=== PATIENT | female | born 1950 | race Caucasian/White ===

== ENCOUNTER 2023-12-13 16:40 | Emergency (ER) | payer MEDICARE, SELFPAY ==
[2023-12-13 16:54] VITALS: BP 120/52; BP 126/42; PULSE 71; PULSE 88; RESP 20; TEMP 36.7; O2SAT 95; O2SAT 98; BMI 35.0
[2023-12-13 16:59] VITALS: BP 126/42; PULSE 71; RESP 21; TEMP 36; O2SAT 95
[2023-12-13 16:59] LABS: Glucose, Whole Blood 103 mg/dL (60-115)
--- OUTSIDE RECORDS SUMMARY | 2023-12-13 17:39 | XMS_ITS | Continuity of Care Document ---
Author Organization [facility] Address [address] [place] [address]- Care Team Providers Care Shipping Lead Person Name Role Phone Moinque Jason Primary Care Physician Encounter [facility] [place] Date(s): 02/20/23 - 02/24/[address] [address]- Discharge Disposition: A-D/C Home Attending Physician: Manisha PINEDA, Jason Riddle Admitting Physician: Jennifer PINEDA, Prakash Olivia Referring Physician: Not on Staff, Referring MD Allergies, Adverse Reactions, Alerts Substance Reaction Severity Status hydrochlorothiazide-triamterene Active penicillins Active Byetta Prefilled Pen Active Immunizations Given and Recorded Vaccine Date Status Refusal Reason [id number] 12y+ bivalent booster vax 05/28/22 Recorded influenza virus vaccine, inactivated 03/08/22 Lew rded SARS-CoV-2 (COVID-19) mRNA-1273 vaccine 11/22/21 R ecorded SARS-CoV-2 (COVID-19) mRNA-1273 vaccine 04/28/21 R ecorded SARS-CoV-2 (COVID-19) mRNA-1273 vaccine 10/18/20 R ecorded SARS-CoV-2 (COVID-19) mRNA-1273 vaccine 09/20/20 R ecorded Medications amLODIPine 10 mg oral tablet 10 mg, Tablet, By Mouth, 02/24/23 9:00:00 EDT Start Date: 02/24/23 Stop Date: 02/24/23 Status: Completed amLODIPine 5 mg oral tablet 10 mg, 2, tablet, By Mouth, Daily, # 30 tablet, Refills 0, Maintenance, 09/21/18 2:37:57 EDT Start Date: 09/21/18 Status: Ordered aspirin 81 mg oral tablet 1 tablet = 81 mg, By Mouth, Daily, # 90 tablet, 0 Refills, Maintenance, 12/10/18 10:23:27 EDT, Tablet Start Date: 12/10/18 Status: Ordered Atenolol = 25 mg, By Mouth, Daily, 0 Refills, Maintenance, 09/21/18 2:38:29 EDT Start Date: 09/21/18 Status: Ordered atenolol 50 mg oral tablet 50 mg, Tablet, By Mouth, 02/24/23 9:00:00 EDT Start Date: 02/24/23 Stop Date: 02/24/23 Status: Completed atenolol 50 mg oral tablet 50 mg, Tablet, By Mouth, 02/22/23 9:00:00 EDT Start Date: 02/22/23 Stop Date: 02/22/23 Status: Completed atenolol 50 mg oral tablet 50 mg, Tablet, By Mouth, 02/23/23 9:00:00 EDT Start Date: 02/23/23 Stop Date: 02/23/23 Status: Completed atorvastatin 80 mg oral tablet 1 tablet = 80 mg, By Mouth, Daily, # 30 tablet, 0 Refills, Maintenance, Tablet Start Date: 09/23/18 Status: Ordered Augmentin 875 mg-125 mg oral tablet 1 tablet, By Mouth, 2 times a day, for 5 days, # 10 tablet, 0 Refills, Acute 03/01/23 14:38:00 EDT,02/24/23 14:38:00 EDT, [id number], Partial fill upon patient request if the prescription is for a schedule II opioid drug., 173, cm, 02/23/23 16:3... Start Date: 02/24/23 Stop Date: 03/01/23 Status: Ordered Basaglar KwikPen 100 units/mL subcutaneous solution = 50 units, Subcutaneous Injection, 2 times a day, 0 Refills, Maintenance, 02/21/23 8:36:00 EDT, Partial fill upon patient request if the prescription is for a schedule II opioid drug. Start Date: 02/21/23 Status: Ordered buPROPion 150 mg/12 hours (SR) oral tablet, extended release 1 tablet = 150 mg, By Mouth, 2 times a day, # 180 tablet, 0 Refills, Maintenance, 09/23/18 13:49:10EDT, ER Tablet Start Date: 09/23/18 Status: Ordered Lasix 20 mg oral tablet 40 mg, 2, tablet, By Mouth, Daily, # 60 tablet, Refills 0, Tot. Refills 0, Maintenance, 09/08/19 9:58:00 EDT, Route to Pharmacy Electronically, [facility] - [address], 173, cm, 09/08/19 7:57:00 EDT, Height, 112.8, kg, 09/07/19 4:51:00 EDT, Dry Weight Start Date: 09/08/19 Stop Date: 10/08/19 Status: Ordered levothyroxine 125 mcg (0.125 mg) oral tablet 1 tablet = 125 mcg, By Mouth, Daily, # 30 tablet, 0 Refills, Maintenance, 09/21/18 2:37:17 EDT, Tablet Start Date: 09/21/18 Status: Ordered Losartan = 100 mg, By Mouth, Daily, 0 Refills, Maintenance, 12/10/18 10:26:36 EDT Start Date: 12/10/18 Status: Ordered losartan 50 mg oral tablet 100 mg, Tablet, By Mouth, 02/24/23 9:00:00 EDT Start Date: 02/24/23 Stop Date: 02/24/23 Status: Completed NovoLOG 100 units/mL subcutaneous solution 20-40units, Subcutaneous Injection, 3 times a day before meals, # 10 mL, 0 Refills, Maintenance, 11/25/22 23:06:00 EDT, Solution, Partial fill upon patient request if the prescription is for a schedule II opioid drug. Start Date: 11/25/22 Status: Ordered Protonix 40 mg oral delayed release tablet 1 tablet = 40 mg, By Mouth, Daily, # 30 tablet, 3 Refills, Maintenance, 06/28/19 8:36:00 EST, EC Tablet, 172.72, cm, 04/19/19 10:29:00 EDT, Height, 108.6, kg, 06/18/19 11:35:00 EST, Dry Weight Start Date: 06/28/19 Status: Ordered Tylenol Extra Strength 500 mg oral tablet 1 tablet = 500 mg, By Mouth, 3 times a day, Med list states 2-3x/day, 0 Refills, Maintenance, 02/20/23 11:32:00 EDT, Partial fill upon patient request if the prescription is for a schedule II opioid drug. Start Date: 02/20/23 Status: Ordered Problem List Condition Confirmation Course Effective Dates Status H ealth Status Informant Acute calculous cholecystitis Confirmed 03/04/13 Active Acute Cholecystitis Confirmed 03/22/13 Active Severe obesity Confirmed Active Results Orders for Microbiology Reports Name Date Sputum Culture w/ Gram Smear 02/21/23 Blood Culture 02/19/23 Blood Culture #2 02/19/23 Urine Culture (URINE CULTURE) 02/19/23 Microbiology Reports TEST:Sputum Culture STATUS:Auth (Verified) BODY SITE: SOURCE:EXPECT COLLECTED DATE/TIME:02/21/23 2:54 PM Sputum Culture SPECIMEN DESCRIPTION : EXPECTORATED SPUTUM SPECIAL REQUESTS : NONE GRAM STAIN : 2+ POLYMORPHONUCLEAR LEUKOCYTES 1+ TISSUE CELLS NO ORGANISMS SEEN CULTURE : 1+ NORMAL KATHY REPORT STATUS : FINAL 02/24/2023 TEST:Blood Culture, Second Order STATUS:Unauthenticated BODY SITE: SOURCE:Blood COLLECTED DATE/TIME:02/19/23 8:17 PM Blood Culture, Second Order SPECIMEN DESCRIPTION : BLOOD RAC SPECIAL REQUESTS : NONE CULTURE : NO GROWTH 4 DAYS REPORT STATUS : PRELIMINARY REPORT TEST:Blood Culture STATUS:Unauthenticated BODY SITE: SOURCE:Blood COLLECTED DATE/TIME:02/19/23 8:15 PM Blood Culture SPECIMEN DESCRIPTION : BLOOD LAC SPECIAL REQUESTS : NONE CULTURE : NO GROWTH 4 DAYS REPORT STATUS : PRELIMINARY REPORT TEST:Urine Culture STATUS:Auth (Verified) BODY SITE: SOURCE:URINE COLLECTED DATE/TIME:02/19/23 7:41 PM Urine Culture SPECIMEN DESCRIPTION : URINE BD TRANSPORT TUBE SPECIAL REQUESTS : NONE CULTURE : >100,000 COL/ML KLEBSIELLA OXYTOCA This isolate was identified using Maldi-TOF system These AST results were performed on the [employer] ID and AST system REPORT STATUS : FINAL 02/22/2023 ORGANISM >100,000 COL/ML KLEBSIELLA OXYTOCA This isolate was identified using Maldi-TOF system These AST results were performed on the [employer] ID and AST system METHOD MIN. INHIB. CONC. (MCG/ML) AMOXICILLIN/CLAVULAN SUSCEPTIBLE AMPICILLIN RESISTANT AMPICILLIN/SULBACTAM SUSCEPTIBLE CEFAZOLIN RESISTANT CEFEPIME SUSCEPTIBLE CEFTRIAXONE SUSCEPTIBLE CIPROFLOXACIN SUSCEPTIBLE ERTAPENEM SUSCEPTIBLE GENTAMICIN SUSCEPTIBLE LEVOFLOXACIN SUSCEPTIBLE MEROPENEM SUSCEPTIBLE NITROFURANTOIN SUSCEPTIBLE PIPERACILLIN/TAZOBAC SUSCEPTIBLE TETRACYCLINE SUSCEPTIBLE TRIMETH/SULFAMETHOX SUSCEPTIBLE Radiology Reports * Exam Date Time Procedure Performing Provider Status 02/24/23 1:43 PM NM Lung Perfusion Newton Payne; Auth (Verified) Notes: (NM Lung Perfusion) Reason For Exam: Other: RESULT: NM Lung Perfusion Pulmonary perfusion scintigraphy dated February 24, 2023. [facility] H[facility]ORY: Shortness of breath. FINDINGS: Today's study was performed with the intravenous infusion of 4.1 mCi of technetium 99m labeled MAA. Perfusion is fairly homogeneous. No segmental or subsegmental perfusion defect is appreciated. IMPRESSION: These findings would not support the diagnosis of pulmonary embolism. Thank you for allowing me to participate in the care of this patient. WSN: [id number] Ordering Physician: Jason Dyer Dictated By: Hugo Ramirez MD Dictated Date/Time: 02/24/23 2:05 pm Reviewed By: Hugo Ramirez MD Signed By: Hugo Ramirez MD Signed Date/Time: 02/24/23 2:05 pm Transcribed By: ABDI Transcribed Date/Time: 02/24/23 2:02 pm * Exam Date Time Procedure Performing Provider Status 02/21/23 1:02 PM Chest Portable Ayesha Jones; Auth (Verified) Notes: (Chest Portable) Reason For Exam: f/u pneumonia ?;Other: RESULT: Chest Portable Chest Portable Reason: Other:; f u pneumonia ?; Clinical Question(s): Other: COMPARISON: 02/19/2023 chest radiograph. FINDINGS: LINES AND TUBES: None. LUNGS AND PLEURA: Clear lungs. Normal pulmonary vascularity. No pleural effusion. No pneumothorax. HEART, MEDIASTINUM AND KARIN: Heart is normal in size. Normal mediastinal and hilar contour. BONES AND SOFT TISSUES: No acute abnormality. IMPRESSION: No acute abnormality. WSN: [id number] Ordering Physician: Jason Dyer Dictated By: Steven Ortiz MD Dictated Date/Time: 02/21/23 1:37 pm Reviewed By: Steven Ortiz MD Signed By: Steven Ortiz MD Signed Date/Time: 02/21/23 1:37 pm Transcribed By: ABDI Transcribed Date/Time: 02/21/23 1:34 pm * Exam Date Time Procedure Performing Provider Status 02/20/23 3:[address] Chest W/O Contrast Marek Felix er; Modified Notes: (CT Chest W/O Contrast) Reason For Exam: Worsening of respiratory status. Better visualization of lung parenchyma.;Other: RESULT: CT Chest W/O Contrast CT Chest W/O Contrast INDICATION: Refer to EMR; Reason: Other:; Worsening of respiratory status. Better visualization of lung parenchyma.; TECHNIQUE: Helical CT scan of the chest without IV contrast, formatted in 3 planes. Weight-based protocol was performed using automatic exposure control. CTDIvol Body: 9.50 mGy, DLP Body: 356 mGy*cm. COMPARISON: CT chest without contrast 08/21/2022. FINDINGS: Bus Attendant view findings, lines and tubes: None. Trachea and airways: Patent without evidence of tracheal or endobronchial lesion. Lungs and pleura: Trace bilateral pleural effusions with adjacent dependent atelectasis of both lower lobes. There is mild smooth intralobular septal thickening predominantly involving both lower lobes, though also evident at the lung apices suggesting mild interstitial edema. Dependent atelectasisinvolving both upper lobes. Mild background paraseptal emphysema. 7 mm groundglass nodular density in the lateral right upper lobe (47/201) may be infectious or inflammatory in etiology. Mediastinum and karin: No mass or hematoma. Similar appearance of numerous prominent mediastinal lymph nodes which include a 1.3 cm short axis precarinal lymph node, previously 1.4 cm and a 1.6 cm subcarinal lymph node, previously 1.7 cm. Small volume of fluid in the esophagus. Partially imaged thyroid is unremarkable. Heart: Heart is normal in size. No pericardial effusion. Severe coronary artery calcification. Moderate calcification of the aortic valve and mitral valve annulus. Aorta: Mild vascular calcification but no aneurysm. Pulmonary arteries: Normal caliber. Chest wall soft tissues: No acute abnormality. Diaphragm: Intact. Upper abdomen: No significant abnormality. Bones: No acute abnormality. Old healed posterior right ninth rib fracture. IMPRESSION: 1. Trace bilateral pleural effusions with adjacent bibasilar passive and dependent atelectasis. 2. Mild interstitial edema. 3. 7 mm groundglass nodular density in the lateral right upper lobe may be infectious or inflammatory etiology. WSN: [id number] Ordering Physician: Jason Dyer Dictated By: Salvador Solis MD Dictated Date/Time: 02/20/23 3:32 pm Reviewed By: Salvador Solis MD Signed By: Salvador Solis MD Signed Date/Time: 02/20/23 3:32 pm Transcribed By: ABDI Transcribed Date/Time: 02/20/23 3:19 pm * Exam Date Time Procedure Performing Provider Status 02/19/23 8:01 PM Chest 2 Views Frontal and Lat Benjamin Silva; Auth (Verified) Notes: (Chest 2 Views Frontal and Lat) Reason For Exam: Shortness of Breath, Fever;Other: RESULT: Chest 2 Views Frontal and Lat Chest 2 Views Frontal and Lat Hx of Present Illness: pt c o left and left upper thigh pain. No known trauma; Reason: Other:; Shortness of Breath, Fever; Clinical Question(s): Pneumonia COMPARISON: 01/09/2023 FINDINGS: LINES AND TUBES: None. LUNGS AND PLEURA: Clear lungs. Normal pulmonary vascularity. No pleural effusion. No pneumothorax. HEART, MEDIASTINUM AND KARIN: Unchanged. BONES AND SOFT TISSUES: No acute abnormality. IMPRESSION: No acute abnormality. WSN: [id number] Ordering Physician: Seth Ya Dictated By: Bret Pedro MD Dictated Date/Time: 02/19/23 8:19 pm Reviewed By: Bret Pedro MD Signed By: Bret Pedro MD Signed Date/Time: 02/19/23 8:19 pm Transcribed By: ABDI Transcribed Date/Time: 02/19/23 8:19 pm Vital Signs Most recent to oldest [Reference Range]: 1 2 3 4 5 Height 173 cm (02/23/23 4:38 PM) 173 cm (02/23/23 9:09 AM) 173 cm (02/21/23 2:11 PM) Weight 104.8 kg (02/23/23 9:39 AM) 106 kg (02/22/23 9:04 AM) 103.8 kg (02/20/23 3:31 PM) Oxygen Saturation [94-100 %] 95 % (02/24/23 3:00 PM) 95 % (02/24/23 12:00 PM) 94 % (8/28/23 8:00 AM) Pulse Rate [55-90 bpm] 63 bpm (02/24/23 8:21 AM) 67 bpm (02/23/23 3:19 PM) 67 bpm (02/22/23 3:07 PM) Body Mass Index [18.5-24.99 kg/m2] 34.68 kg/m2 *>HHI* (02/20/23 3:31 PM) 33.71 kg/m2 *>HHI* (02/19/23 7:27 PM) Blood Pressure [90-138/55-84 mm Hg] 139/46mm Hg *H* (02/24/23 3:00 PM) 131/44mm Hg (02/24/23 12:00 PM) 144/56mm Hg *H* (02/24/23 8:21 AM) 144/56mm Hg *H* (02/24/23 8:21 AM) 144/56mm Hg *H* (02/24/23 8:21 AM) Respiratory Rate [16-30 br/min] 16 br/min (02/24/23 12:00 PM) 16 br/min (02/24/23 10:29 AM) 19 br/min (02/24/23 8:00 AM) Temperature [96.8-100.4 DegF] 97.8 DegF (02/24/23 3:00 PM) 97.7 DegF (02/24/23 12:00 PM) 98.2 DegF (02/24/23 8:00 AM) Liters per Minute 2 L/min (02/24/23 3:00 PM) 2 L/min (02/24/23 12:00 PM) 2 L/min (02/24/23 8:00 AM) Mode of Delivery (Oxygen) Nasal cannula (02/24/23 3:00 PM) Nasal cannula (02/24/23 12:00 PM) Nasal cannula (02/24/23 8:00 AM) Blood pressure sites Arm, left (02/24/23 3:00 PM) Arm, left (02/24/23 12:00 PM) Arm, right (02/24/23 8:00 AM) Temperature Route Oral (02/24/23 3:00 PM) Oral (02/24/23 12:00 PM) Oral (02/24/23 8:00 AM) Dry Weight 103.8 kg (02/20/23 3:31 PM) 100.9 kg (02/19/23 7:28 PM) Weight Obtained Via Bed scale (02/23/23 9:39 AM) Bed scale (02/22/23 9:04 AM) Bed scale (02/20/23 3:31 PM) Dry Weight Obtained Via Bed scale (02/20/23 3:31 PM) Social History Social History Type Response Smoking Status Former smoker, quit more than 30 days ago entered on: 11/25/22 Sex History and physical note * Jennifer PINEDA, Prakash P: PERFORM Event Display: [facility] Physical [facility] Authored Date: [id number] Patient: ??MONY FERRELL ? Age:??72 Years?Sex:??Female?:??1950?? Chief Complaint/Reason for Consultation Left knee and upper thigh pain Difficulty ambulating x 2 days History of Present Illness Date: 02/19/2023 Source: Patient ?? Patient is a??72-year-old obese (BMI 33.71) white female with underlying history of hypertension,??HFpEF,??chronic exertional dyspnea??and hypoxemia??(on home oxygen as needed), chronic kidney disease, and??hypothyroidism??who presents to the emergency room reporting??feeling generally unwell??with flulike symptoms including generalized weakness, mild headache, shortness of breath,??1 episode of non-projectile emesis??and a low-grade fever 99.9 ??F while??at home.?? She has had these her symptoms over the last??2 days.?? Today, she was so weak she could hardly get out of her bed.?? She therefore presented to the emergency room where initial work-up was significant for??finding of a low-grade fever 100.3 ??F and elevated??blood pressure at 185/59 mmHg.?? Blood work revealed a leukocytosis of 14.4 k/cmm and??worsening renal dysfunction with her serum creatinine up to 2.3 from a baseline of around 2.0.?? Urinalysis??done was concerning for UTI with cloudy urine and >182??WBC, and 3+ leukocyte esterase.?? An assessment of??urinary tract infection was made and she was started on int ravenous Ceftriaxone??and admission requested.?? She otherwise has no additional complaints at thistime. Review of Systems 12 system review was completed and is as noted above in the HPI. ??Otherwise the rest of the systemreview was negative. Objective Vital Signs:?? Temp 100.3 F;?? NV 82 bpm;?? RR - 22 br/min;?? BP - 185/59 mmHg;?? SaO2 98% on RA; BMI 33.71? Physical Exam General:??Alert, in no acute cardiopulmonary distress. Mental Status:??Oriented to person, place and time. Normal affect. Head:??Normocephalic. Eyes:??Pupils are equal, round and reactive to light. Extraocular muscles intact. Ear, Nose and Throat:??Oropharynx clear, mucous membranes moist.??Trachea midline. Neck:??Supple, Full range of motion. Respiratory:??Clear to auscultation bilaterally. No wheezing, rales or rhonchi. Cardiovascular:??Heart sounds normal.??Regular rate and rhythm, no murmurs, rubs or gallops. Gastrointestinal:??Abdomen is obese ++, flabby, ??soft, non-tender, non- distended. Normal bowel sounds.?? No hepatosplenomegaly. Genitourinary:??No costovertebral angle tenderness. Neurologic:??AAOx4.?Normal speech & cognition.??Cranial nerves II-XII grossly intact. No focal neurological deficits.??Moves all extremities spontaneously. Sensation intact bilaterally. Skin:??No rashes or lesions. No petechiae or purpura. No edema. Musculoskeletal:??No cyanosis or clubbing. No gross deformities. Normal range of motion. Lymphatics:??Palpation of neck and groin??with no swollen or tender lymph nodes.?? Assessment/Plan 72-year-old obese (BMI 33.71)??female with??history of hypertension, HFpEF, chronic exertional dyspnea and hypoxemia (on home oxygen as needed), chronic kidney disease, and hypothyroidism here with ?? Urinary tract infection (N39.0):? - Urinalysis with findings concerning for a UTI - this is likely the cause of her symptoms - will admit and continue with IV ceftriaxone - follow up on urine cultures and adjust antibiotics appropriately ?? Uncontrolled hypertension (I10):? - BP high at 185/59 - resume??aspirin,??atenolol, and losartan. ?? Unsteady gait (R26.81):? -She states that she has not been able to work for the last 2 days because of pain in the left??upper thigh area -Consulted physical therapy for evaluation -G64??pain in the left upper thigh ?? (HFpEF) heart failure with preserved ejection fraction (I50.30):? -Asymptomatic -Continue with the Lasix ?? CKD (chronic kidney disease), stage IV (N18.4):? -Given the mild worsening of her??renal function -Closely monitor ?? Hyperlipidemia (E78.5):? -Resume atorvastatin ?? Hypothyroidism (E03.9):? -Resume levothyroxine ?? Diabetes mellitus type 2 in obese (E11.69):? -Blood sugar well controlled -Resume insulin??Lantus 50 units twice a day -Add sliding scale??insulin with appropriate coverage. ?? Discharge Planning:? Histories Allergies Hydrochlorothiazide-triamterene? Byetta Prefilled Pen? penicillins? Past Medical History/Problem List Acute calculous cholecystitis CKD (chronic kidney disease), stage 4 Hypertension Hyperlipidemia Hypothyroid Obese class I ? Past Surgical History Cholecystectomy Bilateral total knee replacement Repair of her replaced knee on the left twice Tonsillectomy ? Social History Alcohol Details:??Use: Never. Employment/School Details:??Status: Retired. Exercise Details:??Self assessment: Fair condition. ??Other: Self ambulatory with cane or walker. Home/Environment Details:??Living situation: Home/Independent. ??Lives with: Significant other. ??Oxygen Home equipment:. Nutrition/Health Details:??Diet: Diabetic, Low sodium, Lactose free. Substance Abuse Details:??Use: Never. Tobacco Details:??Use: Former smoker, quit more than 30 days ago. ??Total pack years: 35. ??Stopped at age:56 Years. Electronic Cigarette/Vaping Details:??Electronic Cigarette Use: Never. ? Family History Father: Diabetes mellitus; Heart attack ?? Medications Home Medications Amlodipine??10?Milligram?By Mouth?Daily Aspirin?81?Milligram?By Mouth?Daily Atenolol?50?Milligram?By Mouth?Daily Atorvastatin 80?Milligram?By Mouth?Daily Bupropion??150 mg/12 hours (SR)??-??150?Milligram?By Mouth?2 times a day Furosemide?40?Milligram??By Mouth?Daily?? Insulin Aspart?30-36 Units?Subcutaneous Injection?3 times a day before meals Insulin Glargine (Basaglar KwikPen)?50 Units?Subcutaneous Injection?2 times a day?before a meal Levothyroxine?125?Microgram?By Mouth?Daily Losartan?100?Milligram?By Mouth?Daily Pantoprazole?40?Milligram?By Mouth?Daily ? EKG study * Event Display: ECG 12-Lead Authored Date: Please click on pdf link to open report * Event Display: ECG 12-Lead Authored Date: Ventricular Rate: 58 BPM Atrial Rate: 58 BPM P-R Interval: 240 ms QRS Duration: 94 ms Q-T Interval: 420 ms QTC Calculation(Bazett): 412 ms P Mcfall: -26 degrees R Mcfall: -38 degrees T Mcfall: 98 degrees Sinus bradycardia with sinus arrhythmia with 1st degree A-V block Left axis deviation Abnormal QRS-T angle, consider primary T wave abnormality Abnormal ECG When compared with ECG of 22-FEB-2023 09:49, No significant change was found Confirmed by LAWANDA TORRES ([id number]) on 02/24/2023 8:22:03 AM Maxie: LAWANDA TORRES * Event Display: ECG 12-Lead Authored Date: [id number] Please click on pdf link to open report * Event Display: ECG 12-Lead Authored Date: [id number] Ventricular Rate: 62 BPM Atrial Rate: 62 BPM P-R Interval: 248 ms QRS Duration: 90 ms Q-T Interval: 412 ms QTC Calculation(Bazett): 418 ms R Mcfall: -40 degrees T Mcfall: 96 degrees Sinus rhythm with 1st degree A-V block Left axis deviation Nonspecific ST and T wave abnormality Abnormal ECG When compared with ECG of 21-FEB-2023 05:52, No significant change was found Confirmed by LAWANDA TORRES ([id number]) on 02/24/2023 8:21:35 AM Maxie: LAWANDA TORRES * Event Display: ECG 12-Lead Authored Date: [id number] Please click on pdf link to open report * Event Display: ECG 12-Lead Authored Date: [id number] Ventricular Rate: 65 BPM Atrial Rate: 65 BPM P-R Interval: 240 ms QRS Duration: 90 ms Q-T Interval: 432 ms QTC Calculation(Bazett): 449 ms R Mcfall: -41 degrees T Mcfall: 114 degrees Sinus rhythm with 1st degree A-V block Left axis deviation Nonspecific ST and T wave abnormality Abnormal ECG When compared with ECG of 25-NOV-2022 20:08, Minimal criteria for Septal infarct are no longer Present T wave inversion less evident in Lateral leads Confirmed by SHANNAN FLORES ([id number]) on 02/21/2023 7:45:22 AM Maxie: SHANNAN FLORES [facility] Progress note * Ashley RODRIGUEZ, Junie: MODIFY, SIGN, VERIFY, MODIFY, PERFORM Event Display: [facility] Authored Date: [id number] Patient: MONY FERRELL Age: 72 years Sex: Female : 1950 Associated Diagnoses: None Author: Ashley RODRIGUEZ, Junie Findings Problem Related to Alteration in Respiratory Function (new) : Alteration in Respiratory Function/new 02/24/2023 10:00 EDT Alteration in Resp Status Related to Pneumonia, Other: ?pulmonary edema Goals & Outcomes, Respiratory Pt will maintain/resume baseline physical assessment, Pt will maintain adequate nutritional intake, Pt will maintain/resume normal fluid/electrolyte balance, Pt willnot develop complications r/t immobility Interventions, Respiratory Assess/monitor tolerance to IV infusions; verify rate/dose, Assess for and report S&S of respiratory distress, Position for comfort & optimal oxygenation, Monitor sputum color & consistency. Report changes to MD, Teach/encourage use of incentive spirometer, Teach the proper use of inhalers BH Goals/Interventions, Respiratory Yes Respiratory, Problem Start 02/21/2023 15:50 Reviewed Plan with, Respiratory Patient Patient Progression, Respiratory Patient progressing according to plan . Nursing Data Cardiac Data. : Cardiac Data. 02/24/2023 8:00 EDT Cardiovascular Symptoms Edema present Nail Bed Color, Fingers [place] Nail Bed Color, Toes [place] Clubbing Present No Skin Temperature Upper Extremities Warm Skin Temperature Lower Extremities Warm Jugular Venous Distention Absent at 45 degrees Heart Sounds S1, S2 Heart Rhythm Regular Pacemaker No Monitoring Lead II, V1/MCL1 Atrial Rate 60 bpm Atrial Rhythm Regular Ventricular Rate 60 bpm Ventricular Rhythm Regularly irregular NV Interval 0.25 seconds NV Consistency Consistent P to QRS Ratio 1:1 QRS Duration 0.10 QRS Consistency Consistent QT Interval 0.44 ST Segment Isoelectric T Wave Rounded U Wave Absent Cardiac Rhythm First degree heart block, Sinus arrhythmia (Modified) Capillary Refill < 3 seconds Radial Pulse, Left Normal Radial Pulse, Right Normal Dorsalis Pedis Pulse, Left Normal Dorsalis Pedis Pulse, Right Normal Edema Dependent Edema, Bilateral Ankle Trace, Non-pitting Edema, Bilateral Pedal Trace, Non-pitting Cardiovascular WNL except . Gastrointestinal Data. : Gastrointestinal Data. 02/24/2023 8:00 EDT Gastrointestinal Symptoms None Abdomen Soft, Non-tender, Round Bowel Sounds All Quadrants Present Last Bowel Movement 02/24/2023 GI WNL . Genitourinary Data. : Genitourinary Data. 02/24/2023 8:00 EDT Urinary catheter type Female External Urine Collection Device Urinary catheter intervention Patent, no intervention Urine Color Yellow Urine Description Clear Urine Odor Odorless WNL . Integumentary Data. : Integumentary Data. 02/24/2023 8:00 EDT Skin Color Normal for ethnicity Skin Description Dry Skin Temperature Warm Skin Integrity Intact Skin Turgor Elastic Mucous Membrane Color [place] Mucous Membrane Description Moist Activity Walks frequently Mobility No limitations . Musculoskeletal Data. : Musculoskeletal Data. 02/24/2023 8:00 EDT Musculoskeletal Symptoms None Musculoskeletal Abnormality None Joint Assessment No abnormalities Range of Motion Description Full motion Musculoskeletal WNL . Neurological Data. : Neurological Data. 02/24/2023 8:00 EDT Tongue Disposition Midline Neurological Symptoms None Level of Consciousness Full Consciousness Orientated to person, place, time Person, Place, Time, Event Hallucinations None Facial Symmetry Symmetric Characteristics of Speech Clear and normal Swallowing Difficulty None Gag Reflex Assessment Gag reflex present PERRLA Yes Pupil description, left Regular, Round Pupil description, right Regular, Round Pupil reaction, left Brisk Pupil reaction, right Brisk Pupil Size, Left 3 mm Pupil Size, Right 3 mm Strength All Four Extremities Equally Strong Tone All Four Extremities Normal Sensation all four extremities Intact Movement To All Four Extremities Equal Spontaneous Gait No disturbance Tremors None Seizures No seizure activity noted Response Eye Opening Spontaneously Motor Response-Adult Obeys commands Verbal Response-Adult Oriented and converses Alisa Coma Score 15 Pain ICU Nonverbal Communicates pain/Unable to communicate level Neuro WNL Corneal/Blink Reflex Intact right, Intact left Eyes and Movements Conjugate gaze: Move in same direction at same speed Memory Intact Swallow - Neuro Normal . Respiratory/Pulmonary Data. 02/24/2023 8:00 EDT Mode of Delivery (Oxygen) Nasal cannula Respiratory Symptoms Dyspnea with exertion Respiratory effort Unlabored Chest expansion Symmetrical Tracheal Position Midline Accessory Muscles use No Crepitus present No Upper Airway Clear Cough No cough Respiratory pattern Regular Retraction Location None Left Upper Lobe Breath Sounds Clear Right Upper Lobe Breath Sounds Clear Right Middle Lobe Breath Sounds Clear Left Lower Lobe Breath Sounds Diminished Right Lower Lobe Breath Sounds Diminished Respiratory distress None Respiratory Treatment(s) Cough and deep breathe Tracheostomy/tracheal device present No Respiratory WNL except . Vital Signs : VITAL SIGNS SECTION 02/24/2023 8:21 EDT Pulse Rate 63 bpm Systolic Blood Pressure 144 mm Hg H Systolic Blood Pressure 144 mm Hg H Systolic Blood Pressure 144 mm Hg H Diastolic Blood Pressure 56 mm Hg Diastolic Blood Pressure 56 mm Hg Diastolic Blood Pressure 56 mm Hg 02/24/2023 8:00 EDT Temperature 98.2 DegF Temperature Route Oral Heart Rate Monitored 60 bpm Respiratory Rate 19 br/min Blood pressure sites Arm, right Oxygen Saturation 94 % Liters per Minute 2 L/min Mode of Delivery (Oxygen) Nasal cannula . Narrative/Incidental Assumed pt care at beginning of shift from JENNIFER Cameron. Safe starts checked, bedside report given. Pt assessment and vitals as noted above. VSS at this time, pt NSR/Sinus arrythmia with 1st degree AVB on the monitor. Pt sating 94-96% on 2lpm via NC. Pt awake, alert, sitting up in bed on exam. Pt A&Ox4, answers all questions appropriately, following commands, pt is great historian. ACEVEDO appropriately, neuros intact, pupils PERRLA. Pt ambulatesusing assistance with a walker at baseline d/t chronic pain from knee injury and slightly reduced ROM. Resp. even, unlabored, pt endorses SOB with exertion, similar to baseline, lung sounds clear, diminished to bases on auscultation. Trace amount of pedal/pretibial edema bilat., regular heart sounds noted, CMS+. Abd. soft, nontender, BS present at this time. External urine collection device applied, patent, draining adequate amounts of clear, yellow urine. AM meds given as scheduled. Pt to be at nuclear medicine for 1pm for V/Q scan, plan to discharge after scan per MD Dyer. Plan to continue to monitor resp. status for further changes. V/Q scan completed, discharge order in per MD Dyer, pt to go home with VNA services home, and O2 requirements which are unchanged. Pt escorted off unit via wheelchair with healthcare staff and partner at approx. 1533 hours via wheelchair.. * Sepideh Macdonald RN: MODIFY, SIGN, VERIFY, PERFORM, MODIFY, MODIFY, MODIFY Event Display: Progress Note Hospital Authored Date: Patient: MONY FERRELL Age: 72 years Sex: Female : 1950 Associated Diagnoses: None Author: Sepideh Macdonald RN Findings Problem Related to Alteration in Cardiac Function (new) : Alteration in Cardiac Function/new 02/23/2023 20:00 EDT Alteration in Cardiac Status Related to Heart failure Goals & Outcomes, Cardiac Status Pt will resume/maintain adequate cardiac output, Pt will resume/maintain adequate hemodynamic status, Pt will resume/maintain adequate respiratory function, Pt will resume/maintain intact neuro function, Pt will maintain adequate GI/ function appropriate for pt, Pt/caregiver will state understanding of diagnosis Cardiac Interventions Implemented Assess/monitor cardiac status, Assess/monitor neuro status, Assess/monitor respiratory status, Call/Report variances in ECG to provider, Document & Monitor O2 Sats; Administer O2 as ordered, Monitor ECG w/administration of antiarrhythmics (CO 13.420), Obtain 12Lead ECG and CXR as ordered, Prep pt for treatments & procedures, Teach/encourage deep breath & cough exercises, Teach/encourage use of incentive spirometer, Turn & reposition Q2 hours per activity restrictions Goals/Interventions, Cardiac Yes Cardiac, Problem Start 02/21/2023 15:49 Reviewed Plan with, Cardiac Status Patient Patient Progression, Cardiac Status Patient progressing according to plan . Alteration in Genitourinary : Alteration in Genitourinary Function/new 02/23/2023 20:00 EDT Alteration in Status Related to UTI Goals & Outcomes, Genitourinary Pt will achieve normal/improved fluid balance, Pt will maintainadequate GI function appropriate for pt, Pt will maintain adequate function appropriate for pt, Pt will maintain normal fluid balance, Pt will resume normal pattern of elimination Interventions, Assess/monitor/maintain Genitourinary status, Assist & encourage pt with meticulous cain care, Encourage PO fluid intake as allowed by diet, Assess/monitor effects of antibiotics, Assess/monitor s/s of urinary tract infection Goals/Interventions, Genitourinary Yes Genitourinary, Problem Start 02/21/2023 15:51 Reviewed Plan with, Genitourinary Patient Patient Progression, Genitourinary Patient progressing according to plan Genitourinary, Problem Ongoing Yes . Alteration in Respiratory Function (new) : Alteration in Respiratory Function/new 02/23/2023 20:00 EDT Alteration in Resp Status Related to Pneumonia, Other: ? Goals & Outcomes, Respiratory Pt will maintain/resume baseline physical assessment, Pt will maintain adequate nutritional intake, Pt will maintain/resume normal fluid/electrolyte balance, Pt willnot develop complications r/t immobility Interventions, Respiratory Assess for and report S&S of respiratory distress, Position for comfort & optimal oxygenation, Monitor sputum color & consistency. Report changes to MD, Teach/encourage use of incentive spirometer, Teach purse lip breathing as needed for breathing retraining, Teach tripod positioning to promote air exchange BH Goals/Interventions, Respiratory Yes Respiratory, Problem Start 02/21/2023 15:50 Reviewed Plan with, Respiratory Patient Patient Progression, Respiratory Patient progressing according to plan . Narrative/Incidental Report received from Gabrielle RODRIGUEZ Patient alert and oriented x4. Calm and cooperative with care. Moves all extremities, generalized weakness. Left leg weaker than right due to previous surgeries- baseline for patient. Patient reportschronic left leg pain in thigh and ankle 09/06, denies need for pain medication throughout night. NSR sinus iliana with 1st degree AV block on monitor with HR 50's-60's, occasional PACs. Intermittent sinus arrhythmia noted. B/Ps WNL with map >65. Trace edema present to bilateral hands and legs,non-pitting. Patient denies chest pain/pressure or palpitations. Afebrile. Lung sounds with fine crackles in bilateral bases and right middle lobe. Patient remains on 2L nasal cannula with o2 sats 93-97%. Patient denies SOB at rest. Dyspnea noted with minimal exertion. Patient able to recover quickly following activity, sats down to 84-85% with activity. Occasional nonproductive cough. Patient continues to be cooperative with I/S. Abdomen soft, nontender, positive bowel sounds in all 4 quadrants. Patient with primafit in place and working well, patient voiding clear yellow urine, changed at 1999. Patient also oob x1 with standby assist and walker to commode to have BM, soft blobs- brown. POC blood sugar at bedtime- 196- Patient medicated with Lantus 30 units. Skin intact and patient repositioned q2h/prn for comfort. Barrier cream to buttocks for protection.Call adhikari within reach and bed alarm on for safety. See IVIEW/CIS for further information. Patient down-graded to med surg status, awaiting bed placement.. * Gabrielle Kiran RN: SIGN, PERFORM, SIGN, VERIFY, MODIFY Event Display: Progress Note Hospital Authored Date: [id number] Patient: MONY FERRELL Age: 72 years Sex: Female : 1950 Associated Diagnoses: None Author: Pless RN, Gabrielle Findings Problem Related to Alteration in Cardiac Function (new) : Alteration in Cardiac Function/new 02/23/2023 13:00 EDT Alteration in Cardiac Status Related to Heart failure Goals & Outcomes, Cardiac Status Pt will resume/maintain adequate cardiac output, Pt will resume/maintain adequate hemodynamic status, Pt will resume/maintain adequate respiratory function, Pt will resume/maintain intact neuro function, Pt will maintain adequate GI/ function appropriate for pt, Pt/caregiver will state understanding of diagnosis Cardiac Interventions Implemented Assess/monitor cardiac status, Assess/monitor neuro status, Assess/monitor respiratory status Goals/Interventions, Cardiac Yes Cardiac, Problem Start 02/21/2023 15:49 Reviewed Plan with, Cardiac Status Patient Patient Progression, Cardiac Status Patient progressing according to plan . Alteration in Genitourinary : Alteration in Genitourinary Function/new 02/23/2023 13:00 EDT Alteration in Status Related to UTI Goals & Outcomes, Genitourinary Pt will achieve normal/improved fluid balance, Pt will maintainadequate GI function appropriate for pt, Pt will maintain adequate function appropriate for pt, Pt will maintain normal fluid balance, Pt will resume normal pattern of elimination Interventions, Assess/monitor effects of antibiotics, Assess/monitor s/s of urinary tract infection Goals/Interventions, Genitourinary Yes Genitourinary, Problem Start 02/21/2023 15:51 Reviewed Plan with, Genitourinary Patient Patient Progression, Genitourinary Patient progressing according to plan Genitourinary, Problem Ongoing Yes . Alteration in Respiratory Function (new) : Alteration in Respiratory Function/new 02/23/2023 13:00 EDT Alteration in Resp Status Related to Pneumonia, Other: ? Goals & Outcomes, Respiratory Pt will maintain/resume baseline physical assessment, Pt will maintain adequate nutritional intake, Pt will maintain/resume normal fluid/electrolyte balance, Pt willnot develop complications r/t immobility Interventions, Respiratory Assess for and report S&S of respiratory distress Goals/Interventions, Respiratory Yes Respiratory, Problem Start 02/21/2023 15:50 Reviewed Plan with, Respiratory Patient Patient Progression, Respiratory Patient progressing according to plan . Evaluation See interactive flowsheet for all values and assessments: Neuro: A&Ox4, pupils 3mm PERRLA, brisk. BUE 5/5 strength, BLE 4/5 strength equal movement. Cardiac: On tele SB/NSR/sinus aarythmia with 1st degree HB 50-70s, occ PAC and PVCs. trace edema BLE, palpable pulses and +CMS all extremities. Resp: LS fine crackles and diminished lower bases, WOLF noted when ambulating and rolling in bed, weaned supplemental o2 from 4LNC at 0700 to 2LNC by 1500 with sats maintaining >92%, educated on and encouraged IS. While ambulating o2 sats 84-89% on 4LNC, requiring 6LNC during ambulation, recovered well once at rest on 2LNC. GI: Abdomen soft non-tender, BSx4, denies nausea. c/o heartburn after dinner - DISEASE EDUCATION SPECIALIST Maria A notified, tums given per orders. : incont of clear yellow urine Integ: Skin intact - L heel with blanchable erythema. VSS. VQ scan ordered, unable to do in house until friday - MD Dyer aware. ceftriaxone started per orders. Creat 2.4, MD Dyer aware. c/o pain in L ankle - managed with tylenol and oxy. Callbell in reach, safety measures in place, plan to continue to transfer to acute care.. Discharge Information Rehabilitation Discharge : Rehab Discharge Index 02/21/2023 16:28 EDT Walker: distance 20-50 Full chart review completed Yes Hospital course Adm to [facility] with dx of UTI, uncontrolled htn, unsteady gait, acute hypoxic resp failrue with ?PNA. Other findings Can initiate ADLs with assist to complete secondary to weakness and impaired safety with transfers and balance. At rest on 2L, O2 sat was 96%, HR 59; After ambulation, O2 sat was 88% with c/o minimal SOB. At baseline, pt uses home O2 prn. (Modified) Plan of care PT Gait training, Transfer training, Therapeutic exercise, Functional Activities, Balance training Note * Event Display: Provider Clarification Note Please click on pdf link to open report * Junie Ramirez RN: PERFORM Event Display: Discharge/Transfer Note Hospital Authored Date: [id number] Nursing Discharge Note Entered On: 02/24/2023 15:34 EDT Performed On: 02/24/2023 15:33 EDT by Junie Ramirez RN Nursing Discharge Note 2 Discharge Time : 02/24/2023 15:34 EDT Discharge Level of Care at Discharge : Homehealth/VNA Discharge VNA/Hospice/Home Care(v001) : [facility] Patient Left Unit Via : Wheelchair Patient Accompanied Off Unit with : Significant other DC Instructions Provided & Signed by Pt : Yes Patient Understands D/C Instructions : Yes Patient Instructions Discharge Signed : Yes Did Pt have Specialty Bed or Wound Vac : Junie Ryan RN - 02/24/2023 15:33 EDT * Manisha PINEDA, Jason Riddle: PERFORM Event Display: Discharge/Transfer Note Hospital Authored Date: [id number] Patient: ??MONY FERRELL ? Age:??72 Years?Sex:??Female?:??1950?? Patient Information Discharge Location: [facility] Primary Care Physician: Monique Jason Admit Date/Time: 02/20/23 11:07 Discharge Disposition Discharge Disposition: Home with Home Health Discharge Diagnosis (HFpEF) heart failure with preserved ejection fraction (I50.30) CKD (chronic kidney disease), stage IV (N18.4) Diabetes mellitus type 2 in obese (E11.69) Hyperlipidemia (E78.5) Hypothyroidism (E03.9) Uncontrolled hypertension (I10) Unsteady gait (R26.81) Urinary tract infection (N39.0) ?? _ Discharge Medications Acetaminophen (Tylenol Extra Strength 500 mg oral tablet)?1?tab(s)?500?Milligram?By Mouth?3 times a day?Med list states 2-3x/day Amlodipine (amLODIPine 5 mg oral tablet)?10?Milligram?2?tablet?By Mouth?Daily Amoxicillin-Clavulanate (Augmentin 875 mg-125 mg oral tablet)?1?tab(s)?By Mouth?2 timesa day?for 5?Days Aspirin (aspirin 81 mg oral tablet)?1?tab(s)?81?Milligram?By Mouth?Daily Atenolol?25?Milligram?By Mouth?Daily Atorvastatin (atorvastatin 80 mg oral tablet)?1?tab(s)?80?Milligram?By Mouth?Daily BuPROpion (buPROPion 150 mg/12 hours (SR) oral tablet, extended release)?1?tab(s)?150?Milligram?By Mouth?2 times a day Furosemide (Lasix 20 mg oral tablet)?40?Milligram?2?tablet?By Mouth?Daily?for 30?Days Insulin Aspart (NovoLOG 100 units/mL subcutaneous solution)?20- 40units?Subcutaneous Injection?3 times a day before meals Insulin Glargine (Basaglar KwikPen 100 units/mL subcutaneous solution)?50?unit(s)?Subcutaneous Injection?2 times a day Levothyroxine (levothyroxine 125 mcg (0.125 mg) oral tablet)?1?tab(s)?125?Microgram?By Mouth?Daily Losartan?100?Milligram?By Mouth?Daily Pantoprazole (Protonix 40 mg oral delayed release tablet)?1?tab(s)?40?Milligram?By Mouth?Daily ? Allergies Allergies ?(Active and Proposed Allergies Only) hydrochlorothiazide-triamterene? (Severity: Unknown severity, Onset: Unknown) Byetta Prefilled Pen? (Severity: Unknown severity, Onset: Unknown) penicillins? (Severity: Unknown severity, Onset: Unknown) ? Hospital Course as per H&P. ??72-year-old obese (BMI 33.71) white female with underlying history of hypertension,??HFpEF,??chronic exertional dyspnea??and hypoxemia??(on home oxygen as needed), chronic kidney disease, and??hypothyroidism??who presents to the emergency room on 02/19/2023 reporting??feeling generally unwell??with flulike symptoms including generalized weakness, mild headache, shortness of breath,??1 episode of non-projectile emesis??and a low-grade fever 99.9 ??F while??at home. initial work-up was significant for??finding of a low-grade fever 100.3 ??F and elevated??blood pressure at 185/59 mmHg.?? Blood work revealed a leukocytosis of 14.4 k/cmm and??worsening renal dysfunction with her serum creatinine up to 2.3 from a baseline of around 2.0.?? Urinalysis??done was concerning for UTI with cloudy urine and >182??WBC, and 3+ leukocyte esterase.?? She was then admitted medical floor for further management, started on IV ceftriaxone.?? However her respiratory status worsened??andshe required??high flow nasal cannula and required admission to the ICU.?? Antibiotics were broadened??to vancomycin and Zosyn. ??CT scan??without contrast was obtained??without evidence of significant anemia.?? Over the course of few days in the ICU, her symptoms??significantly improved??with IV??antibiotics.?? Urine grew Pansensitive KLEBSIELLA OXYTOCA.?? Due to concern of??hypoxia on ambulation ,??VQ scan was obtained in the setting of advanced CKD??(CT PE could not be obtained).?? VQ scan came Perfusion is fairly homogeneous with??no segmental or subsegmental perfusion defect is appreciated.?? Which make pulmonary embolism is unlikely.?? She remained??stable in the ICU. ??Therefore, the patient be discharged in stable condition??with few more days of antibiotics. ??She needs to follow-up with??primary care physician in the next 1 to 2 weeks. Objective Assessment and Plan ? Measurements?? Height: 173 cm (02/23/23) Weight: 104.8 kg (02/23/23) Dry Weight: 103.8 kg (02/20/23) Body Mass Index:??34.68 kg/m2??Critical (02/20/23) ? Vital Signs?? Temperature: 97.7 DegF (02/24/23 12:00:00) Temperature Route: Oral (02/24/23 12:00:00) Pulse Rate: 63 bpm (02/24/23 08:21:00) Heart Rate Monitored: 56 bpm (02/24/23 12:00:00) Respiratory Rate: 16 br/min (02/24/23 12:00:00) Systolic Blood Pressure: 131 mm Hg (02/24/23 12:00:00) Diastolic Blood Pressure:??44 mm Hg??Low (02/24/23 12:00:00) Blood pressure sites: Arm, left (02/24/23 12:00:00) Pulse Pressure: 87 mm Hg (02/24/23 12:00:00) Oxygen Saturation: 95 % (02/24/23 12:00:00) Liters per Minute: 2 L/min (02/24/23 12:00:00) Mode of Delivery (Oxygen): Nasal cannula (02/24/23 12:00:00) Early Warning Score: 4 (02/24/23 12:41:05) ? . Physical Exam ?General:??Alert, in no acute cardiopulmonary distress. ?Mental Status:??Oriented to person, place and time. Normal affect. ?Head:??Normocephalic. ?Eyes:??Pupils are equal, round and reactive to light. Extraocular muscles intact. ?Ear, Nose and Throat:??Oropharynx clear, mucous membranes moist.??Trachea midline. ?Neck:??Supple, Full range of motion. ?Respiratory:??Clear to auscultation bilaterally. No wheezing, rales or rhonchi. ?Cardiovascular:??Heart sounds normal.??Regular rate and rhythm, no murmurs, rubs or gallops. ?Gastrointestinal:??Abdomen is obese ++, flabby, ??soft, non-tender, non- distended. Normal bowel sounds.?? No hepatosplenomegaly. ?Genitourinary:??No costovertebral angle tenderness. ?Neurologic:??AAOx4.?Normal speech & cognition.??Cranial nerves II-XII grossly intact. No focal neurological deficits.??Moves all extremities spontaneously. Sensation intact bilaterally. ?Skin:??No rashes or lesions. No petechiae or purpura. No edema. ?Musculoskeletal:??No cyanosis or clubbing. No gross deformities. Normal range of motion. ?Lymphatics:??Palpation of neck and groin??with no swollen or tender lymph nodes.?? _ Pending Results Add On Lab Order ordered on 02/19/2023 Add On Lab Order ordered on 02/20/2023 Blood Culture ordered on 02/19/2023 Blood Culture #2 ordered on 02/19/2023 NM Lung Perf, Particulate and Aerosol ordered on 02/24/2023 Follow-Up Appointments Added Follow Up ?Time Frame ?Comments Monique Jason Post Discharge Care Discharge ?02/24/23 14:36:00 EDT Home Health Face to Face *Denotes mandatory alonso ?? *I certify that this patient is under my care and that I or an allowed non- physician working with me had a face to face encounter with the patient on this date:??02/24/2023 14:42 ?? *The encounter with the patient was in whole, or in part, for the following medical condition, which is the primary diagnosis(es) for home health care:??(HFpEF) heart failure with preserved ejection fraction (I50.30) CKD (chronic kidney disease), stage IV (N18.4) Diabetes mellitus type 2 in obese (E11.69) Hyperlipidemia (E78.5) Hypothyroidism (E03.9) Uncontrolled hypertension (I10) Unsteady gait (R26.81) Urinary tract infection (N39.0) ? *Select the indications for the discipline/s that are being arranged for this patient. Nursing (select all that apply): [_] None [X] Medication management (reconciliation, teaching)?? [X] Chronic disease management?? [_] Wound care and treatment?? [_] Home safety evaluation [_] Administer SQ/IM/IV medications?? [_] Cath care?? [_] Drain care?? [_] Trach or GT care?? Other _ Occupation Therapy (select all that apply): [_] None [_] ADL Management [_] Fall prevention training [_] Energy conservation [_] Cognitive training Other _ Physical Therapy (select all that apply): [_] None [X] Functional mobility training [X] Home exercise program to strengthen [X] Increase ROM?? [_] Falls prevention training [_] Home maintenance program for chronic disease Other _ Speech Therapy (select all that apply): [_] None [_] Swallow evaluation and training [_] Speech and language training [_] Cognitive training to process, organize, and/or recall information Other _ ? *Homebound due to (select all that apply): [X] Inability to leave home without assistance/supervision [_] Inability to ambulate without assistance [_] Pain [_] Decreased strength and endurance [_] Unsteady gait [_] Severe SOB and fatigue [_] Impaired transfers [_] Inability to negotiate stairs [_] Limited weight bearing [_] Mental status change? *Physician Signature:??Jason Dyer MD ?? *By signing this, I certify that I have personally evaluated the patient and agree with the findings and recommendations as documented above. ? F Results Discharge Labs BACTERIOLOGY MRSA PCR Result Negative, MRSA target DNA not detected. ()?? 02/20/2023 18:54 S Aureus ??PCR Result Negative, SA target DNA not detected. ()?? 02/20/2023 18:54 ?? BLOOD COUNT & DIFF WBC 10.9 k/mm3 ()?? 02/24/2023 04:39 RBC 3.33 m/mm3 (Low)?? 02/24/2023 04:39 Hgb 9.0 Gm/dL (Low)?? 02/24/2023 04:39 Hct 27.6 % (Low)?? 02/24/2023 04:39 MCV 82.9 femtoliters ()?? 02/24/2023 04:39 MCH 27.0 pg ()?? 02/24/2023 04:39 MCHC 32.6 g/dL (Low)?? 02/24/2023 04:39 Platelet Count 211 k/mm3 ()?? 02/24/2023 04:39 RDW-SD 47.1 femtoliters (High)?? 02/24/2023 04:39 MPV 9.2 femtoliters (Low)?? 02/24/2023 04:39 Nucleated RBC (Automated) 0.0 #/100 WBC'S ()?? 02/24/2023 04:39 Abs. NRBC 0.0 k/mm3 ()?? 02/24/2023 04:39 Abs. Neut 12.1 k/mm3 (High)?? 02/19/2023 20:15 Abs. Lymph 1.0 k/mm3 ()?? 02/19/2023 20:15 Abs. [place] 1.0 k/mm3 (High)?? 02/19/2023 20:15 Abs. Eo 0.1 k/mm3 ()?? 02/19/2023 20:15 Abs. Baso 0.0 k/mm3 ()?? 02/19/2023 20:15 Neut % 84.1 % (High)?? 02/19/2023 20:15 Lymph % 7.2 % (Low)?? 02/19/2023 20:15 [place] % 7.0 % ()?? 02/19/2023 20:15 Eos % 0.8 % ()?? 02/19/2023 20:15 Baso % 0.3 % ()?? 02/19/2023 20:15 Imm Gran 0.6 % ()?? 02/19/2023 20:15 Abs. Imm Gran 0.1 k/mm3 ()?? 02/19/2023 20:15 ?? CARDIAC Nt-Probnp 2721 pg/mL (High)?? 02/21/2023 12:43 High Sensitivity Troponin (HSTnT) 117 ng/L (Critical)?? 02/21/2023 12:43 ?? CHEM GENERAL Sodium 138 mmol/L ()?? 02/24/2023 04:39 Potassium 4.1 mmol/L ()?? 02/24/2023 04:39 Chloride 106 mmol/L ()?? 02/24/2023 04:39 Bicarbonate Level 22 mmol/L ()?? 02/24/2023 04:39 Anion Gap 10 ()?? 02/24/2023 04:39 Glucose Level 97 mg/dL ()?? 02/24/2023 04:39 Glucose, POC 203 mg/dL (High)?? 02/24/2023 11:30 BUN 39 mg/dL (High)?? 02/24/2023 04:39 Creatinine-Blood 2.0 mg/dL (High)?? 02/24/2023 04:39 Estimated GFR Creatinine 24 ML/MIN/1.73 M2 ()?? 02/24/2023 04:39 Calcium 8.9 mg/dL ()?? 02/24/2023 04:39 Magnesium 2.4 mg/dL (High)?? 02/24/2023 04:39 Protein, Total 6.4 Gm/dL ()?? 02/23/2023 04:44 Albumin 3.1 Gm/dL (Low)?? 02/23/2023 04:44 AG Ratio 0.9 ()?? 02/23/2023 04:44 Alkaline Phosphatase 91 units/L ()?? 02/23/2023 04:44 AST (SGOT) 21 units/L ()?? 02/23/2023 04:44 ALT (SGPT) 24 units/L ()?? 02/23/2023 04:44 Bilirubin, Total 0.5 mg/dL ()?? 02/23/2023 04:44 Lactate 0.7 mmol/L ()?? 02/21/2023 12:43 ?? COAG D-Dimer 0.86 mg/L FEU ()?? 02/19/2023 20:15 ? MISC. CHEMISTRY Procalcitonin 0.26 ng/mL ()?? 02/19/2023 20:15 Hold Gel Top SPECIMEN DISCARDED AFTER 1 WEEK ()?? 02/21/2023 12:43 ?? UA/URINALYSIS Appear/Color, Urine LIGHT YELLOW ()?? 02/19/2023 19:41 Clarity CLOUDY (Abnormal)?? 02/19/2023 19:41 Specific [place], Urine 1.015 ()?? 02/19/2023 19:41 pH, Urine 5.5 ()?? 02/19/2023 19:41 Albumin, Urine 2+ (Abnormal)?? 02/19/2023 19:41 Glucose, Urine NEGATIVE (N)?? 02/19/2023 19:41 Ketones, Urine NEGATIVE (N)?? 02/19/2023 19:41 Bilirubin, Urine NEGATIVE (N)?? 02/19/2023 19:41 Hemoglobin, Urine 1+ (Abnormal)?? 02/19/2023 19:41 Nitrite, Urine NEGATIVE (N)?? 02/19/2023 19:41 Leukocyte, Urine 3+ (Abnormal)?? 02/19/2023 19:41 Urobilinogen NORMAL mg/dL (N)?? 02/19/2023 19:41 WBC's, Urine >182 /HPF (High)?? 02/19/2023 19:41 RBC's, Urine 5 /HPF (High)?? 02/19/2023 19:41 Bacteria SLIGHT HPF (Abnormal)?? 02/19/2023 19:41 WBC Clumps HEAVY /HPF ()?? 02/19/2023 19:41 Hold Urine Culture Testing available 48 hours from time of collection. ()?? 02/19/2023 19:41 ? URINE OTHER Est Creatinine Clearance 26.13 mL/min ()?? 02/24/2023 06:38 ? VIROLOGY COVID-19 by RT-PCR NEGATIVE ()?? 02/19/2023 19:58 ? 50 minutes spent on discharge * Stew RODRIGUEZ, Citlaly: PERFORM, SIGN, VERIFY Event Display: Case Management Discharge Plan Authored Date: Patient: MONY FERRELL Age: 72 years Sex: Female : 1950 Associated Diagnoses: None Author: Citlaly Mathias RN Discharge Plan Case Management Discharge Plan : Case Management Discharge Plan Data 02/24/2023 10:56 EDT Discharge Level of Care at Discharge Homehealth/VNA Discharge [facility]Hospice/Home Care [facility] Discharge Transportation Arranged private car Discharge Arranged Transport Date/Time 02/24/2023 13:00 Mode of Transportation Arranged Other Name of Agency #1 [facility] Service Categories #1 Physical Therapy, Half-Way Service Comments #1 [facility] will call you 1-2 days after discharge to set up follow up appointments Name of Person Notified of Transfer patient Name of Receiving Clinician/Provider allscrisoco * Antonio RODRIGUEZ, Noris: PERFORM, MODIFY Event Display: Patient Education/Instruction Authored Date: [id number] Inpatient Adult Discharge Instructions [place] [id number] Name: MONY FERRELL : 1950 Visit: 02/20/2023 11:07:00 Current Date: 02/24/2023 14:54 Account: [id number] Inpatient Adult Discharge Instructions We would like to thank you for allowing us to assist you with your healthcare needs. The following includes patient education materials and information regarding your injury/illness. Our entire staffstrives to provide an excellent experience for our patients and their families. PLEASE ENSURE YOU FOLLOW-UP PER THE INSTRUCTIONS BELOW! ?? YOUR OPINION IS IMPORTANT TO US! Please complete the survey you may receive by mail or email. Your feedback will be used to make improvements to the healthcare experiences of our patients and their families. Surveys are administered by [employer] ?? If further treatment with your primary care physician or another doctor is recommended, it is important for you to keep the appointment. Call your primary care physician or return to the Emergency Department immediately if your condition worsens, fails to improve, or new symptoms develop. If you need to find a doctor, you can call [facility] [employer] for a referral at [phone] or toll free at [phone] ON [email or web address] ([phone]) or log in to [email or web address].. ?? [facility], in keeping with [facility] guidance, no longer requires face masks for staff, patientsor visitors in most situations. Similiar to time spent indoors at other locations, there is the chance that you were exposed to repiratory viruses during your time with us (such as flu or COVID-19). If you develop symptoms concerning for a viral respiratory infection, please seek testing (and treatment if indicated) from your medical provider or home test kit. ?? You can view and manage your care through the patient portal or by using a health care jose of your choosing. [employer] is a website that allows you to securely view your medical information including your hospital discharge summary, office visit summaries, medications and follow-up visits. You can also request appointments, renew medications, and request access to your medical information using a health care jose of your choosing, or just ask a question. You can enroll at [email or web address] or register during your next office visit. You have been discharged from [facility], Patient Care Unit: [facility]. If you have any questions regarding these instructions after you leave, please call us and we will be happy to assist you. [facility] Your Care Team Attending Physician Jason Dyer MD Discharging Providers Jason Dyer MD Reason for Admission Left knee and upper thigh pain Difficulty ambulating x 2 days Your Diagnosis Urinary tract infection Uncontrolled hypertension Hyperlipidemia (HFpEF) heart failure with preserved ejection fraction Hypothyroidism CKD (chronic kidney disease), stage IV Unsteady gait Diabetes mellitus type 2 in obese Tests Performed Below is a partial list of the tests performed during your hospitalization. You may have had other tests and procedures not included in this list. Please discuss all test results with your provider. Basic Metabolic Panel BNP CBC CBC w/ Differential Comprehensive Metabolic Panel COVID-19 (Novel Coronavirus), Rapid PCR D Dimer GLUCOSE POC High??Sensitivity??Troponin T HOLD GEL TUBE Lactate Level Magnesium Level MRSA PCR Nasal Swab PROCALCITONIN, SERUM Troponin T, High Sensitivity Urinalysis w/hold for Urine Culture URINE MICROSCOPIC Chest CT W/O Contrast CXR Portable NM Lung Perf, Particulate and Aerosol?-- Results Pending -- NM Lung Perfusion XR Chest 2 Views Frontal and Lat You will be contacted within 72 hours with your results. Primary Care Provider Monique Jason Advance Directive Health Care Proxy on File Yes - Health Care Proxy Discharge Vitals Temperature: 97.7 DegF Height: 173 cm Pulse Rate: 63 bpm Weight: 104.8 kg Respiratory Rate: 16 br/min Body Mass Index:??34.68 kg/m2??Critical Systolic Blood Pressure: 131 mm Hg Body surface area: 2.23 Diastolic Blood Pressure:??44 mm Hg??Low ?? Oxygen Saturation: 95 % ?? Studies Pending All tests and labs ordered during this hospital stay have been completed unless listed below. Please discuss all pending results with your provider listed above in these instructions. ?? Add On Lab Order Blood Culture Blood Culture #2 NM Lung Perf, Particulate and Aerosol What to do next Instructions from your Care Team It was a pleasure caring for you during your hospitalization at [facility]. Please take your antibiotics as prescribed and follow- up with your Primary Care??Provider as indicated. If you have any concerns regarding your health please contact your PCP or return to the Emergency Department if necessary. Scheduled Follow-Up Appointments Follow-up with Dr. Jason February 27 at 8:15 A.M. Discharge Medications MONY EFRRELL :1950 Visit Date:02/20/2023 Medications: Please continue your medications until treatment is completed or stopped by your provider. Medications not listed below should be discontinued. Discuss any questions related to medications with your provider. What How Much When Instructions Next Dose New Amoxicillin-Clavulanate (Augmentin 875 mg-125 mg oraltablet) 1 tab(s) Oral Twice a day Duration: 5 Days Pickup at [facility] #[id number] Tonight at bedtime (example: 9am and 9pm schedule). Unchanged Atenolol 25 Milligram Oral Daily Tomorrow morning Unchanged Insulin Aspart (NovoLOG 100 units/ mL subcutaneous solution) 20-40units Subcutaneous Injection 3 times a day before meals Continue taking as you were at home Unchanged Insulin Glargine (Basaglar KwikPen 100 units/ mL subcutaneous solution) 50 unit(s) Subcutaneous Injection Twice a day Continue taking??as you were at home Unchanged Acetaminophen (Tylenol Extra Strength 500 mg oral tablet) 1 tab(s) Oral 3 times a day Med list states 2-3x/ day ?? Continue taking as needed Unchanged Amlodipine (amLODIPine 5 mg oral tablet) 2 tab(s) Oral Daily Tomorrow morning Unchanged Aspirin (aspirin 81 mg oral tablet) 1 tab(s) Oral Daily Tomorrow morning Unchanged Atorvastatin (atorvastatin 80 mg oral tablet) 1 tab(s) Oral Daily Tomorrow morning Unchanged BuPROpion (buPROPion 150 mg/ 12 hours (SR) oral tablet, extended release) 1 tab(s) Oral Twice a day Tonight before bed Unchanged Furosemide (Lasix 20 mg oral tablet) 2 tab(s) Oral Daily Duration: 30 Days Tomorrow morning Unchanged Levothyroxine (levothyroxine 125 mcg (0.125 mg) oral tablet) 1 tab(s) Oral Daily Tomorrow morning before breakfast Unchanged Losartan 100 Milligram Oral Daily Tomorrow morning Unchanged Pantoprazole (Protonix 40 mg oral delayed release tablet) 1 tab(s) Oral Daily Tomorrow morning Pharmacy Information [facility] #[id number]: [address], [place] [id number] [phone] Test Results Below is a partial list of the most recent Laboratory test results done prior to this discharge. You may have had other tests and procedures not included in this list. Please discuss all test resultswith your provider. Est Creatinine Clearance - 26.13 mL/min (02/24/2023) Basic Metabolic Panel (02/24/2023) ???Sodium - 138 mmol/L???Potassium - 4.1 mmol/L???Chloride - 106 mmol/L???Bicarbonate Level - 22 mmol/L???Anion Gap - 10???Glucose Level - 97 mg/dL???BUN - 39 mg/dL???Creatinine-Blood - 2.0 mg/dL???Estimated GFR Creatinine - 24 ML/MIN/1.73 M2???Calcium - 8.9 mg/dL BNP (02/21/2023) ???Nt-Probnp - 2721 pg/mL CBC (02/24/2023) ???WBC - 10.9 k/mm3???RBC - 3.33 m/mm3???Hgb - 9.0 Gm/dL???Hct - 27.6 %???MCV - 82.9 femtoliters???MCH - 27.0 pg???MCHC - 32.6 g/dL???Platelet Count - 211 k/mm3???RDW-SD - 47.1 femtoliters???MPV - 9.2 femtoliters???Nucleated RBC (Automated) - 0.0 #/100 WBC'S???Abs. NRBC - 0.0 k/mm3 CBC w/ Differential (02/19/2023) ???WBC - 14.4 k/mm3???RBC - 4.55 m/mm3???Hgb - 12.2 Gm/dL???Hct - 38.0 %???MCV - 83.5 femtoliters???MCH - 26.8 pg???MCHC - 32.1 g/dL???Platelet Count - 229 k/mm3???RDW-SD - 49.6 femtoliters???MPV - 9.0 femtoliters???Nucleated RBC (Automated) - 0.0 #/100 WBC'S???Abs. NRBC - 0.0 k/mm3???Abs. Neut - 12.1 k/mm3???Abs. Lymph - 1.0 k/mm3???Abs. [place] - 1.0 k/mm3???Abs. Eo - 0.1 k/mm3???Abs. Baso - 0.0 k/mm3???Neut % - 84.1 %???Lymph % - 7.2 %???[place] % - 7.0 %???Eos % - 0.8 %???Baso % - 0.3 %???Imm Gran - 0.6 %???Abs. Imm Gran - 0.1 k/mm3 Comprehensive Metabolic Panel (02/23/2023) ???Sodium - 136 mmol/L???Potassium - 4.1 mmol/L???Chloride - 103 mmol/L???Bicarbonate Level - 23 mmol/L???Anion Gap - 10???Glucose Level - 107 mg/dL???BUN - 43 mg/dL???Creatinine-Blood - 2.4 mg/dL???Estimated GFR Creatinine - 20 ML/MIN/1.73 M2???Calcium - 8.8 mg/dL???Protein, Total - 6.4 Gm/dL???Alb umin - 3.1 Gm/dL???AG Ratio - 0.9???Alkaline Phosphatase - 91 units/L???AST (SGOT) - 21 units/L???ALT (SGPT) - 24 units/L???Bilirubin, Total - 0.5 mg/dL COVID-19 (Novel Coronavirus), Rapid PCR (02/19/2023) ???COVID-19 by RT-PCR - NEGATIVE D Dimer (02/19/2023) ???D-Dimer - 0.86 mg/L FEU GLUCOSE POC (02/24/2023) ???Glucose, POC - 203 mg/dL High??Sensitivity??Troponin T (02/20/2023) ???High Sensitivity Troponin (HSTnT) - 105 ng/L HOLD GEL TUBE (02/21/2023) ???Hold Gel Top - SPECIMEN DISCARDED AFTER 1 WEEK Lactate Level (02/21/2023) ???Lactate - 0.7 mmol/L Magnesium Level (02/24/2023) ???Magnesium - 2.4 mg/dL MRSA PCR Nasal Swab (02/20/2023) ???MRSA PCR Result - Negative, MRSA target DNA not detected.???S Aureus PCR Result - Negative, SA target DNA not detected. PROCALCITONIN, SERUM (02/19/2023) ???Procalcitonin - 0.26 ng/mL Troponin T, High Sensitivity (02/21/2023) ???High Sensitivity Troponin (HSTnT) - 117 ng/L Urinalysis w/hold for Urine Culture (02/19/2023) ???Appear/Color, Urine - LIGHT YELLOW???Clarity - CLOUDY???Specific [place], Urine - 1.015???pH, Urine - 5.5???Albumin, Urine - 2+???Glucose, Urine - NEGATIVE???Ketones, Urine - NEGATIVE???Bilirubin,Urine - NEGATIVE???Hemoglobin, Urine - 1+???Nitrite, Urine - NEGATIVE???Leukocyte, Urine - 3+???Urobilinogen - NORMAL???Hold Urine Culture - Testing available 48 hours from time of collection. URINE MICROSCOPIC (02/19/2023) ? ?WBC's, Urine - >182 /HPF? ?RBC's, Urine - 5 /HPF? ?Bacteria - SLIGHT? ?WBC Clumps - HEAVY Education Materials Below is the list of Educational Leaflet Providered with your Discharge Instructions. Valuables and Belongings I fully understand and agree that [facility] accepts no responsibility for all my personal property including clothing, toilet articles, radios, jewelry, dentures, hearing aids, rings, money, or any other property that is in my possession or is brought to me after admission. I understand certain valuables may be placed in a hospital safe for a short period of time. I understand that the hospital is not liable for loss or damage due to accident, fire, or other natural occurrence while said property is in the safe. I accept full responsibility for any personal property that I keep with me, and will not hold the hospital responsible in case of loss or disappearance. I acknowledge that i have been encouraged to send valuables and belongings home. ?? Date for Pt to Sign Valuables/Belongings: 02/20/23 16:28:00 ?? Other Discharge Information ? Case Management Discharge Plan?? Discharge Plan?? Discharge Agency Information?? Discharge Level of Care at Discharge: Homehealth/[facility]: private car Service Categories #1: Physical Therapy, Half-Way Mode of Transportation Arranged: Other Service [facility]2 [facility] discharge to set up follow up appointments Discharge Arranged Transport Date/Time: 02/24/23 13:00:00 Name of Person Notified of Transfer: patient Discharge VNA/Hospice/Home Care: [facility] Name of Receiving Clinician/Provider: allscripts ? Common Emergency Awareness Tips IS IT A STROKE? Act FAST and Check for these signs: FACE Does the face look uneven? ARM Does one arm drift down? SPEECH Does their speech sound strange? TIME Call at any sign of stroke ?? Heart Attack Signs Chest discomfort: Most heart attacks involve discomfort in the center of the chest and lasts more than a few minutes, or goes away and comes back. It can feel like uncomfortable pressure, squeezing, fullness or pain. Discomfort in upper body: Symptoms can include pain or discomfort in one or both arms, back, neck, jaw or stomach. Shortness of breath: With or without discomfort. Other signs: Breaking out in a cold sweat, nausea, or lightheaded. Remember, MINUTES DO MATTER. If you experience any of these heart attack warning signs, call to get immediate medical attention! ?? Smoking can increase your chances of developing chronic health problems and can cause harmful effects to other family members in your house. If you smoke, you are strongly encouraged to quit. Please call [facility] [employer] at [phone] or [phone] ([phone]) or log in to [email or web address] for referrals to smoking cessation programs. ?? 354 Suicide & Crisis Lifeline is available 20/01 if you or someone you know needs to find a reason to keep living. By calling 650 you'll be connected to a skilled, trained counselor at a crisis center in your area. INPATIENT DISCHARGE INSTRUCTIONS SIGNATURE MONY SANTANA Location:[facility] Registration Date and Time:02/20/2023 11:07 EDT Primary Care Physician: Monique Jason, Attending Physician: Jason Dyer MD, I MONY FERRELL, have received the above patient education materials/instructions and have verbalized understanding. If ambulance or transport services are being used I further acknowledge being givena choice of service. ?? If you need to contact me, please call me at this number: . Patient/Air Director Name: Patient/Air Director Signature: Relationship to Patient: Witness Name/Signature: Date: Patient Care team information Care Team Personnel Name: Delicia Castrejon RN Position: [facility] OB RN Member Role: Primary Care Nurse Name: Monse Dubois RN Position: [facility] RN Member Role: Primary Care Nurse Name: Ava Mishra RN Position: [facility] ED RN W/OE and Tasks Member Role: Primary Care Nurse Name: Monique Jason Position: [facility] Outreach Member Role: PCP Address: Address: [address] [place] [address] Name: Yair Mota Position: [facility] RN Supv Member Role: Primary Care Nurse Name: Wendy Shay RN Position: [facility] RN Member Role: Primary Care Nurse Name: Gabrielle Kiran RN Position: [facility] RN Member Role: Primary Care Nurse Name: Irene Alcantar RN Position: [facility] RN Member Role: Primary Care Nurse Name: Kwasi SALGADO Attending Position: [facility] ED Medicine Name: Angela Bermudez Position: [facility] ED OA Charge Member Role: ED Associate Name: Shayy Gonzalez RN Position: [facility] ED RN W/OE and Tasks Member Role: Patient Care Provider Care Team Related Persons Name: ZARA HOUSTON Address: home [address] [place] [id number]
--- OUTSIDE RECORDS SUMMARY | 2023-12-13 17:39 | XMS_ITS | Continuity of Care Document ---
Author Organization [facility] Address [address] [place] [address]- Care Team Providers Care Regulatory Submissions Associate Name Role Phone Adi SHEEP BONER, Shiraz Primary Care Physician Encounter [facility] Date(s): 11/20/23 - 11/26/[address] [address]- Discharge Disposition: A-Transfer VNA/Home Health Attending Physician: Mary Grace Galloway MD Admitting Physician: Milena Nesbitt NP Referring Physician: Milena Nesbitt NP Allergies, Adverse Reactions, Alerts Substance Reaction Severity Status hydrochlorothiazide-triamterene Active penicillins Active Byetta Prefilled Pen Active Immunizations Given and Recorded Vaccine Date Status Refusal Reason [id number] 12y+ bivalent booster vax 05/28/22 Recorded influenza virus vaccine, inactivated 03/08/22 Lew rded SARS-CoV-2 (COVID-19) mRNA-1273 vaccine 11/22/21 R ecorded SARS-CoV-2 (COVID-19) mRNA-1273 vaccine 04/28/21 R ecorded SARS-CoV-2 (COVID-19) mRNA-1273 vaccine 10/18/20 R ecorded SARS-CoV-2 (COVID-19) mRNA-1273 vaccine 09/20/20 R ecorded Medications amLODIPine 10 mg oral tablet 10 mg, Tablet, By Mouth, 11/26/23 9:00:00 EDT Start Date: 11/26/23 Stop Date: 11/26/23 Status: Completed amLODIPine 5 mg oral tablet 10 mg, 2, tablet, By Mouth, Daily, # 30 tablet, Refills 0, Maintenance, 09/21/18 2:37:57 EDT Start Date: 09/21/18 Status: Ordered aspirin 81 mg oral tablet 1 tablet = 81 mg, By Mouth, Daily, # 90 tablet, 0 Refills, Maintenance, 12/10/18 10:23:27 EDT, Tablet Start Date: 12/10/18 Status: Ordered atenolol 50 mg oral tablet 50 mg, 1, tablet, By Mouth, Daily, # 30 tablet, Refills 0, Maintenance, 11/11/23 22:13:00 EDT, Partial fill upon patient request if the prescription is for a schedule II opioid drug. Start Date: 11/11/23 Status: Ordered atenolol 50 mg oral tablet 50 mg, Tablet, By Mouth, 11/26/23 9:00:00 EDT Start Date: 11/26/23 Stop Date: 11/26/23 Status: Completed atorvastatin 80 mg oral tablet 1 tablet = 80 mg, By Mouth, Daily, # 30 tablet, 0 Refills, Maintenance, Tablet Start Date: 09/23/18 Status: Ordered Basaglar KwikPen 100 units/mL subcutaneous solution = 36 units, Subcutaneous Injection, Daily at bedtime, 0 Refills, Maintenance, 11/11/23 22:16:00 EDT, Partial fill upon patient request if the prescription is for a schedule II opioid drug. Start Date: 11/11/23 Status: Ordered Basaglar KwikPen 100 units/mL subcutaneous solution = 50 units, Subcutaneous Injection, Daily in AM, 0 Refills, Maintenance, 02/21/23 8:36:00 EDT, Partial fill upon patient request if the prescription is for a schedule II opioid drug. Start Date: 02/21/23 Status: Ordered buPROPion 150 mg/12 hours (SR) oral tablet, extended release 1 tablet = 150 mg, By Mouth, 2 times a day, # 180 tablet, 0 Refills, Maintenance, 09/23/18 13:49:10EDT, ER Tablet Start Date: 09/23/18 Status: Ordered ergocalciferol 19338 iu oral capsule 50,000 International_Units, 1, capsule, By Mouth, twice per week Start Date: 11/11/23 Status: Ordered Humalog 100 u/ml subcutaneous injection = 33 units, Subcutaneous Injection, Daily before dinner, 0 Refills, Maintenance, 11/11/23 22:24:00 EDT, Partial fill upon patient request if the prescription is for a schedule II opioid drug. Start Date: 11/11/23 Status: Ordered Humalog 100 u/ml subcutaneous injection = 30 units, Subcutaneous Injection, Daily before lunch, 0 Refills, Maintenance, 11/11/23 22:25:00 EDT, Partial fill upon patient request if the prescription is for a schedule II opioid drug. Start Date: 11/11/23 Status: Ordered Humalog 100 u/ml subcutaneous injection = 36 units, Subcutaneous Injection, Daily before breakfast, 0 Refills, Maintenance, 11/11/23 22:25:00 EDT, Partial fill upon patient request if the prescription is for a schedule II opioid drug. Start Date: 11/11/23 Status: Ordered Icaps AREDS 1 tablet, By Mouth, 2 times a day, 0 Refills, Maintenance, 11/11/23 22:17:00 EDT, Partial fill uponpatient request if the prescription is for a schedule II opioid drug. Start Date: 11/11/23 Status: Ordered Jardiance 10 mg oral tablet 1 tablet = 10 mg, By Mouth, Daily in AM, # 30 tablet, 0 Refills, Maintenance, 11/11/23 22:24:00 EDT, Tablet, Partial fill upon patient request if the prescription is for a schedule II opioid drug. Start Date: 11/11/23 Status: Ordered Lasix 40 mg oral tablet 40 mg, By Mouth, 2 times a day, Refills 0, Maintenance, 11/16/23 15:08:00 EDT, Partial fill upon patient request if the prescription is for a schedule II opioid drug. Start Date: 11/16/23 Status: Ordered levothyroxine 125 mcg (0.125 mg) oral tablet 1 tablet = 125 mcg, By Mouth, Daily, # 30 tablet, 0 Refills, Maintenance, 09/21/18 2:37:17 EDT, Tablet Start Date: 09/21/18 Status: Ordered Losartan = 100 mg, By Mouth, Daily, 0 Refills, Maintenance, 12/10/18 10:26:36 EDT Start Date: 12/10/18 Status: Ordered Protonix 40 mg oral delayed release tablet 1 tablet = 40 mg, By Mouth, Daily, # 30 tablet, 3 Refills, Maintenance, 06/28/19 8:36:00 EST, EC Tablet, 172.72, cm, 04/19/19 10:29:00 EDT, Height, 108.6, kg, 06/18/19 11:35:00 EST, Dry Weight Start Date: 06/28/19 Status: Ordered Tylenol Extra Strength 500 mg oral tablet 2 tablet = 1,000 mg, By Mouth, 3 times a day, 0 Refills, Maintenance, 02/20/23 11:32:00 EDT, Partial fill upon patient request if the prescription is for a schedule II opioid drug. Start Date: 02/20/23 Status: Ordered Problem List Condition Confirmation Course Effective Dates Status H ealth Status Informant Acute calculous cholecystitis Confirmed 03/04/13 Active Acute Cholecystitis Confirmed 03/22/13 Active Obese class I Confirmed Active Results Radiology Reports * Exam Date Time Procedure Performing Provider Status 11/25/23 11:42 AM Chest Portable Ingrid Miles; Auth (Ve rified) Notes: (Chest Portable) Reason For Exam: CHF RESULT: Chest Portable Chest Portable Reason: CHF; Clinical Question(s): CHF COMPARISON: 11/21/2023 and multiple priors. FINDINGS: LINES AND TUBES: None. LUNGS AND PLEURA: Clear lungs. Normal pulmonary vascularity. No pleural effusion. No pneumothorax. HEART, MEDIASTINUM AND ANTHONY: Heart is normal in size. Normal mediastinal and hilar contour. BONES AND SOFT TISSUES: No acute abnormality. IMPRESSION: No acute cardiopulmonary process. No change. I have personally reviewed the images and I agree with this report. WSN: [id number] Ordering Physician: Johan Covarrubias Dictated By: Rey Alexandre MD Dictated Date/Time: 11/25/23 1:56 pm Reviewed By: Michel Lee MD, V Signed By: Michel Lee MD, V Signed Date/Time: 11/25/23 2:01 pm Transcribed By: ABDI Transcribed Date/Time: 11/25/23 1:53 pm * Exam Date Time Procedure Performing Provider Status 11/22/23 6:[address] Abdomen and Pelvi s W/O Contrast Saadia Alcala; Kimberly (Verified) Notes: (CT Abdomen and Pelvis W/O Contrast) Reason For Exam: Pain RESULT: CT Abdomen and Pelvis W/O Contrast CT Abdomen and Pelvis W/O Contrast Reason: Pain; Clinical Question(s): Diverticulitis; For worsening diverticulitis or abscess formation TECHNIQUE: Spiral CT through the abdomen and pelvis without IV contrast formatted in 3 planes. Thisstudy was performed without oral contrast. Weight- based protocol using automatic tube modulation was used to optimize exposure parameters. CTDIvol Body: 23.84 mGy, DLP Body: 1196 mGy*cm. COMPARISON: CT abdomen pelvis 11/20/2023 FINDINGS: Experimental Electronics Developer View Findings, Lines and Tubes: None. Visualized Chest: Dependent bibasilar atelectasis. Mild emphysematous changes. No pleural effusion.The heart is normal in size. Moderate coronary calcifications. No pericardial effusion. Diaphragm: Normal. Liver: Normal. Gallbladder: Absent consistent with prior cholecystectomy. Bile ducts: No biliary ductal dilation. Spleen: Normal. Accessory splenic tissue is incidentally noted. Pancreas: Normal. Adrenal glands: Normal. Kidneys and ureters: Mild bilateral perinephric stranding, unchanged. No hydronephrosis, stones, ornoncontrast evidence of suspicious masses. Bladder: Normal. Reproductive organs: Unremarkable. Stomach, small bowel, and large bowel: No specific findings of diverticulitis. There is a scattereddiverticula in the sigmoid colon. There may be some wall thickening in the sigmoid colon as well aspossibly within the left colon and splenic flexure. Possible findings of colitis. Appendix: No evidence of appendicitis. Peritoneum and retroperitoneum: No ascites or pneumoperitoneum. No omental or mesenteric lesions. Lymph nodes: No enlarged lymph nodes. Blood vessels: Severe atherosclerotic vascular calcification but no aneurysm. Abdominal and pelvic wall: Diffuse subcutaneous fat stranding with areas of punctate calcificationsalong the central abdominal and lower abdominal wall, likely related to prior injections. Bones: No acute abnormality. Degenerative changes of the visualized spine. IMPRESSION: No findings to indicate diverticulitis or abscess. Wall thickening noted in the sigmoid colon and left colon. Possible mild diffuse colitis. I have personally reviewed the images and I agree with this report. WSN: [id number] Ordering Physician: Mary Grace Galloway Dictated By: Ana Felder DO Dictated Date/Time: 11/22/23 7:09 pm Reviewed By: Danish Fraser MD Signed By: Danish Fraser MD Signed Date/Time: 11/22/23 7:14 pm Transcribed By: ABDI Transcribed Date/Time: 11/22/23 6:43 pm * Exam Date Time Procedure Performing Provider Status 11/21/23 11:15 AM Chest 2 Views Frontal and Lat Chel Calixto; Auth (Verified) Notes: (Chest 2 Views Frontal and Lat) Reason For Exam: CHF RESULT: Chest 2 Views Frontal and Lat Examination: Chest performed on 11/21/2023. History: CHF. Findings: Frontal and lateral views of the chest are compared to a prior study dated 11/20/2023. The cardiac and mediastinal silhouettes are within normal limits. The lungs are clear. The osseous and soft tissue structures are unremarkable. Impression: There is no acute cardiopulmonary disease. WSN: [id number] Ordering Physician: Ava Benavides Dictated By: Sarah Jimenez MD Dictated Date/Time: 11/21/23 11:21 a Reviewed By: Sarah Jimenez MD Signed By: Sarah Jimenez MD Signed Date/Time: 11/21/23 11:21 am Transcribed By: CSB Transcribed Date/Time: 11/21/23 11:20 am * Exam Date Time Procedure Performing Provider Status 11/20/23 2:04 PM Chest Portable Saadia Alcala; Auth ( Verified) Notes: (Chest Portable) Reason For Exam: Shortness of Breath RESULT: Chest Portable Examination: Portable chest performed on 11/20/2023. History: CHF exacerbation. Shortness of breath. Findings: A frontal view of the chest is compared to a prior study dated 11/16/2023. The cardiac and mediastinal silhouettes are within normal limits. The lungs are clear. Osteophyte formation within the thoracic spine is demonstrated. Impression: There is no acute cardiopulmonary disease. WSN: [id number] Ordering Physician: You Nolen Dictated By: Sarah Jimenez MD Dictated Date/Time: 11/20/23 2:50 pm Reviewed By: Sarah Jimenez MD Signed By: Sarah Jimenez MD Signed Date/Time: 11/20/23 2:50 pm Transcribed By: CSB Transcribed Date/Time: 11/20/23 2:49 pm * Exam Date Time Procedure Performing Provider Status 11/20/23 1:[address] Abdomen and Pelvi s W/O Contrast Ava Matson; Auth (Verified) Notes: (CT Abdomen and Pelvis W/O Contrast) Reason For Exam: Flank pain, kidney stone suspected;Other: RESULT: CT Abdomen and Pelvis W/O Contrast CT Abdomen and Pelvis W/O Contrast Reason: Left Flank pain. Clinical Question(s): Calculus TECHNIQUE: Spiral CT through the abdomen and pelvis without IV contrast formatted in 3 planes. Thisstudy was performed without oral contrast. Weight- based protocol using automatic tube modulation was used to optimize exposure parameters. CTDIvol Body: 37.59 mGy, DLP Body: 1895 mGy*cm. COMPARISON: 01/31/2019. FINDINGS: Visualized Chest: Mild basilar atelectasis. Status post mitral valve placement. No pleural effusion. The heart is normal in size. No pericardial effusion. Liver: Normal. Gallbladder: Status post cholecystectomy. Bile ducts: No biliary ductal dilation. Spleen: Normal. Accessory splenic tissue is incidentally noted. Pancreas: Diffuse parenchymal atrophy. Adrenal glands: Normal. Kidneys and ureters: No evidence of urolithiasis or hydroureteronephrosis. Mild nonspecific perinephric fat stranding bilaterally. Bladder: Normal. Reproductive organs: Unremarkable. Stomach, small bowel, and large bowel: Sigmoid colon diverticulosis with very subtle eccentric thickening and surrounding soft tissue stranding in the mid sigmoid colon (image 127 series 2). No pericolonic fluid collections or masses. Appendix: Normal. Peritoneum and retroperitoneum: No ascites or pneumoperitoneum. No omental or mesenteric lesions. Lymph nodes: No enlarged lymph nodes. Blood vessels: Severe atherosclerotic vascular calcification but no aneurysm. Abdominal and pelvic wall: Diffuse subcutaneous fat thickening with areas of punctate calcifications of the central abdomen and lower abdominal wall, likely related to prior injection sites. Tiny fat-containing umbilical hernia. Bones: No acute abnormality. IMPRESSION: Gastrointestinal findings concerning for possible early uncomplicated sigmoid diverticulitis. No urinary tract calculi. The impression above was relayed to You Nolen MD by Dr. Dena Augustin via i-nexus awaiting response on 11/20/2023 at 2:29 PM. I have personally reviewed the images and I agree with this report. WSN: [id number] Ordering Physician: You Nolen Dictated By: Dena Augustin MD Dictated Date/Time: 11/20/23 2:38 pm Reviewed By: Luis E Roach MD Signed By: Luis E Roach MD Signed Date/Time: 11/20/23 2:43 pm Transcribed By: ABDI Transcribed Date/Time: 11/20/23 2:29 pm Vital Signs Most recent to oldest [Reference Range]: 1 2 3 Height 174 cm (11/26/23 11:23 AM) 174 cm (11/26/23 7:19 AM) 174 cm (11/26/23 4:09 AM) Weight 104.2 kg (11/21/23 1:38 AM) 104 kg (11/20/23 9:27 PM) 103.6 kg (11/20/23 8:10 PM) Oxygen Saturation [94-100 %] 96 % (11/26/23 11:23 AM) 96 % (11/26/23 7:19 AM) 97 % (11/26/23 4:09 AM) Pulse Rate [55-90 bpm] 61 bpm (11/26/23 11:23 AM) 74 bpm (11/26/23 8:22 AM) 74 bpm (11/26/23 7:19 AM) Body Mass Index [18.5-24.99 kg/m2] 34.42 kg/m2 *>HHI* (11/21/23 1:38 AM) 34.35 kg/m2 *>HHI* (11/20/23 9:27 PM) 34.22 kg/m2 *>HHI* (11/20/23 8:10 PM) Blood Pressure [90-138/55-84 mm Hg] 147/50mm Hg *H* (11/26/23 11:23 AM) 153/40mm Hg *H* (11/26/23 8:22 AM) 157/40mm Hg *H* (11/26/23 8:22 AM) Respiratory Rate [16-30 br/min] 18 br/min (11/26/23 11:23 AM) 16 br/min (11/26/23 7:19 AM) 16 br/min (11/26/23 4:09 AM) Temperature [96.8-100.4 DegF] 97.9 DegF (11/26/23 11:23 AM) 98.1 DegF (11/26/23 7:19 AM) 98.2 DegF (11/26/23 4:09 AM) Liters per Minute 2 L/min (11/26/23 11:23 AM) 2 L/min (11/26/23 7:19 AM) 2 L/min (11/26/23 4:09 AM) Mode of Delivery (Oxygen) Nasal cannula (11/26/23 11:23 AM) Nasal cannula (11/26/23 7:19 AM) Nasal cannula (11/26/23 4:09 AM) Blood pressure sites Arm, left (11/26/23 11:23 AM) Arm, right (11/26/23 7:19 AM) Arm, right (11/26/23 4:09 AM) Temperature Route Oral (11/26/23 11:23 AM) Oral (11/26/23 7:19 AM) Oral (11/26/23 4:09 AM) Dry Weight 104 kg (11/20/23 9:27 PM) 103 kg (11/20/23 6:12 PM) 103 kg (11/20/23 11:51 AM) Weight Obtained Via Bed scale (11/20/23 9:27 PM) Bed scale (11/20/23 8:10 PM) Social History Social History Type Response Smoking Status Former smoker, quit more than 30 days ago; Other: .; Total pack years: 35; Stopped at age: 56; entered on: 11/11/23 Sex Consult note * Noris PINEDA, Chuy E: PERFORM, MODIFY Event Display: Consult Authored Date: [id number] Patient: ??MONY FERRELL ? Age:??72 Years?Sex:??Female?:??1950?? Chief Complaint/Reason for Consult Diverticulitis History of Present Illness 72-year-old??female with history of CHF, demand ischemia/NSTEMI, CKD stage III, hypertension, hypothyroidism who was recently hospitalized and discharged on 11/15.?? She represented to the emergency department with lower abdominal pain since a day or 2 after going home.?? He states that she has beenconstipated and only has had small pellet-like bowel movements with an episode of emesis.?? She hasremained nauseated and has avoided food for that reason.?? In the ED, she was afebrile and hemodynamically stable, slightly hypertensive.?? Labs revealed a leukocytosis of 23, LENORA with creatinine of 2.7 and.?? UA was negative for nitrite and leukocyte esterases.?? For concern of abdominal pain a CTabdomen pelvis was obtained which demonstrated sigmoid diverticulosis with thickening and surrounding soft tissue stranding around the mid sigmoid concerning for early uncomplicated sigmoid diverticulitis.? On my assessment, she was resting comfortably in bed currently by her partner in the room.?? Shewas on nasal cannula which is her baseline at home.?? She was drinking water without nausea or vomiting although she says she had just gotten Zofran.?? She states that her last colonoscopy was a few years ago, on review of the chart it was in 2019 that showed diffuse diverticulosis.?? Her pain was r elieved with pain medications which was understandably frustrated about being back in the hospital. Review of Systems A 12-system review of systems is negative unless as noted on the HPI/Subjective above Physical Exam Vitals & Measurements T:??97.9?F?? HR:??57??(Peripheral)?? RR:??16?? BP:??131/40?? SpO2:??96%?? HT:??174??cm?? WT:??104.2??kg?? BMI:??34.42?? General: no acute distress, non toxic, resting comfortably HEENT: PERRLA, MMM Neck: midline trachea, no deformities Lungs: nonlabored breathing. Not on supplemental O2 Heart: RRR Abdomen: Soft, appropriately tender, not distended. Incisions are dry, clean, and intact. Extremities: no deformities, no edema, palpable pulses Assessment/Plan ??72-year-old female with a medical comorbidities presenting with??first episode of acute uncomplicated diverticulitis.?? She is on a clear liquid diet??and tolerating it without much nausea or vomiting reportedly.?? She is on antibiotics. ??There is no??imaging concerns for abscess??or perforationand her exam is??benign except for the suprapubic tenderness as expected. ??She denies any history of??fecaluria or pneumaturia??and there is no indication on imaging??that there??is a??fistula??forming.?? As such she can proceed with??medical management??for diverticulitis. ? Recommendations No acute surgical intervention indicated CLD-->advance as tolerated Abx per primary team Recommend outpatient colonoscopy 6 weeks after this episode of diverticulitis Surgery will sign off ?? Discussed with Dr. Vega Problem List/Past Medical History Ongoing Acute calculous cholecystitis Acute Cholecystitis CKD (chronic kidney disease), stage III HTN (hypertension) Hypothyroid Obese class I Procedure/Surgical History No qualifying data available. Home Medications Acetaminophen: 1,000 mg = 2 tablet, By Mouth, 3 times a day Amlodipine: 10 mg = 2 tablet, By Mouth, Daily Aspirin: 81 mg = 1 tablet, By Mouth, Daily Atenolol: 50 mg = 1 tablet, By Mouth, Daily Atorvastatin: 80 mg = 1 tablet, By Mouth, Daily BuPROpion: 150 mg = 1 tablet, By Mouth, 2 times a day empagliflozin: 10 mg = 1 tablet, By Mouth, Daily in AM Ergocalciferol: 50,000 International_Units = 1 capsule, By Mouth, twice per week Furosemide: 40 mg, By Mouth, 2 times a day Insulin Glargine: 50 units, Subcutaneous Injection, Daily in AM Insulin Glargine: 36 units, Subcutaneous Injection, Daily at bedtime Insulin Lispro: 33 units, Subcutaneous Injection, Daily before dinner Insulin Lispro: 30 units, Subcutaneous Injection, Daily before lunch Insulin Lispro: 36 units, Subcutaneous Injection, Daily before breakfast Levothyroxine: 125 mcg = 1 tablet, By Mouth, Daily Losartan: 100 mg, By Mouth, Daily Multivitamin With Minerals: 1 tablet, By Mouth, 2 times a day Pantoprazole: 40 mg = 1 tablet, By Mouth, Daily Allergies Byetta Prefilled Pen hydrochlorothiazide-triamterene penicillins Social History Alcohol Use: Never. Other: .. Electronic Cigarette/Vaping Electronic Cigarette Use: Never. Employment/School Status: Retired. Exercise Self assessment: Fair condition. Other: Self ambulatory with cane or walker. Home/Environment Living situation: Home/Independent. Lives with: Spouse. Nutrition/Health Diet: Diabetic, Low sodium, Lactose free. Substance Abuse Use: Never. Other: .. Tobacco Use: Former smoker, quit more than 30 days ago. Other: .. Total pack years: 35. Stopped at age: 56 Years. Family History Father: Diabetes mellitus; Heart attack Radiology * Final Report * ?? Reason For Exam Flank pain, kidney stone suspected;Other: ?? RESULT: CT Abdomen and Pelvis W/O Contrast CT Abdomen and Pelvis W/O Contrast? Reason: Left Flank pain. Clinical Question(s): Calculus ?? TECHNIQUE: Spiral CT through the abdomen and pelvis without IV contrast formatted in 3 planes. Thisstudy was performed without oral contrast. Weight- based protocol using automatic tube modulation was used to optimize exposure parameters. CTDIvol Body: 37.59 mGy, ??DLP Body: 1895 mGy*cm. ? COMPARISON: 01/31/2019. ?? FINDINGS:?? Visualized Chest: Mild basilar atelectasis. Status post mitral valve placement.?? No pleural effusion. The heart is normal in size. No pericardial effusion. ?? Liver: Normal. ?? Gallbladder: Status post cholecystectomy. ?? Bile ducts: No biliary ductal dilation. ?? Spleen: Normal. Accessory splenic tissue is incidentally noted. ?? Pancreas: Diffuse parenchymal atrophy. ?? Adrenal glands: Normal. ?? Kidneys and ureters: No evidence of urolithiasis or hydroureteronephrosis. ?? Mild nonspecific perinephric fat stranding bilaterally. ?? Bladder: Normal. ?? Reproductive organs: Unremarkable. ?? Stomach, small bowel, and large bowel: Sigmoid colon diverticulosis with very subtle eccentric thickening and surrounding soft tissue stranding in the mid sigmoid colon (image 127 series 2). No pericolonic fluid collections or masses. ? Appendix: Normal. ?? Peritoneum and retroperitoneum: No ascites or pneumoperitoneum. No omental or mesenteric lesions. ?? Lymph nodes: No enlarged lymph nodes. ?? Blood vessels: Severe atherosclerotic vascular calcification but no aneurysm. ?? Abdominal and pelvic wall: Diffuse subcutaneous fat thickening with areas of punctate calcifications of the central abdomen and lower abdominal wall, likely related to prior injection sites. Tiny fat-containing umbilical hernia. ?? Bones: No acute abnormality. ?? IMPRESSION:? Gastrointestinal findings concerning for possible early uncomplicated sigmoid diverticulitis. No urinary tract calculi. ?? The impression above was relayed to You Nolen MD by Dr. Dena Augustin via [employer] awaiting response on 11/20/2023 at 2:29 PM. ? I have personally reviewed the images and I agree with this report. WSN: [id number] Lab Results Labs Last 24 Hours BLOOD COUNT & DIFF ? Event Name?? Event Result?? Date/Time?? WBC 23.6 k/mm3??High 11/21/23 06:34:00 RBC 2.92 m/mm3??Low 11/21/23 06:34:00 Hgb 8.1 Gm/dL??Low 11/21/23 06:34:00 Hct 26.6 %??Low 11/21/23 06:34:00 MCV 91.1 femtoliters 11/21/23 06:34:00 MCH 27.7 pg 11/21/23 06:34:00 MCHC 30.5 g/dL??Low 11/21/23 06:34:00 Platelet Count 277 k/mm3 11/21/23 06:34:00 MPV 8.7 femtoliters??Low 11/21/23 06:34:00 Nucleated RBC (Automated) 0 #/100 WBC'S 11/21/23 06:34:00 ? CHEM GENERAL ? Event Name?? Event Result?? Date/Time?? Sodium 135 mmol/L 11/21/23 06:34:00 Chloride 100 mmol/L 11/21/23 06:34:00 Bicarbonate Level 17 mmol/L??Low 11/21/23 06:34:00 Anion Gap 18??High 11/21/23 06:34:00 Glucose Level 114 mg/dL??High 11/21/23 06:34:00 BUN 83 mg/dL??High 11/21/23 06:34:00 Creatinine-Blood 2.82 mg/dL??High 11/21/23 06:34:00 Phosphorus 4.7 mg/dL??High 11/21/23 06:34:00 Magnesium 2.6 mg/dL??High 11/21/23 06:34:00 Alkaline Phosphatase 92 units/L 11/20/23 11:58:00 Lipase 19 units/L 11/20/23 11:58:00 AST (SGOT) 18 units/L 11/20/23 11:58:00 ALT (SGPT) 24 units/L 11/20/23 11:58:00 Bilirubin, Total 0.2 mg/dL 11/20/23 11:58:00 ? Admission evaluation note * Vikas Odom: PERFORM Event Display: Admission Note Authored Date: [id number] Patient: ??MONY FERRELL ? Age:??72 Years?Sex:??Female?:??1950?? Chief Complaint/Reason for Consultation Abd Pain History of Present Illness DOS: 11/20/2023 ?? 72-year-old female with a significant past medical history of CHF exacerbation, demand ischemia/NSTEMI, CKD stage III, hypertension, hypothyroidism, severe obesity, and a recent hospitalization discharge on 11/16/2023. She presented with lower abdominal pain for the past 3 to 4 days. She also reported constipation and had not had a bowel movement for the same duration, accompanied by one episode of nonbloody emesis earlier today. She denies chest pain, fever, cough, or abnormal urinary symptoms. Dyspnea has been stable since her discharge. She uses 1L home O2 and has chronic intermittent rig ht leg swelling, which remains within her baseline. Physical examination in the ED revealed an alert and yai-dxrhy-czhjemauy patient, breathing comfortably without accessory muscle use. Her abdominal exam showed mild tenderness throughout the lower abdomen without rebound or guarding. Lab results were notable for leukocytosis with WBC at 23.7, anemia with Hgb at 9.4, elevated creatinine at 2.78 (recently increased), and hypoglycemia with glucose at 60. Imaging included a chest X-ray showing no acute disease and a CT abdomen/pelvis indicating findings consistent with possible early uncomplicated sigmoid diverticulitis, without evidence of urinary tract calculi. The patient was given Zofran and morphine for symptom control. Due to her elevated white count and increasing creatinine, the CT was conducted without contrast. She was also started on D5 normal saline at 75 cc/hr for hypoglycemia. After re-evaluation, her pain had improved but persisted. The decision was made to start Levaquin and Flagyl for suspected diverticulitis and admit her for further management. The patient???s vital signs remained stable throughout the evaluation, and full 30 cc/kg IVfluids were held to avoid risk of CHF exacerbation. Review of Systems All other systems were reviewed and are negative. Objective Measurements?? Height: 174 cm (11/21/23) Weight: 104.2 kg (11/21/23) Dry Weight: 104 kg (11/20/23) Body Mass Index:??34.42 kg/m2??Critical (11/21/23) ? Vital Signs?? Temperature: 98.4 DegF (11/21/23 03:50:00) Temperature Route: Oral (11/21/23 03:50:00) Pulse Rate: 61 bpm (11/21/23 03:50:00) Respiratory Rate: 18 br/min (11/21/23 03:50:00) Systolic Blood Pressure: 131 mm Hg (11/21/23 03:50:00) Diastolic Blood Pressure:??49 mm Hg??Low (11/21/23 03:50:00) Blood pressure sites: Arm, right (11/21/23 03:50:00) Mean Arterial Pressure: 76 mm Hg (11/21/23 03:50:00) Pulse Pressure: 82 mm Hg (11/21/23 03:50:00) Oxygen Saturation:??1 %??Low (11/21/23 03:50:00) Liters per Minute: 1 L/min (11/21/23 01:38:00) Mode of Delivery (Oxygen): Nasal cannula (11/21/23 03:50:00) Early Warning Score: 7 (11/21/23 05:37:46) ? Perfusion Assessment Capillary Refill: < 3 seconds (11/21/23 02:48:00) Cardiac Rhythm: Normal sinus rhythm (11/21/23 02:48:00) Cardiovascular: WNL except (11/21/23 02:48:00) Cardiovascular Symptoms: None (11/20/23 21:00:00) Clubbing Present: No (11/20/23 21:00:00) Nail Bed Color, Fingers: [place] (11/21/23 02:48:00) Nail Bed Color, Toes: [place] (11/21/23 02:48:00) Skin Temperature Lower Extremities: Warm, Dry (11/21/23 02:48:00) Skin Temperature Upper Extremities: Warm, Dry (11/21/23 02:48:00) ? Pain Scores 1 - 10 Pain Scale Score: 8 (11:51) Pain relief acceptable: Yes (19:50) Pain relief acceptable: Yes (19:50) ? Ventilator Settings?? No qualifying data available. ?? Intake/Output? 11/19 16:04 11/20 07:00 11/19 07:00 11/18 07:00 11/17 07:00 ?? 11/20 05:53 11/20 05:53 11/20 06:59 11/19 06:59 11/18 06:59 Intake ?590 ?0 ?590 ?0 ?0 Output ?0 ?0 ?0 ?0 ?0 Net Total ?590 ?0 ?590 ?0 ?0 ? Urine Count ?1 ?0 ?1 ?0 ?0 ? Precautions No Precautions documented.? [place] Coma Scale [place] Coma Score: 15 (11/20/23 21:00:00) Motor Response-Adult: Obeys commands (11/20/23 21:00:00) Response Eye Opening: Spontaneously (11/20/23 21:00:00) Verbal Response-Adult: Oriented and converses (11/20/23 21:00:00) ? Basic ADLs Activity Assistance: Standby assist (11/20/23) Ambulatory devices needed: None (11/20/23) ? Mobility & Ambulation Level Mobility & Ambulation Level Activity Assistance: Standby assist (11/20/23) Activity Status ADL: Ambulating in room, Back to bed, Bathroom privileges (11/20/23) Ambulation Patient Response: Tolerated well (11/20/23) Ambulatory devices needed: None (11/20/23) ?? Therapeutic Activity Therapeutic Activities/Mobility/Balance?? No qualifying data available. ? Physical Exam Assessment/Plan Diagnoses CKD (chronic kidney disease) ??(N18.9) Chronic hypoxic respiratory failure, on home oxygen therapy ??(J96.11) Constipation ??(K59.00) Diverticulitis ??(K57.92) Heart failure with preserved ejection fraction ??(I50.30) Hypertension ??(I10) Hypothyroidism ??(E03.9) Morbid obesity ??(E66.01) UTI (urinary tract infection) ??(N39.0) ?? ?UTI (urinary tract infection) (N39.0):??. Diverticulitis ??(K57.92)?? Constipation (K59.00):?? She was admitted to telemetry as inpatient. Continue with??Levaquin and Flagyl. Morphine as needed. Stool softeners. Oral hydration. Diet as tolerated. UA had bacteria slightly, patient asymptomatic. Follow-up with urine culture. Follow-up with blood cultures. Consider surgical consult. ?? Chronic hypoxic respiratory failure, on home oxygen therapy (J96.11):?? Hypertension (I10):?? Morbid obesity (E66.01):??. Heart failure with preserved ejection fraction ??(I50.30) Continue with atenolol, aspirin, amlodipine, losartan, atorvastatin. After initial IV fluids??patient??possibly with a bit??volume overload, crackles??bilaterally??frombases.?? She continues to be on oxygen??with baseline saturation, not in respiratory distress.. I will??not restart Lasix for now??but I will discontinue??IV fluids.?? Reevaluate and restart??Lasix??if pertinent. ?? CKD (chronic kidney disease) (N18.9):?? Creatinine??slightly elevated but close to baseline.??She received IV fluids in the ED. Monitor renal function with morning labs. Avoid nephrotoxins. Renal dose meds. ?? VTE Prophylaxis:??Lovenox. ?VTE Prophylaxis Assessment:??VTE Prophylaxis Ordered ?? Code Status:??Full code ?Order Code Status:??Code Status Ordered ?I spent a total of 75 minutes today reviewing the chart/medical records, speaking with the patient, formulating and discussing the treatment plan, and documenting the findings and encounter. Histories Allergies Allergies ?(Active and Proposed Allergies Only) hydrochlorothiazide-triamterene? (Severity: Unknown severity, Onset: Unknown) [place] Prefilled Pen? (Severity: Unknown severity, Onset: Unknown) penicillins? (Severity: Unknown severity, Onset: Unknown) ? Past Medical History/Problem List Active Problems(6) Acute calculous cholecystitis Acute Cholecystitis CKD (chronic kidney disease), stage III HTN (hypertension) Hypothyroid Obese class I ? Past Surgical History No surgery history documented. ? Social History Alcohol Details:??Use: Never. ??Other: .. Employment/School Details:??Status: Retired. Exercise Details:??Self assessment: Fair condition. ??Other: Self ambulatory with cane or walker. Home/Environment Details:??Living situation: Home/Independent. ??Lives with: Spouse. Details:??Living situation: Home/Independent. ??Lives with: Significant other. ??Oxygen Home equipment:. Nutrition/Health Details:??Diet: Diabetic, Low sodium, Lactose free. Substance Abuse Details:??Use: Never. ??Other: .. Tobacco Details:??Use: Former smoker, quit more than 30 days ago. ??Other: .. ??Total pack years: 35. ??Stopped at age: 56 Years. Electronic Cigarette/Vaping Details:??Electronic Cigarette Use: Never. ? Psychosocial History ? Family History Father: Diabetes mellitus; Heart attack ? Travel History Travel Outside [facility]: No ? Medications Home Medications Acetaminophen (Tylenol Extra Strength 500 mg oral tablet)?2?tab(s)?1,000?Milligram?By Mouth?3 times a day Amlodipine (amLODIPine 5 mg oral tablet)?10?Milligram?2?tablet?By Mouth?Daily Aspirin (aspirin 81 mg oral tablet)?1?tab(s)?81?Milligram?By Mouth?Daily Atenolol (atenolol 50 mg oral tablet)?50?Milligram?1?tablet?By Mouth?Daily Atorvastatin (atorvastatin 80 mg oral tablet)?1?tab(s)?80?Milligram?By Mouth?Daily BuPROpion (buPROPion 150 mg/12 hours (SR) oral tablet, extended release)?1?tab(s)?150?Milligram?By Mouth?2 times a day empagliflozin (Jardiance 10 mg oral tablet)?1?tab(s)?10?Milligram?By Mouth?Daily in AM Ergocalciferol (ergocalciferol 27647 iu oral capsule)?50,000?International Unit?1?capsule?By Mouth?twice per week Furosemide (Lasix 40 mg oral tablet)?40?Milligram?By Mouth?2 times a day Insulin Glargine (Basaglar KwikPen 100 units/mL subcutaneous solution)?50?unit(s)?Subcutaneous Injection?Daily in AM Insulin Glargine (Basaglar KwikPen 100 units/mL subcutaneous solution)?36?unit(s)?Subcutaneous Injection?Daily at bedtime Insulin Lispro (Humalog 100 u/ml subcutaneous injection)?33?unit(s)?Subcutaneous Injection?Daily before dinner Insulin Lispro (Humalog 100 u/ml subcutaneous injection)?30?unit(s)?Subcutaneous Injection?Daily before lunch Insulin Lispro (Humalog 100 u/ml subcutaneous injection)?36?unit(s)?Subcutaneous Injection?Daily before breakfast Levothyroxine (levothyroxine 125 mcg (0.125 mg) oral tablet)?1?tab(s)?125?Microgram?By Mouth?Daily Losartan?100?Milligram?By Mouth?Daily Multivitamin With Minerals (Icaps AREDS)?1?tab(s)?By Mouth?2 times a day Pantoprazole (Protonix 40 mg oral delayed release tablet)?1?tab(s)?40?Milligram?By Mouth?Daily ? Inpatient Medications Medications (31) Active SCHEDULED: (16) Amlodipine 10 mg Tablet (amLODIPine 10 mg oral tablet) ??10 mg, By Mouth, Daily Aspirin 81 mg Chew Tablet (aspirin 81 mg oral tablet, chewable) ??81 mg, By Mouth, Daily Atenolol 50 mg Tablet (atenolol 50 mg oral tablet) ??50 mg, By Mouth, Daily Atorvastatin 80 mg Tablet (atorvastatin 80 mg oral tablet) ??80 mg, By Mouth, Daily BuPROPion 150 mg SR Tablet (BuPROpion SR Tablet) ??150 mg, By Mouth, 2 times a day Enoxaparin 30 mg Inj (Enoxaparin Inj) ??30 mg 0.3 mL, Subcutaneous Injection, Daily Furosemide 40 mg Tablet (Lasix 40 mg oral tablet) ??40 mg, By Mouth, 2 times a day Insulin Glargine 100 units/mL Inj (Insulin Glargine Inj) ??36 units 0.36 mL, Subcutaneous Injection, Daily at bedtime Insulin Glargine 100 units/mL Inj (Insulin Glargine Inj) ??50 units 0.5 mL, Subcutaneous Injection,Daily in AM Insulin Lispro 100 units/mL Inj (Insulin LISPRO Sliding Scale) ??2-10 units, Subcutaneous Injection, Every 6 hours Levofloxacin ??500 mg / D5%W 100mL (premix) (Levofloxacin IVPB) ??500 mg 100 mL, IVPB, Every 48 hours Levothyroxine 125 mcg Tablet (levothyroxine 125 mcg (0.125 mg) oral tablet) ??125 mcg, By Mouth, Daily Losartan 50 mg Tablet (losartan 50 mg oral tablet) ??100 mg, By Mouth, Daily Metronidazole 500 mg / NaCL 0.9% 100 mL (Flagyl IVPB) ??500 mg 100 mL, IVPB, Every 8 hours NaCl 0.9% Flush 3ml (NaCL 0.9% Flush) ??3 mL, IV Push, Every 8 hours Pantoprazole 40 mg EC Tablet (Protonix 40 mg oral delayed release tablet) ??40 mg, By Mouth, Daily CONTINUOUS: (1) Lactated Ringers (1000 mL) Cont IV 1,000 mL (Lactated Ringers 1,000 mL) ??1,000 mL, IV Infusion, 100 mL/hr PRN: (14) Acetaminophen 325 mg Tablet (Acetaminophen Tablet) ??650 mg, By Mouth, Every 4 hours Dextromethorphan-Guaifenesin 20 mg-200 mg/10 mL Liqu UD (Robitussin DM Liquid) ??10 mL, By Mouth, Every 4 hours Dextrose Inj Syringe (Dextrose 50% Inj Syringe (25Gm)) ??12.5 Gm, IV Push Slowly, Every 20 minutes Dextrose Inj Syringe (Dextrose 50% Inj Syringe (25Gm)) ??25 Gm, IV Push Slowly, Every 15 minutes Docusate Sodium 100 mg Capsule (Docusate Sodium Capsule) ??100 mg 1 capsule, By Mouth, 2 times a day Glucagon 1 mg Inj (Glucagon Inj) ??1 mg, Intramuscular, Once Glucose 40% Gel (15 Gm) (Glucose Gel) ??15 Gm, By Mouth, Every 20 minutes Glucose 40% Gel (15 Gm) (Glucose Gel) ??30 Gm, By Mouth, Every 20 minutes Melatonin 3 mg Tablet (Melatonin Tablet) ??3 mg, By Mouth, Daily at bedtime NaCl 0.9% Flush 3ml (NaCL 0.9% Flush) ??3 mL, IV Push, Every 8 hours Ondansetron 2mg/mL Inj (2mL Vial) (Ondansetron Inj) ??4 mg, IV Push, Every 4 hours Polyethylene Glycol 17 Gm Powder (MiraLax Powder) ??17 Gm 1 pack/packet, By Mouth, Daily Senna Tablet ??8.6 mg 1 tablet, By Mouth, 2 times a day Simethicone 80 mg Chewable Tablet (Simethicone Tablet) ??80 mg, Chew, 3 times a day ? 72 Hour Antibiotic History Active Antibiotics Calendar Day Last Administered First Administered Metronidazole??500 mg, 100 mL, 100 mL/hr, IVPB, Every 8 hours ?1 11/21/2023 02:08 11/21/2023 02:08 ? Stopped Antibiotics Stop Date/Time Last Administered First Administered Metronidazole??500 mg, 100 mL, 100 mL/hr, IVPB, Once 11/20/2023 17:59 11/20/2023 17:58 11/20/2023 17:58 Levofloxacin??750 mg, 150 mL, 100 mL/hr, IVPB, Once 11/20/2023 16:17 11/20/2023 16:17 11/20/2023 16:17 ? Vaccinations and Immunoprophylaxis influenza virus vaccine, inactivated: 0.5 Unknown (03/08/22 08:00:00) SARS-CoV-2 (COVID-19) mRNA-1273 vaccine: 0.25 Unknown (11/22/21 08:00:00) SARS-CoV-2 (COVID-19) mRNA-1273 vaccine: 0.25 Unknown (04/28/21 08:00:00) SARS-CoV-2 (COVID-19) mRNA-1273 vaccine: 0.5 Unknown (10/18/20 08:00:00) SARS-CoV-2 (COVID-19) mRNA-1273 vaccine: 0.5 Unknown (09/20/20 08:00:00) [id number] 12y+ bivalent booster vax: 0.3 Unknown (05/28/22 07:00:00) ? Results Recent Labs BLOOD COUNT & DIFF WBC 23.7 k/mm3 (High)?? 11/20/2023 11:58 RBC 3.38 m/mm3 (Low)?? 11/20/2023 11:58 Hgb 9.4 Gm/dL (Low)?? 11/20/2023 11:58 Hct 31.0 % (Low)?? 11/20/2023 11:58 MCV 91.7 femtoliters ()?? 11/20/2023 11:58 MCH 27.8 pg ()?? 11/20/2023 11:58 MCHC 30.3 g/dL (Low)?? 11/20/2023 11:58 Platelet Count 345 k/mm3 ()?? 11/20/2023 11:58 RDW-SD 51.2 femtoliters (High)?? 11/20/2023 11:58 MPV 8.6 femtoliters (Low)?? 11/20/2023 11:58 Nucleated RBC (Automated) 0.0 #/100 WBC'S ()?? 11/20/2023 11:58 Abs. NRBC 0.0 k/mm3 ()?? 11/20/2023 11:58 Abs. Neut 19.3 k/mm3 (High)?? 11/20/2023 11:58 Abs. Lymph 1.2 k/mm3 ()?? 11/20/2023 11:58 Abs. [place] 2.1 k/mm3 (High)?? 11/20/2023 11:58 Abs. Eo 0.9 k/mm3 (High)?? 11/20/2023 11:58 Abs. Baso 0.1 k/mm3 ()?? 11/20/2023 11:58 Neut % 81.5 % (High)?? 11/20/2023 11:58 Lymph % 4.9 % (Low)?? 11/20/2023 11:58 [place] % 8.8 % ()?? 11/20/2023 11:58 Eos % 3.9 % ()?? 11/20/2023 11:58 Baso % 0.3 % ()?? 11/20/2023 11:58 Imm Gran 0.6 % ()?? 11/20/2023 11:58 Abs. Imm Gran 0.2 k/mm3 ()?? 11/20/2023 11:58 ?? CARDIAC Nt-Probnp 458 pg/mL (High)?? 11/20/2023 11:58 ?? CHEM GENERAL Sodium 135 mmol/L ()?? 11/20/2023 11:58 Potassium 4.4 mmol/L ()?? 11/20/2023 11:58 Chloride 102 mmol/L ()?? 11/20/2023 11:58 Bicarbonate Level 19 mmol/L (Low)?? 11/20/2023 11:58 Anion Gap 14 ()?? 11/20/2023 11:58 Glucose Level 60 mg/dL (Low)?? 11/20/2023 11:58 Glucose, POC 124 mg/dL (High)?? 11/21/2023 05:34 BUN 85 mg/dL (High)?? 11/20/2023 11:58 Creatinine-Blood 2.78 mg/dL (High)?? 11/20/2023 11:58 Estimated GFR Creatinine 16 ML/MIN/1.73 M2 ()?? 11/20/2023 11:58 Calcium 9.0 mg/dL ()?? 11/20/2023 11:58 Protein, Total 7.0 Gm/dL ()?? 11/20/2023 11:58 Albumin 3.2 Gm/dL (Low)?? 11/20/2023 11:58 AG Ratio 0.8 ()?? 11/20/2023 11:58 Alkaline Phosphatase 92 units/L ()?? 11/20/2023 11:58 Lipase 19 units/L ()?? 11/20/2023 11:58 AST (SGOT) 18 units/L ()?? 11/20/2023 11:58 ALT (SGPT) 24 units/L ()?? 11/20/2023 11:58 Bilirubin, Total 0.2 mg/dL ()?? 11/20/2023 11:58 Lactate 1.2 mmol/L ()?? 11/20/2023 11:58 ?? HEME OTHER Hold Blue Top SPECIMEN DISCARDED AFTER 4 HOURS. ()?? 11/20/2023 11:58 ?? MISC. CHEMISTRY Hold Gel Top SPECIMEN DISCARDED AFTER 1 WEEK ()?? 11/20/2023 11:58 ?? UA/URINALYSIS Appear/Color, Urine COLORLESS ()?? 11/20/2023 11:58 Clarity CLEAR ()?? 11/20/2023 11:58 Specific [place], Urine 1.015 ()?? 11/20/2023 11:58 pH, Urine 5.5 ()?? 11/20/2023 11:58 Albumin, Urine 1+ (Abnormal)?? 11/20/2023 11:58 Glucose, Urine NEGATIVE ()?? 11/20/2023 11:58 Ketones, Urine NEGATIVE ()?? 11/20/2023 11:58 Bilirubin, Urine NEGATIVE ()?? 11/20/2023 11:58 Hemoglobin, Urine NEGATIVE ()?? 11/20/2023 11:58 Nitrite, Urine NEGATIVE ()?? 11/20/2023 11:58 Leukocyte, Urine NEGATIVE ()?? 11/20/2023 11:58 Urobilinogen NORMAL mg/dL ()?? 11/20/2023 11:58 WBC's, Urine <1 /HPF ()?? 11/20/2023 11:58 RBC's, Urine 1 /HPF ()?? 11/20/2023 11:58 Bacteria SLIGHT HPF (Abnormal)?? 11/20/2023 11:58 Squamous Epith 9 /HPF (High)?? 11/20/2023 11:58 Mucus SLIGHT /LPF ()?? 11/20/2023 11:58 Hold Urine Culture Testing available 48 hours from time of collection. ()?? 11/20/2023 11:58 ?? URINE OTHER Est Creatinine Clearance 19.06 mL/min ()?? 11/20/2023 13:05 ?? VIROLOGY COVID-19 PCR Specimen Source NASAL ()?? 11/20/2023 11:56 COVID-19 PCR Result NEGATIVE ()?? 11/20/2023 11:56 ? Abnormal Labs ?? BLOOD COUNT & DIFF Abs. Eo?0.9 k/mm3 (High)?11/20/2023 11:58 Abs. Imm Gran?0.2 k/mm3 ()?11/20/2023 11:58 Abs. [place]?2.1 k/mm3 (High)?11/20/2023 11:58 Abs. NRBC?0.0 k/mm3 ()?11/20/2023 11:58 Abs. Neut?19.3 k/mm3 (High)?11/20/2023 11:58 Hct?31.0 % (Low)?11/20/2023 11:58 Hgb?9.4 Gm/dL (Low)?11/20/2023 11:58 Imm Gran?0.6 % ()?11/20/2023 11:58 Lymph %?4.9 % (Low)?11/20/2023 11:58 MCHC?30.3 g/dL (Low)?11/20/2023 11:58 MPV?8.6 femtoliters (Low)?11/20/2023 11:58 Neut %?81.5 % (High)?11/20/2023 11:58 Nucleated RBC (Automated)?0.0 #/100 WBC'S ()?11/20/2023 11:58 RBC?3.38 m/mm3 (Low)?11/20/2023 11:58 RDW-SD?51.2 femtoliters (High)?11/20/2023 11:58 WBC?23.7 k/mm3 (High)?11/20/2023 11:58 ?? CARDIAC Nt-Probnp?458 pg/mL (High)?11/20/2023 11:58 ?? CHEM GENERAL AG Ratio?0.8 ()?11/20/2023 11:58 Albumin?3.2 Gm/dL (Low)?11/20/2023 11:58 BUN?85 mg/dL (High)?11/20/2023 11:58 Bicarbonate Level?19 mmol/L (Low)?11/20/2023 11:58 Creatinine-Blood?2.78 mg/dL (High)?11/20/2023 11:58 Estimated GFR Creatinine?16 ML/MIN/1.73 M2 ()?11/20/2023 11:58 Glucose Level?60 mg/dL (Low)?11/20/2023 11:58 Glucose, POC?124 mg/dL (High)?11/21/2023 05:34 ?? HEME OTHER Hold Blue Top?SPECIMEN DISCARDED AFTER 4 HOURS. ()?11/20/2023 11:58 ?? MISC. CHEMISTRY Hold Gel Top?SPECIMEN DISCARDED AFTER 1 WEEK ()?11/20/2023 11:58 ?? UA/URINALYSIS Albumin, Urine?1+ (Abnormal)?11/20/2023 11:58 Appear/Color, Urine?COLORLESS ()?11/20/2023 11:58 Bacteria?SLIGHT HPF (Abnormal)?11/20/2023 11:58 Bilirubin, Urine?NEGATIVE ()?11/20/2023 11:58 Clarity?CLEAR ()?11/20/2023 11:58 Glucose, Urine?NEGATIVE ()?11/20/2023 11:58 Hemoglobin, Urine?NEGATIVE ()?11/20/2023 11:58 Hold Urine Culture?Testing available 48 hours from time of collection. () ?11/20/2023 11:58 Ketones, Urine?NEGATIVE ()?11/20/2023 11:58 Leukocyte, Urine?NEGATIVE ()?11/20/2023 11:58 Mucus?SLIGHT /LPF ()?11/20/2023 11:58 Nitrite, Urine?NEGATIVE ()?11/20/2023 11:58 Squamous Epith?9 /HPF (High)?11/20/2023 11:58 Urobilinogen?NORMAL mg/dL ()?11/20/2023 11:58 ?? VIROLOGY COVID-19 PCR Specimen Source?NASAL () ?11/20/2023 11:56 COVID-19 PCR Result?NEGATIVE ()?11/20/2023 11:56 ?? Note: Critical results are displayed in red. ? Blood Glucose Trend Glucose Level:??60 mg/dL??Low (11/20/23 11:58:00) Glucose, POC:??124 mg/dL??High (11/21/23 05:34:00) Glucose, POC:??100 mg/dL??High (11/21/23 01:13:00) Glucose, POC: 79 mg/dL (11/20/23 22:05:00) Glucose, POC: 97 mg/dL (11/20/23 17:56:00) Glucose, POC: 78 mg/dL (11/20/23 15:40:00) ? Coagulation Profile?? No qualifying data available. ?? LFT Albumin:??3.2 Gm/dL??Low (11:58) Alkaline Phosphatase: 92 units/L (11:58) ALT (SGPT): 24 units/L (11:58) AST (SGOT): 18 units/L (11:58) Bilirubin, Total: 0.2 mg/dL (11:58) ?? Urinalysis Albumin, Urine: 1+ Abnormal (11:58) Appear/Color, Urine: COLORLESS (11:58) Bacteria: SLIGHT Abnormal (11:58) Bilirubin, Urine: NEGATIVE (11:58) Clarity: CLEAR (11:58) Est Creatinine Clearance: 19.06 mL/min (13:05) Glucose, Urine: NEGATIVE (11:58) Hemoglobin, Urine: NEGATIVE (11:58) Hold Urine Culture: Testing available 48 hours from time of collection. (11:58) Ketones, Urine: NEGATIVE (11:58) Leukocyte, Urine: NEGATIVE (11:58) Mucus: SLIGHT (11:58) Nitrite, Urine: NEGATIVE (11:58) pH, Urine: 5.5 (11:58) RBC's, Urine: 1 /HPF (11:58) Specific [place], Urine: 1.015 (11:58) Squamous Epith:??9 /HPF??High (11:58) Urobilinogen: NORMAL (11:58) WBC's, Urine: <1 (11:58) ?? Microbiology ?? COVID-19 (2019 Novel Coronavirus) PCR?? Completed?? Source: Nasal Body Site: Nose Collected Dt/Tm: 11/20/2023 11:56 Last Updated Dt/Tm: 11/20/2023 12:57 ? Cardiology Labs Nt-Probnp:??458 pg/mL??High (11/20/23 11:58:00) ?? Blood Gases?? No qualifying data available. ? EKG study * Event Display: ECG 12-Lead Authored Date: Please click on pdf link to open report * Event Display: ECG 12-Lead Authored Date: Ventricular Rate: 65 BPM Atrial Rate: 65 BPM P-R Interval: 272 ms QRS Duration: 104 ms Q-T Interval: 420 ms QTC Calculation(Bazett): 436 ms R [place]: -41 degrees T [place]: 125 degrees Sinus rhythm with 1st degree A-V block Left axis deviation ST and T wave abnormality, consider lateral ischemia Abnormal ECG When compared with ECG of 12-NOV-2023 09:18, No significant change Confirmed by SHANNAN FLORES ([id number]) on 11/21/2023 7:55:01 AM [place] * Eddie Partida RN: PERFORM, MODIFY, VERIFY, MODIFY, SIGN Event Display: Progress Note [facility] Authored Date: Patient: MONY FERRELL Age: 72 years Sex: Female : 1950 Associated Diagnoses: None Author: Eddie Partida RN Findings Problem Related to Alteration in Fluid Electrolyte : Alteration in Fluid Electrolyte Fun/new 11/26/2023 10:00 EDT Alteration Fluid Electrolytes Related to Fluid Volume Excess Goals & Outcomes, Fluid/Electrolyte Vital signs, electrolytes & glucose levels will stabilize, Pt will resume/maintain adequate cardiac output Interventions, Fluid Electrolyte Monitor effects of diuretics, Encourage oral intake/fluids as ordered, Maintain strict intake & output BH Goals/Interventions,Fluid Electrolyte Yes Fluid Electrolyte, Problem Start 11/24/2023 23:53 Reviewed plan with, Fluid Electrolyte Patient Patient Progression, Fluid Electrolyte Pt progressing according to plan . Alteration in Gastrointestinal : Alteration in Gastrointestinal Func/new 11/26/2023 10:00 EDT Alteration in GI status Related to Other: diverticulitis Goals & Outcomes, Gastrointestinal Establish a regular pattern of elimination for pt, Nutritional intake is adequate for metabolic needs, Pt will achieve normal/improved fluid balance, Pt will have a bowel movement prior to discharge, Pt will maintain adequate GI function appropriate for pt, Ptwill maintain normal elimination patterns, Pt will resume/maintain adequate hemodynamic status, Pt w ill tolerate age appropriate diet prior to discharge Interventions, Gastrointestinal Assess/monitor bowel pattern, bowel sounds, flatus, Assess/monitor number of bowel movements, Assess/monitor effects of re- hydration, Assess/monitor intake & output, Assess if pt tolerating diet BH Goals/Interventions, Gastrointestinal Yes Gastrointestinal, Problem Start 11/20/2023 23:11 Reviewed plan with, Gastrointestinal Patient Patient Progression, Gastrointestinal Pt progressing according to plan . Nursing Data Cardiac Data. : Cardiac Data. 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 Gastrointestinal Data. : Gastrointestinal Data. 11/26/2023 8:15 EDT Abdomen Soft, Non-tender Bowel Sounds LUQ Present Bowel Sounds RUQ Present Bowel Sounds LLQ Present Bowel Sounds RLQ Present GI WNL except Normal Bowel Pattern Every other day . Vital Signs : VITAL SIGNS SECTION 11/26/2023 7:19 EDT Temperature 98.1 DegF Temperature Route Oral Pulse Rate 74 bpm Respiratory Rate 16 br/min Systolic Blood Pressure 153 mm Hg H Diastolic Blood Pressure 40 mm Hg L Blood pressure sites Arm, right Mean Arterial Pressure 78 mm Hg Pulse Pressure 113 mm Hg Oxygen Saturation 96 % Liters per Minute 2 L/min Mode of Delivery (Oxygen) Nasal cannula . Evaluation Handover report received from previous RN Li. care assumed at 0700. pt A&O x 4, tearful at times throughout the morning. sinus rhythm on telemetry with HR steady in 60s. trace edema to bilateral feet/ankles. very faint crackles in R lower lobe, clear otherwise. baseline dyspnea with exertion which pt reports is about the same . stable on 2L via nasal cannula. abdomen soft and non tender, + bowel sounds. denies nasuea or abdominal pain. reported having frequent stools, ? if loose or not. CDiff testing ordered by , no BM since order received. moved to room 1406 for contact precautions pending CDiff testing/result. remains without urge for bowel movement. MD updated. primafit in placewith concentrated yellow urine out. attempted to remove primafit for increased mobility however pt refused stating that she just can't . transferring to/from bedside commode with walker and assist of 1. pt refused short acting insulin and only accepting of 30 of the 50 units of lantus ordered. Dr Galloway at bedside this shift with new orders for discharge. reviewed discharge paperwork with patient including need for follow up appointment with PCP. surveillance monitor and IV discontinued without complication. pt discharged from unit home.. Discharge Information Date of Discharge 11/26/2023. Functional Assessment Personal hygiene: self. Feeding ability: self. Standing ability: with assist. Mobility assistance: ambulate, assist of 1. Elimination: last bowel movement 11/26/2023 09:00:00, incontinent bladder. Nutritional Assessment Appetite: fair. Date and time of last meal 11/26/2023 12:00:00. Smoking Cessation Patient has not smoked in last 12 months. Psycho-Social Assessment Affect/behavior: cooperative. Mental status: alert. Orientation: person, place, time. * Jana RODRIGUEZ, Li: PERFORM, SIGN, VERIFY Event Display: Progress Note Hospital Authored Date: Patient: MONY FERRELL Age: 72 years Sex: Female : 1950 Associated Diagnoses: None Author: Jana RODRIGUEZ, Li Findings Narrative/Incidental Patient is A+Ox4, Denies pain,VSS, LS clear to diminished no crackles noted. Baseline O2 2L n/c with some mild self endorsed sob on excertion. Pt reports I am doing good tonight, I should get some rest . Trace bilat edems to BLE, L heel propped on pillow for blanchable redness. x1 oob to commode loose stool at 00:00, new purewick in in place with great out put, for overnight, It's too stressful for me to get oob all night .She has commode at bedside and encouraged to use. Pt refused heparin overnight 4am dose. IV patent sluggish but flushing #22. Plan is d/c home w/ services Friday per MDand CM note. . * Violeta Dey RN: PERFORM, SIGN, VERIFY Event Display: Progress Note Hospital Authored Date: [id number] Patient: MONY FERRELL Age: 72 years Sex: Female : 1950 Associated Diagnoses: None Author: Violeta Dey RN Findings Problem Related to Alteration in Gastrointestinal : Alteration in Gastrointestinal Func/new 11/25/2023 21:00 EDT Alteration in GI status Related to Other: diverticulitis Goals & Outcomes, Gastrointestinal Establish a regular pattern of elimination for pt, Nutritional intake is adequate for metabolic needs, Pt will achieve normal/improved fluid balance, Pt will have a bowel movement prior to discharge, Pt will maintain adequate GI function appropriate for pt, Ptwill maintain normal elimination patterns, Pt will resume/maintain adequate hemodynamic status, Pt w ill tolerate age appropriate diet prior to discharge Interventions, Gastrointestinal Assess/monitor abdomen for distention, tenderness, Assess/monitor abdominal girth & bowel function, Assess/monitor bowel pattern, bowel sounds, flatus, Assess/monitor number of bowel movements, Assess/monitor color, quantity, quality, consistency of stoo, Assess/monitor pt for nausea, vomiting, Assess/monitor effects of re-hydration, Assess/monitor intake &output, Assess if pt tolerating diet BH Goals/Interventions, Gastrointestinal Yes Gastrointestinal, Problem Start 11/20/2023 23:11 Reviewed plan with, Gastrointestinal Patient Patient Progression, Gastrointestinal Pt progressing according to plan . Nursing Data Vital Signs : VITAL SIGNS SECTION 11/25/2023 22:51 EDT Early Warning Score 5.00 11/25/2023 22:51 EDT Temperature 98.3 DegF Temperature Route Oral Pulse Rate 71 bpm Respiratory Rate 16 br/min Systolic Blood Pressure 151 mm Hg H Diastolic Blood Pressure 48 mm Hg L Blood pressure sites Arm, right Mean Arterial Pressure 82 mm Hg Pulse Pressure 103 mm Hg Oxygen Saturation 95 % Liters per Minute 2 L/min Mode of Delivery (Oxygen) Nasal cannula 11/25/2023 19:11 EDT Early Warning Score 5.00 11/25/2023 19:11 EDT Temperature 97.9 DegF Temperature Route Oral Pulse Rate 67 bpm Respiratory Rate 16 br/min Systolic Blood Pressure 168 mm Hg H Diastolic Blood Pressure 48 mm Hg L Blood pressure sites Arm, right Mean Arterial Pressure 88 mm Hg Pulse Pressure 120 mm Hg Oxygen Saturation 97 % Liters per Minute 3 L/min Mode of Delivery (Oxygen) Nasal cannula . Narrative/Incidental Report taken at 1900 and given to oncoming RN at 2300. Pt A and O x4, cooperative with care. VSS as above with continued HTN, afebrile. Pt denies dizziness or lightheadedness. Pt denies CP or palpitations. SP on tele. Lungs clear/dim, no SOB, no cough.. sat.ing well baseline 2 L via nasal canula. Abd soft round non tender, +BS. incont of bladder and bowel, briefed and prima fit in place, pt kept clean and dry. PRN pain meds given with good effect, ptresting comfortably, falls risk protocols in place. . Note * Eddie Partida RN: PERFORM Event Display: Discharge/Transfer Note Hospital Authored Date: Nursing Discharge Note Entered On: 11/26/2023 14:12 EDT Performed On: 11/26/2023 14:12 EDT by Eddie Partida RN Nursing Discharge Note 2 Discharge Time : 11/26/2023 14:12 EDT Discharge Level of Care at Discharge : Homehealth/VNA Discharge VNA/Hospice/Home Care(v001) : [facility] Patient Left Unit Via : Wheelchair Patient Accompanied Off Unit with : Significant other DC Instructions Provided & Signed by Pt : Yes Patient Understands D/C Instructions : Yes Patient Instructions Discharge Signed : Yes Did Pt have Specialty Bed or Wound Vac : No Eddie Partida RN - 11/26/2023 14:12 EDT * Laverne PINEDA, Tea: PERFORM, MODIFY, MODIFY, MODIFY, MODIFY, MODIFY Event Display: Discharge/Transfer Note Hospital Authored Date: Patient: ??MONY FERRELL ? Age:??72 Years?Sex:??Female?:??1950?? Patient Information Discharge Location: [facility] [place] Primary Care Physician: Shiraz Joshi NP Admit Date/Time: 11/20/23 16:04 Discharge Disposition Discharge Disposition: ?? Discharge Diagnosis Acute on chronic diastolic (congestive) heart failure (I50.33) Chronic diastolic heart failure (I50.32) Heart failure with preserved ejection fraction (I50.30) Chronic hypoxic respiratory failure, on home oxygen therapy (J96.11) Hypothyroidism (E03.9) Hypertension (I10) Morbid obesity (E66.01) Constipation (K59.00) Diverticulitis (K57.92) UTI (urinary tract infection) (N39.0) CKD (chronic kidney disease), stage III (N18.30) CKD (chronic kidney disease) stage 4, GFR 15-29 ml/min (N18.4) Metabolic acidosis (E87.20) Acute colitis (K52.9) Type 2 diabetes mellitus (E11.9) Leucocytosis (D72.829) _ Discharge Medications Acetaminophen (Tylenol Extra Strength 500 mg oral tablet)?2?tab(s)?1,000?Milligram?By Mouth?3 times a day Amlodipine (amLODIPine 5 mg oral tablet)?10?Milligram?2?tablet?By Mouth?Daily Aspirin (aspirin 81 mg oral tablet)?1?tab(s)?81?Milligram?By Mouth?Daily Atenolol (atenolol 50 mg oral tablet)?50?Milligram?1?tablet?By Mouth?Daily Atorvastatin (atorvastatin 80 mg oral tablet)?1?tab(s)?80?Milligram?By Mouth?Daily BuPROpion (buPROPion 150 mg/12 hours (SR) oral tablet, extended release)?1?tab(s)?150?Milligram?By Mouth?2 times a day empagliflozin (Jardiance 10 mg oral tablet)?1?tab(s)?10?Milligram?By Mouth?Daily in AM Ergocalciferol (ergocalciferol 03345 iu oral capsule)?50,000?International Unit?1?capsule?By Mouth?twice per week Furosemide (Lasix 40 mg oral tablet)?40?Milligram?By Mouth?2 times a day Insulin Glargine (Basaglar KwikPen 100 units/mL subcutaneous solution)?50?unit(s)?Subcutaneous Injection?Daily in AM Insulin Glargine (Basaglar KwikPen 100 units/mL subcutaneous solution)?36?unit(s)?Subcutaneous Injection?Daily at bedtime Insulin Lispro (Humalog 100 u/ml subcutaneous injection)?33?unit(s)?Subcutaneous Injection?Daily before dinner Insulin Lispro (Humalog 100 u/ml subcutaneous injection)?30?unit(s)?Subcutaneous Injection?Daily before lunch Insulin Lispro (Humalog 100 u/ml subcutaneous injection)?36?unit(s)?Subcutaneous Injection?Daily before breakfast Levothyroxine (levothyroxine 125 mcg (0.125 mg) oral tablet)?1?tab(s)?125?Microgram?By Mouth?Daily Losartan?100?Milligram?By Mouth?Daily Multivitamin With Minerals (Icaps AREDS)?1?tab(s)?By Mouth?2 times a day Pantoprazole (Protonix 40 mg oral delayed release tablet)?1?tab(s)?40?Milligram?By Mouth?Daily ? Allergies Allergies ?(Active and Proposed Allergies Only) hydrochlorothiazide-triamterene? (Severity: Unknown severity, Onset: Unknown) Byetta Prefilled Pen? (Severity: Unknown severity, Onset: Unknown) penicillins? (Severity: Unknown severity, Onset: Unknown) ? Objective Assessment and Plan Assessment:?72-year-old female with a significant past medical history of??diastolic heart failure,??demand ischemia/NSTEMI, CKD stage III, hypertension, hypothyroidism, severe obesity, and a recent hospitalization discharge on 11/16/2023??who has not had a bowel movement since time of admission??presents with acute abdominal pain found to have diverticulitis??of the sigmoid colon. ? Acute on chronic diastolic (congestive) heart failure (I50.33):??She was treated with 1 dose of 40mg IV Lasix??followed 2 dose of oral lasix 40mg . She had 6 loose stools yesterday and lungs CTA b/l today. She will resume home regimen of 40mg bid of lasix??on discharge.? Chronic hypoxic respiratory failure, on home oxygen therapy (J96.11):??Noted, 2 L oxygen at baseline. ?? Hypothyroidism (E03.9):??Levothyroxine ?? Hypertension (I10):??Resume atenolol,??amlodipine and valsartan.?? PCP to consider switching atenolol to??other beta-blockers as atenolol is renally cleared.?? She has??advanced kidney disease. ?? Morbid obesity (E66.01):??Noted, outpatient f/u.? Constipation (K59.00):??s/p tap water enema??11/21 with??good result. She was on laxatives and had 6loose stools as per her yesterday. Has h/o cdiff??by PCR??01/2019. She has no diarrhea, nausea or abdominal pain today. Spoke with Dr. Vargas??and agrees no need to test for CDIFF unless worsening diarrhea.? CKD (chronic kidney disease) stage 4, GFR 15-29 ml/min (N18.4):??Avoid nephrotoxic meds.?Close outpatient follow-up recommended ?? Metabolic acidosis (E87.20):??This??is??felt to be related??mixed normal AG acidosis and elevated AG acidosis.? Acute colitis (K52.9):??Acute diverticulitis ruled out. She was constipated and ? Stercoral colitis. Has received levaquin??and flagyl inhospital.??No more abx needed. No diarrhea today and cdiff colitis unlikely.? Type 2 diabetes mellitus (E11.9):??Resume home regimen.? Leucocytosis (D72.829):??Improving , she seems to have chronic leukocytosis in??the range of 14,000. PCP to refer to heme-oncology outpatient.? Vital Signs?? Temperature: 97.9 DegF (11/26/23 11:23:00) Temperature Route: Oral (11/26/23 11:23:00) Pulse Rate: 61 bpm (11/26/23 11:23:00) Respiratory Rate: 18 br/min (11/26/23 11:23:00) Systolic Blood Pressure:??147 mm Hg??High (11/26/23 11:23:00) Diastolic Blood Pressure:??50 mm Hg??Low (11/26/23 11:23:00) Blood pressure sites: Arm, left (11/26/23 11:23:00) Mean Arterial Pressure: 82 mm Hg (11/26/23 11:23:00) Pulse Pressure: 97 mm Hg (11/26/23 11:23:00) Oxygen Saturation: 96 % (11/26/23 11:23:00) Liters per Minute: 2 L/min (11/26/23 11:23:00) Mode of Delivery (Oxygen): Nasal cannula (11/26/23 11:23:00) Early Warning Score: 5 (11/26/23 11:48:00) ? Mobility & Ambulation Level Mobility & Ambulation Level Activity Assistance: One person assistance (11/23/23) Activity Status ADL: Bedside commode, Up with assistance (11/23/23) Ambulation Patient Response: Tolerated well (11/20/23) Ambulatory devices needed: None (11/23/23) Repositioning: Self (11/24/23) ?? . Physical Exam ? Constitutional: Alert, in no acute distress. Mental Status: Oriented to person, place and time. Head: Normocephalic. Eyes: Extraocular muscles intact. Ear, Nose and Throat: Oropharynx clear, mucous membranes moist.?? Respiratory: Clear to auscultation, No wheezing, rales or rhonchi. Gastrointestinal: Abdomen soft, non-tender, non-distended Neurologic: Cranial nerves II-XII grossly intact. No focal neurological deficits. Moves all extremities spontaneously.?? Pending Results Add On Lab Order ordered on 11/20/2023 Follow-Up Appointments Added Follow Up ?Time Frame ?Comments Lev SHEEP BONER, Shiraz?11/27/2023 16:00 Patient Instructions You were hospitalized for??constipation,??mild diffuse colitis,??suspected??stercoral??colitis .?While in hospital developed fluid overload. All??resolved now, please resume home meds and??f/u with your PCP. Take Lasix today. Resume usual??diabetic diet. You have persistent leukocytosis and please f/u with your PCP.?? Home Health Face to Face ^HomeHealthFTF Results Discharge Labs BACTERIOLOGY Urine Culture Results Final report ()?? 11/20/2023 11:58 Blood Culture Results Final report ()?? 11/20/2023 11:58 Blood Culture Specimen Source BLOOD ()?? 11/20/2023 11:58 Blood Culture Isolate 1 Comment ()?? 11/20/2023 11:58 Blood Cult 2 Results Final report ()?? 11/20/2023 11:58 Blood Culture 2 Specimen Source BLOOD ()?? 11/20/2023 11:58 Blood Culture 2 Isolate 1 Comment ()?? 11/20/2023 11:58 ? BLOOD COUNT & DIFF WBC 17.1 k/mm3 (High)?? 11/26/2023 06:11 RBC 3.00 m/mm3 (Low)?? 11/26/2023 06:11 Hgb 8.4 Gm/dL (Low)?? 11/26/2023 06:11 Hct 26.6 % (Low)?? 11/26/2023 06:11 MCV 88.7 femtoliters ()?? 11/26/2023 06:11 MCH 28.0 pg ()?? 11/26/2023 06:11 MCHC 31.6 g/dL (Low)?? 11/26/2023 06:11 Platelet Count 266 k/mm3 ()?? 11/26/2023 06:11 RDW-SD 50.0 femtoliters (High)?? 11/26/2023 06:11 MPV 8.5 femtoliters (Low)?? 11/26/2023 06:11 Nucleated RBC (Automated) 0.0 #/100 WBC'S ()?? 11/26/2023 06:11 Abs. NRBC 0.0 k/mm3 ()?? 11/26/2023 06:11 Abs. Neut 14.2 k/mm3 (High)?? 11/24/2023 05:48 Abs. Lymph 1.2 k/mm3 ()?? 11/24/2023 05:48 Abs. Galax 1.5 k/mm3 (High)?? 11/24/2023 05:48 Abs. Eo 0.4 k/mm3 ()?? 11/24/2023 05:48 Abs. Baso 0.1 k/mm3 ()?? 11/24/2023 05:48 Neut % 81.2 % (High)?? 11/24/2023 05:48 Lymph % 7.0 % (Low)?? 11/24/2023 05:48 [place]ax % 8.3 % ()?? 11/24/2023 05:48 Eos % 2.2 % ()?? 11/24/2023 05:48 Baso % 0.3 % ()?? 11/24/2023 05:48 Imm Gran 1.0 % ()?? 11/24/2023 05:48 Abs. Imm Gran 0.2 k/mm3 ()?? 11/24/2023 05:48 ?? CARDIAC Nt-Probnp 458 pg/mL (High)?? 11/20/2023 11:58 ? CHEM GENERAL Sodium 138 mmol/L ()?? 11/26/2023 06:11 Potassium 4.3 mmol/L ()?? 11/26/2023 06:11 Chloride 108 mmol/L (High)?? 11/26/2023 06:11 Bicarbonate Level 18 mmol/L (Low)?? 11/26/2023 06:11 Anion Gap 12 ()?? 11/26/2023 06:11 Glucose Level 179 mg/dL (High)?? 11/24/2023 05:48 Glucose, POC 245 mg/dL (High)?? 11/26/2023 11:42 BUN 72 mg/dL (High)?? 11/24/2023 05:48 Creatinine-Blood 2.07 mg/dL (High)?? 11/26/2023 06:11 Estimated GFR Creatinine 24 ML/MIN/1.73 M2 ()?? 11/26/2023 06:11 Calcium 8.3 mg/dL (Low)?? 11/23/2023 06:30 Phosphorus 4.7 mg/dL (High)?? 11/21/2023 06:34 Magnesium 2.9 mg/dL (High)?? 11/24/2023 05:48 Protein, Total 7.0 Gm/dL ()?? 11/20/2023 11:58 Albumin 3.2 Gm/dL (Low)?? 11/20/2023 11:58 AG Ratio 0.8 ()?? 11/20/2023 11:58 Alkaline Phosphatase 92 units/L ()?? 11/20/2023 11:58 Lipase 19 units/L ()?? 11/20/2023 11:58 AST (SGOT) 18 units/L ()?? 11/20/2023 11:58 ALT (SGPT) 24 units/L ()?? 11/20/2023 11:58 Bilirubin, Total 0.2 mg/dL ()?? 11/20/2023 11:58 Lactate 1.2 mmol/L ()?? 11/20/2023 11:58 ?? HEME OTHER Hold Blue Top SPECIMEN DISCARDED AFTER 4 HOURS. ()?? 11/20/2023 11:58 ? MISC. CHEMISTRY Hold Gel Top SPECIMEN DISCARDED AFTER 1 WEEK ()?? 11/20/2023 11:58 ? UA/URINALYSIS Appear/Color, Urine COLORLESS ()?? 11/20/2023 11:58 Clarity CLEAR ()?? 11/20/2023 11:58 Specific [place], Urine 1.015 ()?? 11/20/2023 11:58 pH, Urine 5.5 ()?? 11/20/2023 11:58 Albumin, Urine 1+ (Abnormal)?? 11/20/2023 11:58 Glucose, Urine NEGATIVE ()?? 11/20/2023 11:58 Ketones, Urine NEGATIVE ()?? 11/20/2023 11:58 Bilirubin, Urine NEGATIVE ()?? 11/20/2023 11:58 Hemoglobin, Urine NEGATIVE ()?? 11/20/2023 11:58 Nitrite, Urine NEGATIVE ()?? 11/20/2023 11:58 Leukocyte, Urine NEGATIVE ()?? 11/20/2023 11:58 Urobilinogen NORMAL mg/dL ()?? 11/20/2023 11:58 WBC's, Urine <1 /HPF ()?? 11/20/2023 11:58 RBC's, Urine 1 /HPF ()?? 11/20/2023 11:58 Bacteria SLIGHT HPF (Abnormal)?? 11/20/2023 11:58 Squamous Epith 9 /HPF (High)?? 11/20/2023 11:58 Mucus SLIGHT /LPF ()?? 11/20/2023 11:58 Hold Urine Culture Testing available 48 hours from time of collection. ()?? 11/20/2023 11:58 ?? URINE OTHER Est Creatinine Clearance 25.60 mL/min ()?? 11/26/2023 06:54 Urine Culture Specimen Source URINE CLEAN CATCH/MIDSTREAM ()?? 11/20/2023 11:58 Urine Culture Isolate 1 Comment ()?? 11/20/2023 11:58 ? VIROLOGY COVID-19 PCR Specimen Source NASAL ()?? 11/20/2023 11:56 COVID-19 PCR Result NEGATIVE ()?? 11/20/2023 11:56 ? Image ?CT Abdomen and Pelvis W/O Contrast??11/20/2023 13:59 by Ava Matson ?Gastrointestinal findings concerning for possible early uncomplicated sigmoid diverticulitis. No urinary tract calculi. ?XR Chest 2 Views Frontal and Lat??11/21/2023 11:15 by Chel Laughlin ?There is no acute cardiopulmonary disease. ?CT Abdomen and Pelvis W/O Contrast??11/22/2023 18:05 by Saadia Alcala ?No findings to indicate diverticulitis or abscess. Wall thickening noted in the sigmoid colon and left colon. Possible mild diffuse colitis. ?XR Chest Portable??11/25/2023 11:42 by Ingrid Miles ?No acute cardiopulmonary process. No change. ?? _35 minutes spent on discharge * Preet Magana RN: VERIFY, PERFORM, SIGN Event Display: Case Management Discharge Plan Authored Date: [id number] Patient: MONY FERRELL Age: 72 years Sex: Female : 1950 Associated Diagnoses: None Author: Preet Magana RN Discharge Plan Case Management Discharge Plan : Case Management Discharge Plan Data 11/26/2023 14:46 EDT Discharge Level of Care at Discharge Homehealth/VNA Discharge VNA/Hospice/Home Care [facility] Name of Person Notified of Transfer pt Name of Receiving Clinician/Provider allscripts 11/26/2023 14:12 EDT Discharge Level of Care at Discharge Homehealth/VNA Discharge VNA/Hospice/Home Care [facility] * Eddie Partida RN: PERFORM Event Display: Patient Education/Instruction Authored Date: [id number] Inpatient Adult Discharge Instructions. [address] [place] [address] Name: MONY FERRELL : 1950?? Visit: 11/20/2023 16:04?? Current Date: 11/26/2023 13:43 ?? Account: [id number]?? Inpatient Adult Discharge Instructions We would like [...] and their families. Surveys are administered by [employer] ?? If further treatment with your primary care physician or another doctor is recommended, it is important for you to keep the appointment. Call your primary care physician or return to the Emergency Department immediately if your condition worsens, fails to improve, or new symptoms develop. If you need to find a doctor, you can call [facility] for a referral at [phone] or toll free at [phone]) or log in to [email or web address].. ?? [facility], in keeping with [facility] guidance, no longer requires face masks [...] a health care jose of your choosing. [employer] is a website that allows you to securely view your medical information including your hospital discharge summary, office visit summaries, medications and follow-up visits. You can also request appointments, renew medications, and request access to your medical information using a health care jose of your choosing, or just ask a question. You can enroll at [email or web address] or register during your next office visit. You have been discharged from [facility], Patient Care Unit: [id number]??. If you have any questions regarding these instructions, including results of studies pending, afteryou leave, please call us and we will be happy to assist you 20/01. [facility] Your Care Team Attending Physician Mary Grace Galloway MD?? Consulting Providers Mary Grace Galloway MD?? Reason for Your Visit Abd Pain?? Your Diagnosis CKD (chronic kidney disease), stage III Abdominal pain Acute colitis Acute on chronic diastolic (congestive) heart failure Chronic diastolic heart failure Chronic hypoxic respiratory failure, on home oxygen therapy CKD (chronic kidney disease) stage 4, GFR 15-29 ml/min Constipation Diverticulitis Heart failure with preserved ejection fraction Hypertension Hypothyroidism Leucocytosis Metabolic acidosis Morbid obesity Type 2 diabetes mellitus UTI (urinary tract infection) Tests Performed Below is a partial list of the tests performed during your hospitalization. You may have had other tests and procedures not included in this list. Please discuss all test results with your provider. Basic Metabolic Panel Blood Culture Blood Culture #2 Blood Culture 2 Results Blood Culture Result BUN Calcium Level CBC CBC w/ Differential Comprehensive Metabolic Panel COVID-19 (2019 Novel Coronavirus) PCR Creatinine Electrolytes Glucose Level GLUCOSE POC HOLD BLUE TUBE HOLD GEL TUBE Lactate Level Lipase Lytes Magnesium Level Phosphorus Level ProBNP Urinalysis w/hold for Urine Culture Urine Culture Result Urine Culture, Routine URINE MICROSCOPIC CT Abdomen and Pelvis W/O Contrast CXR Portable XR Chest 2 Views Frontal and Lat XR Chest Portable Add On Lab Order?? Primary Care Provider Shiraz Joshi NP? Advance Directive Health Care Proxy on File Yes - Health Care Proxy Caregiver Relationship: Spouse Patient has a Designated Caregiver: Yes Discharge Vitals Temperature: 97.9 DegF Height: 174 cm Pulse Rate: 61 bpm Weight: 104.2 kg Respiratory Rate: 18 br/min Body Mass Index:??34.42 kg/m2??Critical Systolic Blood Pressure:??147 mm Hg??High Body surface area: 2.24 Diastolic Blood Pressure:??50 mm Hg??Low ?? Oxygen Saturation: 96 % ?? Studies Pending All studies ordered during this hospital stay have been completed unless listed below. Please discuss all pending results with your provider listed above in these instructions. ?? Add On Lab Order?? What to do next Instructions From Your Doctor You were hospitalized for??constipation,??mild diffuse colitis,??suspected??stercoral??colitis .?While in hospital developed fluid overload. All??resolved now, please resume home meds and??f/u with your PCP. Take Lasix today. Resume usual??diabetic diet. You have persistent leukocytosis and please f/u with your PCP.? Orders?? You Need to Schedule the Following Appointments Follow Up with??Adi ALVAREZ, Shiraz When:??11/27/2023 04:00 PM EDT Where: [address] [place] [address] Discharge Medications MOYN FERRELL :1950 Visit Date:11/20/2023 Medications: Please continue your medications until treatment is completed or stopped by your provider. Medications not listed below should be discontinued. Discuss any questions related to medications with your provider. What How Much When Instructions Next Dose Unchanged Acetaminophen (Tylenol Extra Strength 500 mg oral tablet) 2 tab(s) Oral 3 times a day As needed Unchanged Amlodipine (amLODIPine 5 mg oral tablet) 2 tab(s) Oral Daily Tomorrow AM Unchanged Aspirin (aspirin 81 mg oral tablet) 1 tab(s) Oral Daily Tomorrow AM Unchanged Atenolol (atenolol 50 mg oral tablet) 1 tab(s) Oral Daily Tomorrow AM Unchanged Atorvastatin (atorvastatin 80 mg oral tablet) 1 tab(s) Oral Daily Tomorrow AM Unchanged BuPROpion (buPROPion 150 mg/ 12 hours (SR) oral tablet, extended release) 1 tab(s) Oral Twice a day Tonight Unchanged empagliflozin (Jardiance 10 mg oral tablet) 1 tab(s) Oral Daily in the morning Tomorrow Unchanged Ergocalciferol (ergocalciferol 58222 iu oral capsule) 1 capsule Oral twice per week ?? Unchanged Furosemide (Lasix 40 mg oral tablet) 40 Milligram Oral Twice a day Unchanged Insulin Glargine (Basaglar KwikPen 100 units/ mL subcutaneous solution) 50 unit(s) Subcutaneous Injection Daily in the morning Tomorrow Unchanged Insulin Glargine (Basaglar KwikPen 100 units/ mL subcutaneous solution) 36 unit(s) Subcutaneous Injection Daily at Bedtime Tonight Unchanged Insulin Lispro (Humalog 100 u/ ml subcutaneous injection) 30 unit(s) Subcutaneous Injection Daily before lunch Unchanged Insulin Lispro (Humalog 100 u/ ml subcutaneous injection) 33 unit(s) Subcutaneous Injection Daily before dinner Unchanged Insulin Lispro (Humalog 100 u/ ml subcutaneous injection) 36 unit(s) Subcutaneous Injection Daily before breakfast Unchanged Levothyroxine (levothyroxine 125 mcg (0.125 mg) oral tablet) 1 tab(s) Oral Daily Tomorrow AM Unchanged Losartan 100 Milligram Oral Daily Tomorrow AM Unchanged Multivitamin With Minerals (Icaps AREDS) 1 tab(s) Oral Twice a day Unchanged Pantoprazole (Protonix 40 mg oral delayed release tablet) 1 tab(s) Oral Daily Tomorrow AM Prescription Given During Visit No new medications prescribed at time of discharge.?? Laboratory Results Below is a partial list of the most recent Laboratory test results done prior to this discharge. You may have had other tests and procedures not included in this list. Please discuss all test resultswith your provider. Est Creatinine Clearance - 25.60 mL/min (11/26/2023) Basic Metabolic Panel (11/23/2023) ???Sodium - 137 mmol/L???Potassium - 4.5 mmol/L???Chloride - 105 mmol/L???Bicarbonate Level - 17 mmol/L???Anion Gap - 15???Glucose Level - 81 mg/dL???BUN - 85 mg/dL???Creatinine-Blood - 2.98 mg/dL???Estimated GFR Creatinine - 15 ML/MIN/1.73 M2???Calcium - 8.3 mg/dL Blood Culture (11/20/2023) ???Blood Culture Results - Final report???Blood Culture Specimen Source - BLOOD Blood Culture #2 (11/20/2023) ???Blood Cult 2 Results - Final report???Blood Culture 2 Specimen Source - BLOOD Blood Culture 2 Results (11/20/2023) ???Blood Culture 2 Isolate 1 - Comment Blood Culture Result (11/20/2023) ???Blood Culture Isolate 1 - Comment BUN (11/24/2023) ???BUN - 72 mg/dL Calcium Level (11/21/2023) ???Calcium - 8.5 mg/dL CBC (11/26/2023) ???WBC - 17.1 k/mm3???RBC - 3.00 m/mm3???Hgb - 8.4 Gm/dL???Hct - 26.6 %???MCV - 88.7 femtoliters???MCH - 28.0 pg???MCHC - 31.6 g/dL???Platelet Count - 266 k/mm3???RDW-SD - 50.0 femtoliters???MPV - 8.5 femtoliters???Nucleated RBC (Automated) - 0.0 #/100 WBC'S???Abs. NRBC - 0.0 k/mm3 CBC w/ Differential (11/24/2023) ???WBC - 17.5 k/mm3???RBC - 3.01 m/mm3???Hgb - 8.5 Gm/dL???Hct - 27.5 %???MCV - 91.4 femtoliters???MCH - 28.2 pg???MCHC - 30.9 g/dL???Platelet Count - 314 k/mm3???RDW-SD - 51.8 femtoliters???MPV - 8.6 femtoliters???Nucleated RBC (Automated) - 0.0 #/100 WBC'S???Abs. NRBC - 0.0 k/mm3???Abs. Neut - 14.2 k/mm3???Abs. Lymph - 1.2 k/mm3???Abs. [place] - 1.5 k/mm3???Abs. Eo - 0.4 k/mm3???Abs. Baso - 0.1 k/mm3???Neut % - 81.2 %???Lymph % - 7.0 %???[place] % - 8.3 %???Eos % - 2.2 %???Baso % - 0.3 %???Imm Gran- 1.0 %???Abs. Imm Gran - 0.2 k/mm3 Comprehensive Metabolic Panel (11/20/2023) ???Sodium - 135 mmol/L???Potassium - 4.4 mmol/L???Chloride - 102 mmol/L???Bicarbonate Level - 19 mmol/L???Anion Gap - 14???Glucose Level - 60 mg/dL???BUN - 85 mg/dL???Creatinine-Blood - 2.78 mg/dL???Estimated GFR Creatinine - 16 ML/MIN/1.73 M2???Calcium - 9.0 mg/dL???Protein, Total - 7.0 Gm/dL???Albumin - 3.2 Gm/dL???AG Ratio - 0.8???Alkaline Phosphatase - 92 units/L???AST (SGOT) - 18 units/L???ALT (SGPT) - 24 units/L???Bilirubin, Total - 0.2 mg/dL COVID-19 (2019 Novel Coronavirus) PCR (11/20/2023) ???COVID-19 PCR Specimen Source - NASAL???COVID-19 PCR Result - NEGATIVE Creatinine (11/26/2023) ???Creatinine-Blood - 2.07 mg/dL???Estimated GFR Creatinine - 24 ML/MIN/1.73 M2 Electrolytes (11/24/2023) ???Sodium - 137 mmol/L???Potassium - 4.8 mmol/L???Chloride - 108 mmol/L???Bicarbonate Level - 16 mmol/L???Anion Gap - 13 Glucose Level (11/24/2023) ???Glucose Level - 179 mg/dL GLUCOSE POC (11/26/2023) ???Glucose, POC - 245 mg/dL HOLD BLUE TUBE (11/20/2023) ???Hold Blue Top - SPECIMEN DISCARDED AFTER 4 HOURS. HOLD GEL TUBE (11/20/2023) ???Hold Gel Top - SPECIMEN DISCARDED AFTER 1 WEEK Lactate Level (11/20/2023) ???Lactate - 1.2 mmol/L Lipase (11/20/2023) ???Lipase - 19 units/L Lytes (11/26/2023) ???Sodium - 138 mmol/L???Potassium - 4.3 mmol/L???Chloride - 108 mmol/L???Bicarbonate Level - 18 mmol/L???Anion Gap - 12 Magnesium Level (11/24/2023) ???Magnesium - 2.9 mg/dL Phosphorus Level (11/21/2023) ???Phosphorus - 4.7 mg/dL ProBNP (11/20/2023) ???Nt-Probnp - 458 pg/mL Urinalysis w/hold for Urine Culture (11/20/2023) ???Appear/Color, Urine - COLORLESS???Clarity - CLEAR???Specific [place], Urine - 1.015???pH, Urine - 5.5???Albumin, Urine - 1+???Glucose, Urine - NEGATIVE???Ketones, Urine - NEGATIVE???Bilirubin, Urine - NEGATIVE???Hemoglobin, Urine - NEGATIVE???Nitrite, Urine - NEGATIVE???Leukocyte, Urine - NEGATIV E???Urobilinogen - NORMAL???Hold Urine Culture - Testing available 48 hours from time of collection. Urine Culture Result (11/20/2023) ???Urine Culture Isolate 1 - Comment Urine Culture, Routine (11/20/2023) ???Urine Culture Results - Final report???Urine Culture Specimen Source - URINE CLEAN CATCH/MIDSTREAM URINE MICROSCOPIC (11/20/2023) ? ?WBC's, Urine - <1 /HPF? ?RBC's, Urine - 1 /HPF? ?Bacteria - SLIGHT? ?Squamous Epith - 9 /HPF? ?Mucus - SLIGHT Allergies (NKA means No Known Allergies) Byetta Prefilled Pen hydrochlorothiazide-triamterene penicillins Problems Active Problems??(6) Acute calculous cholecystitis?? Acute Cholecystitis?? CKD (chronic kidney disease), stage III?? HTN (hypertension)?? Hypothyroid?? Obese class I?? Education Materials Below is the list of Educational Leaflet Providered with your Discharge Instructions. Valuables and Belongings I fully understand and agree that [facility] accepts no responsibility for all my personal [...] to send valuables and belongings home. ?? Review of Valuable and Belonging List: With patient Date for Pt to Sign Valuables/Belongings: 11/26/23 10:48:00 ?? Other Discharge Information ? Case Management Discharge Plan?? Discharge Plan?? Discharge Agency Information?? Discharge Level of Care at Discharge: Homehealth/VNA Name of Agency #1: [facility] Discharge Transportation Arranged: Partner will be transportation home Service Categories #1: Physical Therapy, Long Term Discharge VNA/Hospice/Home Care: [facility] Service Comments #1: [facility] will reach out to coordinate times and days once you are discharged. ?? Additional Info for D/C Instructions: Li Bates RN, [facility] [phone] ?? Name of Person Notified of Transfer: Patient ?? Pulmonary Rehab Status?? Pulmonary Rehab Discharge Status?? Respiratory Rate: 18 br/min ? Common Emergency Awareness Tips IS IT [...] are strongly encouraged to quit. Please call [facility] at [phone] or [phone]) or log in to [email or web address] for referrals to smoking cessation programs. ?? 988 Suicide & Crisis Lifeline is available 20/01 if you or someone you know needs to find a reason to keep living. By calling 028 you'll be connected to a skilled, trained counselor at a crisis center in your area. INPATIENT DISCHARGE INSTRUCTIONS SIGNATURE PAGE MONY FERRELL Location:[facility] Registration Date and Time:11/20/2023 16:04 EDT Primary Care Physician: Shiraz Joshi NP, Attending Physician: Mary Grace Galloway MD, I MONY FERRELL, have received the above patient education materials/instructions and have verbalized understanding. If ambulance or transport services are being used I further acknowledge being givena choice of service. ?? If you need to contact me, please call me at this number: . Patient/Virtual Reality Specialist Name: Patient/Virtual Reality Specialist Signature: Relationship to Patient: Witness Name/Signature: Date: * Laura Joaquin: PERFORM, SIGN, VERIFY Event Display: Patient Education Handout Authored Date: [id number] * Li Bates RN: PERFORM, SIGN, VERIFY Event Display: Case Management Discharge Plan Authored Date: [id number] Patient: MONY FERRELL Age: 72 years Sex: Female : 1950 Associated Diagnoses: None Author: Li Bates RN Discharge Plan Case Management Discharge Plan : Case Management Discharge Plan Data 11/24/2023 12:02 EDT Discharge Level of Care at Discharge Homehealth/VNA Discharge VNA/Hospice/Home Care [facility] Discharge Transportation Arranged Partner will be transportation home Name of Agency #1 [facility] Service Categories #1 Physical Therapy, Long Term Service Comments #1 [facility] will reach out to coordinate times and days once you are discharged. Additional Info for D/C Instructions Li Bates RN, [facility] [phone] Name of Person Notified of Transfer Patient Patient Care team information Care Team Personnel Name: Delicia Castrejon RN Position: S OB RN Member Role: Primary Care Nurse Name: Shiraz Joshi NP Position: Reference Physician Member Role: PCP Address: Address: [address] [place] [address] Name: Wendy Shay RN Position: S OB RN Member Role: Primary Care Nurse Name: Seth Ryder MD Position: S Renal MD Member Role: Lifetime Consulting Physician Address: Address: [address] [place] [address] [facility] [address] Name: Gabrielle Kiran RN Position: S RN Member Role: Primary Care Nurse Name: Irene Alcantar RN Position: S RN Member Role: Primary Care Nurse Care Team Related Persons Name: ZARA HOUSTON Address: [place] [address]
--- OUTSIDE RECORDS SUMMARY | 2023-12-13 17:39 | XMS_ITS | Continuity of Care Document ---
Author Organization [facility] Address [address] [place] [address]- Care Team Providers Care Surveillance Systems Engineer Name Role Phone Fox ALVAREZ, Natalie Gill Primary Care Physician Encounter [facility] [place] Date(s): 04/07/22 - 04/09/[address] [address]- Discharge Disposition: A-D/C Home Attending Physician: Philipp Tavarez MD Admitting Physician: Franky PINEDA, Rosa M Morfin Referring Physician: Not on Staff, Referring MD Allergies, Adverse Reactions, Alerts Substance Reaction Severity Status hydrochlorothiazide-triamterene Active penicillins Active Byetta Prefilled Pen Active Immunizations Given and Recorded Vaccine Date Status Refusal Reason SARS-CoV-2 (COVID-19) mRNA-1273 vaccine 04/28/21 R ecorded SARS-CoV-2 (COVID-19) mRNA-1273 vaccine 10/18/20 R ecorded SARS-CoV-2 (COVID-19) mRNA-1273 vaccine 09/20/20 R ecorded Not Given Vaccine Date Status Refusal Reason pneumococcal 13-valent vaccine 02/02/19 Not Given Patient Refuses Medications amLODIPine 5 mg oral tablet 10 mg, 2, tablet, By Mouth, Daily, # 30 tablet, Refills 0, Maintenance, 09/21/18 2:37:57 EDT Start Date: 09/21/18 Status: Ordered amLODIPine 5 mg oral tablet 10 mg, Tablet, By Mouth, 04/09/22 9:00:00 EDT Start Date: 04/09/22 Stop Date: 04/09/22 Status: Completed aspirin 81 mg oral tablet 1 tablet = 81 mg, By Mouth, Daily, # 90 tablet, 0 Refills, Maintenance, 12/10/18 10:23:27 EDT, Tablet Start Date: 12/10/18 Status: Ordered Atenolol = 25 mg, By Mouth, Daily, 0 Refills, Maintenance, 09/21/18 2:38:29 EDT Start Date: 09/21/18 Status: Ordered atenolol 25 mg oral tablet 25 mg, Tablet, By Mouth, 04/09/22 9:00:00 EDT Start Date: 04/09/22 Stop Date: 04/09/22 Status: Completed atorvastatin 80 mg oral tablet 1 tablet = 80 mg, By Mouth, Daily, # 30 tablet, 0 Refills, Maintenance, Tablet Start Date: 09/23/18 Status: Ordered Basaglar KwikPen 70, Subcutaneous Injection, 2 times a day, 0 Refills, Maintenance, 09/21/18 2:35:43 EDT Start Date: 09/21/18 Status: Ordered buPROPion 150 mg/12 hours (SR) [...] 10:26:36 EDT Start Date: 12/10/18 Status: Ordered NovoLOG 100 units/mL subcutaneous solution = 36 units, Subcutaneous Injection, 3 times a day before meals, # 10 mL, 0 Refills, Maintenance, 10/15/21 21:32:00 EDT, Solution, Partial fill upon patient request if the prescription is for a schedule II opioid drug. Start Date: 10/15/21 Status: Ordered Protonix 40 mg oral delayed release tablet 1 tablet = 40 mg, By Mouth, Daily, # 30 tablet, 3 Refills, Maintenance, 06/28/19 8:36:00 EST, EC Tablet, 172.72, cm, 04/19/19 10:29:00 EDT, Height, 108.6, kg, 06/18/19 11:35:00 EST, Dry Weight Start Date: 06/28/19 Status: Ordered Tylenol 325 mg oral tablet 650 mg, Tablet, By Mouth, Every 6 hours for 30 days, PRN for Pain , Moderate, Routine, 04/07/22 22:56:00 EDT, Stop date 05/07/22 22:55:00 EST Start Date: 04/07/22 Stop Date: 04/09/22 Status: Discontinued Problem List Condition Confirmation Course Effective Dates Status H ealt Status Informant Acute calculous cholecystitis Confirmed 03/04/13 Active Acute Cholecystitis Confirmed 03/22/13 Active Obese class II Confirmed Active Results Radiology Reports * Exam Date Time Procedure Performing Provider Status 04/07/22 9:33 PM Chest 2 Views Frontal and Lat Sejal Rodriguez (Verified) Notes: (Chest 2 Views Frontal and Lat) Reason For Exam: Chest Pain;Other: RESULT: Chest 2 Views Frontal and Lat Chest 2 Views Frontal and Lat Hx of Present Illness: PMHX CHF, mild RLE swelling. Pt c o SOB x few days w exertion. Afebrile. Pt has required the use of her nasal cannula at home past 2 days.; Reason: Other:; Chest Pain; ClinicalQuestion(s): Other: COMPARISON: Prior chest radiographs, most recently February 14, 2022. FINDINGS: LINES AND TUBES: None. LUNGS AND PLEURA: Mildly congested vasculature without overt edema. Hazy opacity at the right lung base likely represents a combination of atelectasis and congestion, minimally more conspicuous when compared with the prior study. No pleural effusion. No pneumothorax. HEART, MEDIASTINUM AND ANTHONY: Heart is normal in size. Normal mediastinal and hilar contour. BONES AND SOFT TISSUES: No acute abnormality. Mild multilevel degenerative changes. IMPRESSION: 1. Mildly congested vasculature without overt pulmonary edema. 2. Hazy opacity at right lung base likely represents atelectasis and vascular congestion. An early area of infection/inflammation is possible in the proper clinical setting. No confluent consolidation. WSN: [id number] Ordering Physician: Marshall Garcia Dictated By: Ortiz James MD Dictated Date/Time: 04/07/22 9:38 pm Reviewed By: Ortiz James MD Signed By: Ortiz James MD Signed Date/Time: 04/07/22 9:38 pm Transcribed By: ABDI Transcribed Date/Time: 04/07/22 9:36 pm Vital Signs Most recent to oldest [Reference Range]: 1 2 3 Height 173 cm (04/09/22 7:16 AM) 173 cm (04/08/22 11:10 PM) 173 cm (04/08/22 8:10 PM) Weight 108.3 kg (04/08/22 4:53 AM) 108.3 kg (04/07/22 11:59 PM) 109.3 kg (04/07/22 11:12 PM) Oxygen Saturation [94-100 %] 96 % (04/09/22 7:16 AM) 94 % (04/08/22 11:10 PM) 100 % (04/08/22 8:10 PM) Pulse Rate [55-90 bpm] 64 bpm (04/09/22 8:24 AM) 58 bpm (04/09/22 7:16 AM) 56 bpm (04/08/22 11:10 PM) Body Mass Index [18.5-24.99 kg/m2] 36.19 kg/m2 *>HHI* (04/07/22 11:59 PM) 36.52 kg/m2 *>HHI* (04/07/22 11:12 PM) 36.19 kg/m2 *>HHI* (04/07/22 10:48 PM) Blood Pressure [90-138/55-84 mm Hg] 150/49mm Hg *H* (04/09/22 8:24 AM) 150/49mm Hg *H* (04/09/22 8:24 AM) 150/49mm Hg *H* (04/09/22 7:16 AM) Respiratory Rate [16-30 br/min] 16 br/min (04/09/22 7:16 AM) 16 br/min (04/08/22 11:10 PM) 18 br/min (04/08/22 10:16 PM) Temperature [96.8-100.4 DegF] 97.9 DegF (04/09/22 7:16 AM) 98.1 DegF (04/08/22 11:10 PM) 97.7 DegF (04/08/22 8:10 PM) Liters per Minute 0 L/min (04/09/22 7:16 AM) 2 L/min (04/08/22 8:10 PM) 2 L/min (04/08/22 12:05 PM) Mode of Delivery (Oxygen) Room air (04/09/22 7:16 AM) Room air (04/08/22 11:10 PM) Nasal cannula (04/08/22 8:10 PM) Blood pressure sites Arm, left (04/09/22 7:16 AM) Arm, left (04/08/22 11:10 PM) Arm, left (04/08/22 8:10 PM) Temperature Route Oral (04/09/22 7:16 AM) Oral (04/08/22 11:10 PM) Oral (04/08/22 8:10 PM) Dry Weight 109.3 kg (04/07/22 11:12 PM) 108.3 kg (04/07/22 10:48 PM) 109.3 kg (04/07/22 7:59 PM) Weight Obtained Via Bed scale (04/08/22 4:53 AM) Bed scale (04/07/22 11:59 PM) Bed scale (04/07/22 10:48 PM) Dry Weight Obtained Via Bed scale (04/07/22 10:48 PM) Social History Social History Type Response Smoking Status Never (less than 100 in lifetime) entered on: 10/15/21 Sex Note * [employer] , CIS S: TRANSCRIBE Ortiz James MD: VERIFY Event Display: Result: Authored Date: [id number] Chest 2 Views Frontal and Lat Hx of Present Illness: PMHX CHF, mild RLE swelling. Pt c o SOB x few days w exertion. Afebrile. Pt has required the use of her nasal cannula at home past 2 days.; Reason: Other:; Chest Pain; ClinicalQuestion(s): Other: COMPARISON: Prior chest radiographs, most recently February 14, 2022. FINDINGS: LINES AND TUBES: None. LUNGS AND PLEURA: Mildly congested vasculature without overt edema. Hazy opacity at the right lung base likely represents a combination of atelectasis and congestion, minimally more conspicuous when compared with the prior study. No pleural effusion. No pneumothorax. HEART, MEDIASTINUM AND ANTHONY: Heart is normal in size. Normal mediastinal and hilar contour. BONES AND SOFT TISSUES: No acute abnormality. Mild multilevel degenerative changes. IMPRESSION: 1. Mildly congested vasculature without overt pulmonary edema. 2. Hazy opacity at right lung base likely represents atelectasis and vascular congestion. An early area of infection/inflammation is possible in the proper clinical setting. No confluent consolidation. WSN: [id number] Ordering Physician: Marshall Garcia Dictated By: Ortiz James MD Dictated Date/Time: 04/07/22 9:38 pm Reviewed By: Ortiz James MD Signed By: Ortiz James MD Signed Date/Time: 04/07/22 9:38 pm Transcribed By: ABDI Transcribed Date/Time: 04/07/22 9:36 pm Patient Care team information Personnel Name: Natalie Braxton NP Address: Address: [address] [place] [address]
--- OUTSIDE RECORDS SUMMARY | 2023-12-13 17:39 | XMS_ITS | Continuity of Care Document ---
Author Organization [facility] Address [address] [place] [address]- Care Team Providers Care Picture Enlarger Name Role Phone [place] Monique Navjot Primary Care Physician [phone] [place] [facility] [place] 08/19/22 - 08/24/[address] [address]- Encounter Diagnosis Leukocytosis(Final) - 08/19/22 Pneumonia(Final) - 08/19/22 CHF exacerbation(Final) - 08/19/22 Hypoxia(Final) - 08/19/22 Shortness of breath(Final) - 08/19/22 Discharge Disposition: A-D/C Home Attending Physician: Ana Sheehan MD, Luis M Admitting Physician: Kat Morgan MD Referring Physician: Not on Staff, Referring MD Allergies, Adverse Reactions, Alerts Substance Reaction Severity Status hydrochlorothiazide-triamterene Active penicillins Active Byetta Prefilled Pen Active Immunizations Given and Recorded Vaccine Date Status Refusal Reason [id number] 12y+ bivalent booster vax 05/28/22 Recorded influenza [...] oral tablet 10 mg, Tablet, By Mouth, 08/24/22 9:00:00 EST Start Date: 08/24/22 Stop Date: 08/24/22 Status: Completed aspirin 81 mg oral tablet 1 tablet = 81 mg, By Mouth, Daily, # 90 tablet, 0 Refills, Maintenance, 12/10/18 10:23:27 EDT, Tablet Start Date: 12/10/18 Status: Ordered Atenolol = 25 mg, By Mouth, Daily, 0 Refills, Maintenance, 09/21/18 2:38:29 EDT Start Date: 09/21/18 Status: Ordered atenolol 25 mg oral tablet 25 mg, Tablet, By Mouth, 08/24/22 9:00:00 EST Start Date: 08/24/22 Stop Date: 08/24/22 Status: Completed atorvastatin 80 mg oral tablet 1 tablet = 80 mg, By Mouth, Daily, # 30 tablet, 0 Refills, Maintenance, Tablet Start Date: 09/23/18 Status: Ordered Basaglar KwikPen = 45 units, Subcutaneous Injection, 2 times a day, [...] oral tablet 100 mg, Tablet, By Mouth, 08/24/22 9:00:00 EST Start Date: 08/24/22 Stop Date: 08/24/22 Status: Completed Protonix 40 mg oral delayed release tablet 1 tablet = 40 mg, By Mouth, Daily, # 30 tablet, 3 Refills, Maintenance, 06/28/19 8:36:00 EST, EC Tablet, 172.72, cm, 04/19/19 10:29:00 EDT, Height, 108.6, kg, 06/18/19 11:35:00 EST, Dry Weight Start Date: 06/28/19 Status: Ordered Problem List Condition Confirmation Course Effective Dates Status H ealth Status Informant Acute calculous cholecystitis Confirmed 03/04/13 Active Acute Cholecystitis Confirmed 03/22/13 Active Severe obesity (BMI 35.0-39.9) with comorbidity Confirmed Active Results Orders for Microbiology Reports Name Date Sputum Culture w/ Gram Smear 08/19/22 Blood Culture 08/19/22 Blood Culture #2 08/19/22 Microbiology Reports TEST:Sputum Culture STATUS:Auth (Verified) BODY SITE: SOURCE:EXPECT COLLECTED DATE/TIME:08/19/22 11:11 PM Sputum Culture SPECIMEN DESCRIPTION : EXPECTORATED SPUTUM SPECIAL REQUESTS : NONE GRAM STAIN : 2+ SQ.EPITHELIAL CELLS 1+ WHITE BLOOD CELLS 3+ GRAM POSITIVE COCCI 2+ GRAM POSITIVE RODS CULTURE : 4+ NORMAL KATHY REPORT STATUS : FINAL 08/22/2022 TEST:Blood Culture, Second Order STATUS:Unauthenticated BODY SITE: SOURCE:Blood COLLECTED DATE/TIME:08/19/22 6:31 PM Blood Culture, Second Order SPECIMEN DESCRIPTION : BLOOD RH SPECIAL REQUESTS : BLOOD RH CULTURE : NO GROWTH 4 DAYS REPORT STATUS : PRELIMINARY REPORT TEST:Blood Culture STATUS:Unauthenticated BODY SITE: SOURCE:Blood COLLECTED DATE/TIME:08/19/22 6:27 PM Blood Culture SPECIMEN DESCRIPTION : BLOOD RAC SPECIAL REQUESTS : BLOOD RH CULTURE : NO GROWTH 4 DAYS REPORT STATUS : PRELIMINARY REPORT Radiology Reports * Exam Date Time Procedure Performing Provider Status 08/21/22 10:[address] Chest W/O Contrast Saadia Alcala ; Auth (Verified) Notes: (CT Chest W/O Contrast) Reason For Exam: Pneumonia, unresolved;Other: RESULT: CT Chest W/O Contrast CT Chest W/O Contrast INDICATION: Reason: Other:; Pneumonia, unresolved; Clinical Question(s): Interstitial Alveolar Infiltration TECHNIQUE: Helical CT scan of the chest without IV contrast, formatted in 3 planes. Weight-based protocol was performed using automatic exposure control. CTDIvol Body: 15.01 mGy, DLP Body: 534 mGy*cm. COMPARISON: Chest x-ray 08/19/2022. Abdomen and pelvis CT including lung bases from 01/31/2019. FINDINGS: Relief Map Modeler view findings, lines and tubes: None. Trachea and airways: Patent without evidence of tracheal or endobronchial lesion. Lungs and pleura: There are stable trace bilateral layering pleural effusions with minimal dependent atelectasis in the lower lobes. There is patchy groundglass opacity in the perihilar regions of both upper lobes also involving the subpleural aspect of the left upper lobe. Increased thickness of intra and interlobular septae at the lung bases. No pneumothorax. Mediastinum and karin: No mass or hematoma. There is a mildly enlarged 1.2 cm short axis precarinal lymph node on image 48 series 2. Similar sized paratracheal lymph nodes are noted within the mediastinum. No enlarged hilar lymph nodes. No esophageal abnormality. Heart: Heart size at upper limit of normal. Prominent valvular calcifications at the mitral and aortic valves . Moderate coronary artery calcification. Aorta: No aortic aneurysm. Pulmonary arteries: Normal caliber. Chest wall soft tissues: No acute abnormality. Diaphragm: Intact. Upper abdomen: No significant abnormality. Incidental accessory spleen. Severe atherosclerotic calcification of the abdominal aorta and branches. Bones: No acute abnormality. IMPRESSION: Chronic trace bilateral pleural effusions and borderline mild cardiac enlargement. This may represent manifestation of fluid overload. There are patchy groundglass changes in the perihilar and subpleural aspects of both upper lobes and to a lesser extent the lower lobes. This appearance is nonspecific and could be seen with atypicalpneumonia as well as pulmonary edema. Absence of subpleural reticular changes, honeycombing and bronchiectasis mitigates against interstitial lung disease. Mildly prominent paratracheal and precarinal lymph nodes, nonspecific. WSN: [id number] Ordering Physician: Luis M Zamora Dictated By: Helder Ramirez MD Dictated Date/Time: 08/21/22 10:40 a Reviewed By: Helder Ramirez MD Signed By: Helder Ramirez MD Signed Date/Time: 08/21/22 10:40 am Transcribed By: ABDI Transcribed Date/Time: 08/21/22 10:30 am * Exam Date Time Procedure Performing Provider Status 08/19/22 5:29 PM Chest Portable Short , Michell; Auth (Ve rified) Notes: (Chest Portable) Reason For Exam: Shortness of Breath RESULT: Chest Portable Chest Portable Hx of Present Illness: YEIMI for 2 days. Pt has Hx of CHF and has had worsening YEIMI in the past few days.; Reason: Shortness of Breath; Clinical Question(s): CHF COMPARISON: Radiograph of the chest 04/07/2022. FINDINGS: LINES AND TUBES: None. LUNGS AND PLEURA: Hazy opacity at the right lung base may reflect atelectasis or asymmetric pulmonary edema, however superimposed pneumonia cannot be excluded. No pleural effusion. No pneumothorax. HEART, MEDIASTINUM AND KARIN: Unchanged cardiomediastinal silhouette. The aorta is uncoiled and calcified. BONES AND SOFT TISSUES: No acute abnormality. Mild multilevel degenerative changes. IMPRESSION: 1. Hazy opacity at the right lung base may reflect asymmetric pulmonary edema or atelectasis, however superimposed pneumonia cannot be excluded. WSN: [id number] Ordering Physician: Alfonzo Campoverde Dictated By: Angela Hope MD Dictated Date/Time: 08/19/22 5:51 pm Reviewed By: Angela Hope MD Signed By: Angela Hope MD Signed Date/Time: 08/19/22 5:51 pm Transcribed By: ABDI Transcribed Date/Time: 08/19/22 5:47 pm Vital Signs Most recent to oldest [Reference Range]: 1 2 3 Height 172 cm (08/24/22 7:31 AM) 172 cm (08/24/22 4:15 AM) 172 cm (08/23/22 11:05 PM) Weight 107.0 kg (08/24/22 5:15 AM) 106.5 kg (08/22/22 11:49 PM) 107.6 kg (08/22/22 4:29 AM) Oxygen Saturation [94-100 %] 99 % (08/24/22 7:31 AM) 96 % (08/24/22 4:15 AM) 97 % (08/23/22 11:05 PM) Pulse Rate [55-90 bpm] 73 bpm (08/24/22 9:20 AM) 73 bpm (08/24/22 7:31 AM) 66 bpm (08/24/22 4:15 AM) Body Mass Index [18.5-24.99 kg/m2] 35.46 kg/m2 *>HHI* (08/19/22 10:42 PM) Blood Pressure [90-138/55-84 mm Hg] 142/44mm Hg *H* (08/24/22 9:20 AM) 142/44mm Hg *H* (08/24/22 9:20 AM) 142/44mm Hg *H* (08/24/22 9:20 AM) Respiratory Rate [16-30 br/min] 16 br/min (08/24/22 7:31 AM) 18 br/min (08/24/22 4:15 AM) 18 br/min (08/23/22 11:05 PM) Temperature [96.8-100.4 DegF] 98.2 DegF (08/24/22 7:31 AM) 98.0 DegF (08/24/22 4:15 AM) 98.6 DegF (08/23/22 11:05 PM) Liters per Minute 2 L/min (08/24/22 7:31 AM) 2 L/min (08/24/22 4:15 AM) 2 L/min (08/23/22 11:05 PM) Mode of Delivery (Oxygen) Nasal cannula (08/24/22 7:31 AM) Nasal cannula (08/24/22 4:15 AM) Nasal cannula (08/23/22 11:05 PM) Blood pressure sites Arm, left (08/24/22 7:31 AM) Arm, right (08/24/22 4:15 AM) Arm, right (08/23/22 11:05 PM) Temperature Route Oral (08/24/22 7:31 AM) Oral (08/24/22 4:15 AM) Oral (08/23/22 11:05 PM) Dry Weight 104.9 kg (08/19/22 10:42 PM) 107 kg (08/19/22 5:16 PM) Weight Obtained Via Bed scale (08/24/22 5:15 AM) Bed scale (08/22/22 11:49 PM) Bed scale (08/22/22 4:29 AM) Social History Social History Type Response Smoking Status Former smoker, quit more than 30 days ago; Total pack years: 35; Stopped at age: 56; entered on: 08/20/22 Sex History and physical note * Eddie PINEDA, Kat Villeda: MODIFY, MODIFY, MODIFY, MODIFY, MODIFY, MODIFY, MODIFY, MODIFY, PERFORM, MODIFY Event Display: History and Physical Hospital Authored Date: Patient: ??MONY FERRELL ? Age:??71 Years?Sex:??Female?:??1950?? Chief Complaint/Reason for Consultation YEIMI History of Present Illness 71 yo woman with hx DM2 on insulin, obesity, CKD3 baseline creatinine ~ 1.9, HTN, HLD, hypothyroidism, diastolic CHF with chronic hypoxemia on 2 liters at home, presents with SOB. Pt states she has been SOB for a long time, gradually progressive such that she has been pursuing an appointment with pulmonology at the advice of her philatelic consultant, Dr. Ojeda. She had an appointment with Dr. Castro that recently was rescheduled for September 04. She reports her SOB has increased much more since August 05, such that tonight she could not breathe despite turning her O2 up to 3 liters, and she had to call 911. Pt reports she has been having a mildly productive cough for??a few days, with white sputum. She has had low grade temps, 99.3, at home for a few days. She states her weight has not increased in this time, she feels it has gone down some, as has her BLE edema. She denies any chest pain,nausea, vomiting. She is complaining of a headache which she says is a severe version of her usual headache pattern, states these go away with resting in a dark room, declines any pain meds.??States she has chronic abdomina pain due to a messed up stomach which is unchanged from her baseline. Patient denies sore throat, diarrhea,??constipation, gi bleeding,??dysuria, dizziness, weakness, fainting, falling, seizures,??depression, anxiety. ?? EMS found pt hypoxemic on 2 liters O2 at 88% and placed her on BiPAP. In the ER she was noted to have persistently increased work of breathing and was maintained on hospital BiPAP for an hour or so, then able to transition off this onto 3 liters by oxymask. Pt noted to have fever to 101.3,??mildly hypertensive, HR 70s. WBC 16.8, Hb 9.7, plts wnl. CK 283, trop 111 -> 115 -> 113. BNP 680. Lytes wnl, creatinine at baseline 1.9. Lactate 0.9. Flu/RSV/Covid negative. EKG nonischemic. CXR with hazy opacity at the right base. Bedside US in the ER showed multiple B lines.? Pt was started on Lasix, ceftriaxone and Zithromax and will be admitted for acute on chronic hypoxemic respiratory failure due to??CAP and diastolic CHF exacerbation. Review of Systems Otherwise, aside from what is mentioned in the HPI, all systems were reviewed with the patient and negative. Objective Measurements?? Height: 172 cm (08/19/22) Weight: 107 kg (08/19/22) Dry Weight: 107 kg (08/19/22) ? Vital Signs?? Temperature:??101.3 DegF??High (08/19/22 17:16:00) Temperature Route: Oral (08/19/22 17:16:00) Pulse Rate: 73 bpm (08/19/22 20:15:00) Respiratory Rate: 16 br/min (08/19/22 20:15:00) Systolic Blood Pressure:??160 mm Hg??High (08/19/22 20:15:00) Diastolic Blood Pressure: 83 mm Hg (08/19/22 20:15:00) Blood pressure sites: Arm, right (08/19/22 20:15:00) Mean Arterial Pressure: 93 mm Hg (08/19/22 17:16:00) Pulse Pressure: 126 mm Hg (08/19/22 17:16:00) Oxygen Saturation: 95 % (08/19/22 20:15:00) Liters per Minute: 2 L/min (08/19/22 20:15:00) Mode of Delivery (Oxygen): Nasal cannula (08/19/22 20:15:00) FiO2: 30 % (08/19/22 17:46:00) ? Physical Exam Constitutional: Alert, fatigued, wearing oxymask, speaking in full sentences. Head: Normocephalic, atraumatic. Eyes: Extraocular muscles intact. ENT: Oropharynx clear, mucous membranes moist.?? Neck: Supple. Respiratory: Faint crackles at the right base. Cardiovascular:??Regular rate and rhythm, no murmurs appreciated. Pulses??intact BLE,??trace edema.?? Gastrointestinal: Abdomen soft, mild diffuse tenderness pt states is baseline, obese. Normal bowel sounds.?? Genitourinary: No CVAT. Neurologic: Cranial nerves II-XII grossly intact. No asymmetry. Moves all extremities spontaneously.?? Skin:??No petechiae or purpura.?? Musculoskeletal:?? No gross deformities.?? Psych: Mood and affect appropriate to situation. Assessment/Plan 71 yo woman with hx DM2 on insulin, obesity, CKD3 baseline creatinine ~ 1.9, HTN, HLD, hypothyroidism, diastolic CHF with chronic hypoxemia on 2 liters at home, presents with acute on chronic hypoxemic respiratory failure, admitted for CAP and diastolic CHF exacerbation. ?? 1. CV. Pt with chronic diastolic CHF, chronic hypoxemia on 2 liters at baseline, presenting with acute exacerbation. Her BNP is mildly elevated, higher than her prior. Trop elevated but flat, likely due to strain from the CHF as well as CKD. B lines on bedside US consistent with pulmonary edema. Ptwas initially treated with BiPAP, now tolerating 3 liters O2 by mask, satting in the low 90s. She will be admitted to telemetry, continue with Lasix 40 mg IV BID, titrate to output. Strict I&Os, daily weights. Last echo was in March showing EF 55-60%. Pt follows with [facility]. Continue ASA, Norvasc, atenolol, statin and losartan at home doses. ?? 2. ID. Pt presenting with fever, productive cough and leukocytosis (of note baseline WBC ~ 12, higher today). CXR showing RLL opacity which is compatible with a pneumonia. Pt started on ceftriaxone and Zithromax, this will be continued. Blood cx pending, sputum cx ordered should she produce any, aswell as strep and legionella testing. ?? 3. ? COPD. She does have a 35 pack year smoking hx but does not carry a dx of COPD, apparently has an appt with Dr. Castro next month for evaluation. Not wheezing now but she was wheezing in the ER, given the smoking hx will place her on Duonebs QID and albuterol PRN. ?? 4. CKD. Creatinine is at her baseline. Monitor with diuresis. Renally dose meds. ?? 5. Mild anemia. Hb is below her recent baseline. Likely anemia of chronic disease due to CKD. Checkscreening anemia labs. PCP to follow. Consider evaluation by renal for Procrit. ?? 6. Hypothyroid. Continue Synthroid. ?? 7. DM2. Pt with low glucose on presentation, improved on recheck. Continue home Lantus with SSI, check A1c. ?? 8. GERD. Continue PPI. ?? 9. DVT ppx with heparin. ?? 10. Full??code. Histories Allergies Allergies ?(Active and Proposed Allergies Only) hydrochlorothiazide-triamterene? (Severity: Unknown severity, Onset: Unknown) Byetta Prefilled Pen? (Severity: Unknown severity, Onset: Unknown) penicillins? (Severity: Unknown severity, Onset: Unknown) ? Past Medical History/Problem List Active Problems??(6) Acute calculous cholecystitis Acute Cholecystitis CKD (chronic kidney disease), stage III HTN (hypertension) Hypothyroid Severe obesity (BMI 35.0-39.9) with comorbidity ? Past Surgical History lap lor ? Social History Alcohol Details:??Use: Never. Home/Environment Details:??Living situation: Home/Independent. ??Lives with: Significant other. ??Oxygen Home equipment:. Substance Abuse Details:??Use: Never. Tobacco Details:??Use: Former smoker, quit more than 30 days ago. ??Total pack years: 35. ??Stopped at age:56 Years. ? Family History Father??- had four MIs, DM2, CKD Mother - EtOH dependence,?? Lung cancer Medications Home Medications Amlodipine (amLODIPine 5 mg oral tablet)?10?Milligram?2?tablet?By Mouth?Daily Aspirin (aspirin 81 mg oral tablet)?1?tab(s)?81?Milligram?By Mouth?Daily Atenolol?25?Milligram?By Mouth?Daily Atorvastatin (atorvastatin 80 mg oral tablet)?1?tab(s)?80?Milligram?By Mouth?Daily BuPROpion (buPROPion 150 mg/12 hours (SR) oral tablet, extended release)?1?tab(s)?150?Milligram?By Mouth?2 times a day Furosemide (Lasix 20 mg oral tablet)?40?Milligram?2?tablet?By Mouth?Daily?for 30?Days Insulin Aspart (NovoLOG 100 units/mL subcutaneous solution)?36?unit(s)?Subcutaneous Injection?3 times a day before meals Insulin Glargine (Basaglar KwikPen)?70?Subcutaneous Injection?2 times a day Levothyroxine (levothyroxine 125 mcg (0.125 mg) oral tablet)?1?tab(s)?125?Microgram?By Mouth?Daily Losartan?100?Milligram?By Mouth?Daily Pantoprazole (Protonix 40 mg oral delayed release tablet)?1?tab(s)?40?Milligram?By Mouth?Daily ? Results Recent Labs BLOOD COUNT & DIFF WBC 16.8 k/mm3 (High)?? 08/19/2022 17:41 RBC 3.46 m/mm3 (Low)?? 08/19/2022 17:41 Hgb 9.7 Gm/dL (Low)?? 08/19/2022 17:41 Hct 30.6 % (Low)?? 08/19/2022 17:41 MCV 88.4 femtoliters ()?? 08/19/2022 17:41 MCH 28.0 pg ()?? 08/19/2022 17:41 MCHC 31.7 g/dL (Low)?? 08/19/2022 17:41 Platelet Count 247 k/mm3 ()?? 08/19/2022 17:41 RDW-SD 50.4 femtoliters (High)?? 08/19/2022 17:41 MPV 8.5 femtoliters (Low)?? 08/19/2022 17:41 Nucleated RBC (Automated) 0.0 #/100 WBC'S ()?? 08/19/2022 17:41 Abs. NRBC 0.0 k/mm3 ()?? 08/19/2022 17:41 Abs. Neut 13.1 k/mm3 (High)?? 08/19/2022 17:41 Abs. Lymph 1.2 k/mm3 ()?? 08/19/2022 17:41 Abs. [place] 1.4 k/mm3 (High)?? 08/19/2022 17:41 Abs. Eo 1.0 k/mm3 (High)?? 08/19/2022 17:41 Abs. Baso 0.0 k/mm3 ()?? 08/19/2022 17:41 Neut % 77.9 % (High)?? 08/19/2022 17:41 Lymph % 7.1 % (Low)?? 08/19/2022 17:41 [place] % 8.3 % ()?? 08/19/2022 17:41 Eos % 6.0 % ()?? 08/19/2022 17:41 Baso % 0.2 % ()?? 08/19/2022 17:41 Imm Gran 0.5 % ()?? 08/19/2022 17:41 Abs. Imm Gran 0.1 k/mm3 ()?? 08/19/2022 17:41 ?? CARDIAC CK, Total 283 units/L (High)?? 08/19/2022 17:41 CK MB Confirmation - Quant 9.3 ng/mL (High)?? 08/19/2022 17:41 Nt-Probnp 681 pg/mL (High)?? 08/19/2022 17:41 High Sensitivity Troponin (HSTnT) 111 ng/L (Critical)?? 08/19/2022 17:41 ?? CHEM GENERAL Sodium 141 mmol/L ()?? 08/19/2022 17:41 Potassium 4.4 mmol/L ()?? 08/19/2022 17:41 Chloride 105 mmol/L ()?? 08/19/2022 17:41 Bicarbonate Level 24 mmol/L ()?? 08/19/2022 17:41 Anion Gap 12 ()?? 08/19/2022 17:41 Glucose Level 69 mg/dL (Low)?? 08/19/2022 17:41 BUN 36 mg/dL (High)?? 08/19/2022 17:41 Creatinine-Blood 1.9 mg/dL (High)?? 08/19/2022 17:41 Estimated GFR Creatinine 26 ML/MIN/1.73 M2 ()?? 08/19/2022 17:41 Calcium 9.3 mg/dL ()?? 08/19/2022 17:41 Magnesium 1.9 mg/dL ()?? 08/19/2022 17:41 Folic Acid Level 8.7 ng/mL ()?? 08/19/2022 17:41 Lactate 0.9 mmol/L ()?? 08/19/2022 17:41 ?? FLUID STUDIES Hold Other SPECIMEN DISCARDED AFTER 1 WEEK ()?? 08/19/2022 18:56 ?? HEME OTHER Hold Blue Top SPECIMEN DISCARDED AFTER 4 HOURS. ()?? 08/19/2022 17:41 ?? MISC. CHEMISTRY Hold Gel Top SPECIMEN DISCARDED AFTER 1 WEEK ()?? 08/19/2022 17:41 ?? VIROLOGY Influenza A PCR NEGATIVE ()?? 08/19/2022 20:45 Influenza B PCR NEGATIVE ()?? 08/19/2022 20:45 RSV PCR NEGATIVE ()?? 08/19/2022 20:45 COVID-19 PCR Specimen Source NASAL ()?? 08/19/2022 20:45 COVID-19 PCR Result NEGATIVE ()?? 08/19/2022 20:45 ? EKG sinus at 73 bpm, 1st deg AVB, no acute ischemia ?? (08/19/2022 17:29 EST Chest Portable) ?? FINDINGS: ?? LINES AND TUBES:?? None. ?? LUNGS AND PLEURA: Hazy opacity at the right lung base may reflect atelectasis or asymmetric pulmonary edema, however superimposed pneumonia cannot be excluded. ?? No pleural effusion.?? No pneumothorax. ?? HEART, MEDIASTINUM AND KARIN:?? Unchanged cardiomediastinal silhouette. The aorta is uncoiled and calcified. ?? BONES AND SOFT TISSUES:?? No acute abnormality. Mild multilevel degenerative changes. ?? IMPRESSION: ?? 1. ??Hazy opacity at the right lung base may reflect asymmetric pulmonary edema or atelectasis, however superimposed pneumonia cannot be excluded. [1] ?? Echo 03/2022 ?Summary ??1. The left ventricle is normal in size, wall thickness and systolic ??function. The ejection fraction is 55-60%. No regional wall motion ??abnormalities seen. Unable to assess diastolic function due to mitral ??annulus calcification. ??2. The right ventricle is normal in size and function. An accurate pulmonary ??artery pressure could not be obtained. ??3. Biatrial size is normal. ??4. There is moderate mitral annular calcification. The mitral valve appears ??thickened and calcified. There is mild subvalvular calcification. There is ??trace mitral regurgitation. Calcific mitral stenosis is present. The mitral ??valve mean gradient is 5 mmHg at a heart rate of 57 bpm and calculated ??mitral valve area is 1.7 cm2. ?Comparison ??Comparison is made to the study of June 05, 2018. ??Left ventricular systolic function is unchanged since previous study. ??Mitral valve mean gradient is unchanged. [2] [1]??Chest Portable; Angela Hope MD 08/19/2022 17:29 EST [2]??Echo Complet; Trev Alcantar MD 04/08/2022 09:23 EDT EKG study * Event Display: ECG 12-Lead Authored Date: [id number] Please click on pdf link to open report * Event Display: ECG 12-Lead Authored Date: [id number] Ventricular Rate: 73 BPM Atrial Rate: 73 BPM P-R Interval: 232 ms QRS Duration: 92 ms Q-T Interval: 390 ms QTC Calculation(Bazett): 429 ms P [place]: 71 degrees R [place]: -40 degrees T [place]: 133 degrees Sinus rhythm with 1st degree A-V block Left axis deviation Nonspecific ST T changes Abnormal ECG When compared with ECG of 07-APR-2022 20:20, No significant change Confirmed by Jean-Paul Thompson ([id number]) on 08/21/2022 8:29:14 AM [place]: Jean-Paul Thompson * Event Display: ECG 12-Lead Authored Date: [id number] Please click on pdf link to open report * Event Display: ECG 12-Lead Authored Date: [id number] Ventricular Rate: 73 BPM Atrial Rate: 73 BPM P-R Interval: 238 ms QRS Duration: 94 ms Q-T Interval: 390 ms QTC Calculation(Bazett): 429 ms P [place]: 78 degrees R [place]: -38 degrees T [place]: 134 degrees Sinus rhythm with 1st degree A-V block Left axis deviation Nonspecific ST and T wave changes Abnormal ECG When compared with ECG of 07-APR-2022 20:20, No significant change Confirmed by Jean-Paul Thompson ([id number]) on 08/21/2022 8:11:08 AM [place]: Jean-Paul Thompson Hospital Progress note * Sepideh Lopez RN: PERFORM, SIGN, VERIFY Event Display: Progress Note Hospital Authored Date: Patient: MONY FERRELL Age: 71 years Sex: Female : 1950 Associated Diagnoses: None Author: Sepideh Lopez RN Findings Problem Related to Alteration in Respiratory Function (new) : Alteration in Respiratory Function/new 08/24/2022 12:00 EST Alteration in Resp Status Related to Pneumonia Goals & Outcomes, Respiratory Pt will maintain/resume baseline physical assessment, Pt will maintain adequate nutritional intake, Pt will maintain/resume normal fluid/electrolyte balance, Pt willnot develop complications r/t immobility, Pt will demonstrate proper technique w/self care procedures Interventions, Respiratory Assess/monitor tolerance to IV infusions; verify rate/dose, Monitor sputum color & consistency. Report changes to MD SEVERINO Goals/Interventions, Respiratory Yes Respiratory, Problem Start 08/20/2022 18:10 Reviewed Plan with, Respiratory Patient Patient Progression, Respiratory Patient progressing according to plan . Narrative/Incidental Pt a&O x4. No complaints of pain or discomfort. Discharge teaching provided. Education on insulin dosaging. IV removed, catheter intact. Pt left via wheelchair with at 1115am. Discharge Information Case Management Discharge Plan : Case Management Discharge Plan Data 08/24/2022 11:45 EST Discharge Level of Care at Discharge Short-term Acute Inpatient Pulmonary Rehab Discharge : Pulmonary Rehab Discharge Status 08/19/2022 17:46 EST CPAP/BiPAP Mask Type Full CPAP/BiPAP Mask Size Small Rehabilitation Discharge : Rehab Discharge Index 08/23/2022 14:56 EST Walker: distance >50 08/22/2022 15:30 EST Walker: distance >50 08/21/2022 14:32 EST Walker: distance >50 08/20/2022 8:37 EST Comments on treatment indicated Strengthening, transfer training, balance, gait training, endurance Walker: distance >50 Full chart review completed Yes Hospital course Pt admitted to [place] [address] for community aquired PNA and diastolic CHF exacerbation. Other findings Pt is able to participate in ADLs. Pt requires CG and a RW for ambulation (75' x 2 sets). Pt requires CG for sit to stands and has increased difficulty with standing from standard chair height. Pt O2 sat drops to 87% after exercise with recovery to 92% 3L Plan of care PT Gait training, Transfer training, Therapeutic exercise, Functional Activities, Balance training * Helga RODRIGUEZ, Eddie: PERFORM, SIGN, VERIFY Event Display: Progress Note Hospital Authored Date: [id number] Patient: MONY FERRELL Age: 71 years Sex: Female : 1950 Associated Diagnoses: None Author: Eddie Partida RN Findings Problem Related to Alteration in Respiratory Function (new) : Alteration in Respiratory Function/new 08/23/2022 21:00 EST Alteration in Resp Status Related to Pneumonia Goals & Outcomes, Respiratory Pt will maintain/resume baseline physical assessment, Pt will maintain adequate nutritional intake, Pt will maintain/resume normal fluid/electrolyte balance, Pt willnot develop complications r/t immobility, Pt will demonstrate proper technique w/self care procedures Interventions, Respiratory Assess for and report S&S of respiratory distress, Position for comfort & optimal oxygenation BH Goals/Interventions, Respiratory Yes Respiratory, Problem Start 08/20/2022 18:10 Reviewed Plan with, Respiratory Patient Patient Progression, Respiratory Patient progressing according to plan . Nursing Data Respiratory/Pulmonary Data. : Respiratory/Pulmonary Data. 08/23/2022 20:45 EST Respiratory Symptoms Dyspnea with exertion Respiratory effort Unlabored Cough No cough Left Upper Lobe Breath Sounds Diminished Right Upper Lobe Breath Sounds Diminished Right Middle Lobe Breath Sounds Diminished Left Lower Lobe Breath Sounds Diminished, Fine crackles Right Lower Lobe Breath Sounds Diminished, Fine crackles Respiratory distress None Respiratory WNL except . Narrative/Incidental Handoff report received from previous JENNIFER Mcdaniel. care assumed at 1900. pt A&O x 4, able to make needs known sinus rhythm on telemetry with HR in 60s lungs diminished throughout with fine crackles in bilateral bases. respiratory status stable with 2L of supplemental O2 via nasal cannula. dyspnea with mod exertion, recovers fairly easily with rest. abdomen soft and non tender. + bowel sounds purewick in place and draining clear light yellow urine. pt verbalizing the need to get out of here - not open to any further overnight stays falls prevention protocol in place. bed in low/locked position. call adhikari within reach. will continue to monitor. potential discharge to home today. * Violeta Dey RN: VERIFY, PERFORM, SIGN Event Display: Progress Note Hospital Authored Date: [id number] Patient: MONY FERRELL Age: 71 years Sex: Female : 1950 Associated Diagnoses: None Author: Violeta Dey RN Findings Problem Related to Alteration in Respiratory Function (new) : Alteration in Respiratory Function/new 08/23/2022 13:00 EST Alteration in Resp Status Related to Pneumonia Goals & Outcomes, Respiratory Pt will maintain/resume baseline physical assessment, Pt will maintain adequate nutritional intake, Pt will maintain/resume normal fluid/electrolyte balance, Pt willnot develop complications r/t immobility, Pt will demonstrate proper technique w/self care procedures Interventions, Respiratory Assess/monitor tolerance to IV infusions; verify rate/dose, Assess for and report S&S of respiratory distress, Position for comfort & optimal oxygenation, Monitor sputum color & consistency. Report changes to MD SEVERINO Goals/Interventions, Respiratory Yes Respiratory, Problem Start 08/20/2022 18:10 Reviewed Plan with, Respiratory Patient Patient Progression, Respiratory Patient progressing according to plan . Nursing Data Vital Signs : VITAL SIGNS SECTION 08/23/2022 15:15 EST Temperature 98.9 DegF Temperature Route Oral Pulse Rate 66 bpm Respiratory Rate 17 br/min Systolic Blood Pressure 145 mm Hg H Diastolic Blood Pressure 51 mm Hg L Blood pressure sites Arm, right Mean Arterial Pressure 82 mm Hg Pulse Pressure 94 mm Hg Oxygen Saturation 96 % Liters per Minute 2 L/min Mode of Delivery (Oxygen) Nasal cannula 08/23/2022 11:46 EST Temperature 98.4 DegF Temperature Route Oral Pulse Rate 64 bpm Respiratory Rate 18 br/min Systolic Blood Pressure 132 mm Hg Diastolic Blood Pressure 48 mm Hg L Blood pressure sites Arm, right Mean Arterial Pressure 76 mm Hg Pulse Pressure 84 mm Hg Oxygen Saturation 99 % Liters per Minute 2 L/min Mode of Delivery (Oxygen) Nasal cannula . Narrative/Incidental Pt. A and O x4, calm and cooperative with care. VSS as above, pt. remains afebrile. Pt denies dizziness or lightheadedness. Pt. denies CP or palpitations. On tele. with SR, +PP and no edema. Lungs dim bases with fine crackles, no SOB at rest, occasional dry cough.. sat.ing mid 90's on2 L via nasal canula. Tolerated diet well, no NVD. Abd soft non tender, +BS. voiding with female external device, with good amounts of clear yellow output. IV Lasix administered as ordered. , POCs covered with insulin order at breakfast and lunch and POC at [facility], MD Khoa devlin and insulin held at his request, falls risk protocols in place. Tylenol given at 0845 for mild headache with good effect. Note * Sepideh Lopez RN: PERFORM Event Display: Discharge/Transfer Note Hospital Authored Date: Nursing Discharge Note Entered On: 08/24/2022 11:45 EST Performed On: 08/24/2022 11:45 EST by Sepideh Lopez RN Nursing Discharge Note 2 Discharge Time : 08/24/2022 11:15 EST Discharge Level of Care at Discharge : Short-term Acute Inpatient Patient Left Unit Via : Wheelchair Patient Accompanied Off Unit with : Significant other DC Instructions Provided & Signed by Pt : Yes Patient Understands D/C Instructions : Yes Patient Instructions Discharge Signed : Yes Did Pt have Specialty Bed or Wound Vac : No Sepideh Lopez RN - 08/24/2022 11:45 EST * Ana Sheehan MD, Luis M: PERFORM Event Display: Discharge/Transfer Note Hospital Authored Date: Patient: ??RORYLORA MONY ? Age:??71 Years?Sex:??Female?:??1950?? Patient Information Discharge Location: [facility] Primary Care Physician: Monique Jason Admit Date/Time: 08/19/22 21:06 Discharge Disposition Discharge Disposition: Home with Home Health Discharge Diagnosis Acute??on chornic diastolic heart failure Acute on chronic hypoxemic respiratory failure Probable??viral pneumonia CKD stage 3/4 Elevated troponin with probable demand ischemia and no clinical evidence plaque rupture Anemia without obvious overt bleeding Hypothyroidism DM2 GERD +history of tobaccoo use Hypoglycemia _ Discharge Medications Amlodipine (amLODIPine 5 mg oral tablet)?10?Milligram?2?tablet?By Mouth?Daily Aspirin (aspirin 81 mg oral tablet)?1?tab(s)?81?Milligram?By Mouth?Daily Atenolol?25?Milligram?By Mouth?Daily Atorvastatin (atorvastatin 80 mg oral tablet)?1?tab(s)?80?Milligram?By Mouth?Daily BuPROpion (buPROPion 150 mg/12 hours (SR) oral tablet, extended release)?1?tab(s)?150?Milligram?By Mouth?2 times a day Furosemide (Lasix 20 mg oral tablet)?40?Milligram?2?tablet?By Mouth?Daily?for 30?Days Insulin Glargine (Basaglar KwikPen)?45?unit(s)?Subcutaneous Injection?2 times a day Levothyroxine (levothyroxine 125 mcg (0.125 mg) oral tablet)?1?tab(s)?125?Microgram?By Mouth?Daily Losartan?100?Milligram?By Mouth?Daily Pantoprazole (Protonix 40 mg oral delayed release tablet)?1?tab(s)?40?Milligram?By Mouth?Daily ?? Medications Started None?? Medications Discontinued Lispro Doses Changed Lantus PCP Follow-Up/Heads-Up Follow-up in about 1 to 2 weeks Outpatient pulmonary follow-up in 2 weeks. Objective Assessment and Plan 71 yo woman with hx DM2 on insulin, obesity, CKD3 baseline creatinine ~ 1.9, HTN, HLD, hypothyroidism, diastolic CHF with chronic hypoxemia on 2 liters at home, presents with SOB. Pt states she has been SOB for a long time, gradually progressive. ?? Acute??on chornic diastolic heart failure Acute on chronic hypoxemic respiratory failure Probable??viral pneumonia CKD stage 3/4 Elevated troponin with probable demand ischemia and no clinical evidence plaque rupture Anemia without obvious overt bleeding Hypothyroidism DM2 GERD +history of tobaccoo use ?? CT chest personally bilateral pleural effusion with borderline mild cardiac enlargement/manifestation of fluid overload.?? Patchy groundglass changes/nonspecific/PE pulmonary edema versus interstitial lung disease.?? Findings reviewed with the patient and spouse at bedside. ?? Responding well to IV diuresis. ??-6 L since admission to home dose oral Lasix.?? Euvolemic on discharge.. Reviewed echo findings from 2021.?? EF 55 to 60%.?? No regional wall motion abnormality.?? Unable to assess diastolic dysfunctioning.?? Moderate mitral annular calcification with trace regurgitation.?? Calcific mitral stenosis is present.?? Mitral valve mean gradient is unchanged. monitor renal function and lytes daily.?Follow-up with??cardiology??in about 1 to 2 weeks ?? Blood cultures are negative till date.?? Sputum cultures abnormal.?? Urine Legionella pneumonia antigens are negative.?? Isolated fever on day of admission is probably related to a viral pneumonia.?? No cough or productive phlegm. ??Procalcitonin 0.07??argues against??pneumonia.?? Hence antibioticswere discontinued. Reviewed CT findings with the spouse??Zara at bedside. ??Patient reports breathing has improved significantly. Patient is back on her chronic home O2 requirements.?? 2 L at baseline. Recommend follow-up with outpatient pulmonary-scheduled on September 03. ?? Patient had episodes of hypoglycemia??- A1c is 5.1??on??optimal blood sugar control patient does not link higher doses of insulin.?? Dose adjusted to 45 units twice a day??and discontinued??lispro sliding scale-on discharge.?? for diabetic management. ??defer follow-up with PCP?? Hypoglycemic measures as discussed on discharge. ?? CKD/at baseline.?? Creatinine is 2.0.?? Outpatient follow-up. ?? H&H stable/chronic anemia?? Defer outpatient follow-up. continue nebs for now ??but??re-evaluate dose meds to gfr < 30 ml/min for now continue PPI continue synthroid lantus and SSI continue BP rx and monitor renal fx ?? Patient will need follow up with her philatelic consultant (pham) and pulm (new appointment with Frantz) on d/c ?? Disclaimer: This dictation was accomplished with use of [email or web address] voice recognition software, prone tomedical word misidentifications and grammatical errors. The physician does strive to identify and correct these, but some could still be present. Please do not hesitate to contact physician for clarifications.? Vital Signs?? Temperature: 98.2 DegF (08/24/22 07:31:00) Temperature Route: Oral (08/24/22 07:31:) Pulse Rate: 73 bpm (08/24/22 09:20:00) Respiratory Rate: 16 br/min (08/24/22 07:31:00) Systolic Blood Pressure:??142 mm Hg??High (08/24/22 09:20:00) Systolic Blood Pressure:??142 mm Hg??High (08/24/22 09:20:00) Systolic Blood Pressure:??142 mm Hg??High (08/24/22 09:20:00) Diastolic Blood Pressure:??44 mm Hg??Low (08/24/22 09:20:00) Diastolic Blood Pressure:??44 mm Hg??Low (08/24/22 09:20:00) Diastolic Blood Pressure:??44 mm Hg??Low (08/24/22 09:20:00) Blood pressure sites: Arm, left (08/24/22 07:31:00) Mean Arterial Pressure: 77 mm Hg (08/24/22 07:31:00) Pulse Pressure: 98 mm Hg (08/24/22 07:31:00) Oxygen Saturation: 99 % (08/24/22 07:31:00) Liters per Minute: 2 L/min (08/24/22 07:31:00) Mode of Delivery (Oxygen): Nasal cannula (08/24/22 07:31:00) Early Warning Score: 0 (08/24/22 09:28:52) ? . Physical Exam General: Well nourished, appears stated age, anxious in moderate distress. HEENT: moist oral mucosa. PERRLA, EOMI.?? NECK: JVD Elevated. No bruits. Heart: Regular rate. S1 and s2 heard. No murmer, rub or gallop. Lungs:??Minimal??crackles on lower bases. Abdomen : Soft, nondistended, nontender and bowel sounds are active. ??No organomegaly.?? Extremities: No pedal edema, swelling or cyanosis. peripheral pulses 2+ Neurological : grossly non focal. AA0 X3.? Pscy: Mood and affect appropriate.? Pending Results Add On Lab Order ordered on 08/19/2022 Add On Lab Order ordered on 08/19/2022 Add On Lab Order ordered on 08/20/2022 Blood Culture ordered on 08/19/2022 Blood Culture #2 ordered on 08/19/2022 Patient Education Titles Heart Failure Discharge Instructions for Heart Failure?? Follow-Up Appointments Added Follow Up ?Time Frame ?Comments Monique Jason?1 to 2 weeks Post Discharge Care Activity: OOB ad Daniela ??With Assistance Code Status: ?? Full Resuscitation Condition: ?? Fair Discharge ?08/24/22 10:19:00 EST Discharge Prescriptions ?ePrescribed, ??08/24/22 10:19:00 EST Home Health Face to Face *Denotes mandatory alonso ?? *I certify that this patient is under my care and that I or an allowed non- physician working with me had a face to face encounter with the patient on this date:??08/24/2022 10:57 ?? *The encounter with the patient was in whole, or in part, for the following medical condition, which is the primary diagnosis(es) for home health care:??CHF exacerbation (I50.9) Hypoxia (R09.02) Leukocytosis (D72.829) Pneumonia (J18.9) Shortness of breath (R06.02) ? *Select the indications for the discipline/s that are being arranged for this patient. Nursing (select all that apply): [_] None [X] Medication management (reconciliation, teaching)?? [_] Chronic disease management?? [_] Wound care and treatment?? [_] Home safety evaluation [_] Administer SQ/IM/IV medications?? [_] Cath care?? [_] Drain care?? [_] Trach or GT care?? Other _ Occupation Therapy (select all that apply): [_] None [X] ADL Management [_] Fall prevention training [_] Energy conservation [_] Cognitive training Other _ Physical Therapy (select all that apply): [_] None [X] Functional mobility training [X] Home exercise program to strengthen [_] Increase ROM?? [_] Falls prevention training [_] [...] weight bearing [_] Mental status change? *Physician Signature:??Ana Sheehan ?? *By signing this, I certify that I have personally evaluated the patient and agree with the findings and recommendations as documented above. ? Results Discharge Labs BLOOD COUNT & DIFF WBC 12.1 k/mm3 (High)?? 08/24/2022 06:27 RBC 3.28 m/mm3 (Low)?? 08/24/2022 06:27 Hgb 9.0 Gm/dL (Low)?? 08/24/2022 06:27 Hct 29.3 % (Low)?? 08/24/2022 06:27 MCV 89.3 femtoliters ()?? 08/24/2022 06:27 MCH 27.4 pg ()?? 08/24/2022 06:27 MCHC 30.7 g/dL (Low)?? 08/24/2022 06:27 Platelet Count 254 k/mm3 ()?? 08/24/2022 06:27 RDW-SD 48.7 femtoliters (High)?? 08/24/2022 06:27 MPV 8.8 femtoliters (Low)?? 08/24/2022 06:27 Nucleated RBC (Automated) 0.0 #/100 WBC'S ()?? 08/24/2022 06:27 Abs. NRBC 0.0 k/mm3 ()?? 08/24/2022 06:27 Abs. Neut 8.0 k/mm3 (High)?? 08/20/2022 05:58 Abs. Lymph 2.1 k/mm3 ()?? 08/20/2022 05:58 Abs. [place] 1.4 k/mm3 (High)?? 08/20/2022 05:58 Abs. Eo 0.8 k/mm3 (High)?? 08/20/2022 05:58 Abs. Baso 0.0 k/mm3 ()?? 08/20/2022 05:58 Neut % 64.1 % ()?? 08/20/2022 05:58 Lymph % 16.9 % ()?? 08/20/2022 05:58 [place] % 11.4 % (High)?? 08/20/2022 05:58 Eos % 6.8 % (High)?? 08/20/2022 05:58 Baso % 0.2 % ()?? 08/20/2022 05:58 Imm Gran 0.6 % ()?? 08/20/2022 05:58 Abs. Imm Gran 0.1 k/mm3 ()?? 08/20/2022 05:58 ?? CARDIAC CK, Total 204 units/L (High)?? 08/20/2022 01:04 CK MB Confirmation - Quant 9.3 ng/mL (High)?? 08/19/2022 17:41 Nt-Probnp 681 pg/mL (High)?? 08/19/2022 17:41 High Sensitivity Troponin (HSTnT) 113 ng/L (Critical)?? 08/20/2022 01:04 ?? CHEM GENERAL Sodium 141 mmol/L ()?? 08/24/2022 06:27 Potassium 4.1 mmol/L ()?? 08/24/2022 06:27 Chloride 103 mmol/L ()?? 08/24/2022 06:27 Bicarbonate Level 27 mmol/L ()?? 08/24/2022 06:27 Anion Gap 11 ()?? 08/24/2022 06:27 Glucose Level 124 mg/dL (High)?? 08/24/2022 06:27 Glucose, POC 142 mg/dL (High)?? 08/24/2022 08:01 Hemoglobin A1C (Monitoring) 5.1 % ()?? 08/20/2022 05:58 BUN 41 mg/dL (High)?? 08/24/2022 06:27 Creatinine-Blood 2.0 mg/dL (High)?? 08/24/2022 06:27 Estimated GFR Creatinine 25 ML/MIN/1.73 M2 ()?? 08/24/2022 06:27 Calcium 9.2 mg/dL ()?? 08/24/2022 06:27 Phosphorus 4.4 mg/dL ()?? 08/24/2022 06:27 Magnesium 2.2 mg/dL ()?? 08/24/2022 06:27 Protein, Total 5.5 Gm/dL (Low)?? 08/20/2022 01:04 Albumin 3.2 Gm/dL (Low)?? 08/20/2022 01:04 Alkaline Phosphatase 82 units/L ()?? 08/20/2022 01:04 AST (SGOT) 23 units/L ()?? 08/20/2022 01:04 ALT (SGPT) 23 units/L ()?? 08/20/2022 01:04 Bilirubin, Total 0.3 mg/dL ()?? 08/20/2022 01:04 Bilirubin, Direct 0.1 mg/dL ()?? 08/20/2022 01:04 Bilirubin, Indirect 0.2 mg/dL ()?? 08/20/2022 01:04 Vitamin B12 Level 232 pg/mL ()?? 08/19/2022 17:41 Folic Acid Level 8.7 ng/mL ()?? 08/19/2022 17:41 Lactate 0.9 mmol/L ()?? 08/19/2022 17:41 Ferritin Level 213 ng/mL ()?? 08/19/2022 17:41 ?? ENDOCRINE/TUMOR MARKER TSH 2.83 uIU/mL ()?? 08/20/2022 05:58 ? FLUID STUDIES Hold Other SPECIMEN DISCARDED AFTER 1 WEEK ()?? 08/19/2022 18:56 ? HEME OTHER Hold Blue Top SPECIMEN DISCARDED AFTER 4 HOURS. ()?? 08/19/2022 17:41 ? MISC. CHEMISTRY Procalcitonin 0.08 ng/mL ()?? 08/21/2022 06:21 Hold Gel Top SPECIMEN DISCARDED AFTER 1 WEEK ()?? 08/19/2022 17:41 ?? SEROLOGY INF DISEASE Legionella pneumophila Antigen NEGATIVE ()?? 08/19/2022 23:09 S. Pneumococcus Urinary Ag NEGATIVE ()?? 08/19/2022 23:09 ?? UA/URINALYSIS Appear/Color, Urine COLORLESS ()?? 08/19/2022 23:09 Clarity CLEAR ()?? 08/19/2022 23:09 Specific [place], Urine <1.005 ()?? 08/19/2022 23:09 pH, Urine 5.5 ()?? 08/19/2022 23:09 Albumin, Urine 1+ ()?? 08/19/2022 23:09 Glucose, Urine NEGATIVE ()?? 08/19/2022 23:09 Ketones, Urine NEGATIVE ()?? 08/19/2022 23:09 Bilirubin, Urine NEGATIVE ()?? 08/19/2022 23:09 Hemoglobin, Urine TRACE ()?? 08/19/2022 23:09 Nitrite, Urine NEGATIVE ()?? 08/19/2022 23:09 Leukocyte, Urine 1+ ()?? 08/19/2022 23:09 Urobilinogen NORMAL mg/dL ()?? 08/19/2022 23:09 WBC's, Urine 7 /HPF ()?? 08/19/2022 23:09 RBC's, Urine 1 /HPF ()?? 08/19/2022 23:09 Squamous Epith 1 /HPF ()?? 08/19/2022 23:09 ? VIROLOGY Influenza A PCR NEGATIVE ()?? 08/19/2022 20:45 Influenza B PCR NEGATIVE ()?? 08/19/2022 20:45 RSV PCR NEGATIVE ()?? 08/19/2022 20:45 COVID-19 PCR Specimen Source NASAL ()?? 08/22/2022 06:31 COVID-19 PCR Result NEGATIVE ()?? 08/22/2022 06:31 ? 45 minutes spent on discharge * Sepideh Lopez RN: PERFORM Event Display: Patient Education/Instruction Authored Date: [id number] Inpatient Adult Discharge Instructions [address] [address] Name: MONY FERRELL : 1950 Visit: 08/19/2022 21:06:00 Current Date: 08/24/2022 10:39 Account: [id number] Inpatient Adult Discharge Instructions We would like [...] and their families. Surveys are administered by [employer] ?? If further treatment with your primary care physician or another doctor is recommended, it is important for you to keep the appointment. Call your primary care physician or return to the Emergency Department immediately if your condition worsens, fails to improve, or new symptoms develop. If you need to find a doctor, you can call [facility] [employer] for a referral at [phone] or toll free at [phone] or log in to [email or web address].. ?? You can view and manage your care through the patient portal or by using a health care jose of your choosing. [employer] is a website that allows you to securely view your medical information including your hospital discharge summary, office visit summaries, medications and follow-up visits. You can also request appointments, renew medications, and request access to your medical information using a health care jose of your choosing, or just ask a question. You can enroll at [email or web address] or register during your next office visit. You have been discharged from [facility], Patient Care Unit: [id number]. If you have any questions regarding these instructions after you leave, please call us and we will be happy to assist you. [facility] Your Care Team Attending Physician Luis M Zamora MD Discharging Providers Ana Sheehan MD, Luis M Reason for Admission YEIMI Your Diagnosis Leukocytosis Pneumonia CHF exacerbation Hypoxia Shortness of breath Tests Performed Below is a partial list of the tests performed during your hospitalization. You may have had other tests and procedures not included in this list. Please discuss all test results with your provider. Basic Metabolic Panel CBC CBC w/ Differential CK (CREATINE KINASE) CK Total Only CKMB CONFIRMATION/QUANT COVID-19 (2019 Novel Coronavirus) PCR COVID-19, RSV, and Flu A/B, Rapid PCR Creatinine FERRITIN FOLIC ACID GLUCOSE POC Hemoglobin A1C (Monitoring) HEPATIC FUNCTION PANEL High Sensitivity Troponin T HOLD BLUE TUBE HOLD GEL TUBE HOLD OTHER TUBE Lactate Level Legionella Antigen Urine Lytes Magnesium Level Phosphorus Level ProBNP Procalcitonin Level Strep Pneumoniae Urinary Ag Troponin T, High Sensitivity TSH UA W/ Reflex Microscopic & Culture URINE MICROSCOPIC VITAMIN B12 CT Chest W/O Contrast XR Chest Portable Primary Care Provider Monique Jason Advance Directive Health Care Proxy on File Yes - Health Care Proxy Discharge Vitals Temperature: 98.2 DegF Height: 172 cm Pulse Rate: 73 bpm Weight: 107 kg Respiratory Rate: 16 br/min Body Mass Index:??35.46 kg/m2??Critical Systolic Blood Pressure:??142 mm Hg??High Body surface area: 2.24 Systolic Blood Pressure:??142 mm Hg??High ?? Systolic Blood Pressure:??142 mm Hg??High ?? Diastolic Blood Pressure:??44 mm Hg??Low ?? Diastolic Blood Pressure:??44 mm Hg??Low ?? Diastolic Blood Pressure:??44 mm Hg??Low ?? Oxygen Saturation: 99 % ?? Studies Pending All tests and labs ordered during this hospital stay have been completed unless listed below. Please discuss all pending results with your provider listed above in these instructions. ?? Add On Lab Order (Lab Add On Order) Blood Culture Blood Culture #2 What to do next Instructions From Your Doctor Discharge Orders Discharge Medications MONY FERRELL :1950 Visit Date:08/19/2022 Medications: Please continue your medications until treatment is completed or stopped by your provider. Medications not listed below should be discontinued. Discuss any questions related to medications with your provider. What How Much When Instructions Next Dose Changed Insulin Glargine (Basaglar KwikPen) 45 unit(s) Subcutaneous Injection Twice a day tonight Unchanged Amlodipine (amLODIPine 5 mg oral tablet) 2 tab(s) Oral Daily tomr morning Unchanged Aspirin (aspirin 81 mg oral tablet) 1 tab(s) Oral Daily tomr morning Unchanged Atenolol 25 Milligram Oral Daily tomr morning Unchanged Atorvastatin (atorvastatin 80 mg oral tablet) 1 tab(s) Oral Daily tomr morning Unchanged BuPROpion (buPROPion 150 mg/ 12 hours (SR) oral tablet, extended release) 1 tab(s) Oral Twice a day tonight Unchanged Furosemide (Lasix 20 mg oral tablet) 2 tab(s) Oral Daily Duration: 30 Days tonight Unchanged Levothyroxine (levothyroxine 125 mcg (0.125 mg) oral tablet) 1 tab(s) Oral Daily tomr morning Unchanged Losartan 100 Milligram Oral Daily tomr morning Unchanged Pantoprazole (Protonix 40 mg oral delayed release tablet) 1 tab(s) Oral Daily tomr morning ?? What How Much When Comments Stop Taking Insulin Aspart (NovoLOG 100 units/ mL subcutaneous solution) 36 unit(s) Subcutaneous Injection 3 times a day before meals Test Results Below is a partial list of the most recent Laboratory test results done prior to this discharge. You may have had other tests and procedures not included in this list. Please discuss all test resultswith your provider. Basic Metabolic Panel (08/24/2022) ???Sodium - 141 mmol/L???Potassium - 4.1 mmol/L???Chloride - 103 mmol/L???Bicarbonate Level - 27 mmol/L???Anion Gap - 11???Glucose Level - 124 mg/dL???BUN - 41 mg/dL???Creatinine-Blood - 2.0 mg/dL???Estimated GFR Creatinine - 25 ML/MIN/1.73 M2???Calcium - 9.2 mg/dL CBC (08/24/2022) ???WBC - 12.1 k/mm3???RBC - 3.28 m/mm3???Hgb - 9.0 Gm/dL???Hct - 29.3 %???MCV - 89.3 femtoliters???MCH - 27.4 pg???MCHC - 30.7 g/dL???Platelet Count - 254 k/mm3???RDW-SD - 48.7 femtoliters???MPV - 8.8 femtoliters???Nucleated RBC (Automated) - 0.0 #/100 WBC'S???Abs. NRBC - 0.0 k/mm3 CBC w/ Differential (08/20/2022) ???WBC - 12.4 k/mm3???RBC - 2.91 m/mm3???Hgb - 8.1 Gm/dL???Hct - 25.7 %???MCV - 88.3 femtoliters???MCH - 27.8 pg???MCHC - 31.5 g/dL???Platelet Count - 194 k/mm3???RDW-SD - 50.0 femtoliters???MPV - 9.0 femtoliters???Nucleated RBC (Automated) - 0.0 #/100 WBC'S???Abs. NRBC - 0.0 k/mm3???Abs. Neut - 8.0 k/mm3???Abs. Lymph - 2.1 k/mm3???Abs. [place] - 1.4 k/mm3???Abs. Eo - 0.8 k/mm3???Abs. Baso - 0.0 k/mm3???Neut % - 64.1 %???Lymph % - 16.9 %???[place] % - 11.4 %???Eos % - 6.8 %???Baso % - 0.2 %???Imm Gran - 0.6 %???Abs. Imm Gran - 0.1 k/mm3 CK (CREATINE KINASE) (08/19/2022) ???CK, Total - 283 units/L CK Total Only (08/20/2022) ???CK, Total - 204 units/L CKMB CONFIRMATION/QUANT (08/19/2022) ???CK MB Confirmation - Quant - 9.3 ng/mL COVID-19 (2019 Novel Coronavirus) PCR (08/22/2022) ???COVID-19 PCR Specimen Source - NASAL???COVID-19 PCR Result - NEGATIVE COVID-19, RSV, and Flu A/B, Rapid PCR (08/19/2022) ???Influenza A PCR - NEGATIVE???Influenza B PCR - NEGATIVE???RSV PCR - NEGATIVE???COVID-19 PCR Specimen Source - NASAL???COVID-19 PCR Result - NEGATIVE Creatinine (08/21/2022) ???Creatinine-Blood - 1.9 mg/dL???Estimated GFR Creatinine - 26 ML/MIN/1.73 M2 FERRITIN (08/19/2022) ???Ferritin Level - 213 ng/mL FOLIC ACID (08/19/2022) ???Folic Acid Level - 8.7 ng/mL GLUCOSE POC (08/24/2022) ???Glucose, POC - 142 mg/dL Hemoglobin A1C (Monitoring) (08/20/2022) ???Hemoglobin A1C (Monitoring) - 5.1 % HEPATIC FUNCTION PANEL (08/20/2022) ???Protein, Total - 5.5 Gm/dL???Albumin - 3.2 Gm/dL???Alkaline Phosphatase - 82 units/L???AST (SGOT) - 23 units/L???ALT (SGPT) - 23 units/L???Bilirubin, Total - 0.3 mg/dL???Bilirubin, Direct - 0.1 mg/dL???Bilirubin, Indirect - 0.2 mg/dL High Sensitivity Troponin T (08/19/2022) ???High Sensitivity Troponin (HSTnT) - 111 ng/L HOLD BLUE TUBE (08/19/2022) ???Hold Blue Top - SPECIMEN DISCARDED AFTER 4 HOURS. HOLD GEL TUBE (08/19/2022) ???Hold Gel Top - SPECIMEN DISCARDED AFTER 1 WEEK HOLD OTHER TUBE (08/19/2022) ???Hold Other - SPECIMEN DISCARDED AFTER 1 WEEK Lactate Level (08/19/2022) ???Lactate - 0.9 mmol/L Legionella Antigen Urine (08/19/2022) ???Legionella pneumophila Antigen - NEGATIVE Lytes (08/21/2022) ???Sodium - 140 mmol/L???Potassium - 4.5 mmol/L???Chloride - 103 mmol/L???Bicarbonate Level - 25 mmol/L???Anion Gap - 12 Magnesium Level (08/24/2022) ???Magnesium - 2.2 mg/dL Phosphorus Level (08/24/2022) ???Phosphorus - 4.4 mg/dL ProBNP (08/19/2022) ???Nt-Probnp - 681 pg/mL Procalcitonin Level (08/21/2022) ???Procalcitonin - 0.08 ng/mL Strep Pneumoniae Urinary Ag (08/19/2022) ???S. Pneumococcus Urinary Ag - NEGATIVE Troponin T, High Sensitivity (08/20/2022) ???High Sensitivity Troponin (HSTnT) - 113 ng/L TSH (08/20/2022) ???TSH - 2.83 uIU/mL UA W/ Reflex Microscopic & Culture (08/19/2022) ? ?Appear/Color, Urine - COLORLESS? ?Clarity - CLEAR? ?Specific [place], Urine - <1.005? ?pH, Urine - 5.5???Albumin, Urine - 1+???Glucose, Urine - NEGATIVE???Ketones, Urine - NEGATIVE???Bilirubin,Urine - NEGATIVE???Hemoglobin, Urine - TRACE???Nitrite, Urine - NEGATIVE???Leukocyte, Urine - 1+???Urobilinogen - NORMAL URINE MICROSCOPIC (08/19/2022) ???WBC's, Urine - 7 /HPF???RBC's, Urine - 1 /HPF???Squamous Epith - 1 /HPF VITAMIN B12 (08/19/2022) ???Vitamin B12 Level - 232 pg/mL Allergies (NKA means No Known Allergies) Byetta Prefilled Pen hydrochlorothiazide-triamterene penicillins Problems Active Problems??(6) Acute calculous cholecystitis?? Acute Cholecystitis?? CKD (chronic kidney disease), stage III?? HTN (hypertension)?? Hypothyroid?? Severe obesity (BMI 35.0-39.9) with comorbidity?? Education Materials Below is the list of Educational Leaflet Providered with your Discharge Instructions. Valuables and Belongings I fully understand and agree that [facility] accepts no responsibility for all my personal [...] patient Date for Pt to Sign Valuables/Belongings: 08/19/22 23:22:00 ?? Other Discharge Information ? Pulmonary Rehab Status?? Pulmonary Rehab Discharge Status?? CPAP/BiPAP Mask Type: Full CPAP/BiPAP Mask Size: Small Respiratory Rate: 16 br/min ? Common Emergency Awareness Tips IS [...] are strongly encouraged to quit. Please call [employer] Link at [phone] or [phone] ([phone]) or log in to [email or web address] for referrals to smoking cessation programs. ?? The National Suicide Prevention Hotline is available 20/01 if you or someone you know needs to find a reason to keep living. By calling 8-899-703-Bag of Ice (8273) you'll be connected to a skilled, trained counselor at a crisis center in your area. INPATIENT DISCHARGE INSTRUCTIONS SIGNATURE PAGE MONY FERRELL Location:[facility] Registration Date and Time:08/19/2022 21:06 [facility] Primary Care Physician: Monique Jason, I MONY FERRELL, have received the above patient education materials/instructions and have verbalized understanding. If ambulance or transport services are being used I further acknowledge being givena choice of service. ?? If you need to contact me, please call me at this number: . Patient/Telescope Operator Name: Patient/Telescope Operator Signature: Relationship to Patient: Witness Name/Signature: Date: * Luis M Zamora MD: PERFORM, SIGN, VERIFY Event Display: Patient Education Handout Authored Date: * Luis M Zamora MD: PERFORM Event Display: Patient Education Leaflets Authored Date: Heart Failure Discharge Instructions for Heart Failure ?? 153 Discharge Instructions for Heart Failure The heart is a muscle that pumps oxygen-rich blood to all parts of the body. When you have heart failure, the heart is not able to pump as well as it should. Blood and fluid may back up into the lungs (congestive heart failure), and some parts of the body don ???t get enough oxygen-rich blood to work normally. These problems lead to the symptoms of heart failure. Heart failure can occur due to aninjury to the heart or from natural processes. You can control symptoms of heart failure with some lifestyle changes and by following your doctor's advice. Home care Activity Ask your healthcare provider about an exercise program. You can benefit from simple activities suchas walking or gardening. Exercising most days of the week can make you feel better. Don't be discouraged if your progress is slow at first. Rest as needed. Stop activity if you develop symptoms such as chest pain, lightheadedness, or significant shortness of breath. Find activities that you enjoy, such as brisk walking, dancing, swimming, or gardening. These will help you stay active and strengthen your heart. Diet Follow a heart healthy diet. And make sure to limit the salt (sodium) in your diet. Salt causes your body to hold water. This makes your heart work harder as there is more fluid for the heart to pump. Limit your salt by doing the following: ??? Limit canned, dried, packaged, and fast foods. ??? Don't add salt to your food. ??? Season foods with herbs instead of salt. ??? Watch how much liquids you drink. Drinking too much can make heartfailure worse. Talk with your health care provider about how much you should drink each day. ??? Limit the amount of alcohol you drink. It may harm your heart. Women should have no more than 1 drink a day and men should have no more than 2. ??? When you eat out, request that your meals have no added salt. Tobacco If you smoke, it's very important to quit. Smoking increases your chances of having a heart attack by harming the blood vessels that provide oxygen to your heart. This makes heart failure worse. Quitting smoking is the number one thing you can do to improve your health. Enroll in a stop-smoking program to improve your chances of success. Talk with your healthcare provider??about medicines or nicotine replacement therapy to help you quit smoking. Ask your healthcare provider about smoking cessation support groups. Medicine Take your medicines exactly as prescribed. Learn the names and purpose of each of your medicines. Keep an accurate medicine list and current dosages with you at all times. Don't skip doses. If you miss a dose of your medicine, take it as soon as you remember. If you miss a dose and??it's almost time for your next dose, just wait and take your next dose at the normal time. Don't take a double dose. If you are unsure, call your doctor's office. Make sure not to mix up your medicines or forget what you've taken the same day. Weight monitoring Weigh yourself every day. A sudden weight gain can mean your heart failure is getting worse. Weigh yourself at the same time of day and in the same kind of clothes. Ideally, weigh yourself first thing in the morning after you empty your bladder, but before you eat breakfast. Your healthcare provider will show you how to track your weight. He or she will also discuss with you when you should call if you have a sudden, unexpected increase in your weight. In general, your healthcare provider may ask you to report if your weight goes up by more than 2 pounds in 1 day,?? 5 pounds in 1 week, or whatever weight gain you were told by your doctor. This is asign that you are retaining more fluid than you should be. Clues to weight gain include checking your ankles for swelling, or noticing you are short of breath when you lie down. Follow-up care Make a follow-up appointment as directed. Depending on the type and severity of heart failure you have, you may need follow-up as early as 7 days from hospital discharge. Keep appointments for checkups and lab tests that are needed to check your medicines and condition. Recognize that your health and even survival depend on your following medical recommendations. Symptoms Heart failure can cause a variety of symptoms, including: ??? Shortness of breath ??? Trouble breathing at night, especially when you lie down ??? Swelling in the legs and feet or in the belly (abdomen) ??? Becoming easily fatigued ??? Irregular or rapid heartbeat ??? Weakness or lightheadedness ??? Swelling of the neck veins It is important to know what to do if symptoms get worse or if you develop signs of worsening heartfailure. ?? When to see your healthcare provider Call your doctor right away if you have any of these signs of worsening heart failure: ??? Sudden weight gain (more than 2 pounds in 1 day or 5??pounds in 1 week, or whatever weight gainyou were told to report by your doctor) ??? Trouble breathing not related to being active ??? New or increased swelling of your legs or ankles ??? Swelling or pain in your abdomen ??? Breathing trouble at night (waking up short of breath, needing more pillows to breathe) ??? Frequent coughing that doesn't go away ??? Feeling much more tired than usual Call 911 Call 911 right away if you have: ??? Severe shortness of breath, such that you can't catch your breath even while??resting ??? Severe chest pain that does not resolve with rest or nitroglycerin ??? [place], foamy mucus with cough and shortness of breath ??? A continuous rapid or irregular heartbeat ??? Passing out or fainting ??? Stroke symptoms such as sudden numbness or weakness on one side of your face, arm, or leg or sudden confusion, trouble speaking or vision changes ? Please refer to the Heart Failure Handbook for more information. ? * Event Display: Provider Clarification Note Please click on pdf link to open report * Violeta Dey RN: PERFORM Event Display: Patient Education/Instruction Authored Date: [id number] Inpatient Adult Discharge Instructions [place] [id number] Name: MONY FERRELL : 1950 Visit: 08/19/2022 21:06:00 Current Date: 08/23/2022 09:55 Account: [id number] Inpatient Adult Discharge Instructions We would like [...] and their families. Surveys are administered by [employer] ?? If further treatment with your primary care physician or another doctor is recommended, it is important for you to keep the appointment. Call your primary care physician or return to the Emergency Department immediately if your condition worsens, fails to improve, or new symptoms develop. If you need to find a doctor, you can call [employer] for a referral at [phone] or toll free at [phone] or log in to [email or web address].. ?? You can view and manage your care through the patient portal or by using a health care jose of your choosing. [employer] is a website that allows you to securely view your medical information including your hospital discharge summary, office visit summaries, medications and follow-up visits. You can also request appointments, renew medications, and request access to your medical information using a health care jose of your choosing, or just ask a question. You can enroll at [email or web address] or register during your next office visit. You have been discharged from [facility], Patient Care Unit: [id number]. If you have any questions regarding these instructions after you leave, please call us and we will be happy to assist you. [facility] Your Care Team Attending Physician Ana Sheehan MD, [facility] Reason for Admission YEIMI Your Diagnosis Leukocytosis Pneumonia CHF exacerbation Hypoxia Shortness of breath Tests Performed Below is a partial list of the tests performed during your hospitalization. You may have had other tests and procedures not included in this list. Please discuss all test results with your provider. Basic Metabolic Panel CBC CBC w/ Differential CK (CREATINE KINASE) CK Total Only CKMB CONFIRMATION/QUANT COVID-19 (2019 Novel Coronavirus) PCR COVID-19, RSV, and Flu A/B, Rapid PCR Creatinine FERRITIN FOLIC ACID GLUCOSE POC Hemoglobin A1C (Monitoring) HEPATIC FUNCTION PANEL High Sensitivity Troponin T HOLD BLUE TUBE HOLD GEL TUBE HOLD OTHER TUBE Lactate Level Legionella Antigen Urine Lytes Magnesium Level Phosphorus Level ProBNP Procalcitonin Level Strep Pneumoniae Urinary Ag Troponin T, High Sensitivity TSH UA W/ Reflex Microscopic & Culture URINE MICROSCOPIC VITAMIN B12 CT Chest W/O Contrast XR Chest Portable Primary Care Provider Monique Jason Advance Directive Health Care Proxy on File Yes - Health Care Proxy Discharge Vitals Temperature: 98.8 DegF Height: 172 cm Pulse Rate: 64 bpm Weight: 106.5 kg Respiratory Rate: 19 br/min Body Mass Index:??35.46 kg/m2??Critical Systolic Blood Pressure: 137 mm Hg Body surface area: 2.24 Systolic Blood Pressure: 137 mm Hg ?? Systolic Blood Pressure: 137 mm Hg ?? Diastolic Blood Pressure:??45 mm Hg??Low ?? Diastolic Blood Pressure:??45 mm Hg??Low ?? Diastolic Blood Pressure:??45 mm Hg??Low ?? Oxygen Saturation: 97 % ?? Studies Pending All tests and labs ordered during this hospital stay have been completed unless listed below. Please discuss all pending results with your provider listed above in these instructions. ?? Add On Lab Order (Lab Add On Order) Blood Culture Blood Culture #2 What to do next Instructions From Your Doctor Discharge Orders Discharge Medications RORYMONY PAULINO :1950 Visit Date:08/19/2022 Medications: Please continue your medications until treatment is completed or stopped by your provider. Medications not listed below should be discontinued. Discuss any questions related to medications with your provider. What How Much When Instructions Next Dose Unchanged Amlodipine (amLODIPine 5 mg oral tablet) 2 tab(s) Oral Daily Unchanged Aspirin (aspirin 81 mg oral tablet) 1 tab(s) Oral Daily Unchanged Atenolol 25 Milligram Oral Daily Unchanged Atorvastatin (atorvastatin 80 mg oral tablet) 1 tab(s) Oral Daily Unchanged BuPROpion (buPROPion 150 mg/ 12 hours (SR) oral tablet, extended release) 1 tab(s) Oral Twice a day Unchanged Furosemide (Lasix 20 mg oral tablet) 2 tab(s) Oral Daily Duration: 30 Days Unchanged Insulin Aspart (NovoLOG 100 units/ mL subcutaneous solution) 36 unit(s) Subcutaneous Injection 3 times a day before meals Unchanged Insulin Glargine (Basaglar KwikPen) 70 Subcutaneous Injection Twice a day Unchanged Levothyroxine (levothyroxine 125 mcg (0.125 mg) oral tablet) 1 tab(s) Oral Daily Unchanged Losartan 100 Milligram Oral Daily Unchanged Pantoprazole (Protonix 40 mg oral delayed release tablet) 1 tab(s) Oral Daily Test Results Below is a partial list of the most recent Laboratory test results done prior to this discharge. You may have had other tests and procedures not included in this list. Please discuss all test resultswith your provider. Basic Metabolic Panel (08/23/2022) ???Sodium - 140 mmol/L???Potassium - 4.0 mmol/L???Chloride - 103 mmol/L???Bicarbonate Level - 26 mmol/L???Anion Gap - 11???Glucose Level - 177 mg/dL???BUN - 43 mg/dL???Creatinine-Blood - 2.0 mg/dL???Estimated GFR Creatinine - 25 ML/MIN/1.73 M2???Calcium - 9.1 mg/dL CBC (08/23/2022) ???WBC - 12.2 k/mm3???RBC - 3.14 m/mm3???Hgb - 8.8 Gm/dL???Hct - 27.9 %???MCV - 88.9 femtoliters???MCH - 28.0 pg???MCHC - 31.5 g/dL???Platelet Count - 225 k/mm3???RDW-SD - 49.7 femtoliters???MPV - 8.8 femtoliters???Nucleated RBC (Automated) - 0.0 #/100 WBC'S???Abs. NRBC - 0.0 k/mm3 CBC w/ Differential (08/20/2022) ???WBC - 12.4 k/mm3???RBC - 2.91 m/mm3???Hgb - 8.1 Gm/dL???Hct - 25.7 %???MCV - 88.3 femtoliters???MCH - 27.8 pg???MCHC - 31.5 g/dL???Platelet Count - 194 k/mm3???RDW-SD - 50.0 femtoliters???MPV - 9.0 femtoliters???Nucleated RBC (Automated) - 0.0 #/100 WBC'S???Abs. NRBC - 0.0 k/mm3???Abs. Neut - 8.0 k/mm3???Abs. Lymph - 2.1 k/mm3???Abs. [place] - 1.4 k/mm3???Abs. Eo - 0.8 k/mm3???Abs. Baso - 0.0 k/mm3???Neut % - 64.1 %???Lymph % - 16.9 %???[place] % - 11.4 %???Eos % - 6.8 %???Baso % - 0.2 %???Imm Gran - 0.6 %???Abs. Imm Gran - 0.1 k/mm3 CK (CREATINE KINASE) (08/19/2022) ???CK, Total - 283 units/L CK Total Only (08/20/2022) ???CK, Total - 204 units/L CKMB CONFIRMATION/QUANT (08/19/2022) ???CK MB Confirmation - Quant - 9.3 ng/mL COVID-19 (2019 Novel Coronavirus) PCR (08/22/2022) ???COVID-19 PCR Specimen Source - NASAL???COVID-19 PCR Result - NEGATIVE COVID-19, RSV, and Flu A/B, Rapid PCR (08/19/2022) ???Influenza A PCR - NEGATIVE???Influenza B PCR - NEGATIVE???RSV PCR - NEGATIVE???COVID-19 PCR Specimen Source - NASAL???COVID-19 PCR Result - NEGATIVE Creatinine (08/21/2022) ???Creatinine-Blood - 1.9 mg/dL???Estimated GFR Creatinine - 26 ML/MIN/1.73 M2 FERRITIN (08/19/2022) ???Ferritin Level - 213 ng/mL FOLIC ACID (08/19/2022) ???Folic Acid Level - 8.7 ng/mL GLUCOSE POC (08/23/2022) ???Glucose, POC - 212 mg/dL Hemoglobin A1C (Monitoring) (08/20/2022) ???Hemoglobin A1C (Monitoring) - 5.1 % HEPATIC FUNCTION PANEL (08/20/2022) ???Protein, Total - 5.5 Gm/dL???Albumin - 3.2 Gm/dL???Alkaline Phosphatase - 82 units/L???AST (SGOT) - 23 units/L???ALT (SGPT) - 23 units/L???Bilirubin, Total - 0.3 mg/dL???Bilirubin, Direct - 0.1 mg/dL???Bilirubin, Indirect - 0.2 mg/dL High Sensitivity Troponin T (08/19/2022) ???High Sensitivity Troponin (HSTnT) - 111 ng/L HOLD BLUE TUBE (08/19/2022) ???Hold Blue Top - SPECIMEN DISCARDED AFTER 4 HOURS. HOLD GEL TUBE (08/19/2022) ???Hold Gel Top - SPECIMEN DISCARDED AFTER 1 WEEK HOLD OTHER TUBE (08/19/2022) ???Hold Other - SPECIMEN DISCARDED AFTER 1 WEEK Lactate Level (08/19/2022) ???Lactate - 0.9 mmol/L Legionella Antigen Urine (08/19/2022) ???Legionella pneumophila Antigen - NEGATIVE Lytes (08/21/2022) ???Sodium - 140 mmol/L???Potassium - 4.5 mmol/L???Chloride - 103 mmol/L???Bicarbonate Level - 25 mmol/L???Anion Gap - 12 Magnesium Level (08/23/2022) ???Magnesium - 2.2 mg/dL Phosphorus Level (08/23/2022) ???Phosphorus - 4.4 mg/dL ProBNP (08/19/2022) ???Nt-Probnp - 681 pg/mL Procalcitonin Level (08/21/2022) ???Procalcitonin - 0.08 ng/mL Strep Pneumoniae Urinary Ag (08/19/2022) ???S. Pneumococcus Urinary Ag - NEGATIVE Troponin T, High Sensitivity (08/20/2022) ???High Sensitivity Troponin (HSTnT) - 113 ng/L TSH (08/20/2022) ???TSH - 2.83 uIU/mL UA W/ Reflex Microscopic & Culture (08/19/2022) ? ?Appear/Color, Urine - COLORLESS? ?Clarity - CLEAR? ?Specific [place], Urine - <1.005? ?pH, Urine - 5.5???Albumin, Urine - 1+???Glucose, Urine - NEGATIVE???Ketones, Urine - NEGATIVE???Bilirubin,Urine - NEGATIVE???Hemoglobin, Urine - TRACE???Nitrite, Urine - NEGATIVE???Leukocyte, Urine - 1+???Urobilinogen - NORMAL URINE MICROSCOPIC (08/19/2022) ???WBC's, Urine - 7 /HPF???RBC's, Urine - 1 /HPF???Squamous Epith - 1 /HPF VITAMIN B12 (08/19/2022) ???Vitamin B12 Level - 232 pg/mL Allergies (NKA means No Known Allergies) [place]etta Prefilled Pen hydrochlorothiazide-triamterene penicillins Problems Active Problems??(6) Acute calculous cholecystitis?? Acute Cholecystitis?? CKD (chronic kidney disease), stage III?? HTN (hypertension)?? Hypothyroid?? Severe obesity (BMI 35.0-39.9) with comorbidity?? Education Materials Below is the list of Educational Leaflet Providered with your Discharge Instructions. Valuables and Belongings I fully understand and agree that [facility] accepts no responsibility for all my personal [...] patient Date for Pt to Sign Valuables/Belongings: 08/19/22 23:22:00 ?? Other Discharge Information ? Pulmonary Rehab Status?? Pulmonary Rehab Discharge Status?? CPAP/BiPAP Mask Type: Full CPAP/BiPAP Mask Size: Small Respiratory Rate: 19 br/min ? Common Emergency Awareness Tips IS [...] are strongly encouraged to quit. Please call [facility] Link at [phone] or [phone] or log in to [email or web address] for referrals to smoking cessation programs. ?? The National Suicide Prevention Hotline is available 20/01 if you or someone you know needs to find a reason to keep living. By calling 2-042-262Sensegon (4404) you'll be connected to a skilled, trained counselor at a crisis center in your area. INPATIENT DISCHARGE INSTRUCTIONS SIGNATURE PAGE MONY FERRELL Location:[facility] Registration Date and Time:08/19/2022 21:06 [facility] Primary Care Physician: Monique Jason, I MONY FERRELL, have received the above patient education materials/instructions and have verbalized understanding. If ambulance or transport services are being used I further acknowledge being givena choice of service. ?? If you need to contact me, please call me at this number: . Patient/Telescope Operator Name: Patient/Telescope Operator Signature: Relationship to Patient: Witness Name/Signature: Date: CT Chest WO contrast * BHSPowerscribe , CIS S: TRANSCRIBE James PINEDA, Helder J: VERIFY Event Display: Result: Authored Date: [id number] CT Chest W/O Contrast INDICATION: Reason: Other:; Pneumonia, unresolved; Clinical Question(s): Interstitial Alveolar Infiltration TECHNIQUE: Helical CT scan of the chest without IV contrast, formatted in 3 planes. Weight-based protocol was performed using automatic exposure control. CTDIvol Body: 15.01 mGy, DLP Body: 534 mGy*cm. COMPARISON: Chest x-ray 08/19/2022. Abdomen and pelvis CT including lung bases from 01/31/2019. FINDINGS: Relief Map Modeler view findings, lines and tubes: None. Trachea and airways: Patent without evidence of tracheal or endobronchial lesion. Lungs and pleura: There are stable trace bilateral layering pleural effusions with minimal dependent atelectasis in the lower lobes. There is patchy groundglass opacity in the perihilar regions of both upper lobes also involving the subpleural aspect of the left upper lobe. Increased thickness of intra and interlobular septae at the lung bases. No pneumothorax. Mediastinum and karin: No mass or hematoma. There is a mildly enlarged 1.2 cm short axis precarinal lymph node on image 48 series 2. Similar sized paratracheal lymph nodes are noted within the mediastinum. No enlarged hilar lymph nodes. No esophageal abnormality. Heart: Heart size at upper limit of normal. Prominent valvular calcifications at the mitral and aortic valves . Moderate coronary artery calcification. Aorta: No aortic aneurysm. Pulmonary arteries: Normal caliber. Chest wall soft tissues: No acute abnormality. Diaphragm: Intact. Upper abdomen: No significant abnormality. Incidental accessory spleen. Severe atherosclerotic calcification of the abdominal aorta and branches. Bones: No acute abnormality. IMPRESSION: Chronic trace bilateral pleural effusions and borderline mild cardiac enlargement. This may represent manifestation of fluid overload. There are patchy groundglass changes in the perihilar and subpleural aspects of both upper lobes and to a lesser extent the lower lobes. This appearance is nonspecific and could be seen with atypicalpneumonia as well as pulmonary edema. Absence of subpleural reticular changes, honeycombing and bronchiectasis mitigates against interstitial lung disease. Mildly prominent paratracheal and precarinal lymph nodes, nonspecific. WSN: [id number] Ordering Physician: Luis M Zamora Dictated By: Helder Ramirez MD Dictated Date/Time: 08/21/22 10:40 a Reviewed By: Helder Ramirez MD Signed By: Helder Ramirez MD Signed Date/Time: 08/21/22 10:40 am Transcribed By: ABDI Transcribed Date/Time: 08/21/22 10:30 am Portable XR Chest Views * BHSPowerscribe , CIS S: TRANSCAngela Green MD: VERIFY Event Display: Result: Authored Date: [id number] Chest Portable Hx of Present Illness: YEIMI for 2 days. Pt has Hx of CHF and has had worsening YEIMI in the past few days.; Reason: Shortness of Breath; Clinical Question(s): CHF COMPARISON: Radiograph of the chest 04/07/2022. FINDINGS: LINES AND TUBES: None. LUNGS AND PLEURA: Hazy opacity at the right lung base may reflect atelectasis or asymmetric pulmonary edema, however superimposed pneumonia cannot be excluded. No pleural effusion. No pneumothorax. HEART, MEDIASTINUM AND KARIN: Unchanged cardiomediastinal silhouette. The aorta is uncoiled and calcified. BONES AND SOFT TISSUES: No acute abnormality. Mild multilevel degenerative changes. IMPRESSION: 1. Hazy opacity at the right lung base may reflect asymmetric pulmonary edema or atelectasis, however superimposed pneumonia cannot be excluded. WSN: [id number] Ordering Physician: Alfonzo Campoverde Dictated By: Angela Hope MD Dictated Date/Time: 08/19/22 5:51 pm Reviewed By: Angela Hope MD Signed By: Angela Hope MD Signed Date/Time: 08/19/22 5:51 pm Transcribed By: ABDI Transcribed Date/Time: 08/19/22 5:47 pm Patient Care team information Care Team Personnel Name: Delicia Castrejon RN Position: [facility] OB RN Member Role: Primary Care Nurse Name: Monse Dubois RN Position: [facility] RN Member Role: Primary Care Nurse Name: Ava Mishra RN Position: [facility] RN Member Role: Primary Care Nurse Name: Monique Jason Position: [facility] Outreach Member Role: PCP Address: Address: [address] [place] [id number]- Name: Wendy Shay RN Position: [facility] ED RN W/OE and Tasks Member Role: Primary Care Nurse Name: Irene Alcantar RN Position: [facility] RN Member Role: Primary Care Nurse Name: Coty Bernal Position: [facility] ED RN W/OE and Tasks Member Role: Patient Care Provider Name: Alfonzo Campoverde DO Position: [facility] ED Medicine MD Member Role: ED Attending Physician Address: Address: [address] [place] [id number]- [place] Name: Becca Lopez Position: [facility] ED OA Charge Member Role: ED Associate Care Team Related Persons Name: ZARA HOUSTON Address: [address] [address]
--- OUTSIDE RECORDS SUMMARY | 2023-12-13 17:39 | XMS_ITS | Continuity of Care Document ---
Author Organization [facility] Address [address] [place] [address]- Care Team Providers Care Heel Dipper Name Role Phone Fox ALVAREZ, Natalie Gill Primary Care Physician Encounter [facility] Date(s): 10/15/21 - 10/18/[address] [address]- Discharge Disposition: A-D/C Home Attending Physician: Philipp Tavarez MD Admitting Physician: Hawk Nolen MD Referring Physician: Not on Staff, Referring [...] oral tablet 10 mg, Tablet, By Mouth, 10/18/21 9:00:00 EDT Start Date: 10/18/21 Stop Date: 10/18/21 Status: Completed aspirin 81 mg oral tablet 1 tablet = 81 mg, By Mouth, Daily, # 90 tablet, 0 Refills, Maintenance, 12/10/18 10:23:27 EDT, Tablet Start Date: 12/10/18 Status: Ordered Atenolol = 25 mg, By Mouth, Daily, 0 Refills, Maintenance, 09/21/18 2:38:29 EDT Start Date: 09/21/18 Status: Ordered atenolol 25 mg oral tablet 25 mg, Tablet, By Mouth, Hold for: SBP below 100, and/or HR below 60, 10/18/21 9:00:00 EDT Start Date: 10/18/21 Stop Date: 10/18/21 Status: Completed atorvastatin 80 mg oral tablet [...] Date: 06/28/19 Status: Ordered Problem List Condition Effective Dates Status Health Status Inform ant Acute calculous cholecystitis(Confirmed) 03/04/13 Active Acute Cholecystitis(Confirmed) 03/22/13 Active Obese class II(Confirmed) Active Results Radiology Reports * Exam Date Time Procedure Performing Provider Status 10/15/21 3:19 PM Chest 2 Views Frontal and Lat Tunde Rose; Auth (Verified) Notes: (Chest 2 Views Frontal and Lat) Reason For Exam: Chest Pain;Other: RESULT: Chest 2 Views Frontal and Lat Chest 2 Views Frontal and Lat Hx of Present Illness: Increased SOB x1 month. PMHX of CHF. Pt has doubled her Lasix dose the past few days.; Reason: Other:; Chest Pain; Clinical Question(s): Other: COMPARISON: 03/19/2020. FINDINGS: LINES AND TUBES: None. LUNGS AND PLEURA: Clear lungs. Normal pulmonary vascularity. No pleural effusion. No pneumothorax. HEART, MEDIASTINUM AND ANTHONY: Heart is normal in size. Normal upper mediastinal and hilar contour. BONES AND SOFT TISSUES: No acute abnormality. IMPRESSION: No acute abnormality. 1 no change. WSN: [id number] Ordering Physician: Angela Pineda Dictated By: Michel Lee MD, V Dictated Date/Time: 10/15/21 3:22 pm Reviewed By: Michel Lee MD, V Signed By: Michel Lee MD, V Signed Date/Time: 10/15/21 3:22 pm Transcribed By: ABDI Transcribed Date/Time: 10/15/21 3:21 pm Vital Signs Most recent to oldest [Reference Range]: 1 2 3 Height 173 cm (10/18/21 11:22 AM) 173 cm (10/18/21 7:14 AM) 173 cm (10/18/21 3:58 AM) Weight 105.2 kg (10/18/21 4:13 AM) 108.0 kg (10/17/21 5:17 AM) 105.4 kg (10/16/21 4:46 PM) Oxygen Saturation [94-100 %] 99 % (10/18/21 11:22 AM) 97 % (10/18/21 7:14 AM) 94 % (10/18/21 3:58 AM) Pulse Rate [55-90 bpm] 66 bpm (10/18/21 11:22 AM) 60 bpm (10/18/21 8:32 AM) 60 bpm (10/18/21 7:14 AM) Body Mass Index [18.5-24.99] 35.22 *>HHI* (10/16/21 4:46 PM) 36.22 *>HHI* (10/15/21 9:28 PM) 36.22 *>HHI* (10/15/21 6:56 PM) Blood Pressure [90-138/55-84 mm Hg] 144/59mm Hg *H* (10/18/21 11:22 AM) 152/58mm Hg *H* (10/18/21 8:32 AM) 152/58mm Hg *H* (10/18/21 8:32 AM) Respiratory Rate [16-30 br/min] 16 br/min (10/18/21 11:22 AM) 16 br/min (10/18/21 7:14 AM) 17 br/min (10/18/21 3:58 AM) Temperature [96.8-100.4 DegF] 98 DegF (10/18/21 11:22 AM) 97.8 DegF (10/18/21 7:14 AM) 97.9 DegF (10/18/21 3:58 AM) Liters per Minute 2 L/min (10/18/21 11:22 AM) 1 L/min (10/18/21 7:14 AM) 1 L/min (10/18/21 3:58 AM) Mode of Delivery (Oxygen) Nasal cannula (4/21/22 11:22 AM) Nasal cannula (10/18/21 7:14 AM) Nasal cannula (10/18/21 3:58 AM) Blood pressure sites Arm, right (10/18/21 11:22 AM) Arm, right (10/18/21 7:14 AM) Arm, left (10/18/21 3:58 AM) Temperature Route Oral (10/18/21 11:22 AM) Oral (10/18/21 7:14 AM) Oral (10/18/21 3:58 AM) Dry Weight 108.4 kg (10/15/21 9:28 PM) 111.7 kg (10/15/21 2:11 PM) 111.7 kg (10/15/21 2:07 PM) Weight Obtained Via Bed scale (10/18/21 4:13 AM) Bed scale (10/17/21 5:17 AM) Bed scale (10/16/21 4:55 AM) Social History Social History Type Response Smoking Status Never (less than 100 in lifetime) entered on: 10/15/21 Sex
--- OUTSIDE RECORDS SUMMARY | 2023-12-13 17:39 | XMS_ITS | Continuity of Care Document ---
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 Role Phone Lev PATIENT ADVOCATEShiraz Primary Care Physician Encounter [facility] [place](s): 11/11/23 - 11/16/[address] [address]- Encounter Diagnosis HTN (hypertension)(Discharge Diagnosis) - 11/12/23 Discharge Disposition: A-Transfer VNA/Home Health Attending Physician: Leslie Cosby DO Admitting Physician: Franky PINEDA, Rosa M Morfin Referring Physician: Not on Staff, Referring MD Allergies, Adverse Reactions, Alerts Substance Reaction Severity Status hydrochlorothiazide-triamterene Active penicillins Active [place] Prefilled Pen Active Immunizations Given and Recorded Vaccine Date Status Refusal Reason [id number] 12y+ bivalent booster vax 05/28/22 Recorded influenza virus vaccine, inactivated 03/08/22 Lew rded SARS-CoV-2 (COVID-19) mRNA-1273 vaccine 11/22/21 R ecorded SARS-CoV-2 (COVID-19) mRNA-1273 vaccine 04/28/21 R ecorded SARS-CoV-2 (COVID-19) mRNA-1273 vaccine 10/18/20 R ecorded SARS-CoV-2 (COVID-19) mRNA-1273 vaccine 09/20/20 R ecorded Medications amLODIPine 10 mg oral tablet 10 mg, Tablet, By Mouth, Hold for: SBP below 110, 11/16/23 9:00:00 EDT Start Date: 11/16/23 Stop Date: 11/16/23 Status: Completed amLODIPine 5 mg oral tablet [...] opioid drug. Start Date: 11/11/23 Status: Ordered atorvastatin 80 mg oral tablet 1 tablet [...] Tablet Start Date: 09/23/18 Status: Ordered ergocalciferol 38184 iu oral capsule 50,000 International_Units, 1, capsule, [...] obesity (BMI 35.0-39.9) with comorbidity Confirmed Active Diagnosis Diagnosis Type Effective Dates Health Status Cl inical Service Informant HTN (hypertension) Discharge Diagnosis 11/12/23 Results Radiology Reports * Exam Date Time Procedure Performing Provider Status 11/16/23 9:53 AM Chest Portable Shahana Kern; Auth ( Verified) Notes: (Chest Portable) Reason For Exam: CHF RESULT: Chest Portable Chest Portable INDICATION/CLINICAL QUESTION: Reason: CHF; Clinical Question(s): CHF / CHF TECHNIQUE: AP chest 0939 hours. COMPARISON: 11/11/2023. FINDINGS: LINES AND TUBES: Absent. LUNGS AND PLEURA: RIGHT CHEST: The lung is clear and there is no effusion.. LEFT CHEST: The lung is clear and there is no effusion.. HEART AND MEDIASTINAL CONTOURS: Normal. BONES AND SOFT TISSUES: No acute abnormality.. IMPRESSION: 1. No active disease in chest. WSN: [id number] Ordering Physician: Leslie Cosby Dictated By: Leonard Connolly MD Dictated Date/Time: 11/16/23 1:43 pm Reviewed By: Leonard Connolly MD Signed By: Leonard Connolly MD Signed Date/Time: 11/16/23 1:43 pm Transcribed By: ABDI Transcribed Date/Time: 11/16/23 1:42 pm * Exam Date Time Procedure Performing Provider Status 11/13/23 1:45 PM NM Lung Perf, Particulate and Aerosol Newton Payne; Modified Notes: (NM Lung Perf, Particulate and Aerosol) Reason For Exam: Dyspnea RESULT: NM Lung Perf, Particulate and Aerosol VENTILATION/PERFUSION SCAN: 11/13/2023 12:45 PM CLINICAL HISTORY: 72 years of age, Female, with history of shortness of breath, referred for evaluation of possible pulmonary emboli. COMPARISON: 02/24/2023 PROCEDURE COMMENTS: Radiopharmaceutical: Tc-99m DTPA 5.1 mCi aerosolized for the ventilation study; Tc-99m MAA 4.1 mCi IV for the perfusion study. Technique: Immediately after administration of the aerosolized radiopharmaceutical, static imaging of ventilation of the lungs was performed in anterior, posterior, LPO, and RPO projections. Without moving the patient, the perfusion radiopharmaceutical was then administered intravenously and similar views of perfusion of the lungs were obtained for comparison. FINDINGS: Clumped radiotracer uptake at the rene, adjacent to the right mainstem bronchus in the ventilation scan is most likely related to COPD. No segmental perfusion defects. IMPRESSION: 1. PE absent. 2. Clumped radiotracer uptake at the proximal airway in the ventilation scan is most likely relatedto COPD. I have personally reviewed the images and I agree with this report. WSN: [id number] Ordering Physician: Sharonda Robison Dictated By: Rey Alexandre MD Dictated Date/Time: 11/13/23 4:41 pm Reviewed By: Helder Geronimo MD Signed By: Helder Geronimo MD Signed Date/Time: 11/13/23 4:46 pm Transcribed By: ABDI Transcribed Date/Time: 11/13/23 4:33 pm * Exam Date Time Procedure Performing Provider Status 11/12/23 4:08 PM US Doppler Ext Lower Venous Bilat Wilbert lips , Ambreen; Auth (Verified) Notes: (US Doppler Ext Lower Venous Bilat) Reason For Exam: Swelling Extremities;Swelling Extremities RESULT: US Doppler Ext Lower Venous Bilat US Doppler Ext Lower Venous Bilat Reason: Swelling Extremities; Clinical Question(s): Thrombosis COMPARISON: None IMAGING TECHNIQUE: Ultrasound of the veins from the groin through the calf was performed using grayscale, color, and spectral Doppler ultrasound assessing for complete compressibility and normal flowcharacteristics. FINDINGS: RIGHT LOWER EXTREMITY: Common femoral vein: Patent. No thrombosis. Femoral vein: Patent. No thrombosis. Popliteal vein: Patent. No thrombosis. Gastrocnemius veins: The visualized portions are patent without evidence of thrombosis. Peroneal veins: The visualized portions are patent without evidence of thrombosis. Posterior tibial veins: The visualized portions are patent without evidence of thrombosis. LEFT LOWER EXTREMITY: Common femoral vein: Patent. No thrombosis. Femoral vein: Patent. No thrombosis. Popliteal vein: Patent. No thrombosis. Gastrocnemius veins: The visualized portions are patent without evidence of thrombosis. Peroneal veins: The visualized portions are patent without evidence of thrombosis. Posterior tibial veins: The visualized portions are patent without evidence of thrombosis. OTHER FINDINGS: There is diffuse calf edema. IMPRESSION: No evidence of deep venous thrombosis. WSN: [id number] Ordering Physician: Sharonda Robison Dictated By: Steven Ortiz MD Dictated Date/Time: 11/12/23 4:27 pm Reviewed By: Steven Ortiz MD Signed By: Steven Ortiz MD Signed Date/Time: 11/12/23 4:27 pm Transcribed By: ABDI Transcribed Date/Time: 11/12/23 4:27 pm * Exam Date Time Procedure Performing Provider Status 11/12/23 11:[address] Chest W/O Contrast Karla Miles [facility] (Verified) Notes: (CT Chest W/O Contrast) Reason For Exam: Infection RESULT: CT Chest W/O Contrast CT Chest W/O Contrast INDICATION: Reason: Infection; Clinical Question(s): Other:; ? pneumonia; Special Instructions: no contrast due to elev creat TECHNIQUE: Helical CT scan of the chest without IV contrast, formatted in 3 planes. Weight-based protocol was performed using automatic exposure control. CTDIvol Body: 22.59 mGy, DLP Body: 786 mGy*cm. COMPARISON: CT chest from 02/20/2023 FINDINGS: Livestock Nutritionist view findings, lines and tubes: None. Trachea and airways: Patent without evidence of tracheal or endobronchial lesion. Some mucus in thetrachea. Lungs and pleura: Mild emphysema. Mild interlobular septal thickening Mild bibasilar atelectasis. Mild subpleural reticulation in the lower lungs. A few scattered micronodules are without significant change from 2022. No effusion or pneumothorax. Mediastinum and karin: Several nonspecific enlarged mediastinal lymph nodes are similar to 2023 for example: 12 mm right paratracheal node (2:41) 11 mm right paratracheal node more superiorly (2:29) 17 mm subcarinal node (2:61) 15 mm precarinal lymph node (2:47) Circumferential wall thickening of the distal esophagus possibly in the setting of reflux esophagitis. Diminutive thyroid. Heart: Heart is at the upper limits of normal for size. No pericardial effusion. Moderate to severecoronary artery calcification. Mitral annular calcifications. Aorta: Mild vascular calcification but no aneurysm. Pulmonary arteries: Normal caliber. Chest wall soft tissues: No acute abnormality. Diaphragm: Intact. Upper abdomen: No significant abnormality. Heavy visceral arterial calcifications. Cholecystectomy clips. Bones: No acute abnormality. IMPRESSION: No evidence of consolidative pneumonia. Mild emphysema with mild interlobular septal thickening suggestive of mild interstitial edema. Mildsome reticular opacity in the subpleural lower lobes could reflect atelectasis or mild fibrotic changes. Multiple enlarged mediastinal lymph nodes measuring up to 17 mm in short axis in the subcarinal station are without significant change from 02/20/2023. Lymph node enlargement is nonspecific, but lack of change from one year prior may indicate a less aggressive or indolent process. WSN: [id number] Ordering Physician: Sharonda Robison Dictated By: Helder Foss MD Dictated Date/Time: 11/12/23 1:44 pm Reviewed By: Helder Foss MD Signed By: Helder Foss MD Signed Date/Time: 11/12/23 1:44 pm Transcribed By: ABDI Transcribed Date/Time: 11/12/23 1:33 pm * Exam Date Time Procedure Performing Provider Status 11/11/23 7:38 PM Chest Portable Ramirez King; Auth (Ve rified) Notes: (Chest Portable) Reason For Exam: CHF RESULT: Chest Portable Chest Portable HX OF PRESENT ILLNESS: Pt with SOB for the past 2 wks, O2 dependent, had to increase from 1 to 3 L via NC, has doubled her lasix, has been uribating but still feeling SOB; Reason: CHF; Clinical Question(s): CHF / CHF COMPARISON: 02/21/2023 FINDINGS: LINES AND TUBES: None. LUNGS AND PLEURA: Clear lungs. Normal pulmonary vascularity. No pleural effusion. No pneumothorax. HEART, MEDIASTINUM AND KARIN: Heart is normal in size. Normal mediastinal and hilar contour. BONES AND SOFT TISSUES: No acute abnormality. IMPRESSION: No evidence of acute abnormality. WSN: [id number] Ordering Physician: Valerio Delaney Dictated By: Helder Geronimo MD Dictated Date/Time: 11/11/23 7:40 pm Reviewed By: Helder Geronimo MD Signed By: Helder Geronimo MD Signed Date/Time: 11/11/23 7:40 pm Transcribed By: ABDI Transcribed Date/Time: 11/11/23 7:40 pm Vital Signs Most recent to oldest [Reference Range]: 1 2 3 Height 174 cm (11/16/23 12:00 PM) 174 cm (11/16/23 7:59 AM) 174 cm (11/16/23 3:42 AM) Weight 103.1 kg (11/16/23 5:31 AM) 104 kg (11/15/23 5:15 AM) 106.1 kg (11/14/23 11:35 PM) Oxygen Saturation [94-100 %] 95 % (11/16/23 12:00 PM) 95 % (11/16/23 7:59 AM) 92 % *L* (11/16/23 3:42 AM) Pulse Rate [55-90 bpm] 61 bpm (11/16/23 12:00 PM) 59 bpm (11/16/23 7:59 AM) 64 bpm (11/16/23 3:42 AM) Body Mass Index [18.5-24.99 kg/m2] 35.8 kg/m2 *>HHI* (11/11/23 9:55 PM) 35.8 kg/m2 *>HHI* (11/11/23 9:55 PM) 33.03 kg/m2 *>HHI* (11/11/23 4:45 PM) Blood Pressure [90-138/55-84 mm Hg] 145/47mm Hg *H* (11/16/23 12:00 PM) 146/45mm Hg *H* (11/16/23 8:49 AM) 146/45mm Hg *H* (11/16/23 7:59 AM) Respiratory Rate [16-30 br/min] 16 br/min (11/16/23 12:00 PM) 16 br/min (11/16/23 7:59 AM) 18 br/min (11/16/23 3:42 AM) Temperature [96.8-100.4 DegF] 98.1 DegF (11/16/23 12:00 PM) 97.9 DegF (11/16/23 7:59 AM) 97.9 DegF (11/16/23 3:42 AM) Liters per Minute 1 L/min (11/16/23 12:00 PM) 1 L/min (11/16/23 7:59 AM) 1 L/min (11/16/23 3:42 AM) Mode of Delivery (Oxygen) Nasal cannula (11/16/23 12:00 PM) Nasal cannula (11/16/23 7:59 AM) Nasal cannula (11/16/23 3:42 AM) Blood pressure sites Arm, left (11/16/23 12:00 PM) Arm, left (11/16/23 7:59 AM) Arm, left (11/16/23 3:42 AM) Temperature Route Oral (11/16/23 12:00 PM) Oral (11/16/23 7:59 AM) Oral (11/16/23 3:42 AM) Dry Weight 100 kg (11/11/23 9:55 PM) 100 kg (11/11/23 4:46 PM) 100 kg (11/11/23 4:45 PM) Weight Obtained Via Bed scale (11/16/23 5:31 AM) Bed scale (11/15/23 5:15 AM) Bed scale (11/14/23 11:35 PM) Dry Weight Obtained Via Standing scale (11/11/23 4:45 PM) Social History Social History Type Response Smoking Status Former smoker, quit more than 30 days ago; Other: .; Total pack years: 35; Stopped at age: 56; entered on: 11/11/23 Sex Admission evaluation note * Franky PINEDA, Rosa M Morfin: PERFORM, MODIFY, MODIFY, MODIFY, MODIFY, MODIFY, MODIFY, MODIFY, MODIFY Event Display: Admission Note Authored Date: [id number] Patient: ??MONY FERRELL ? Age:??72 Years?Sex:??Female?:??1950?? History of Present Illness 72-year-old obese female with underlying history of hypertension,??HFpEF,??chronic exertional dyspnea??and hypoxemia??on home oxygen , chronic kidney disease, and??hypothyroidism??who presents to theemergency room with shortness of breath,??lower extremity edema, hypoxia ?Pre-Hospital course: ?-Patient reported progressively worsening??shortness of breath, orthopnea over the last 2 weeks,??also she reported??increased oxygen requirement??at home yesterday up to 3 L,??she also reported progressively worsening lower extremity edema over the last 3 weeks??so she presented to the ED for further evaluation ?-Patient denied fever/chills, chest pain, palpitations, presyncope/syncope, nausea/vomiting, diarrhea/constipation, urinary symptoms. ?ED course: ?On presentation to the ED patient was hypertensive, on 3 L nasal cannula Labs are significant for white blood cell 16.1, hemoglobin 10, creatinine 2.3, proBNP 729, [id number] Chest x-ray: No acute pathology In the ED patient received aspirin, furosemide, heparin Patient be admitted for further management of shortness of breath, CHF exacerbation, elevated troponin Review of Systems A full review of systems was completed and is otherwise negative except as mentioned in history of present illness.?? Objective Vital Signs?? Temperature: 98.4 DegF (11/11/23 16:45:00) Temperature Route: Temporal (11/11/23 16:45:00) Pulse Rate: 81 bpm (11/11/23 20:05:00) Respiratory Rate: 16 br/min (11/11/23 20:05:00) Systolic Blood Pressure: 130 mm Hg (11/11/23 20:05:00) Diastolic Blood Pressure:??48 mm Hg??Low (11/11/23 19:37:00) Blood pressure sites: Arm, right (11/11/23 16:45:00) Mean Arterial Pressure: 96 mm Hg (11/11/23 16:45:00) Pulse Pressure: 122 mm Hg (11/11/23 16:45:00) Oxygen Saturation: 96 % (11/11/23 20:05:00) Liters per Minute: 4 L/min (11/11/23 20:05:00) Mode of Delivery (Oxygen): Nasal cannula (11/11/23 20:05:00) ? Physical Exam ?General: AAOx3, in no acute distress ?Neuro: CN 2-12 grossly intact, motor strength 5/5 in all extremities, no sensory deficits?HEENT: EOMI, PERRL, mouth/nose/pharynx WNL ?Neck: Supple, no LAD, JVD not congested ?Heart: Normal S1/S2, RRR, no MRGs ?Lungs:??+ fine basal crackles b/l, no wheezes ?Abdomen: +BS, soft, non-tender.non Distended. ?Extremities: Warm,??+1 ll??edema b/l. ?Musculoskeletal:??Joints (no swelling, denies tenderness). ? Assessment/Plan 72-year-old obese female with underlying history of hypertension,??HFpEF,??chronic exertional dyspnea??and hypoxemia??on home oxygen , chronic kidney disease, and??hypothyroidism??[facility],??lower extremity edema, hypoxia ? Shortness of breath (R06.02):??- Non-ST elevation WI (NSTEMI) (I21.4):??- CHF exacerbation (I50.9):??- ??-Patient reported progressively worsening??shortness of breath, orthopnea over the last 2 weeks,??also she reported??increased oxygen requirement??at home yesterday up to 3 L,??she also reported progressively worsening lower extremity edema over the last 3 weeks??so she presented to the ED for further evaluation On presentation to the ED patient was hypertensive, on 3 L nasal cannula Labs are significant for white blood cell 16.1, hemoglobin 10, creatinine 2.3, proBNP 729, [id number] Chest x-ray: No acute pathology In the ED patient received aspirin, furosemide, heparin ?? plan: environment artist cardiology recs: IV diuresis , aspirin , heparin , Echo Trend troponin Ins and outs, daily weight Follow-up with cardiology in the morning for further recommendations If no improvement??of hypoxia??after diuresis??can consider VQ scan??to rule out PE??in the settingof??CKD ?? chronic medical conditions: Diabetes: Glargine, sliding scale insulin, [id number]-of-izuh daily Hyperlipidemia: Statin Hypertension: Atenolol, amlodipine, will hold losartan for now given slightly elevated K GERD: PPI ?QM: ?Code status:full ?DVT prophylaxis:??heparin ggt ?Diet:cardiac ? Histories Allergies Allergies ?(Active and Proposed Allergies [...] documented. ? Social History Alcohol Details:??Use: Never. Details:??Use: Never. Employment/School Details:??Status: Retired. Exercise Details:??Self assessment: Fair condition. ??Other: Self ambulatory with cane or walker. Home/Environment Details:??Living situation: Home/Independent. ??Lives with: Spouse. Details:??Living situation: Home/Independent. ??Lives with: Significant other. ??Oxygen Home equipment:. Nutrition/Health Details:??Diet: Diabetic, Low sodium, Lactose free. Substance Abuse Details:??Use: Never. Details:??Use: Never. Tobacco Details:??Use: Former smoker, quit more than 30 days ago. Details:??Use: Former smoker, quit more than 30 days ago. ??Total pack years: 35. ??Stopped at age:56 Years. Electronic Cigarette/Vaping Details:??Electronic Cigarette Use: Never. ? Family History Father: Diabetes mellitus; Heart attack ? Medications Home Medications Acetaminophen (Tylenol Extra [...] Recent Labs BLOOD COUNT & DIFF WBC 16.1 k/mm3 (High)?? 11/11/2023 18:36 RBC 3.49 m/mm3 (Low)?? 11/11/2023 18:36 Hgb 10.0 Gm/dL (Low)?? 11/11/2023 18:36 Hct 31.8 % (Low)?? 11/11/2023 18:36 MCV 91.1 femtoliters ()?? 11/11/2023 18:36 MCH 28.7 pg ()?? 11/11/2023 18:36 MCHC 31.4 g/dL (Low)?? 11/11/2023 18:36 Platelet Count 233 k/mm3 ()?? 11/11/2023 18:36 RDW-SD 51.0 femtoliters (High)?? 11/11/2023 18:36 MPV 8.6 femtoliters (Low)?? 11/11/2023 18:36 Nucleated RBC (Automated) 0.0 #/100 WBC'S ()?? 11/11/2023 18:36 Abs. NRBC 0.0 k/mm3 ()?? 11/11/2023 18:36 Abs. Neut 11.5 k/mm3 (High)?? 11/11/2023 18:36 Abs. Lymph 1.5 k/mm3 ()?? 11/11/2023 18:36 Abs. [place] 1.8 k/mm3 (High)?? 11/11/2023 18:36 Abs. Eo 1.2 k/mm3 (High)?? 11/11/2023 18:36 Abs. Baso 0.1 k/mm3 ()?? 11/11/2023 18:36 Neut % 71.6 % ()?? 11/11/2023 18:36 Lymph % 9.2 % (Low)?? 11/11/2023 18:36 [place] % 10.8 % (High)?? 11/11/2023 18:36 Eos % 7.4 % (High)?? 11/11/2023 18:36 Baso % 0.3 % ()?? 11/11/2023 18:36 Imm Gran 0.7 % ()?? 11/11/2023 18:36 Abs. Imm Gran 0.1 k/mm3 ()?? 11/11/2023 18:36 ?? CARDIAC Nt-Probnp 729 pg/mL (High)?? 11/11/2023 18:36 High Sensitivity Troponin (HSTnT) 191 ng/L (Critical)?? 11/11/2023 18:36 ?? CHEM GENERAL Sodium 142 mmol/L ()?? 11/11/2023 18:36 Potassium 5.1 mmol/L ()?? 11/11/2023 18:36 Chloride 105 mmol/L ()?? 11/11/2023 18:36 Bicarbonate Level 24 mmol/L ()?? 11/11/2023 18:36 Anion Gap 13 ()?? 11/11/2023 18:36 Glucose Level 108 mg/dL (High)?? 11/11/2023 18:36 BUN 58 mg/dL (High)?? 11/11/2023 18:36 Creatinine-Blood 2.31 mg/dL (High)?? 11/11/2023 18:36 Estimated GFR Creatinine 21 ML/MIN/1.73 M2 ()?? 11/11/2023 18:36 Calcium 9.5 mg/dL ()?? 11/11/2023 18:36 ?? FLUID STUDIES Hold Other SPECIMEN DISCARDED AFTER 1 WEEK ()?? 11/11/2023 18:36 ?? HEME OTHER Hold Blue Top SPECIMEN DISCARDED AFTER 4 HOURS. ()?? 11/11/2023 18:36 ?? MISC. CHEMISTRY Hold Gel Top SPECIMEN DISCARDED AFTER 1 WEEK ()?? 11/11/2023 18:36 ?? URINE OTHER Est Creatinine Clearance 22.94 mL/min ()?? 11/11/2023 18:58 ?? VIROLOGY COVID-19 by RT-PCR NEGATIVE ()?? 11/11/2023 18:05 ? EKG study * Event Display: ECG 12-Lead Authored Date: Please click on pdf link to open report * Event Display: ECG 12-Lead Authored Date: Ventricular Rate: 62 BPM Atrial Rate: 62 BPM P-R Interval: 292 ms QRS Duration: 94 ms Q-T Interval: 418 ms QTC Calculation(Bazett): 424 ms P Assumption: 66 degrees R Assumption: -40 degrees T Assumption: 98 degrees Sinus rhythm with 1st degree A-V block Left axis deviation Nonspecific ST and T wave abnormality Abnormal ECG When compared with ECG of 11-NOV-2023 19:29, Nonspecific T wave abnormality has replaced inverted T waves in Lateral leads Confirmed by TREV TORRES ([id number]) on 11/12/2023 4:23:18 PM Holiday: TREV TORRES * Event Display: ECG 12-Lead Authored Date: Please click on pdf link to open report * Event Display: ECG 12-Lead Authored Date: Ventricular Rate: 81 BPM Atrial Rate: 78 BPM QRS Duration: 90 ms Q-T Interval: 376 ms QTC Calculation(Bazett): 436 ms R Assumption: -48 degrees T Assumption: 136 degrees Poor data quality, interpretation may be adversely affected Probably Sinus rhythm with 1st degree A-V block Left anterior fascicular block ST and T wave abnormality, consider inferolateral ischemia Abnormal ECG When compared with ECG of 22-FEB-2023 13:35, OK interval has lengthened T wave inversion now evident in Inferior leads Inverted T waves have replaced nonspecific T wave abnormality in Lateral leads Confirmed by TREV TORRES ([id number]) on 11/12/2023 4:31:18 PM Holiday: TREV TORRES US Heart * Event Display: Echocardiogram - Complete Authored Date: Transthoracic Echocardiography Report (TTE) Patient Demographics Patient Name MONY FERRELL Date of Study 11/13/2023 Corporate Gender Female Facility Race Ethnicity Date of 1950 Height: 68.5 inches Age 72 year(s) Weight: 220.46 pounds Accession Number [id number] BSA: 2.14 m2 Room Number 1504 BMI: 33.03 kg/m2 Referring Physician Alina Pfeiffer MD, MD Physician [employer]ed Science Research Technician Marcelino Ram [facility] Indications NSTEMI. Study Data Type of Study TTE procedure:Echo Complete-Doppler, Colorflow, M-Mode. Study Date11/13/2023 Start Time: 10:14 AM Study Location[place] [facility] [place] Study Status: Bedside Patient Status: Routine Technical Quality: Technically difficult due to body habitus. EKG: Normal sinus rhythm HR: 66 bpm 2D Measurements LV Diastolic Dimension: 5.1 cm LV Systolic Dimension: 3.7 cm LV Septum Diastolic: 1.1 cm LV PW Diastolic: 1.3 cm AO Root Dimension: 2.9 cm LA ESV (BP):56.8 ml LVOT Stroke Volume: 94.2 ml LA ESV Index: 27 ml/m2 Stroke Volume Index44.02 ml/m2 LVOT: 2 cm Cardiac Index:2.91 l/min/m2 Doppler Measurements AV Peak Velocity: 160 cm/s MV Peak E-Wave: 191 cm/s AV Peak Gradient: 10.24 mmHg MV Peak A-Wave: 146 cm/s MV E/A Ratio: 1.31 LVOT Peak Velocity: 112 cm/s MV P1/2t: 81 msec LVOT VTI30 cm MV Mean Gradient: 6 mmHg MV Area (continuity): 1.62 cm2 MV Deceleration Time: 211 msec MV Area (PHT): 2.72 cm2 E' Septal Velocity: 5.33 cm/s E' Lateral Velocity: 5 cm/s E/Med E':35.8349 E/Lat E':38.2 Cardiac Anatomy Left Ventricle/Interventricular Septum The left ventricular size is normal. There is mild concentric left ventricular hypertrophy. Unable to assess diastolic function due to severe mitral annulus calcification . Normal LV systolic function. Ejection fraction is 55-65%. There are no definite regional wall motion abnormalities. Left Atrium/Interatrial Septum The left atrial size is at the upper limit of normal. Aortic Valve The aortic valve is probably trileaflet . The aortic valve appears mildly calcified. The aortic valve appears mildly thickened. There is no significant aortic stenosis. There is no significant aortic regurgitation. Mitral Valve The mitral valve appears thickened. The mitral valve appears moderate to severely calcified. There is mild to moderate calcific mitral stenosis. There is mild mitral regurgitation. Aorta The aortic root is normal in size. Right Ventricle The right ventricular size and function appears grossly normal. Right Atrium The right atrial size is at the upper limit of normal. Pulmonic Valve The pulmonic valve is functionally normal. Tricuspid Valve The tricuspid valve is poorly visualized. The tricuspid valve is grossly normal. There is trace tricuspid valve regurgitation. Pumonary Artery An accurate pulmonary artery pressure could not be obtained. Venous Structures The inferior vena cava appears normal. Pericardium/Extracardiac There is no significant pericardial effusion. Summary The left ventricular size is normal. There is mild concentric left ventricular hypertrophy. Unable to assess diastolic function due to severe mitral annulus calcification . Normal LV systolic function. Ejection fraction is 55-65%. There are no definite regional wall motion abnormalities. The mitral valve appears moderate to severely calcified. There is mild to moderate calcific mitral stenosis. There is mild mitral regurgitation. The right ventricular size and function appears grossly normal. Comparison Comparison is made to the study of April 08, 2022. There is no significant change. Signature * Event Display: Echocardiogram - Complete Authored Date: Hospital Progress note * Jonah RODRIGUEZ, Isabelle: PERFORM, SIGN, VERIFY Event Display: Progress Note Hospital Authored Date: Patient: MONY FERRELL Age: 72 years Sex: Female : 1950 Associated Diagnoses: None Author: Jonah RODRIGUEZ, Isabelle Findings Problem Related to Alteration in Cardiac Function (new) : Alteration in Cardiac Function/new 11/16/2023 14:00 EDT Alteration in Cardiac Status Related to ACS, Heart failure Goals & Outcomes, Cardiac Status Pt will resume/maintain adequate cardiac output, Pt will resume/maintain adequate hemodynamic status, Pt will resume/maintain adequate respiratory function Cardiac Interventions Implemented Assess/monitor cardiac status BH Goals/Interventions, Cardiac Yes Cardiac, Problem Start 11/11/2023 23:51 Reviewed Plan with, Cardiac Status Patient Patient Progression, Cardiac Status Patient progressing according to plan . Narrative/Incidental Female patient A/O x4. Patient is iliana-NSR on tele with a first degree, LS clear on 1L via nc with good O2 sats, no cough/SOB. Patient up to bathroom with assist with walker, weak and unsteady at times. Patient wants to go home irregardless of her mobility and weakness. Dr. Cosby aware of all previous info, see his note. Patient tolerating diet well. Patient had BM today after several days of no movement. Patient c/o chronic back pain which she states is well managed currently with Lidocaine patch. Patient's safety/comfort maintained by hourly rounds, bed alarm activated, and call adhikari within reach.. Discharge Information Case Management Discharge Plan : Case Management Discharge Plan Data 11/16/2023 13:08 EDT Discharge Level of Care at Discharge Homehealth/VNA Discharge VNA/Hospice/Home Care Care [facility] Discharge Transportation Arranged private car Discharge Arranged Transport Date/Time 11/16/2023 13:30 Mode of Transportation Arranged Other Name of Agency #1 [facility] Service Categories #1 Physical Therapy, Alf Service Comments #1 [facility] will call you within 1-2 days/discharge to set up f/u appointments Name of Person Notified of Transfer patient Name of Receiving Clinician/Provider [employer] Rehabilitation Discharge : Rehab Discharge Index 11/13/2023 8:34 EDT Comments on treatment indicated Transfers, functional mobility promotion, amb with RW, stairs(4), balance and LE strengthening Full chart review completed Yes Hospital course Pt admitted to [place] [address] for CHF exac Other findings On 3L/min O2 and required RW for support during transfer. Plan of care PT Gait training, Transfer training, Therapeutic exercise, Functional Activities, Balance training, Neuromuscular education 11/12/2023 14:28 EDT Comments on treatment indicated Increase ability to tolerate Dental Soft textured foods and thin liquids,with diet texture upgrade / downgrade as clinically appropriate. Full chart review completed Yes Hospital course Hospital course * Kat Mcfadden RN: VERIFY, PERFORM, SIGN Event Display: Progress Note Hospital Authored Date: [id number] Patient: MONY FERRELL Age: 72 years Sex: Female : 1950 Associated Diagnoses: None Author: Kat Mcfadden RN Findings Problem Related to Alteration in Cardiac Function (new) : Alteration in Cardiac Function/new 11/15/2023 20:00 EDT Alteration in Cardiac Status Related to ACS, Heart failure Goals & Outcomes, Cardiac Status Pt will resume/maintain adequate cardiac output, Pt will resume/maintain adequate hemodynamic status, Pt will resume/maintain adequate respiratory function Cardiac Interventions Implemented Assess/monitor cardiac status, Assess/monitor neuro status, Assess/monitor respiratory status, Assess for tolerance of IV infusions; verify rate & dose, Call/Report variances in ECG to provider, Document & Monitor O2 Sats; Administer O2 as ordered, If no bowel movement in 3 days activate bowel regime, Monitor & document daily weight, Monitor ECG w/admi nistration of antiarrhythmics (CO 13.420), Obtain 12 Lead ECG and CXR as ordered, Prep pt for treatments & procedures, Teach/encourage deep breath & cough exercises Goals/Interventions, Cardiac Yes Cardiac, Problem Start 11/11/2023 23:51 Reviewed Plan with, Cardiac Status Patient Patient Progression, Cardiac Status Patient progressing according to plan . Nursing Data Activity Data 11/16/2023 0:00 EDT Activity Status ADL Other: patient is refusing to get OOB at this time . Cardiac Data. : Cardiac Data. 11/15/2023 20:00 EDT Cardiovascular Symptoms None Nail Bed Color, [place] Nail Bed Color, [place] Clubbing Present No Skin Temperature Upper Extremities Warm Skin Temperature Lower Extremities Warm Cardiac Rhythm Normal sinus rhythm Capillary Refill < 3 seconds Radial Pulse, Left Normal Radial Pulse, Right Normal Dorsalis Pedis Pulse, Left Normal Dorsalis Pedis Pulse, Right Normal forensic scientist Yes Cardiovascular WNL except . Gastrointestinal Data. : Gastrointestinal Data. 11/15/2023 20:00 EDT Gastrointestinal Symptoms None Abdomen Soft, Distended, Non-tender Bowel Sounds LUQ Present Bowel Sounds RUQ Present Bowel Sounds LLQ Present Bowel Sounds RLQ Present Last Bowel Movement 11/11/2023 GI WNL except Normal Bowel Pattern Other: patient is refusing bowel medications/interventions . Integumentary Data. : Integumentary Data. 11/15/2023 20:00 EDT Skin Color Normal for ethnicity Skin Integrity Intact Mucous Membrane Color [place] Mucous Membrane Description Moist Sensory Perception No impairment Activity Other: patient refusing to get OOB.ROM excercises done Mobility Slightly limited Integumentary WNL except . Musculoskeletal Data. : Musculoskeletal Data. 11/15/2023 20:00 EDT Musculoskeletal Symptoms Weakness Musculoskeletal WNL except . Neurological Data. : Neurological Data. 11/15/2023 20:00 EDT Tongue Disposition Midline Neurological Symptoms Weakness or loss of muscle strength Level of Consciousness Full Consciousness Orientated to person, place, time Person, Place, Time, Event Hallucinations None Facial Symmetry Intact Characteristics of Speech Clear and normal Swallowing Difficulty None Strength LUE 5-Active movement against gravity & full resistance Strength RUE 5-Active movement against gravity & full resistance Strength LLE 5-Active movement against gravity & full resistance Strength RLE 5-Active movement against gravity & full resistance Tone LUE Normal Tone RUE Normal Tone LLE Normal Tone RLE Normal Sensation LUE Intact Sensation RUE Intact Sensation LLE Intact Sensation RLE Intact Movement LUE Spontaneous Movement RUE Spontaneous Movement LLE Spontaneous Movement RLE Spontaneous Gait Unable to assess, Other: patient is refusing to get OOB Response Eye Opening Spontaneously Motor Response-Adult Obeys commands Verbal Response-Adult Oriented and converses [place] Coma Score 15 Neuro WNL except Eyes and Movements Conjugate gaze: Move in same direction at same speed Memory Intact Swallow - Neuro Normal . Respiratory/Pulmonary Data. 11/15/2023 20:00 EDT Respiratory Symptoms None Respiratory effort Unlabored Chest expansion Symmetrical Accessory Muscles use No Upper Airway Clear Cough No cough Respiratory pattern Regular Left Upper Lobe Breath Sounds Clear Right Upper Lobe Breath Sounds Clear Right Middle Lobe Breath Sounds Clear Left Lower Lobe Breath Sounds Clear Right Lower Lobe Breath Sounds Clear Respiratory distress None Respiratory Treatment(s) Cough and deep breathe Respiratory WNL except . Vital Signs : VITAL SIGNS SECTION 11/15/2023 23:39 EDT Temperature 98.8 DegF Temperature Route Oral Pulse Rate 63 bpm Respiratory Rate 18 br/min Systolic Blood Pressure 141 mm Hg H Diastolic Blood Pressure 44 mm Hg L Blood pressure sites Arm, left Mean Arterial Pressure 76 mm Hg Pulse Pressure 97 mm Hg Oxygen Saturation 93 % L Liters per Minute 1 L/min Mode of Delivery (Oxygen) Nasal cannula 11/15/2023 20:58 EDT Early Warning Score 4.00 11/15/2023 20:47 EDT Early Warning Score 4.00 11/15/2023 20:06 EDT Temperature 97.5 DegF Temperature Route Oral Pulse Rate 69 bpm Respiratory Rate 18 br/min Systolic Blood Pressure 102 mm Hg Diastolic Blood Pressure 57 mm Hg Blood pressure sites Arm, right Mean Arterial Pressure 72 mm Hg Pulse Pressure 45 mm Hg Oxygen Saturation 94 % Liters per Minute 1 L/min (Modified) Mode of Delivery (Oxygen) Nasal cannula . Evaluation Patient is alert and oriented.Patient c/o generalized weakness. Patient refusing to get OOB so far this shift.Patient is able to reposition herself in bed.Lung sounds clear,no pedal edema noted.VSS,telemetry showing sinus/first degree block.See detailed physical assessment in CIS.. Discharge Information Rehabilitation Discharge : Rehab Discharge Index 11/13/2023 8:34 EDT Comments on treatment indicated Transfers, functional mobility promotion, amb with RW, stairs(4), balance and LE strengthening Full chart review completed Yes Hospital course Pt admitted to [place] [address] for CHF exac Other findings On 3L/min O2 and required RW for support during transfer. Plan of care PT Gait training, Transfer training, Therapeutic exercise, Functional Activities, Balance training, Neuromuscular education 11/12/2023 14:28 EDT Comments on treatment indicated Increase ability to tolerate Dental Soft textured foods and thin liquids,with diet texture upgrade / downgrade as clinically appropriate. Full chart review completed Yes Hospital course Hospital course * Isabelle Mckenzie RN: VERIFY, MODIFY, SIGN, PERFORM, SIGN Event Display: Progress Note Hospital Authored Date: [id number] Patient: MONY FERRELL Age: 72 years Sex: Female : 1950 Associated Diagnoses: None Author: Isabelle Mckenzie RN Findings Problem Related to Alteration in Cardiac Function (new) : Alteration in Cardiac Function/new 11/15/2023 13:00 EDT Alteration in Cardiac Status Related to ACS, Heart failure Goals & Outcomes, Cardiac Status Pt will resume/maintain adequate cardiac output, Pt will resume/maintain adequate hemodynamic status, Pt will resume/maintain adequate respiratory function Cardiac Interventions Implemented Assess/monitor cardiac status BH Goals/Interventions, Cardiac Yes Cardiac, Problem Start 11/11/2023 23:51 Reviewed Plan with, Cardiac Status Patient Patient Progression, Cardiac Status Patient progressing according to plan . Narrative/Incidental Patient A/O x4. Patient is iliana-NSR on tele with a first degree, LS clear on 2L via nc with good O2 sats, no cough/SOB. Patient up to chair with assist. Patient hasn't had BM since 11/10 and refuses BM meds, Dr. Cosby aware. Patient tolerating diet well. Patient c/o chronic back pain which she states is well managed currently with Lidocaine patch. Patient's safety/comfort maintained by hourly rounds, bed alarm activated, and call adhikari within reach.. Discharge Information Rehabilitation Discharge : Rehab Discharge Index 11/13/2023 8:34 EDT Comments on treatment indicated Transfers, functional mobility promotion, amb with RW, stairs(4), balance and LE strengthening Full chart review completed Yes Hospital course Pt admitted to [place] [address] for CHF exac Other findings On 3L/min O2 and required RW for support during transfer. Plan of care PT Gait training, Transfer training, Therapeutic exercise, Functional Activities, Balance training, Neuromuscular education 11/12/2023 14:28 EDT Comments on treatment indicated Increase ability to tolerate Dental Soft textured foods and thin liquids,with diet texture upgrade / downgrade as clinically appropriate. Full chart review completed Yes Hospital course Hospital course Consult note * Donna PINEDA, Jean-Paul Villeda: PERFORM Event Display: Consultation Note Authored Date: [id number] Patient: ??MONY FERRELL ? Age:??72 Years?Sex:??Female?:??1950?? History of Present Illness/Interval History 72 year old woman admitted with CHF.?? She has a history of DM, HTN, HFpEF with EF 55 to 60% in 202, chronic dyspnea, home O2, zero to 3 L/min PRN, CKD, hypothyroidism. ?? She denies chest pain.?? She had SOB and increased peripheral edema.?? No palpitations.?? No syncope. ?? Trops??191/171/175. ?? BNP 729. ?? EKG SR with first degree AV block, LAHB, nonspecific ST T changes. ?? CXR?mild CHF Review of Systems Cardiac and respiratory symptoms are reported in the history of present illness.? The ROS is otherwise unremarkable. Physical Exam Vitals & Measurements T:??97.8?F?? HR:??70??(Peripheral)?? RR:??18?? BP:??137/43?? SpO2:??97%?? HT:??174??cm?? WT:??107.5??kg?? BMI:??35.8?? BMI:??35.8?? Weight lb/oz: 236 lb 16 oz The patient is alert and in no distress.?Obese. ?? Neck:?? No JVD; no thyromegaly. ?? Lungs:?? Basilar rales. ?? Heart:?? Normal S1 S2 without murmur or gallop.?? Regular rhyth ?? Extremities:?? No erythema, warmth; trace edema. ?? Pulses:?? Carotids full without bruits. Assessment/Plan 1.??HTN (hypertension) ??The BP appears satisfactory at present.?On amlodipine. CHF exacerbation ??Mild CHF.?? Agree with furosemide and follow.?? She is slowly improving. Non-ST elevation WI (NSTEMI) ??Likely demand ischemia due to CHF.?? No chest pain but can't exclude non ST elevation WI with elevated trops and delta.?Continue aspirin and beta ankit.?? Check echocardiogram.?Thank you. Allergies Byetta Prefilled Pen hydrochlorothiazide-triamterene penicillins Home Medications Acetaminophen: 1,000 mg = 2 [...] By Mouth, twice per week Furosemide: 40 mg = 2 tablet, By Mouth, Daily Insulin Glargine: 50 units, Subcutaneous Injection, Daily [...] mg = 1 tablet, By Mouth, Daily Hospital Medications Medications (19) Active SCHEDULED: (13) Amlodipine 10 mg Tablet (amLODIPine 10 mg oral tablet) ??10 mg, By Mouth, Daily Aspirin 81 mg EC Tablet (aspirin 81 mg oral delayed release tablet) ??81 mg, By Mouth, Daily Atenolol 25 mg Tablet (atenolol 25 mg oral tablet) ??25 mg, By Mouth, Daily Atorvastatin 80 mg Tablet (atorvastatin 80 mg oral tablet) ??80 mg, By Mouth, Daily at bedtime BuPROPion 150 mg SR Tablet (BuPROpion SR Tablet) ??150 mg, By Mouth, 2 times a day Furosemide Inj (Lasix ??Inj) ??40 mg 4 mL, IV Push Slowly, Daily Insulin Glargine 100 units/mL Inj (Insulin Glargine Inj) ??40 units 0.4 mL, Subcutaneous Injection,Daily in AM Insulin Glargine 100 units/mL Inj (Insulin Glargine Inj) ??15 units 0.15 mL, Subcutaneous Injection, Daily at bedtime Insulin Lispro 100 units/mL Inj (Humalog Sliding Scale) ??2-10 units, Subcutaneous Injection, 3 times a day before meals Levothyroxine 125 mcg Tablet (levothyroxine 0.112 mg oral tablet) ??125 mcg, By Mouth, Daily Melatonin 3 mg Tablet (Melatonin Tablet) ??6 mg, By Mouth, Daily at bedtime Nystatin Powder ??1 application, Topically, 2 times a day Pantoprazole 40 mg EC Tablet (pantoprazole 40 mg oral delayed release tablet) ??40 mg, By Mouth, Daily CONTINUOUS: (1) Heparin 25,000 units / 250 mL D5W premix 25,000 units [14 units/kg/hr] + D5%W Premixed IV 250 mL (Heparin 25,000 units in 250 mL Premix 25,000 units [14 units/kg/hr] + D5%W Premixed IV 250 mL) ??250 mL, IV Infusion, 14 mL/hr PRN: (5) Acetaminophen 325 mg Tablet (Tylenol 325 mg oral tablet) ??650 mg, By Mouth, Every 4 hours Heparin 5000 units/mL Inj (1 mL) (Heparin Inj) ??6,000 units 1.2 mL, IV Push, Every 6 hours Heparin 5000 units/mL Inj (1 mL) (Heparin Inj) ??3,000 units 0.6 mL, IV Push, Every 6 hours HYDROmorphone 0.5 mg/0.5 mL Inj Syringe (HYDROmorphone Inj) ??0.5 mg 0.5 mL, IV Push Slowly, Every 4 hours Ondansetron 2mg/mL Inj (2mL Vial) (Zofran Inj) ??4 mg, IV Push, Every 6 hours Lab Results Cardiology Labs WBC:??15 k/mm3??High (11/12/23) RBC:??3.06 m/mm3??Low (11/12/23) Hgb:??8.6 Gm/dL??Low (11/12/23) Hct:??28.3 %??Low (11/12/23) MCV: 92.5 femtoliters (11/12/23) MCH: 28.1 pg (11/12/23) MCHC:??30.4 g/dL??Low (11/12/23) Platelet Count: 193 k/mm3 (11/12/23) RDW-SD:??52.1 femtoliters??High (11/12/23) Nucleated RBC (Automated): 0 #/100 WBC'S (11/12/23) Abs. Neut:??11.5 k/mm3??High (11/11/23) Abs. Lymph: 1.5 k/mm3 (11/11/23) Abs. [place]:??1.8 k/mm3??High (11/11/23) Abs. Eo:??1.2 k/mm3??High (11/11/23) Abs. Baso: 0.1 k/mm3 (11/11/23) Neut %: 71.6 % (11/11/23) [place] %:??10.8 %??High (11/11/23) Eos %:??7.4 %??High (11/11/23) Baso %: 0.3 % (11/11/23) Imm Gran: 0.7 % (11/11/23) Abs. Imm Gran: 0.1 k/mm3 (11/11/23) APTT:??49.5 seconds??High (11/12/23) Sodium: 139 mmol/L (11/12/23) Potassium: 4.6 mmol/L (11/12/23) Chloride: 105 mmol/L (11/12/23) Bicarbonate Level: 24 mmol/L (11/12/23) Glucose Level:??108 mg/dL??High (11/11/23) BUN:??57 mg/dL??High (11/12/23) Creatinine-Blood:??2.28 mg/dL??High (11/12/23) Calcium: 9.5 mg/dL (11/11/23) Protein, Total: 6.4 Gm/dL (02/23/23) Albumin:??3.1 Gm/dL??Low (02/23/23) Alkaline Phosphatase: 91 units/L (02/23/23) AST (SGOT): 21 units/L (02/23/23) ALT (SGPT): 24 units/L (02/23/23) Bilirubin, Total: 0.5 mg/dL (02/23/23) Nt-Probnp:??729 pg/mL??High (11/11/23) TSH:??5.87 uIU/mL??High (11/12/23) Diagnostic Impression ECG ECG 12-Lead * Preliminary * ?? 09:18:51 Please click on pdf link to open report ?? ECG 12-Lead * Preliminary * ?? 09:18:51 Ventricular Rate: 62 BPM Atrial Rate: 62 BPM P-R Interval: 292 ms QRS Duration: 94 ms Q-T Interval: 418 ms QTC Calculation(Bazett): 424 ms P Assumption: 66 degrees R Assumption: -40 degrees T Assumption: 98 degrees Sinus rhythm with 1st degree A-V block Left axis deviation Nonspecific ST and T wave abnormality Abnormal ECG When compared with ECG of 11-NOV-2023 19:29, Sinus rhythm has replaced Junctional rhythm Nonspecific T wave abnormality has replaced inverted T waves in Lateral leads ?? Holiday: , Echo Echocardiogram - Complete ?? 09:23:27 Summary 1. The left ventricle is normal in size, wall thickness and systolic function. The ejection fraction is 55-60%. No regional wall motion abnormalities seen. Unable to assess diastolic function due to mitral annulus calcification. 2. The right ventricle is normal in size and function. An accurate pulmonary artery pressure could not be obtained. 3. Biatrial size is normal. 4. There is moderate mitral annular calcification. The mitral valve appears thickened and calcified. There is mild subvalvular calcification. There is trace mitral regurgitation. Calcific mitral stenosis is present. The mitral valve mean gradient is 5 mmHg at a heart rate of 57 bpm and calculated mitral valve area is 1.7 cm2. ?? Comparison Comparison is made to the study of June 05, 2018. Left ventricular systolic function is unchanged since previous study. Mitral valve mean gradient is unchanged. ?? Signature ?? Signed By: Trev Torres MD Problem List/Past Medical History Ongoing Acute calculous cholecystitis Acute Cholecystitis CKD (chronic kidney disease), stage III HTN (hypertension) Hypothyroid Severe obesity (BMI 35.0-39.9) with comorbidity Procedure/Surgical History No qualifying data available. Social History Alcohol Use: Never. Other: .. [...] Family History Father: Diabetes mellitus; Heart attack Note * Isabelle Mckenzie RN: PERFORM Event Display: Discharge/Transfer Note Hospital Authored Date: Nursing Discharge Note Entered On: 11/16/2023 16:31 EDT Performed On: 11/16/2023 16:30 EDT by Isabelle Mckenzie RN Nursing Discharge Note 2 Discharge Time : 11/16/2023 16:17 EDT Discharge Level of Care at Discharge : Homehealth/VNA Discharge VNA/Hospice/Home Care(v001) : [facility] Patient Left Unit Via : Wheelchair Patient Accompanied Off Unit with : Responsible adult DC Instructions Provided & Signed by Pt : Yes Patient Understands D/C Instructions : Yes Patient Instructions Discharge Signed : Yes Did Pt have Specialty Bed or Wound Vac : No Isabelle Mckenzie RN - 11/16/2023 16:30 EDT * Leslie Cosby DO: MODIFY, MODIFY, PERFORM Event Display: Discharge/Transfer Note Hospital Authored Date: Patient: ??MONY FERRELL ? Age:??72 Years?Sex:??Female?:??1950?? Patient Information [place] [facility] [place] Care Physician: Shiraz Joshi NP Admit Date/Time: 11/11/23 21:12 Discharge Disposition Discharge Disposition: Home with Home Health Discharge Diagnosis CHF exacerbation (I50.9) Acute on chronic hypoxic respiratory failure (J96.21) At risk for falls (Z91.81) Non-ST elevation [place] (NSTEMI) (I21.4) HTN (hypertension) (I10) CKD (chronic kidney disease) (N18.9) Anemia (D64.9) Leukocytosis (D72.829) Diabetes mellitus (E11.9) _ Discharge Medications Acetaminophen (Tylenol Extra Strength [...] oral tablet)?1?tab(s)?10?Milligram?By Mouth?Daily in AM Ergocalciferol (ergocalciferol 97878 iu oral capsule)?50,000?International Unit?1?capsule?By Mouth?twice per week [...] mg oral delayed release tablet)?1?tab(s)?40?Milligram?By Mouth?Daily ? Quality Measures Chest Pain, AMI Quality Measures:? Vaccinations and Immunoprophylaxis influenza virus vaccine, inactivated: 0.5 Unknown (03/08/22 08:00:00) SARS-CoV-2 (COVID-19) mRNA-1273 vaccine: 0.25 Unknown (11/22/21 08:00:00) SARS-CoV-2 (COVID-19) mRNA-1273 vaccine: 0.25 Unknown (04/28/21 08:00:00) SARS-CoV-2 (COVID-19) mRNA-1273 vaccine: 0.5 Unknown (10/18/20 08:00:00) SARS-CoV-2 (COVID-19) mRNA-1273 vaccine: 0.5 Unknown (09/20/20 08:00:00) [id number] 12y+ bivalent booster vax: 0.3 Unknown (05/28/22 07:00:00) ?? Doses Changed Furosemide (Lasix 40 mg oral tablet)?40?Milligram?By Mouth?2 times a day Allergies Allergies ?(Active and Proposed Allergies Only) hydrochlorothiazide-triamterene? (Severity: Unknown severity, Onset: Unknown) Byetta Prefilled Pen? (Severity: Unknown severity, Onset: Unknown) penicillins? (Severity: Unknown severity, Onset: Unknown) ? Hospital Course 72-year-old obese female with underlying history of hypertension, HFpEF, chronic exertional dyspneaand hypoxemia on home oxygen , chronic kidney disease, and hypothyroidism who presents to the emergency room with shortness of breath, lower extremity edema, hypoxia . Patient reported progressively worsening shortness of breath, orthopnea over the last 2 weeks, also she reported increased oxygen requirement at home yesterday up to 3 L, she also reported progressively worsening lower extremity edema over the last 3 weeks so she presented to the ED for further evaluation. Patient denied fever/chills, chest pain, palpitations, presyncope/syncope, nausea/vomiting, diarrhea/constipation, urinary symptoms. On presentation to the ED patient was hypertensive, on 3 L nasal cannula . Labs were significant for white blood cell 16.1, hemoglobin 10, creatinine 2.3, proBNP 729, troponin 191. Chest x-ray: No acute pathology . In the ED patient received aspirin, furosemide, heparin Patient was admitted for further management of shortness of breath, CHF exacerbation, elevated troponin .?Patient was evaluated by cardiology who??agreed with??furosemide??IV .??Cardiology also noted that the patient's??elevated troponins were secondary to demand ischemia secondary to CHF??and repeat echocardiogram was recommended.??Echocardiogram was completed and comparison was made to the study of April 08, 2022.?Patient demonstrated evidence of acute on chronic congestive heart failure likely diastolic in nature.??CT scan showed no PE.??CT chest without contrast showed no pneumonia.??Lower extremity ultrasound without evidence of DVT.??Heparin was discontinued.?Initially patient was placed on Lasix 40 mg IV daily??and subsequently increased to 40 mg IV twice daily.??Possibly transition to p.o. furosemide twice daily and remained in negative balance.??Patient??no known hist ory of diabetes mellitus??and was continued on her scheduled dose of her??basal insulin upon discharge.??Patient's??Jardiance was held during the hospital course??and patient was advised to resume upon discharge.??Patient also had a chronic leukocytosis??and was placed on IV ceftriaxone??and was subsequently discontinued??when the patient was found to have mixed kati likely secondary to contamination on urine culture.?Due to her significant??deconditioning physical therapy recommendation was requested.??Patient declined to participate during hospital course.??Patient was very adamant on the day of discharge??that she is??somewhat close to her baseline and just needed to get out of bed mo re.??Patient's partner Rose was also present at the day of discharge who indicated that??she was prepared to take the patient home??and would??utilize their home resources??to??assist with the patient's safety upon returning back home. ? Objective Measurements?? Height: 174 cm (11/16/23) Weight: 103.1 kg (11/16/23) Dry Weight: 100 kg (11/11/23) Body Mass Index:??35.8 kg/m2??Critical (11/11/23) Body Mass Index:??35.8 kg/m2??Critical (11/11/23) ? Vital Signs?? Temperature: 98.1 DegF (11/16/23 12:00:00) Temperature Route: Oral (11/16/23 12:00:00) Pulse Rate: 61 bpm (11/16/23 12:00:00) Respiratory Rate: 16 br/min (11/16/23 12:00:00) Systolic Blood Pressure:??145 mm Hg??High (11/16/23 12:00:00) Diastolic Blood Pressure:??47 mm Hg??Low (11/16/23 12:00:00) Blood pressure sites: Arm, left (11/16/23 12:00:00) Mean Arterial Pressure: 80 mm Hg (11/16/23 12:00:00) Pulse Pressure: 98 mm Hg (11/16/23 12:00:00) Oxygen Saturation: 95 % (11/16/23 12:00:00) Liters per Minute: 1 L/min (11/16/23 12:00:00) Mode of Delivery (Oxygen): Nasal cannula (11/16/23 12:00:00) Early Warning Score: 2 (11/16/23 12:00:21) ? Intake/Output? 11/10 21:12 11/15 07:00 11/14 07:00 11/13 07:00 11/12 07:00 ?? 11/15 15:09 11/15 15:09 11/15 06:59 11/14 06:59 11/13 06:59 Intake ? 3906.7 ?240 ? 2040 ?600 ?608 Output ?04782 ?700 ? 2600 ? 3050 ? 2550 Net Total ?-6645.3 ? -460 ? -560 ?-2450 ?-1942 ? . Physical Exam General:??No acute distress. HEENT:??Normocephalic atraumatic,??no scleral icterus. CVS:??Regular rate and rhythm. Respiratory:??No accessory muscle use,??no wheezes rales or rhonchi. Gas intestinal:??Abdomen soft nontender nondistended. Neurological: No focal deficits Pending Results Add On Lab Order ordered on 11/12/2023 Add On Lab Order ordered on 11/12/2023 CBC ordered on 11/11/2023 Follow-Up Appointments Added Follow Up ?Time Frame ?Comments Lev ANTONIO, Shiraz?2 to 3 weeks Post Discharge Care Activity: ??Ambulate With Assistance 3 times a day ?? Code Status: ??Full Resuscitation ?? Condition: ??Fair ?? Prognosis: ??Fair ?? Discharge ?11/16/23 15:09:00 EDT Discharge Prescriptions ?None, 11/16/23 15:09:00 EDT Home Health Face to Face *Denotes mandatory alonso ?? *I certify that this patient is under my care and that I or an allowed non- physician working with me had a face to face encounter with the patient on this date:??11/16/2023 15:39 ?? *The encounter with the patient was in whole, or in part, for the following medical condition, which is the primary diagnosis(es) for home health care:??CHF exacerbation (I50.9) Acute on chronic hypoxic respiratory failure (J96.21) At risk for falls (Z91.81) Non-ST elevation WI (NSTEMI) (I21.4) HTN (hypertension) (I10) CKD (chronic kidney disease) (N18.9) Anemia (D64.9) Leukocytosis (D72.829) Diabetes mellitus (E11.9) ?? *Select the indications for the discipline/s that are being arranged for this patient. Nursing (select all that apply): [_] None [_] Medication management (reconciliation, teaching)?? [x_] Chronic disease management?? [_] Wound care and treatment?? [_] Home safety evaluation [_] Administer SQ/IM/IV medications?? [_] Cath care?? [_] Drain care?? [_] Trach or GT care?? Other _ Occupation Therapy (select all that apply): [_] None [_] ADL Management [_x] Fall prevention training [_] Energy conservation [_] Cognitive training Other _ Physical Therapy (select all that apply): [_] None [_] Functional mobility training [_x] Home exercise program to strengthen [_] Increase ROM?? [_] Falls prevention training [_] Home maintenance program for chronic disease Other _ Speech Therapy (select all that apply): [_] None [_] Swallow evaluation and training [_] Speech and language training [_] Cognitive training to process, organize, and/or recall information Other _ ? *Homebound due to (select all that apply): [_] Inability to leave home without assistance/supervision [_x] Inability to ambulate without assistance [_] Pain [_] Decreased strength and endurance [_] Unsteady gait [_] Severe SOB and fatigue [_] Impaired transfers [_] Inability to negotiate stairs [_] Limited weight bearing [_] Mental status change? *Physician Signature: _Leslie Cosby,DO ?? *By signing this, I certify that I have personally evaluated the patient and agree with the findings and recommendations as documented above. ? Results Microbiology ?? Sputum, Gram Smear w/Culture Rfx?? Completed?? Source: Sputum Expectorated Body Site: ?? Collected Dt/Tm: 11/12/2023 20:02 Last Updated Dt/Tm: 11/13/2023 14:20 ?? Sputum Culture?? Completed?? Source: EXSPUT Body Site: ?? Collected Dt/Tm: 11/12/2023 11:25 Last Updated Dt/Tm: 11/14/2023 17:06 ?? COVID-19 (Novel Coronavirus), Rapid PCR?? Completed?? Source: Nasal Body Site: Nose Collected Dt/Tm: 11/11/2023 18:05 Last Updated Dt/Tm: 11/11/2023 19:59 ? Image ?XR Chest Portable??11/11/2023 19:38 by Ramirez King ?IMPRESSION: No evidence of acute abnormality. ?CT Chest W/O Contrast??11/12/2023 11:59 by Ingrid Miles ?IMPRESSION: No evidence of consolidative pneumonia. Mild emphysema with mild interlobular septal thickening suggestive of mild interstitial edema. Mild some reticular opacity in the subpleural lower lobes could reflect atelectasis or mild fibrotic changes. Multiple enlarged mediastinal lymph nodes measuring up to 17 mm in short axis in the subcarinal station are without significant change from 02/20/2023. Lymph node enlargement is nonspecific, but lack of change from one year priormay indicate a less aggressive or indolent process. ?US Doppler Ext Lower Venous Bilat??11/12/2023 16:08 by Ambreen Fink ?IMPRESSION: No evidence of deep venous thrombosis. ?NM Lung Perf, Particulate and Aerosol??11/13/2023 13:45 by Newton Payne ?IMPRESSION: 1. PE absent. 2. Clumped radiotracer uptake at the proximal airway in theventilation scan is most likely related to COPD. ?Echo Complete-Doppler, Colorflow, M-Mode??11/13/2023 10:14 by Alina Hill MD ?Summary The left ventricular size is normal. There is mild concentric left ventricular hypertrophy. Unable to assess diastolic function due to severe mitral annulus calcification . Normal LV systolic function. Ejection fraction is 55-65%. There are no definite regional wall motion abnormalities. The mitral valve appears moderate to severely calcified. There is mild to moderate calcific mitral stenosis. There is mild mitral regurgitation. The right ventricular size and function appears grossly normal. Comparison Comparison is made to the study of April 08, 2022. There is no significant change. Signature ?XR Chest Portable??11/16/2023 09:53 by Shahana Kern ?1. No active disease in chest. ?? Consult ?Cardiology Consult Note??11/12/2023 11:12 by Jaen-Paul Thompson MD ?1.??HTN (hypertension) ?The BP appears satisfactory at present.?On amlodipine. CHF exacerbation ?Mild CHF.??Agree with furosemide and follow.??She is slowly improving. Non-ST elevation WI (NSTEMI) ?Likely demand ischemia due to CHF.??No chest pain but can't exclude non ST elevation WI with elevated trops and delta.?Continue aspirin and beta ankit.??Check echocardiogram.?Thank you. ?? _35 ??minutes spent on discharge * Citlaly Mathias RN: PERFORM, SIGN, VERIFY Event Display: Case Management Discharge Plan Authored Date: Patient: MONY FERRELL Age: 72 years Sex: Female : 1950 Associated Diagnoses: None Author: Citlaly Mathias RN Discharge Plan Case Management Discharge Plan : Case Management Discharge Plan Data 11/16/2023 13:08 EDT Discharge Level of Care at Discharge Homehealth/VNA Discharge VNA/Hospice/Home Care [facility] Discharge Transportation Arranged private car Discharge Arranged Transport Date/Time 11/16/2023 13:30 Mode of Transportation Arranged Other Name of Agency #1 [facility] Service Categories #1 Physical Therapy, Alf Service Comments #1 [facility] will call you within 1-2 days/discharge to set up f/u appointments Name of Person Notified of Transfer patient Name of Receiving Clinician/Provider allscripts * Isabelle Mckenzie RN: PERFORM Event Display: Patient Education/Instruction Authored Date: Inpatient Adult Discharge Instructions. [place] [id number] Name: MONY FERRELL : 1950?? Visit: 11/11/2023 21:12?? Current Date: 11/16/2023 15:10 ?? Account: [id number]?? Inpatient Adult Discharge Instructions We would like [...] and their families. Surveys are administered by [employer] ?? If further treatment with your primary care physician or another doctor is recommended, it is important for you to keep the appointment. Call your primary care physician or return to the Emergency Department immediately if your condition worsens, fails to improve, or new symptoms develop. If you need to find a doctor, you can call [facility] Link for a referral at [phone] or toll free at [phone]) or log in to [email or web address].. ?? [facility], in keeping with [facility] guidance, no longer requires face masks [...] a health care jose of your choosing. [employer]) is a website that allows you to securely view your medical information including your hospital discharge summary, office visit summaries, medications and follow-up visits. You can also request appointments, renew medications, and request access to your medical information using a health care jose of your choosing, or just ask a question. You can enroll at [email or web address] or register during your next office visit. You have been discharged from [facility], Patient Care Unit: [id number]??. If you have any questions regarding these instructions, including results of studies pending, afteryou leave, please call us and we will be happy to assist you 20/01. [facility] Your Care Team Attending Physician Leslie Cosby DO?? Consulting Providers Leslie Cosby DO?? Discharging Providers Leslie Cosby DO Reason for Your Visit chf, elevated troponin?? Your Diagnosis HTN (hypertension) Acute on chronic hypoxic respiratory failure Anemia At risk for falls CHF exacerbation CKD (chronic kidney disease) Diabetes mellitus Leukocytosis Non-ST elevation WI (NSTEMI) Shortness of breath Tests Performed Below is a partial list of the tests performed during your hospitalization. You may have had other tests and procedures not included in this list. Please discuss all test results with your provider. Basic Metabolic Panel BUN CBC CBC w/ Differential COVID-19 (Novel Coronavirus), Rapid PCR Creatinine Electrolytes FREE T4 GLUCOSE POC HEMOGLOBIN A1C High??Sensitivity??Troponin T HOLD BLUE TUBE HOLD GEL TUBE HOLD GREEN TUBE HOLD OTHER TUBE MAGNESIUM PH CORRECTED IONIZED CALCIUM PHOSPHORUS ProBNP PTT Sputum Culture Sputum, Gram Smear w/Culture Rfx TSH [facility] Urine Culture Result Urine Culture, Routine URINE MICROSCOPIC Chest CT W/O Contrast Doppler Ext Lower Venous Bilat (US) NM Lung Perf, Particulate and Aerosol Portable Chest XR Chest Portable Add On Lab Order?? CBC?? Primary Care Provider Shiraz Joshi NP? Advance Directive Health Care Proxy on File Yes - Health Care Proxy Discharge Vitals Temperature: 98.1 DegF Height: 174 cm Pulse Rate: 61 bpm Weight: 103.1 kg Respiratory Rate: 16 br/min Body Mass Index:??35.8 kg/m2??Critical Systolic Blood Pressure:??145 mm Hg??High Body Mass Index:??35.8 kg/m2??Critical Diastolic Blood Pressure:??47 mm Hg??Low Body surface area: 2.29 Oxygen Saturation: 95 % Body surface area: 2.29 Studies Pending All studies ordered during this hospital stay have been completed unless listed below. Please discuss all pending results with your provider listed above in these instructions. ?? Add On Lab Order?? CBC?? What to do next Instructions From Your Doctor ?? Orders??:Ambulate ??With Assistance ??3 times a day Status: ??Full Resuscitation : ??Fair :Fair? 11/16/23 15:09:00 EDT?? Prescriptions??, ??11/16/23 15:09:00 EDT?? You Need to Schedule the Following Appointments Follow Up with??Shiraz Joshi NP When:??Within 2 to 3 weeks Where: [address] [place] [id number] Discharge Medications MONY FERRELL :1950 Visit Date:11/11/2023 Medications: Please continue your medications until treatment is completed or stopped by your provider. Medications not listed below should be discontinued. Discuss any questions related to medications with your provider. What How Much When Instructions Next Dose Changed Atenolol (atenolol 50 mg oral tablet) 1 tab(s) Oral Daily 11/16 8am Changed Furosemide (Lasix 40 mg oral tablet) 40 Milligram Oral Twice a day 11/16 8am Changed Insulin Lispro (Humalog 100 u/ ml subcutaneous injection) 30 unit(s) Subcutaneous Injection Daily before lunch 11/16 12pm Changed Insulin Lispro (Humalog 100 u/ ml subcutaneous injection) 33 unit(s) Subcutaneous Injection Daily before dinner 11/16 5pm Changed Insulin Lispro (Humalog 100 u/ ml subcutaneous injection) 36 unit(s) Subcutaneous Injection Daily before breakfast 11/16 7am Unchanged Acetaminophen (Tylenol Extra Strength 500 mg oral tablet) 2 tab(s) Oral 3 times a day 11/15 8pm Unchanged Amlodipine (amLODIPine 5 mg oral tablet) 2 tab(s) Oral Daily 11/16 8am Unchanged Aspirin (aspirin 81 mg oral tablet) 1 tab(s) Oral Daily 11/16 8am Unchanged Atorvastatin (atorvastatin 80 mg oral tablet) 1 tab(s) Oral Daily 11/15 8pm Unchanged BuPROpion (buPROPion 150 mg/ 12 hours (SR) oral tablet, extended release) 1 tab(s) Oral Twice a day 11/15 8pm Unchanged empagliflozin (Jardiance 10 mg oral tablet) 1 tab(s) Oral Daily in the morning 11/16 8am Unchanged Ergocalciferol (ergocalciferol 75471 iu oral capsule) 1 capsule Oral twice per week ?? continue with home regimine Unchanged Insulin Glargine (Basaglar KwikPen 100 units/ mL subcutaneous solution) 50 unit(s) Subcutaneous Injection Daily in the morning 11/16 8am Unchanged Insulin Glargine (Basaglar KwikPen 100 units/ mL subcutaneous solution) 36 unit(s) Subcutaneous Injection Daily at Bedtime 11/15 8pm Unchanged Levothyroxine (levothyroxine 125 mcg (0.125 mg) oral tablet) 1 tab(s) Oral Daily 11/16 7am Unchanged Losartan 100 Milligram Oral Daily 11/16 8am Unchanged Multivitamin With Minerals (Icaps AREDS) 1 tab(s) Oral Twice a day 11/15 8pm Unchanged Pantoprazole (Protonix 40 mg oral delayed release tablet) 1 tab(s) Oral Daily 11/16 8am ?? What How Much When Comments Stop Taking Insulin Aspart (NovoLOG 100 units/ mL subcutaneous solution) 20-40units Subcutaneous Injection 3 times a day before meals Prescription Given During Visit No new medications prescribed at time of discharge.?? Laboratory Results Below is a partial list of the most recent Laboratory test results done prior to this discharge. You may have had other tests and procedures not included in this list. Please discuss all test resultswith your provider. Est Creatinine Clearance - 23.98 mL/min (11/15/2023) Basic Metabolic Panel (11/11/2023) ???Sodium - 142 mmol/L???Potassium - 5.1 mmol/L???Chloride - 105 mmol/L???Bicarbonate Level - 24 mmol/L???Anion Gap - 13???Glucose Level - 108 mg/dL???BUN - 58 mg/dL???Creatinine-Blood - 2.31 mg/dL???Estimated GFR Creatinine - 21 ML/MIN/1.73 M2???Calcium - 9.5 mg/dL BUN (11/15/2023) ???BUN - 59 mg/dL CBC (11/16/2023) ???WBC - 14.8 k/mm3???RBC - 2.94 m/mm3???Hgb - 8.4 Gm/dL???Hct - 26.5 %???MCV - 90.1 femtoliters???MCH - 28.6 pg???MCHC - 31.7 g/dL???Platelet Count - 241 k/mm3???RDW-SD - 47.4 femtoliters???MPV - 9.2 femtoliters???Nucleated RBC (Automated) - 0.0 #/100 WBC'S???Abs. NRBC - 0.0 k/mm3 CBC w/ Differential (11/15/2023) ???WBC - 14.7 k/mm3???RBC - 2.95 m/mm3???Hgb - 8.4 Gm/dL???Hct - 26.9 %???MCV - 91.2 femtoliters???MCH - 28.5 pg???MCHC - 31.2 g/dL???Platelet Count - 211 k/mm3???RDW-SD - 49.2 femtoliters???MPV - 8.9 femtoliters???Nucleated RBC (Automated) - 0.0 #/100 WBC'S???Abs. NRBC - 0.0 k/mm3???Abs. Neut - 10.7 k/mm3???Abs. Lymph - 1.2 k/mm3???Abs. [place] - 1.8 k/mm3???Abs. Eo - 0.8 k/mm3???Abs. Baso - 0.0 k/mm3???Neut % - 72.9 %???Lymph % - 8.4 %???[place] % - 12.5 %???Eos % - 5.5 %???Baso % - 0.2 %???Imm Gran - 0.5 %???Abs. Imm Gran - 0.1 k/mm3 COVID-19 (Novel Coronavirus), Rapid PCR (11/11/2023) ???COVID-19 by RT-PCR - NEGATIVE Creatinine (11/15/2023) ???Creatinine-Blood - 2.21 mg/dL???Estimated GFR Creatinine - 22 ML/MIN/1.73 M2 Electrolytes (11/15/2023) ???Sodium - 139 mmol/L???Potassium - 4.6 mmol/L???Chloride - 102 mmol/L???Bicarbonate Level - 24 mmol/L???Anion Gap - 13 FREE T4 (11/12/2023) ???Free T4 - 1.13 ng/dL GLUCOSE POC (11/16/2023) ???Glucose, POC - 206 mg/dL HEMOGLOBIN A1C (11/12/2023) ???Hemoglobin A1C (Monitoring) - 5.9 % High??Sensitivity??Troponin T (11/11/2023) ???High Sensitivity Troponin (HSTnT) - 175 ng/L HOLD BLUE TUBE (11/13/2023) ???Hold Blue Top - SPECIMEN DISCARDED AFTER 4 HOURS. HOLD GEL TUBE (11/14/2023) ???Hold Gel Top - SPECIMEN DISCARDED AFTER 1 WEEK HOLD GREEN TUBE (11/16/2023) ???Hold Green Top - SPECIMEN DISCARDED AFTER 1 WEEK HOLD OTHER TUBE (11/13/2023) ???Hold Other - SPECIMEN DISCARDED AFTER 1 WEEK MAGNESIUM (11/12/2023) ???Magnesium - 2.3 mg/dL PH CORRECTED IONIZED CALCIUM (11/12/2023) ???Calcium, Ionized pH Corrected - 1.15 mmol/L PHOSPHORUS (11/12/2023) ???Phosphorus - 4.5 mg/dL ProBNP (11/11/2023) ???Nt-Probnp - 729 pg/mL PTT (11/14/2023) ???APTT - 66.7 seconds Sputum Culture (11/12/2023) ???Sputum Culture Isolate 1 - Comment???Sputum Culture Status - Final report Sputum, Gram Smear w/Culture Rfx (11/12/2023) ???Sputum Culture Specimen Source - MIXED VENOUS???Sputum Cult Epithelial Cells - None seen???Gram Stain Evaluation - Comment???Sputum Gram Stain Result 1 - Comment???White Blood Cells - None seen TSH (11/12/2023) ???TSH - 5.87 uIU/mL [facility] (11/11/2023) ???Appear/Color, Urine - LIGHT YELLOW???Clarity - CLOUDY???Specific [place], Urine - 1.020???pH, Urine - 6.0???Albumin, Urine - 1+???Glucose, Urine - 2+???Ketones, Urine - NEGATIVE???Bilirubin, Urine- NEGATIVE???Hemoglobin, Urine - TRACE???Nitrite, Urine - NEGATIVE???Leukocyte, Urine - 3+???Urobilinogen - NORMAL Urine Culture Result (11/12/2023) ???Urine Culture Isolate 1 - Comment Urine Culture, Routine (11/12/2023) ???Urine Culture Results - Final report???Urine Culture Specimen Source - URINE URINE MICROSCOPIC (11/11/2023) ? ?WBC's, Urine - >182 /HPF? ?RBC's, Urine - 47 /HPF? ?Squamous Epith - 26 /HPF? ?Mucus - SLIGHT???WBC Clumps - SLIGHT???Budding Yeast - HEAVY Allergies (NKA means No Known Allergies) [place] Prefilled Pen hydrochlorothiazide-triamterene penicillins Problems Active Problems??(6) Acute calculous cholecystitis?? Acute Cholecystitis?? CKD (chronic kidney disease), stage III?? HTN (hypertension)?? Hypothyroid?? Severe obesity (BMI 35.0-39.9) with comorbidity?? Education Materials Below is the list of Educational Leaflet Providered with your Discharge Instructions. [employer] Ignite Patient Education - Heart Failure?? Valuables and Belongings I fully understand and agree that [facility] accepts no responsibility for all my [...] patient Date for Pt to Sign Valuables/Belongings: 11/11/23 22:15:00 ?? Other Discharge Information ? Case Management Discharge Plan?? Discharge Plan?? Discharge Agency Information?? Discharge Level of Care at Discharge: Homehealth/VNA Name of Agency #1: [facility] Discharge Transportation Arranged: private car Service Categories #1: Physical Therapy, Alf Mode of Transportation Arranged: Other Service Comments #1: [facility] will call you within 1-2 days/discharge to set up f/u appointments Discharge Arranged Transport Date/Time: 11/16/23 13:30:00 Name of Person Notified of Transfer: patient Discharge VNA/Hospice/Home Care: [facility] Name of Receiving Clinician/Provider: allscripts ?? Pulmonary Rehab Status?? Pulmonary Rehab Discharge Status?? Respiratory Rate: 16 br/min ? Common Emergency [...] are strongly encouraged to quit. Please call [facility] Link at [phone] or [phone]) or log in to [email or web address] for referrals to smoking cessation programs. ?? 645 Suicide & Crisis Lifeline is available 20/01 if you or someone you know needs to find a reason to keep living. By calling 515 you'll be connected to a skilled, trained counselor at a crisis center in your area. INPATIENT DISCHARGE INSTRUCTIONS SIGNATURE PAGE MONY FERRELL Location:[facility] Registration Date and Time:11/11/2023 21:12 EDT Primary Care Physician: Shiraz Joshi NP, Attending Physician: Leslie Cosby DO, I MONY FERRELL, have received the above patient education materials/instructions and have verbalized understanding. If ambulance or transport services are being used I further acknowledge being givena choice of service. ?? If you need to contact me, please call me at this number: . Patient/Labor Commissioner Name: Patient/Labor Commissioner Signature: Relationship to Patient: Witness Name/Signature: Date: * Alejandra Coulter: PERFORM, SIGN, VERIFY Event Display: Patient Education Handout Authored Date: [id number] * Isabelle Mckenzie RN: PERFORM Event Display: Patient Education Leaflets Authored Date: [id number] Heart Failure ?? [id number] Heart Failure What is heart failure? The heart is a muscle that pumps oxygen-rich blood to all parts of the body. When you have heart failure, the heart can???t pump as well as it should. Or the heart muscle can???t relax and fill the pumping chamber with blood. Blood and fluid may back up into the lungs. This causes heart failure. And it causes pulmonary edema. Some parts of the body also don???t get enough oxygen-rich blood. This means they can't work well. These problems lead to the symptoms of heart failure. ?? What causes heart failure? Heart failure may result from: ??? Heart valve disease ??? High blood pressure ??? Active infections of the heart valves or heart muscle, such as endocarditis ??? A past heart attack ??? Coronary artery disease ??? Disease of the heart muscle (cardiomyopathy) ??? Heart problems that are present at (congenital heart defects) ??? Heart rhythm problems (arrhythmias) ??? Long-term (chronic) lung disease and pulmonary embolism ??? A reaction to medicines, such as those used for chemotherapy ??? Anemia and too much blood loss ??? Thyroid disorders ??? Diabetes ??? Alcohol and drug abuse ??? Certain viral infections ?? What are the symptoms of heart failure? The most common symptoms of heart failure are: ??? Shortness of breath while resting, exercising, or lying flat ??? Weight gain from water retention ??? Visible swelling of the legs, ankles, and feet from fluid buildup. Sometimes the belly (abdomen) may swell. ??? Severe tiredness (fatigue) and weakness ??? Loss of appetite, nausea, and belly pain ??? Cough that doesn???t go away. It can cause blood-tinged or frothy sputum. The severity of the condition and symptoms depends on how much of the heart's pumping ability has been affected. The first step in managing heart failure symptoms is knowing your baselines or what???s normal for you. How much do you weigh? Are you gaining weight but eating the same amount? How muchcan you do before you feel short of breath? Do your socks and shoes fit comfortably? Knowing what???s normal for you will help you see when symptoms are getting worse. Once you know your baselines, watch for changes daily. The symptoms of heart failure may look like other health problems. Always see your healthcare provider for a diagnosis. ?? How is heart failure diagnosed? Your healthcare provider will ask about your health history. They will give you a physical exam. You may need tests, such as: ??? Chest X-ray. This test makes images of internal tissues, bones, and organs on film. This test shows the size and shape of your heart. Fluid in the lungs will also show up on X-ray. ??? Echocardiogram. This test is also called an echo. It uses sound waves to assess the motion of the heart???s chambers and valves. The sound waves make an image on the screen as an ultrasound transducer is passed over the heart. This shows how well the heart pumps and relaxes. It also shows the thickness of the heart estrella, and if the heart is enlarged. It can assess heart valve function and blood flow as well. It is one of the most useful tests because it shows a lot of information about the heart???s function. And it can help guide treatment choices. ??? Electrocardiogram. Thistest records the electrical activity of the heart. It shows abnormal rhythms. It can sometimes findheart muscle damage. ??? BNP testing. B-type natriuretic peptide (BNP) is a hormone released from the ventricles that occurs with heart failure. BNP levels are useful in the quick assessment of heartfailure. The higher the BNP levels, the worse the heart failure. BNP is measured from a blood sample. ??? Cardiac MRI. This test uses a magnetic field to make images of the heart and its nearby tissues. It can assess how the heart muscle and valves are working. ?? How is heart failure treated??? The cause of heart failure will guide the treatment plan. If heart failure is caused by a valve problem or coronary heart disease, then you may need a procedure. This may be a percutaneous coronary intervention. Or it may be surgery. If heart failure is caused by a problem, such as anemia or an infe ction, you may need medicine to treat this problem. Some causes of heart failure are reversible or short-term, such as an acute infection. For many causes of heart failure there is no cure. But many forms of treatment can help with symptoms. They are listed below. Lifestyle changes These healthy habits may help with heart failure: ??? Controlling blood pressure ??? Controlling blood sugar if you have diabetes ??? Quitting smoking ??? Maintaining a healthy weight. Losing weight, if needed ??? Regular exercise ??? Limiting salt and fat in your diet ??? Not drinking alcohol or using illicit drugs ??? Getting enough rest ??? Reducing stress ??? Other important lifestyle habits include getting vaccines, such as for the flu and pneumococcal pneumonia. If you have sleep problems, getting a sleep study can help find out what???s causing them. You may need to wear a C-PAP mask while you sleep. This will make sure you get enough oxygen. Too little oxygen can put stress on your heart. ?? Medicines Many types of medicines are available for heart failure. They include: ??? Angiotensin converting enzyme (AUDI) inhibitors. These lower the pressure inside the blood vessels. This reduces the pressurethat the heart has to pump against. They can also help the heart have better pumping ability over time. ??? Angiotensin receptor blockers (ARB). Some people get a cough and need to stop taking AUDI inhibitors. If that happens, an ARB may work for you. These help relax blood vessels and reduce stresson the heart. ??? Angiotensin receptor- neprilysin inhibitors (ARNIs). This medicine combines an ARBand a neprilysin inhibitor. This can help the heart as noted above. And it can promote salt and water loss. This medicine is preferred over AUDI inhibitors and ARBs alone. ??? Diuretics. These reduce the amount of fluid in the body. They are among the most important medicines in helping control fluid buildup in the body. ??? Beta- blockers. These reduce the heart???s tendency to beat faster. They can also help the heart pump better over time. ??? Aldosterone blockers. These block the effects of the hormone aldosterone. This hormone causes sodium and water retention. ??? Vasodilators. These include hydralazine and nitroglycerin. These widen (dilate) the blood vessels. They reduce the workload on the heart. ??? Statins or PCSK9 inhibitors. These lower the amount of bad cholesterol in your blood. They are not used to treat heart failure. But you may take one if you have high cholesterol. Or you may take one if you have had a past heart attack and are at risk for heart failure. People who have inherited forms of high cholesterol (familial hypercholesterolemia) may get help from PCSK9 inhibitors. These medicines lower cholesterol. ??? Sodium-glucose cotransporter-2 (SGLT2) inhibitors. They block your kidneys from reabsorbing sugar from the blood. This helps your body get rid of extra salt and water and so lowers your blood pressure. Lowering your blood pressure eases the strain on your heart. ??? Digitalis. This medicine helps the heart beat stronger. It may help with controlling heart rate if there is an abnormal heart rhythm. ??? Antiarrhythmics. These help keep normal heart rhythm. ??? Sinus node I-f channel ankit. This may be used to lower your heart rate. It may result in less stress on your heart. This medicine is reserved for people who still have high resting heart rates despite use of beta blockers. ?? Heart procedures These include opening blocked arteries in the heart. This brings back blood flow to the heart muscle. It helps the ventricles squeeze as they should. The procedure can be done in the cardiac catheterization lab. It uses balloons to push plaque and blood clots out of the artery. It also uses stents to keep the artery open. This can also be done by bypassing blockages during surgery (coronary artery bypass surgery). ?? Heart valve repair or replacement In some cases, medicines can???t help heart failure caused by heart valves that are narrowed (stenosed) or leak (regurgitant). The heart valve can be repaired or replaced. This can be done as an open-heart procedure. Or it can be done by going through a small tube (catheter) that is put into an artery or vein. ?? Pacemaker If your heart failure has also damaged your heart???s electrical wiring system, a pacemaker can be implanted. This is done to restore normal heart rate and regularity. A cardiac resynchronizing pacemaker is used when one of the natural heart wires is damaged. This is often the wire located in the left ventricle. These pacemakers use implanted left and right sided wires to restore normal timing ofthe heart contraction in order to improve heart function. ?? ICD (implantable cardioverter defibrillator) When the heart muscle is damaged, dangerous heart circuits can form in the heart muscle. This leadsto heart rhythms that can cause . An ICD is implanted in the body to sense and treat these cardiac arrest rhythms. It does this by overdrive pacing the heart rhythm. Or it sends an energy shock to the heart. ?? VAD (ventricular assist device) This device is put in the chest during a surgery. It connects to an outside motor. The motor helps pump blood from the heart to the rest of the body. VADs can allow people with advanced heart failureto improve their overall symptoms and to walk more. This can be used as a long-term treatment. Or it can be used while someone waits for a donor heart for a transplant. ?? Heart transplant In some cases, the diseased heart must be replaced with a healthy one from a donor. Talk with your healthcare providers about the risks, benefits, and possible side effects of all treatments. ? What are possible complications of heart failure? Complications of heart failure include: ??? Fluid buildup in the lungs (pulmonary edema) ??? Kidney and liver failure ??? Stroke ??? Abnormal heart rhythms ??? How daily issues affect your health Many things in your daily life impact your health. This can include transportation, money problems,housing, access to food, and child day care center worker. If you can???t get to medical appointments, you may not receive the care you need. When money is tight, it may be difficult to pay for medicines. And living far from a grocery store can make it hard to buy healthy food. If you have concerns in any of these or other areas, talk with your healthcare team. They may know of local resources to assist you. Or they may have a staff person who can help. ? Shabazz points about heart failure ??? When you have heart failure, the heart can???t pump as well as it should. ??? Heart failure may result from health problems that affect the heart, such as high blood pressure, coronary artery disease, and heart attack. ??? Some common symptoms are shortness of breath, weight gain, and visible swelling of the legs and ankles. ??? A chest X-ray can help diagnose lung congestion. ??? Treatment varies based on the cause of heart failure. Most people are advised tomake certain lifestyle changes and to take certain medicines, often for life. Procedures, such as coronary intervention and surgery, may be needed. ?? Next steps Tips to help you get the most from a visit to your healthcare provider: ??? Know the reason for your visit and what you want to happen. ??? Before your visit, write down questions you want answered. ??? Bring someone with you to help you ask questions and remember what your provider tells you. ??? At the visit, write down the name of a new diagnosis, and any new medicines, treatments, or tests. Also write down any new instructions your provider gives you. ??? Know why a new medicine or treatment is prescribed, and how it will help you. Also know what the side effects are. ??? Ask if your condition can be treated in other ways. ??? Know why a test or procedure is recommended and what the results could mean. ??? Know what to expect if you do not take the medicine or have the test or procedure. ??? If you have a follow-up appointment, write down the date, time, and purpose for that visit. ??? Know how you can contact your healthcare provider if you have questions, especially after office hours or on weekends. ?? Last Reviewed Date: 2022 ?? [id number] [employer]. All rights reserved. This information is not intended as a substitute for professional medical care. Always follow your healthcare professional's instructions. ?? Patient Care team information Care Team Personnel Name: Delicia Castrejon RN Position: [facility] OB RN Member Role: Primary Care Nurse Name: Shiraz Joshi NP Position: Reference Physician Member Role: PCP Address: Address: [address] [place] [address] Name: Wendy Shay RN Position: S RN Member Role: Primary Care Nurse Name: Gabrielle Kiran RN Position: S RN Member Role: Primary Care Nurse Name: Irene Alcantar RN Position: S RN Member Role: Primary Care Nurse Care Team Related Persons Name: HOUSTON ZARA Address: [address] [address]
--- OUTSIDE RECORDS SUMMARY | 2023-12-13 17:39 | XMS_ITS | Continuity of Care Document ---
Author Organization [facility] Address [address] [place] [address]- Care Team Providers Care [employer] Fire Support Planner Name Role Phone Lamar Gandhi Primary Care Physician [phone] Encounter [facility] [place] Date(s): 09/13/19 - 11/17/[address] [address]- [facility] [phone] Encounter Diagnosis Heart failure, unspecified(Final) - Discharge Disposition: A-D/C Home Attending Physician: Lius M Zamora MD Admitting Physician: Luis M Zamora MD Referring Physician: Not on Staff, Referring MD Allergies, Adverse Reactions, Alerts Substance Reaction Severity Status hydrochlorothiazide-triamterene Active penicillins Active Byetta Prefilled Pen Active Immunizations Not Given Vaccine Date Status Refusal Reason [...] 2:38:29 EDT Start Date: 09/21/18 Status: Ordered atorvastatin 80 mg oral tablet 1 tablet = 80 mg, By Mouth, Daily, # 30 tablet, 0 Refills, Maintenance, Tablet Start Date: 09/23/18 Status: Ordered Basaglar KwikPen = 60 units, Subcutaneous Injection, 2 times a day, 0 Refills, Maintenance, 09/21/18 2:35:43 EDT Start Date: 09/21/18 Status: Ordered buPROPion 150 mg/12 hours (SR) oral tablet, extended release 1 tablet = 150 mg, By Mouth, 2 times a day, # 180 tablet, 0 Refills, Maintenance, 09/23/18 13:49:10EDT, ER Tablet Start Date: 09/23/18 Status: Ordered Humalog 100 u/ml subcutaneous injection = 25 units, Subcutaneous Injection, 3 times a day before meals, # 9 vials, 2 Refills, Maintenance, 12/10/18 10:25:36 EDT Start Date: 12/10/18 Stop Date: 03/10/19 Status: Ordered Lasix 20 mg oral tablet [...]
--- OUTSIDE RECORDS SUMMARY | 2023-12-13 17:39 | XMS_ITS | Continuity of Care Document ---
Author Organization [facility] Address [address] [place] [address]- Care Team Providers Care Motorcycle Service Technician Name Role Phone Lamar Gandhi Primary Care Physician [place] [facility] [place]/18[place] - 06/18/[address] [address]- [facility] [phone] Discharge Disposition: A-D/C Home Attending Physician: Juana Elaine MD Admitting Physician: Juana Elaine MD Referring Physician: Juana Elaine MD Allergies, Adverse Reactions, Alerts Substance Reaction [...] Date: 09/23/18 Status: Ordered Basaglar KwikPen = 70 units, Subcutaneous Injection, 2 times a day, [...] Status: Ordered Lasix 20 mg oral tablet 20 mg, 1, tablet, By Mouth, Daily, # 30 tablet, Refills 0, Tot. Refills 0, Maintenance, 02/03/19 13:37:56 EDT, Route to Pharmacy Electronically, [id number], [facility] [address] [facility] Start Date: 02/03/19 Stop Date: 03/05/19 Status: Ordered levothyroxine 125 mcg (0.125 mg) oral tablet 1 tablet = 125 mcg, By Mouth, Daily, # 30 tablet, 0 Refills, Maintenance, 09/21/18 2:37:17 EDT, Tablet Start Date: 09/21/18 Status: Ordered Losartan = 100 mg, By Mouth, Daily, 0 Refills, Maintenance, 12/10/18 10:26:36 EDT Start Date: 12/10/18 Status: Ordered NuLYTELY with Flavor Packs oral powder for reconstitution See Instructions, follow custom instructions provided by the office, # 1 each, 0 Refills, Maintenance, 03/29/19 12:24:33 EDT, follow custom instructions provided by the office Start Date: 03/29/19 Status: Ordered Protonix 40 mg oral delayed release tablet 1 tablet = 40 mg, By Mouth, 2 times a day, # 60 tablet, 0 Refills, Maintenance, 02/03/19 13:23:00 EDT, EC Tablet Start Date: 02/03/19 Stop Date: 03/05/19 Status: Ordered Problem List Condition Effective Dates Status Health Status Inform ant Acute calculous cholecystitis(Confirmed) 03/04/13 Active Acute Cholecystitis(Confirmed) 03/22/13 Active Vital Signs Most recent to oldest [Reference Range]: 1 2 3 Weight 108.6 kg (06/18/19 11:35 AM) Oxygen Saturation [94-100 %] 100 % (06/18/19 12:40 PM) 100 % (06/18/19 12:35 PM) 96 % (06/18/19 11:35 AM) Pulse Rate [55-90 bpm] 72 bpm (06/18/19 11:35 AM) Blood Pressure [90-138/55-84 mm Hg] 137/77mm Hg (06/18/19 12:40 PM) 139/71mm Hg *H* (06/18/19 12:35 PM) Respiratory Rate [16-30 br/min] 16 br/min (06/18/19 12:40 PM) 16 br/min (06/18/19 12:35 PM) 16 br/min (06/18/19 11:35 AM) Temperature [96.8-100.4 DegF] 97.9 DegF (06/18/19 11:35 AM) Liters per Minute 6 L/min (06/18/19 12:40 PM) 6 L/min (06/18/19 12:35 PM) Mode of Delivery (Oxygen) Simple face ma sk (06/18/19 12:40 PM) Simple face mask (06/18/19 12:35 PM) Room air (06/18/19 11:35 AM) Temperature Route Temporal (06/18/19 11:35 AM) Dry Weight 108.6 kg (06/18/19 11:35 AM) Weight Obtained Via Standing scale (06/18/19 11:35 AM) Dry Weight Obtained Via Standing scale (06/18/19 11:35 AM)
--- OUTSIDE RECORDS SUMMARY | 2023-12-13 17:40 | XMS_ITS | Continuity of Care Document ---
Author Organization [facility] Address [address] [place] [address]- Care Team Providers Care Load Planner Name Role Phone ChapincitoarnaldoMonique Primary Care Physician [phone] Encounter [facility] [place] Date(s): 10/29/21 - 10/25/[address] [address]- Encounter Diagnosis Heart failure, unspecified(Final) - Discharge Disposition: A-D/C Home Attending Physician: Sharonda Robison MD Admitting Physician: Sharonda Robison MD Referring Physician: Sharonda Robison MD Allergies, Adverse Reactions, Alerts Substance Reaction Severity Status hydrochlorothiazide-triamterene Active penicillins Active Byetta Prefilled Pen Active Immunizations Given and Recorded Vaccine Date Status Refusal Reason [id number] 12y+ bivalent booster vax 05/28/22 Recorded influenza [...] obesity (BMI 35.0-39.9) with comorbidity Confirmed Active Social History Social History Type Response Smoking Status Former smoker, quit more than 30 days ago; Total pack years: 35; Stopped at age: 56; entered on: 08/20/22 Sex Patient Care team information Care Team Personnel Name: Delicia Castrejon RN Position: [facility] OB RN Member Role: Primary Care Nurse Name: Monse Dubois RN Position: S RN Member Role: Primary Care Nurse Name: Ava Mishra RN Position: S RN Member Role: Primary Care Nurse Name: Monique Jason Position: [facility] Outreach Member Role: PCP Address: Address: [address] [place] [address] Name: Wendy Shay RN Position: [facility] RN Member Role: Primary Care Nurse Name: Irene Alcantar RN Position: [facility] RN Member Role: Primary Care Nurse Care Team Related Persons Name: ZARA HOUSTON Address: [address] [address]
--- OUTSIDE RECORDS SUMMARY | 2023-12-13 17:40 | XMS_ITS | Continuity of Care Document ---
Author Organization [facility] ter Address [address] [place] [id number]- Care Team Providers Care Facsimile Machine Operator Name Role Phone Lev SUPERVISORY CIVIL ENGINEER, Shiraz Primary Care Physician Encounter [facility] Date(s): 12/02/23 - 12/12/[address] [address] Discharge Disposition: A-Transfer SNF Attending Physician: Anton Burnham MD Admitting Physician: Gilma Alexander MD Referring Physician: Gilma Alexander MD Allergies, Adverse Reactions, Alerts Substance Reaction Severity Status hydrochlorothiazide-triamterene Active penicillins Active Byetta Prefilled Pen Active Immunizations Given and Recorded Vaccine Date Status Refusal Reason [id number] 12y+ bivalent booster vax 05/28/22 Recorded influenza virus vaccine, inactivated 03/08/22 Lew rded SARS-CoV-2 (COVID-19) mRNA-1273 vaccine 11/22/21 R ecorded SARS-CoV-2 (COVID-19) mRNA-1273 vaccine 04/28/21 R ecorded SARS-CoV-2 (COVID-19) mRNA-1273 vaccine 10/18/20 R ecorded SARS-CoV-2 (COVID-19) mRNA-1273 vaccine 09/20/20 R ecorded Medications amLODIPine 5 mg oral tablet 10 mg, 2, tablet, By Mouth, Daily, # 30 tablet, Refills 0, Maintenance, 09/21/18 2:37:57 EDT Start Date: 09/21/18 Status: Ordered amLODIPine 5 mg oral tablet 10 mg, Tablet, By Mouth, 12/12/23 9:00:00 EDT Start Date: 12/12/23 Stop Date: 12/12/23 Status: Completed aspirin 81 mg oral tablet 1 tablet = 81 mg, By Mouth, Daily, # 90 tablet, 0 Refills, Maintenance, 12/10/18 10:23:27 EDT, Tablet Start Date: 12/10/18 Status: Ordered atorvastatin 80 mg oral tablet 1 tablet = 80 mg, By Mouth, Daily at bedtime, # 30 tablet, 0 Refills, Maintenance, Tablet [...] Tablet Start Date: 09/23/18 Status: Ordered ergocalciferol 30131 iu oral capsule 50,000 International_Units, 1, capsule, [...] opioid drug. Start Date: 11/11/23 Status: Ordered levothyroxine 125 mcg (0.125 mg) oral tablet 1 tablet = 125 mcg, By Mouth, Daily, # 30 tablet, 0 Refills, Maintenance, 09/21/18 2:37:17 EDT, Tablet Start Date: 09/21/18 Status: Ordered Protonix 40 mg oral delayed [...] Condition Confirmation Course Effective Dates [facility] Informant Chronic anemia Confirmed Active Chronic diastolic congestive heart failure Confirmed Active Chronic respiratory failure with hypoxia Confirmed Active Chronic kidney disease, stage IV (severe) Confirmed Active GERD (gastroesophageal reflux disease) Confirmed Active Hyperlipidemia Confirmed Active Insulin dependent type 2 diabetes mellitus Confirmed Active Leukocytosis Confirmed Active Severe obesity Confirmed Active Results Radiology Reports * Exam Date Time Procedure Performing Provider Status 12/04/23 12:16 PM C-Arm < 1 Hour Serenity Montenegro Notes: (C-Arm < 1 Hour) Reason For Exam: insertion of hemodialysis catheter RESULT: C-Arm < 1 Hour C-Arm < 1 Hour INDICATION: Reason: insertion of hemodialysis catheter; Special Instructions: t.t. 15 min f.t. 4.4 sec COMPARISONS: None TECHNIQUE: Fluoroscopy support was provided. There was no radiologist in attendance. FLUOROSCOPY TIME: 4.4 seconds EXPOSURE: 0.4588 Gycm2 (Dose Area Product) TECHNOLOGIST TIME: 15 minutes FINDINGS: Fluoroscopy support was provided. There was no radiologist in attendance. IMPRESSION: See above. WSN: [id number] Ordering Physician: Bayron Fuller Dictated By: Ortiz James MD Dictated Date/Time: 12/04/23 7:55 pm Reviewed By: Ortiz James MD Signed By: Ortiz James MD Signed Date/Time: 12/04/23 7:55 pm Transcribed By: ABDI Transcribed Date/Time: 12/04/23 7:52 pm * Exam Date Time Procedure Performing Provider Status 12/03/23 9:26 PM US Retroperitoneum Comp Andrew Graves; Auth (Verified) Notes: (US Retroperitoneum Comp) Reason For Exam: LENORA, CKD;Other: RESULT: US Retroperitoneum Comp US Retroperitoneum Comp Reason: Other:; LENORA, CKD; Clinical Question(s): Renal Obstruction; Order Comment: COMPARISON: None. FINDINGS: Right kidney: 10.9 cm in length. No hydronephrosis, stone, or mass.. Echogenic parenchyma. Left kidney: 11.5 cm in length. No hydronephrosis, stone, or mass. Echogenic parenchyma. Urinary bladder: Nonvisualized due to Fritz and body habitus. IMPRESSION: Technically limited study due to body habitus. No hydronephrosis. Echogenic kidneys compatible with medical renal disease. WSN: [id number] Ordering Physician: Ramirez Del Toro Dictated By: Helder Ramirez MD Dictated Date/Time: 12/03/23 11:27 p Reviewed By: Helder Ramirez MD Signed By: Helder Ramirez MD Signed Date/Time: 12/03/23 11:27 pm Transcribed By: ABDI Transcribed Date/Time: 12/03/23 11:24 pm * Exam Date Time Procedure Performing Provider Status 12/03/23 9:19 PM US Doppler Ext Lower Venous Bilat Lisa Graves; Auth (Verified) Notes: (US Doppler Ext Lower Venous Bilat) Reason For Exam: Swelling Extremities RESULT: US Doppler Ext Lower Venous [...] patent without evidence of thrombosis. OTHER FINDINGS: IMPRESSION: No evidence of deep venous thrombosis. WSN: [id number] Ordering Physician: Ramirez Del Toro Dictated By: Helder Ramirez MD Dictated Date/Time: 12/03/23 9:45 pm Reviewed By: Helder Ramirez MD Signed By: Helder Ramirez MD Signed Date/Time: 12/03/23 9:45 pm Transcribed By: ABDI Transcribed Date/Time: 12/03/23 9:45 pm Vital Signs Most recent to oldest [Reference Range]: 1 2 3 Height 170 cm (12/12/23 3:34 AM) 170 cm (12/11/23 9:03 PM) 170 cm (12/11/23 7:45 AM) Weight 107.3 kg (12/11/23 6:19 AM) 111.1 kg (12/09/23 6:13 AM) 112.8 kg (12/06/23 6:40 AM) Oxygen Saturation [94-100 %] 98 % (12/12/23 7:00 AM) 99 % (12/12/23 3:34 AM) 98 % (12/11/23 9:03 PM) Pulse Rate [55-90 bpm] 96 bpm *H* (12/12/23 7:00 AM) 81 bpm (12/12/23 3:34 AM) 96 bpm *H* (12/11/23 9:03 PM) Body Mass Index [18.5-24.99 kg/m2] 41.04 kg/m2 *>HHI* (12/04/23 11:02 AM) 36.44 kg/m2 *>HHI* (12/02/23 4:28 PM) Blood Pressure [90-138/55-84 mm Hg] 150/59mm Hg *H* (12/12/23 8:54 AM) 150/59mm Hg *H* (12/12/23 7:00 AM) 136/45mm Hg (12/12/23 3:34 AM) Respiratory Rate [16-30 br/min] 18 br/min (12/12/23 7:00 AM) 16 br/min (12/12/23 3:34 AM) 16 br/min (12/11/23 9:03 PM) Temperature [96.8-100.4 DegF] 98.1 DegF (12/12/23 3:34 AM) 98.9 DegF (12/11/23 9:03 PM) 97.8 DegF (12/11/23 4:00 PM) Liters per Minute 3 L/min (12/12/23 7:00 AM) 3 L/min (12/12/23 3:34 AM) 3 L/min (12/11/23 7:45 AM) Mode of Delivery (Oxygen) Nasal cannula (12/12/23 7:00 AM) Nasal cannula (12/12/23 3:34 AM) Room air (12/11/23 9:03 PM) Blood pressure sites Arm, left (12/12/23 7:00 AM) Arm, left (12/12/23 3:34 AM) Arm, left (12/11/23 9:03 PM) Temperature Route Oral (12/12/23 3:34 AM) Oral (12/11/23 9:03 PM) Oral (12/11/23 7:45 AM) Dry Weight 105.3 kg (12/02/23 4:28 PM) Weight Obtained Via Bed scale (12/11/23 6:19 AM) Bed scale (12/09/23 6:13 AM) Bed scale (12/06/23 6:40 AM) Social History Social History Type Response Smoking Status Former smoker, quit more than 30 days ago; Other: .; Total pack years: 35; Stopped at age: 56; entered on: 11/11/23 Sex History and physical note * Ramirez Del Toro MD: PERFORM, MODIFY Event Display: History and Physical Hospital Authored Date: Patient: ??MONY GOMEZ ? Age:??72 Years?Sex:??Female?:??1950?? Chief Complaint/Reason for Consultation Transfer from [facility] for acute kidney injury History of Present Illness 72-year-old female with past medical history significant for??morbid??obesity, chronic hypoxic respiratory failure on 2 L home nasal cannula oxygen,??hypertension, hyperlipidemia,??chronic diastolic congestive heart failure,??insulin-dependent diabetes mellitus,??chronic kidney disease stage IV (most recent Cr around 2.0),??hypothyroidism,??GERD,??chronic anemia, and leukocytosis, who has been admitted twice in the month of October at [facility] for decompensated diastolic congestive heart failure, requiring IV diuresis.?? On most recent admission, she was also treated as inpatient for acute colitis with Levaquin and Flagyl.?? She was discharged on 11/26/2023 and instructed to continue Lasix 40 mg orally twice daily.?? Her creatinine on discharge on 11/26/2023 was??2.07.?? She tells me that the day after discharge, she stopped making urine.?? She has developed shortness of breathwith minimal exertion, and worsening lower extremity edema.?She states she has had to increase her home oxygen with any exertion.?? She denies any chest pain.?? She does have??cough with?? whitishfluffy??sputum. ?? She has not had fever or chills.?? She denies vomiting,??abdominal pain/bloating,??or recurrent diarrhea.?? She denies significant NSAID use. ??She has been taking all of her medications as prescribed. ??She denies illicit drug use. ?? At [facility], the patient has been afebrile.?? She has been in a sinus bradycardiaon the monitor consistently in the 40s all day (was in the 60's-70's last admission).?? Her blood pressure has been stable with highest value 148/51.?? She has been saturating 98 to 100% on 2 L nasalcannula oxygen at rest.?? Bladder scan has shown no urine.?Chest x-ray was read as no acute cardiopulmonary disease.?Laboratory workup was significant for acute kidney injury with creatinine upto 6.35, BUN 88, bicarb down to 12, and sodium 132.?? LFTs were unremarkable other than albumin level low at 3.0.?? BNP was elevated at 2000 with high-sensitivity troponin value flat at 200.?Her chronic anemia was slightly worse with hemoglobin 7.8, and she was noted to have chronic leukocytosiswith WBC 16.5 K.?? COVID-19 testing was negative.?? After discussion with nephrology, the patient was transferred here to [facility]??due to worsening acute kidney injury??and probable need for hemodialysis. Review of Systems Other than those positives as noted in the HPI above, all other systems were reviewed and are negative. Objective Measurements?? Height: 170 cm (12/02/23) Weight: 105.3 kg (12/02/23) Dry Weight: 105.3 kg (12/02/23) Body Mass Index:??36.44 kg/m2??Critical (12/02/23) ? Vital Signs?? Temperature: 97.9 DegF (12/02/23 16:31:00) Temperature Route: Oral (12/02/23 16:31:00) Pulse Rate:??45 bpm??Low (12/02/23 16:31:00) Respiratory Rate: 20 br/min (12/02/23 16:31:00) Systolic Blood Pressure: 134 mm Hg (12/02/23 16:31:00) Diastolic Blood Pressure: 84 mm Hg (12/02/23 16:31:00) Blood pressure sites: Arm, right (12/02/23 16:31:00) Mean Arterial Pressure: 101 mm Hg (12/02/23 16:28:00) Pulse Pressure: 50 mm Hg (12/02/23 16:31:00) Oxygen Saturation: 100 % (12/02/23 16:31:00) Liters per Minute: 2 L/min (12/02/23 16:31:00) Mode of Delivery (Oxygen): Nasal cannula (12/02/23 16:31:00) Early Warning Score: 3 (12/02/23 16:48:00) ? Pain Scores?? No qualifying data available. ? Physical Exam General Appearance: Alert, appears stated age, no distress, answers questions appropriately HEENT: Normocephalic, atraumatic, PERRL, EOMI, no scleral icterus, no facial droop, moist mucous membranes, no oropharynx lesions?? Neck: Supple, no JVD, no C-Spine tenderness, no LAD Cardiac: Bradycardic, regular rhythm,??S1 & S2 present, no m / r / g appreciated Chest: Fine crackles at the bases, no wheezing, no tenderness to percussion Abdomen: Soft, nontender, obese, no rebound or guarding, no masses, normal bowel sounds in all quadrants Extremities: No clubbing or cyanosis, 3+ pitting??edema to the thighs bilaterally. ??2+ distal pulses. ??Capillary refill < 3 seconds. ??No calf tenderness or cords Skin: Warm, no rash or open wounds Neuro: ??A & O x 3, CN III-XII intact, strength 5/5 of upper / lower extremities bilaterally, gross sensation intact Psych: ??Stable mood, appropriate affect Assessment/Plan Assessment:??72-year-old female with past medical history significant for??morbid??obesity, chronichypoxic respiratory failure on 2 L home nasal cannula oxygen,??hypertension, hyperlipidemia,??chronic diastolic congestive heart failure,??insulin-dependent diabetes mellitus,??chronic kidney disease stage IV (most recent Cr around 2.0),??hypothyroidism,??GERD,??chronic anemia, and leukocytosis, who has been admitted twice in the month of October at [facility] for decompensated diastoliccongestive heart failure, requiring IV diuresis.??On most recent admission, she was also treated asinpatient for acute colitis with Levaquin and Flagyl.??She was discharged on 11/26/2023 and instructe d to continue Lasix 40 mg orally twice daily.??Her creatinine on discharge on 11/26/2023 was??2.07.??She tells me that the day after discharge, she stopped making urine.??She has developed shortness of breath with minimal exertion, and worsening lower extremity edema.?Bladder scan showed no urine.??Laboratory workup was significant for acute kidney injury with creatinine up to 6.35, BUN 88, bicarb down to 12, and sodium 132.??After discussion with nephrology, the patient was transferred here to [facility]??due to worsening acute kidney injury??and probable need for hemodialysis. ?? Acute kidney injury (N17.9) ?Associated with??Metabolic acidosis (E87.20),??Acute on chronic diastolic heart failure(I50.33) The patient appears fluid overloaded on exam, which could be due to acute on chronic diastolic congestive heart failure versus nephrotic syndrome (her serum albumin level is low) or combination of both.??Her creatinine has increased to 6.35 today, versus 2.07 on 11/26/2023.??She has worsening metabolic acidosis.??Potassium level is stable at 4.8 currently.??Her sodium level is low at 132 likely inthe setting of volume overload.??BNP and high-sensitivity troponin values are likely elevated in the setting of type II demand ischemia with volume overload and worsening kidney disease.??She has no chest pain or evidence for ACS.??Differential diagnoses for??acute kidney injury??includes congestive nephrosarca / CRS with volume overload,??nephrotic syndrome (FSGS vs diabetes)??new paraproteinemia,??new GN,??and AIN??with antibiotics during hospital admission last week.??She has not had evidence for obstruction based on prior imaging,??and bladder scan??here today shows no urine. -Admit to the medical floor, continuous EKG monitoring -Place Fritz catheter for strict input and output monitoring -Lasix 120 mg IV twice daily, first dose??now??(discussed with renal) -Check formal renal ultrasound -Check bilateral lower extremity Doppler ultrasound to rule out DVT -Urine studies to be sent:??Urine electrolytes, urine creatinine, urine protein/creatinine ratio, urine eosinophils, urine sediment??analysis -Check SPEP and serum immunofixation -Check serum C3, C4 levels -Check coags and fibrinogen, rule out consumptive process -N.p.o. after midnight for possible??PermCath placement??tomorrow -Hold aspirin and losartan; avoid any nephrotoxins;??dose all medications for current??creatinine clearance -Formal nephrology consultation pending ?? Bradycardia (R00.1):??The patient has stable sinus bradycardia in the 40s with??old first-degree AVblock on EKG.??She is hemodynamically stable. She is not having chest pain, and recent echocardiogram 11/13/2023??showed preserved EF with mild tomoderate??mitral stenosis.??She did not have significant right ventricular failure at that time. Potassium 4.8 and magnesium 2.5 at this time.??She does have significant acidosis. Hold atenolol for now. We will continue to monitor on telemetry. ?? Chronic anemia (D64.9):??The patient has chronic anemia, hemoglobin down to 7.8 this morning compared to previous baseline 8-9.??This could also be contributing to her dyspnea. She denies any active blood loss.??I suspect this is in the setting of??her renal disease. We will continue to monitor??CBC, transfuse pRBC??for hemoglobin less than 7. Check iron studies, ferritin, B12 level, folate level, TSH, reticulocyte count,??and haptoglobin. Check coags and fibrinogen as above. Check SPEP??and immunofixation as above. ?? Leukocytosis (D72.829):??The patient has had chronic leukocytosis, currently down to 16.5.??It was as high as 31 last hospitalization. Currently there does not appear to be any active infection.??We are awaiting urinalysis. Question underlying??hematologic diagnosis (i.e. CLL). Monitor CBC and check??SPEP/immunofixation as above. She will need outpatient hematology follow-up. ?? HTN (hypertension) (I10):??Blood pressure currently stable 134/84. Monitor off atenolol and losartan as above. Continue amlodipine as prescribed. ?? Hyperlipidemia (E78.5):??Continue atorvastatin as prescribed. Hold aspirin for now??with possible PermCath placement??tomorrow. ?? Insulin dependent type 2 diabetes mellitus (E11.9):??Blood sugar ranging from 110-147 today.??She has not eaten. She normally takes 50 units of??glargine in the morning, and 36 in the evening.??She uses??lispro with meals. Given that she will be n.p.o. after midnight,??we will give 20 units of Lantus this evening. Monitor POC's with insulin lispro sliding scale coverage. Hold Jardiance with LENORA. ?? Hypothyroid (E03.9):??Continue levothyroxine. Check TSH as above. ?? GERD (gastroesophageal reflux disease) (K21.9):??Continue PPI as prescribed. ?? VTE Prophylaxis:??Heparin subcu 5000 units 3 times daily. ?VTE Prophylaxis Assessment:??VTE Prophylaxis Ordered ?? Discharge Planning:??Disposition pending. Anticipate 2 to 4 days hospitalization. ?? Code Status:??FULL. ?Order Code Status:??Code Status Ordered ?? I spent a total of??95 minutes today reviewing the chart / medical records, evaluating the patient,evaluating and interpreting laboratory and imaging data, formulating and discussing the treatment plan, and documenting the encounter. ? Histories Allergies Allergies ?(Active and Proposed Allergies Only) hydrochlorothiazide-triamterene? (Severity: Unknown severity, Onset: Unknown) Byetta Prefilled Pen? (Severity: Unknown severity, Onset: Unknown) penicillins? (Severity: Unknown severity, Onset: Unknown) ? Past Medical History/Problem List Active Problems(11) Chronic anemia Chronic diastolic congestive heart failure Chronic kidney disease, stage IV (severe) Chronic respiratory failure with hypoxia GERD (gastroesophageal reflux disease) HTN (hypertension) Hyperlipidemia Hypothyroid Insulin dependent type 2 diabetes mellitus Leukocytosis Severe obesity (BMI 35.0-39.9) with comorbidity ? Past Surgical History Cholecystectomy. Bilateral TKR. Bilateral cataract extractions. ? Social History Alcohol Details:??Use: Never. Employment/School Details:??Status: Retired. Exercise Details:??Self assessment: Fair condition. ??Other: Self ambulatory with cane or walker. Home/Environment Details:??Living situation: Home/Independent. ??Lives with: Spouse. HCP:??Her spouse, [place],??[phone]. Nutrition/Health Details:??Diet: Diabetic, Low sodium, Lactose free. Substance Abuse Details:??Use: Never.?? Tobacco Details:??Use: Former smoker, quit more than 30 days ago. ??Other:??Total pack years: 35. ??Stoppedat age: 56 Years. Electronic Cigarette/Vaping Details:??Electronic Cigarette Use: Never. ? Family History Father: Diabetes mellitus; Heart attack ? Medications Home Medications Acetaminophen (Tylenol Extra Strength 500 mg oral tablet)?2?tab(s)?1,000?Milligram?By Mouth?3 times a day Amlodipine (amLODIPine 5 mg oral tablet)?10?Milligram?2?tablet?By Mouth?Daily Aspirin (aspirin 81 mg oral tablet)?1?tab(s)?81?Milligram?By Mouth?Daily Atenolol (atenolol 50 mg oral tablet)?25?Milligram?0.5?tablet?By Mouth?Daily Atorvastatin (atorvastatin 80 mg oral tablet)?1?tab(s)?80?Milligram?By Mouth?Daily at bedtime BuPROpion (buPROPion 150 mg/12 hours (SR) oral tablet, extended release)?1?tab(s)?150?Milligram?By Mouth?2 times a day empagliflozin (Jardiance 10 mg oral tablet)?1?tab(s)?10?Milligram?By Mouth?Daily in AM Ergocalciferol (ergocalciferol 83466 iu oral capsule)?50,000?International Unit?1?capsule?By Mouth?twice per week [...] tablet)?1?tab(s)?40?Milligram?By Mouth?Daily ? Results Recent Labs BLOOD BANK Blood Type O Positive ()?? 12/02/2023 06:42 Antibody Screen Negative ()?? 12/02/2023 06:42 ?? BLOOD COUNT & DIFF WBC 16.5 k/mm3 (High)?? 12/02/2023 05:52 RBC 2.79 m/mm3 (Low)?? 12/02/2023 05:52 Hgb 7.8 Gm/dL (Low)?? 12/02/2023 05:52 Hct 25.3 % (Low)?? 12/02/2023 05:52 MCV 90.7 femtoliters ()?? 12/02/2023 05:52 MCH 28.0 pg ()?? 12/02/2023 05:52 MCHC 30.8 g/dL (Low)?? 12/02/2023 05:52 Platelet Count 212 k/mm3 ()?? 12/02/2023 05:52 RDW-SD 54.3 femtoliters (High)?? 12/02/2023 05:52 MPV 8.8 femtoliters (Low)?? 12/02/2023 05:52 Nucleated RBC (Automated) 0.0 #/100 WBC'S ()?? 12/02/2023 05:52 Abs. NRBC 0.0 k/mm3 ()?? 12/02/2023 05:52 Abs. Neut 12.7 k/mm3 (High)?? 12/02/2023 05:52 Abs. Lymph 1.5 k/mm3 ()?? 12/02/2023 05:52 Abs. Sandoval 1.1 k/mm3 (High)?? 12/02/2023 05:52 Abs. Eo 1.1 k/mm3 (High)?? 12/02/2023 05:52 Abs. Baso 0.1 k/mm3 ()?? 12/02/2023 05:52 Neut % 76.8 % (High)?? 12/02/2023 05:52 Lymph % 8.8 % (Low)?? 12/02/2023 05:52 Sandoval % 6.7 % ()?? 12/02/2023 05:52 Eos % 6.6 % (High)?? 12/02/2023 05:52 Baso % 0.4 % ()?? 12/02/2023 05:52 Imm Gran 0.7 % ()?? 12/02/2023 05:52 Abs. Imm Gran 0.1 k/mm3 ()?? 12/02/2023 05:52 ?? CARDIAC Nt-Probnp 2174 pg/mL (High)?? 12/02/2023 05:52 High Sensitivity Troponin (HSTnT) 199 ng/L (Critical)?? 12/02/2023 08:49 ?? CHEM GENERAL Sodium 132 mmol/L (Low)?? 12/02/2023 05:52 Potassium 4.8 mmol/L ()?? 12/02/2023 05:52 Chloride 100 mmol/L ()?? 12/02/2023 05:52 Bicarbonate Level 12 mmol/L (Low)?? 12/02/2023 05:52 Anion Gap 20 (High)?? 12/02/2023 05:52 Glucose Level 110 mg/dL (High)?? 12/02/2023 05:52 Glucose, POC 147 mg/dL (High)?? 12/02/2023 16:43 BUN 88 mg/dL (High)?? 12/02/2023 05:52 Creatinine-Blood 6.35 mg/dL (High)?? 12/02/2023 05:52 Estimated GFR Creatinine 6 ML/MIN/1.73 M2 ()?? 12/02/2023 05:52 Calcium 7.9 mg/dL (Low)?? 12/02/2023 05:52 Magnesium 2.5 mg/dL (High)?? 12/02/2023 05:52 Protein, Total 6.1 Gm/dL (Low)?? 12/02/2023 05:52 Albumin 3.0 Gm/dL (Low)?? 12/02/2023 05:52 AG Ratio 1.0 ()?? 12/02/2023 05:52 Alkaline Phosphatase 90 units/L ()?? 12/02/2023 05:52 AST (SGOT) 17 units/L ()?? 12/02/2023 05:52 ALT (SGPT) 21 units/L ()?? 12/02/2023 05:52 Bilirubin, Total 0.2 mg/dL ()?? 12/02/2023 05:52 ?? HEME OTHER Hold Blue Top SPECIMEN DISCARDED AFTER 4 HOURS. ()?? 12/02/2023 05:52 ?? MISC. CHEMISTRY Hold Gel Top SPECIMEN DISCARDED AFTER 1 WEEK ()?? 12/02/2023 05:52 ?? URINE OTHER Est Creatinine Clearance 7.88 mL/min ()?? 12/02/2023 06:43 ?? VIROLOGY COVID-19 by RT-PCR NEGATIVE ()?? 12/02/2023 05:21 ? Image ?Other Image ?CXR: Impression: There is no acute cardiopulmonary disease. ? EKG: Ventricular Rate: 46??BPM Atrial Rate: 46??BPM P-R Interval: 312??ms QRS Duration: 94??ms Q-T Interval: 480??ms QTC Calculation(Bazett): 420??ms P [place]: 24??degrees R [place]: -34??degrees T [place]: 115??degrees Sinus bradycardia with 1st degree A-V block Left axis deviation Nonspecific ST and T wave abnormality Abnormal ECG When compared with ECG of 20-NOV-2023 12:59, No significant change was found ? Cardiology * Event Display: Cardiac Rhythm Strips Authored Date: * Event Display: Cardiac Rhythm Strips Authored Date: Hospital Progress note * Steve Hernandez MD, I: PERFORM, SIGN, VERIFY Event Display: Progress Note Hospital Authored Date: Patient: MONY GOMEZ Age: 73 years Sex: Female : 1950 Associated Diagnoses: None Author: Steve Hernandez MD, I Overnight Events & Current Issues denies complaints, tolerating HD well, not making much urine, awaiting place at rehab Review of Systems Review of Systems Constitutional: no chills, no fever. Respiratory: dyspnea improved. Cardiovascular: peripheral edema. Gastrointestinal: no nausea, no vomiting, no diarrhea. Review / Management Fritz Catheter Yes. Physical Examination Vitals Vitals : VITAL SIGNS SECTION 12/12/2023 3:34 EDT Early Warning Score 0.00 12/12/2023 3:34 EDT Temperature 98.1 DegF Temperature Route Oral Pulse Rate 81 bpm Respiratory Rate 16 br/min Systolic Blood Pressure 136 mm Hg Diastolic Blood Pressure 45 mm Hg L Blood pressure sites Arm, left Mean Arterial Pressure 75 mm Hg Pulse Pressure 91 mm Hg Oxygen Saturation 99 % Liters per Minute 3 L/min Mode of Delivery (Oxygen) Nasal cannula . General Appearance No apparent distress. HEENT Moist mucous membranes. Respiratory Lungs: CTA. Cardiac Rhythms: RRR. Abdomen/GI Soft. Non-tender. Extremities Normal. Neurologic Alert. Oriented x 3 . 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 The patient failed to respond to high dose diuretics. More edematous, potassium is trending up to. 1. LENORA stage III requiring dialysis with underlying advanced CKD stage 4 - Presented volume overloaded and unresponsive to diuretics. Of interest, her urine Na and urine Clwere both < 20 at time of presentation and her baseline creatinine was in low 2 mg/dL range. I'mremaining optimistic that she will recover from what definitely seems like LENORA (rather than ESRD). This all appears to have developed in the setting of recent acute diverticulitis with abscess formation. I suspect this is ischemic or cytokine-mediated ATN. AIN unlikely and wouldn't recommend steroids empirically in setting of recent infection. Would see if we can manage going forward with H2 ankit rather than PPI if possible. If she fails to recover, would consider biopsy as outpatient. - PermCath 12/03 with dialysis x 3 treatments - BP and volume status acceptable - Will receive GARY as outpatient for anemia and monitor for any signs of recovery if possible. - Will go rehab, I was told will go to rehab in [place], out HD unit changed to [facility] 1 pm arrival time * Pao Elizondo RN: PERFORM, MODIFY, SIGN, VERIFY Event Display: Progress Note Hospital Authored Date: [id number] Patient: MONY GOMEZ Age: 73 years Sex: Female : 1950 Associated Diagnoses: None Author: Pao Elizondo RN Findings Problem Related to Alteration in Genitourinary : Alteration in Genitourinary Function/new 12/12/2023 3:00 EDT Alteration in Status Related to Other: LENORA Goals & Outcomes, Genitourinary Pt will achieve normal/improved fluid balance, Pt will maintainadequate GI function appropriate for pt, Pt will maintain normal fluid balance Interventions, Assess/monitor/maintain Genitourinary status, Assist & encourage pt with meticulous cain care, Encourage PO fluid intake as allowed by diet BH Goals/Interventions, Genitourinary Yes Genitourinary, Problem Start 12/02/2023 19:04 Reviewed Plan with, Genitourinary Patient Patient Progression, Genitourinary Patient progressing according to plan Genitourinary, Problem Ongoing Yes . Nursing Data Vital Signs : VITAL SIGNS SECTION 12/12/2023 3:34 EDT Early Warning Score 0.00 12/12/2023 3:34 EDT Temperature 98.1 DegF Temperature Route Oral Pulse Rate 81 bpm Respiratory Rate 16 br/min Systolic Blood Pressure 136 mm Hg Diastolic Blood Pressure 45 mm Hg L Blood pressure sites Arm, left Mean Arterial Pressure 75 mm Hg Pulse Pressure 91 mm Hg Oxygen Saturation 99 % Liters per Minute 3 L/min Mode of Delivery (Oxygen) Nasal cannula 2023 21:03 EDT Temperature 98.9 DegF Temperature Route Oral Pulse Rate 96 bpm H Respiratory Rate 16 br/min Systolic Blood Pressure 147 mm Hg H Diastolic Blood Pressure 46 mm Hg L Blood pressure sites Arm, left Mean Arterial Pressure 80 mm Hg Pulse Pressure 101 mm Hg Oxygen Saturation 98 % Mode of Delivery (Oxygen) Room air . Evaluation Assumed care @ 1900. Pt A/Ox4. VSS. Pt lungs dim on 3 L O2. No c/o SOB/CP. Resting in bed. Meds given according to AUG. +2 pedal edema noted. R permacath dressing c/d/i. Safety precautions in place. Call adhikari within reach. See CIS for further assessment. . . Discharge Information Rehabilitation Discharge : Rehab Discharge Index 12/09/2023 12:11 EDT Walker: distance < 10 12/07/2023 12:48 EDT Comments on treatment indicated 72 y/o F with multiple medical issues now requiring hemodialysis, demo general weakness. PT to see for therex, bed mobility, transfers, balance and gait trng. Walker: distance < 10 Distance pt will ambulate 5 step pivot Full chart review completed Yes Hospital course Hospital course Other findings Right Internal Jugular Dialysis Catheter Plan of care PT Gait training, Transfer training, Therapeutic exercise, Functional Activities, Balance training * Li Edwards RN: PERFORM, SIGN, VERIFY Event Display: Progress Note Hospital Authored Date: Patient: MONY GOMEZ Age: 73 years Sex: Female : 1950 Associated Diagnoses: None Author: Li Edwards RN Findings Narrative/Incidental Hemodialysis Sbar/Report Unit aware patient is returning to unit : Yes Verbal necessary per protocol: Yes Nurse name: Stefanie 4 hours 3K bath 3.9K blood level Access AVF/AVG/ Cath/Temp-Rt Permacath - site assessment-Clean - Hemostasis achieved within expected time frame-N/A 2.5liters pulled -14.2 % blood volume change _ If the goal is not reached why? Use drop down for yes no answers below. Treatment ran per orders _ (if no explain why) No-Antibiotics given see MAR for documentation No-blood products given see task for documentation No-Temporary access removed - (describe site assessment and dressing applied) No- meds given see MAR for documentation Post HD Vital signs documented in flow sheet . Discharge Information Rehabilitation Discharge : Rehab Discharge Index 12/09/2023 12:11 EDT Walker: distance < 10 12/07/2023 12:48 EDT Comments on treatment indicated 72 y/o F with multiple medical issues now requiring hemodialysis, demo general weakness. PT to see for therex, bed mobility, transfers, balance and gait trng. Walker: distance < 10 Distance pt will ambulate 5 step pivot Full chart review completed Yes Hospital course Hospital course Other findings Right Internal Jugular Dialysis Catheter Plan of care PT Gait training, Transfer training, Therapeutic exercise, Functional Activities, Balance training Consult note * Abiola PINEDA, Celi C: PERFORM Event Display: Consultation Note Authored Date: Patient: ??MONY GOMEZ ? Age:??72 Years?Sex:??Female?:??1950?? Chief Complaint Renal Failure History of Present Illness Ms. Gomez is a??72yo??female with hx of morbid??obesity, chronic hypoxic respiratory failure on 2 Lhome nasal cannula oxygen,??HTN, HLD,??HFrEF,??DM,??and CKD. She was initially been managed at [facility] for CHF exacerbation. Due to concern for oliguria and rising Cr, she was admitted to [facility] for management, and transplant surgery has been consulted for placement of dialysis access. Upon my evaluation, she is resting comfortably in bed on 3L NC oxygen, and in no acute distress. Labs are pertinent for leukocytosis to 18.3, Hgb 7.6,??Na 130, K 5.4, BUN/ Cr to 96/ 8.03.??She is tolorating PO intake without issues. Remained hemodynamically stable throughout my evaluation. Review of Systems A comprehensive review of system was completed, and is either negative or as indicated above. Physical Exam Vitals & Measurements T:??98.3?F?? HR:??50??(Peripheral)?? RR:??20?? BP:??141/53?? SpO2:??96%?? HT:??170??cm?? WT:??118.6??kg?? BMI:??36.44?? Constitutional: Alert, in no distress. Mental Status: Oriented to person, place and time. Ear, Nose and Throat:?? mucous membranes moist. Respiratory: On 3L NC, bibasilar crackles Cardiovascular: S1 S2 regular. No murmurs, rubs or gallops appreciated. JVD to mandible. +2 bilateral pedal edema. Gastrointestinal: Abdomen soft, non-tender, non-distended. Normal bowel sounds. Musculoskeletal: No cyanosis or clubbing Psychiatric: Normal mood and affect Assessment/Plan Ms. Gomez is a??72yo??female with renal failure, for which we have been consulted for PermCath placement. Pt??was consented??for this procedure, and all associated risks??have been reviewed with her.Please??keep??NPO@MN for OR in the AM. ?? Case discussed with Dr. Fuller Transplant Surgery [id number] ?? Problem List/Past Medical History Ongoing Chronic anemia Chronic diastolic congestive heart failure Chronic kidney disease, stage IV (severe) Chronic respiratory failure with hypoxia GERD (gastroesophageal reflux disease) HTN (hypertension) Hyperlipidemia Hypothyroid Insulin dependent type 2 diabetes mellitus Leukocytosis Severe obesity (BMI 35.0-39.9) with comorbidity Procedure/Surgical History No qualifying data available. Home Medications Acetaminophen: 1,000 mg = 2 tablet, By Mouth, 3 times a day Amlodipine: 10 mg = 2 tablet, By Mouth, Daily Aspirin: 81 mg = 1 tablet, By Mouth, Daily Atenolol: 25 mg = 0.5 tablet, By Mouth, Daily Atorvastatin: 80 mg = 1 tablet, By Mouth, Daily at bedtime BuPROpion: 150 mg = 1 tablet, By [...] Family History Father: Diabetes mellitus; Heart attack Lab Results Labs Last 24 Hours BLOOD COUNT & DIFF ? Event Name?? Event Result?? Date/Time?? WBC 18.3 k/mm3??High 12/03/23 08:52:00 RBC 2.71 m/mm3??Low 12/03/23 08:52:00 Hgb 7.6 Gm/dL??Low 12/03/23 08:52:00 Hct 23.9 %??Low 12/03/23 08:52:00 MCV 88.2 femtoliters 12/03/23 08:52:00 MCH 28 pg 12/03/23 08:52:00 MCHC 31.8 g/dL??Low 12/03/23 08:52:00 Platelet Count 205 k/mm3 12/03/23 08:52:00 MPV 9 femtoliters??Low 12/03/23 08:52:00 Nucleated RBC (Automated) 0 #/100 WBC'S 12/03/23 08:52:00 ? COAG ? Event Name?? Event Result?? Date/Time?? INR 1 12/03/23 08:52:00 Protime (PT) 10.6 seconds 12/03/23 08:52:00 APTT 30.2 seconds 12/03/23 08:52:00 ? CHEM GENERAL ? Event Name?? Event Result?? Date/Time?? Sodium 130 mmol/L??Low 12/03/23 08:52:00 Chloride 100 mmol/L 12/03/23 08:52:00 Bicarbonate Level 11 mmol/L??Low 12/03/23 08:52:00 Anion Gap 19??High 12/03/23 08:52:00 Glucose Level 106 mg/dL??High 12/03/23 08:52:00 BUN 96 mg/dL??High 12/03/23 08:52:00 Creatinine-Blood 8.03 mg/dL??High 12/03/23 08:52:00 Phosphorus 10.3 mg/dL??High 12/03/23 08:52:00 Magnesium 2.7 mg/dL??High 12/03/23 08:52:00 Alkaline Phosphatase 90 units/L 12/03/23 08:52:00 AST (SGOT) 12 units/L 12/03/23 08:52:00 ALT (SGPT) 20 units/L 12/03/23 08:52:00 Bilirubin, Total 0.2 mg/dL 12/03/23 08:52:00 ? * David PINEDA, Steve I: MODIFY Event Display: Consultation Note Authored Date: [id number] CONSULTATION DATE: 12/03/2023 REQUESTING PHYSICIAN: Ramirez Del Toro M.D. REASON FOR CONSULTATION: Acute kidney injury. HISTORY OF PRESENT ILLNESS: Mony Gomez, a 72-year-old female with history of stage IV CKD, thoughtto be related to diabetes and hypertension, baseline creatinine around 2.5-2.7 mg/dL. She is under care of Dr. Ryder. She also has history of chronic diastolic congestive heart failure, chronic hypoxic respiratory failure on home oxygen, hypertension, hyperlipidemia, chronic anemia. The patient presented to [facility] with progressive shortness of breath, worsening of lower extremity edema, she was also bradycardic. Chest x-ray showed no acute cardiopulmonary disease. Lab work was remarkable for severe acute kidney injury with creatinine going up to 6.3 mg/dL. The patient was also acidotic with bicarbonate of 12 and hyponatremic with sodium 132. The patient was transferred to [facility] for further management. The patient told me she was making much urine lately. She was given 120 mg of IV Lasix yesterday and early this morning without much improvement in urine output. At the time of my exam, the patient looks comfortable. REVIEW OF SYSTEMS: Negative except as mentioned above. PAST MEDICAL HISTORY: Type 2 diabetes, hypertension, stage IV CKD, GERD, obesity, anemia. SOCIAL HISTORY: Remote history of smoking, no history of alcohol abuse or drug use. FAMILY HISTORY: Remarkable for diabetes and coronary artery disease. HOME MEDICATIONS: Losartan, levothyroxine, insulin, Lantus, furosemide 40 mg twice a day, Jardiance, atorvastatin, atenolol, aspirin, amlodipine. ALLERGIES: BYETTA, HYDROCHLOROTHIAZIDE, TRIAMTERENE, PENICILLIN. PHYSICAL EXAMINATION: VITAL SIGNS: Blood pressure 128/47, heart rate 48, temperature 97.9, O2 sat 95% on 3 liters nasal cannula. GENERAL: Appears stated age, in no acute distress. HEENT: Moist oral mucosa. NECK: No JVD. HEART: Rate is regular, S1, S2 present. No rub, no gallop. CHEST: Clear to auscultation on both sides. No rales, no rhonchi, no wheezing. ABDOMEN: Soft, nontender, nondistended. Bowel sounds present. EXTREMITIES: Bilateral +2 lower extremity edema. SKIN: No skin rash. NEUROLOGIC: Grossly nonfocal. PSYCHIATRIC: Normal mood and affect. LABORATORY DATA: White cell count 18.3, hemoglobin 7.6, hematocrit 23.9, platelets 205. Sodium 130,potassium 5.4, chloride 100, bicarbonate 11, BUN 96, creatinine 8.0, phosphorus 10.3, magnesium 2.7. ASSESSMENT AND PLAN: Mony Gomez, a 72-year-old female with history of type 2 diabetes, hypertension, stage IV CKD thought to be related to diabetic nephropathy and hypertensive sclerosis, transferred from [facility] with progressive volume overload, progressive renal failure. The patient failed to respond to high dose of Lasix. Discussed case with primary team. We will try to diurese for one more day. Consider adding distal diuretic metolazone to enhance urine output. The patient has allergy to HYDROCHLOROTHIAZIDE. We need to check with pharmacy about cross reaction. If fails toimprove with aggressive diuresis, plan to put PermCath and start hemodialysis tomorrow. Her blood pr essure is stable. We will obviously hold RAAS blockers and Jardiance in the view of severe acute kidney injury. Monitor urine output closely. Check basic metabolic panel tomorrow. We will keep n.p.o.after midnight for possible PermCath tomorrow morning. Dictated by: Steve Hernandez M.D. Signing Clinician: Steve Hernandez M.D. Dictated: 12/03/2023 12:03:32 Transcribed: 07:27:07 AM Transcribed by: ANTHONY DocID: [id number] PRELIMINARY REPORT UNLESS MANUALLY/ELECTRONICALLY SIGNED cc: Ramirez Del Toro M.D. [address], [address] Note * Stefanie Peters RN: PERFORM Event Display: Discharge/Transfer Note Hospital Authored Date: [id number] Nursing Discharge Note Entered On: 12/12/2023 15:12 EDT Performed On: 12/12/2023 15:12 EDT by Stefanie Peters RN Nursing Discharge Note 2 Discharge Time : 12/12/2023 14:20 EDT Discharge Level of Care at Discharge : [facility] facility Discharge Nursing Homes/Rehab Facilities : [facility] Patient Left Unit Via : Ambulatory Patient Accompanied Off Unit with : Responsible adult, Ambulance/Chair Van Personnel Handover Given to Transport Personnel : Yes DC Instructions Provided & Signed by Pt : Yes Patient Understands D/C Instructions : Yes Patient Instructions Discharge Signed : Yes Did Pt have Specialty Bed or Wound Vac : No Lorraine RODRIGUEZ, Stefanie - 12/12/2023 15:12 EDT * Awilda Dowling DO: PERFORM, MODIFY, MODIFY Event Display: Discharge/Transfer Note Hospital Authored Date: [id number] Patient: ??MONY GOMEZ ? Age:??73 Years?Sex:??Female?:??1950?? Patient Information Discharge Location: Primary Care Physician: Shiraz Joshi NP Admit Date/Time: 12/02/23 16:11 Discharge Disposition Discharge Disposition: Correction Facility/Rehab Discharge Diagnosis Acute kidney injury (N17.9) Metabolic acidosis (E87.20) Acute on chronic diastolic heart failure (I50.33) Bradycardia (R00.1) Chronic anemia (D64.9) Leukocytosis (D72.829) HTN (hypertension) (I10) Hyperlipidemia (E78.5) Insulin dependent type 2 diabetes mellitus (E11.9) Hypothyroid (E03.9) GERD (gastroesophageal reflux disease) (K21.9) Depression with anxiety (F41.8) Chronic hypoxic respiratory failure, on home oxygen therapy (J96.11) Sacral ulcer (L98.429) ATN (acute tubular necrosis) (N17.0) Decubitus ulcer of sacral region, stage 1 (L89.151) Chronic kidney disease (CKD), stage IV (severe) (N18.4) Diabetic nephropathy (E11.21) Acute renal failure (N17.9) _ Discharge Medications Acetaminophen (Tylenol Extra Strength 500 mg oral tablet)?2?tab(s)?1,000?Milligram?By Mouth?3 times a day Amlodipine (amLODIPine 5 mg oral tablet)?10?Milligram?2?tablet?By Mouth?Daily Aspirin (aspirin 81 mg oral tablet)?1?tab(s)?81?Milligram?By Mouth?Daily Atorvastatin (atorvastatin 80 mg oral tablet)?1?tab(s)?80?Milligram?By Mouth?Daily at bedtime BuPROpion (buPROPion 150 mg/12 hours (SR) oral tablet, extended release)?1?tab(s)?150?Milligram?By Mouth?2 times a day Ergocalciferol (ergocalciferol 01158 iu oral capsule)?50,000?International Unit?1?capsule?By Mouth?twice per week Insulin Glargine (Basaglar KwikPen 100 units/mL subcutaneous solution)?50?unit(s)?Subcutaneous Injection?Daily in AM Insulin Glargine (Basaglar KwikPen 100 units/mL subcutaneous solution)?36?unit(s)?Subcutaneous Injection?Daily at bedtime Insulin Lispro (Humalog 100 u/ml subcutaneous injection)?33?unit(s)?Subcutaneous Injection?Daily before dinner Insulin Lispro (Humalog 100 u/ml subcutaneous injection)?30?unit(s)?Subcutaneous Injection?Daily before lunch Insulin Lispro (Humalog 100 u/ml subcutaneous injection)?36?unit(s)?Subcutaneous Injection?Daily before breakfast Levothyroxine (levothyroxine 125 mcg (0.125 mg) oral tablet)?1?tab(s)?125?Microgram?By Mouth?Daily Multivitamin With Minerals (Icaps AREDS)?1?tab(s)?By Mouth?2 times a day Pantoprazole (Protonix 40 mg oral delayed release tablet)?1?tab(s)?40?Milligram?By Mouth?Daily Medications Started None Medications Discontinued Lasix, Atenolol, Jardiance, Atenolol Doses Changed None Allergies Allergies ?(Active and Proposed Allergies Only) hydrochlorothiazide-triamterene? (Severity: Unknown severity, Onset: Unknown) Byetta Prefilled Pen? (Severity: Unknown severity, Onset: Unknown) penicillins? (Severity: Unknown severity, Onset: Unknown) ? PCP Follow-Up/Heads-Up ??? Pt admitted for oliguria and ARF, requiring HD, etiology unclear at this time, will need fu with renal ??? Please fu with pt in 1-2 weeks ??? Please see medication changes as written above Hospital Course Ms. Gomez is a 72 yo female with past medical history significant for HFpEF, chronic hypoxic respiratory failure on 2L home O2, T2DM on insulin, CKD stage IV (baseline SrCr 2), hypothyroidism, GERD, chronic anemia, and chronic leukocytosis who presented to [facility] ED on 12/01 due to oliguria that began after discharge from [facility] acute [facility]. [facility] and is now s/p 3 rounds of dialysis with improvement in her electrolytes and fluid status. ?? Acute kidney injury (N17.9) stage III requiring dialysis Chronic kidney disease (CKD), stage IV (severe) (N18.4) ??? 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 Presented to ED with acute oliguric kidney injury 2 days after being discharged for colitis. CKD IV 2/2 diabetic nephropathy, baseline serum cr around 2.0 ??? Given acute decline in renal function following hospitalization likely ischemic or cytokine-mediated ATN ??? Urine eosinophils from admission negative, no prodrome of fever, rash, but due to potential forPPI induced AIN, changed med to H2 ankit ??? Serum protein electrophoresis (SPEP) pending ?? Recommendation: ??? D/C rehab with HD ??? FU with renal outpatient ??? May need outpatient renal biopsy if renal function does not improve ?? Acute on chronic diastolic heart failure (I50.33): Improved ??? She did not respond to high-dose diuretics ??? Her volume overload is improving now with fluid removal on dialysis, lung exam improved, on 2-3L NC ?? Recommendation: ??? HD TTS ?? Decubitus ulcer of sacral region, stage 1 (L89.151) ??? Present on admission ??? Offloading and local care ?? Bradycardia (R00.1): Improving ??? Likely related to previous atenolol use with her renal insufficiency ??? Holding home atenolol ?? Insulin dependent type 2 diabetes mellitus (E11.9) ??? Continue home regimen ??? DC Jardiance ? Chronic anemia (D64.9): Stable ?Likely combination of iron deficiency anemia and anemia of chronic kidney disease ??? Will need close follow-up with renal for iron and Procrit needs ??? No obvious overt bleeding ?? Chronic hypoxic respiratory failure, on home oxygen therapy (J96.11): Stable ??? Oxygenation remained stable and continue current therapy ?? GERD (gastroesophageal reflux disease) (K21.9): Stable ??? No increase in dyspepsia continue PPI ?? Leukocytosis (D72.829): Stable ??? She has chronic leukocytosis dating back to 2021. Leukocyte count up to 30,000 during her May hospitalization ??? Her white count is stable and she does not seem to have overt infection ??? [facility] site looks fine, but she is at elevated risk of serious infection. ?? HTN (hypertension) (I10) ??? Continue amlodipine ??? DC losartan ? Objective Vital Signs?? Temperature: 98.1 DegF (12/12/23 03:34:00) Temperature Route: Oral (12/12/23 03:34:00) Pulse Rate: 81 bpm (12/12/23 03:34:00) Respiratory Rate: 16 br/min (12/12/23 03:34:00) Systolic Blood Pressure: 136 mm Hg (12/12/23 03:34:00) Diastolic Blood Pressure:??45 mm Hg??Low (12/12/23 03:34:00) Blood pressure sites: Arm, left (12/12/23 03:34:00) Mean Arterial Pressure: 75 mm Hg (12/12/23 03:34:00) Pulse Pressure: 91 mm Hg (12/12/23 03:34:00) Oxygen Saturation: 99 % (12/12/23 03:34:00) Liters per Minute: 3 L/min (12/12/23 03:34:00) Mode of Delivery (Oxygen): Nasal cannula (12/12/23 03:34:00) Early Warning Score: 0 (12/12/23 03:34:59) ? Intake/Output? 12/01 16:11 12/11 07:00 12/10 07:00 12/09 07:00 12/08 07:00 ?? 12/11 07:28 12/11 07:28 12/11 06:59 12/10 06:59 12/09 06:59 Intake ? 4420 ?0 ?360 ? 1080 ?460 Output ?41205 ?0 ? 2500 ?0 ? 3600 Net Total ?-8660 ?0 ?-2140 ? 1080 ?-3140 ? Urine Count ?3 ?0 ?1 ?1 ?1 ? . Physical Exam General:??older appearing female in no obvious distress?? HEENT:??EOMI, PERRLA,sclera anicteric??,??moist mucus membranes?? Respiratory:??Clear to auscultation bilaterally, no wheezes/crackles Cardiovascular:??regular rate,regular rhythm,No murmurs GI:??BS+, soft, non-distended, non-tender MSK:??PermCath site appears well healing Neurologic:alert, follows commands,??moves all extremities?? Skin:??Warm and dry, cap refill < 2 seconds Surgical Procedures Insertion Hemodialysis Catheter 12/04/2023 11:49 Consultants Renal: David PINEDA, Steve Hickman?? Transplant Sx: Abiola PINEDA, Celi Lewis Patient Education Titles Web[employer] Ignite Patient Education - Renal (Kidney) Insufficiency?? Follow-Up Appointments Added Follow Up ?Time Frame ?Comments Adi ALVAREZ, Shiraz?1 to 2 weeks Patient Instructions You were admitted to the hospital because you stopped producing urine. Your kidney function decreased requiring hemodialysis. Please follow up with nephrology outpatient and with your PCP for furthermanagement.? If you feel extremely sick/fatigued, chest pain, shortness of breath, increased swelling, abdominaltenderness, or any other symptoms that concern you, please come back to the hospital or go to any health care provider.?? Post Discharge Care Diet: ??Renal diet ?? Activity: ??Ambulate with assistance 3 times a day unless otherwise specified ?? Code Status: ??Full Resuscitation ?? Condition: ??fair ?? Prognosis: ??Fair ?? Results Discharge Labs BLOOD COUNT & DIFF WBC 11.8 k/mm3 (High)?? 2023 07:42 RBC 2.73 m/mm3 (Low)?? 2023 07:42 Hgb 7.3 Gm/dL (Low)?? 2023 07:42 Hct 23.6 % (Low)?? 2023 07:42 MCV 86.4 femtoliters ()?? 2023 07:42 MCH 26.7 pg (Low)?? 2023 07:42 MCHC 30.9 g/dL (Low)?? 2023 07:42 Platelet Count 192 k/mm3 ()?? 2023 07:42 RDW-SD 48.9 femtoliters (High)?? 2023 07:42 MPV 8.7 femtoliters (Low)?? 2023 07:42 Nucleated RBC (Automated) 0.0 #/100 WBC'S ()?? 2023 07:42 Abs. NRBC 0.0 k/mm3 ()?? 2023 07:42 Abs. Neut 15.1 k/mm3 (High)?? 12/03/2023 08:52 Abs. Lymph 1.2 k/mm3 ()?? 12/03/2023 08:52 Abs. Sandoval 1.2 k/mm3 (High)?? 12/03/2023 08:52 Abs. Eo 0.6 k/mm3 (High)?? 12/03/2023 08:52 Abs. Baso 0.0 k/mm3 ()?? 12/03/2023 08:52 Neut % 82.7 % (High)?? 12/03/2023 08:52 Lymph % 6.4 % (Low)?? 12/03/2023 08:52 Sandoval % 6.5 % ()?? 12/03/2023 08:52 Eos % 3.5 % ()?? 12/03/2023 08:52 Baso % 0.2 % ()?? 12/03/2023 08:52 Retic Count 1.8 % ()?? 12/03/2023 08:52 Retic Count Corrected 1.0 % ()?? 12/03/2023 08:52 Retic Production Index 0.5 % (Low)?? 12/03/2023 08:52 Imm Gran 0.7 % ()?? 12/03/2023 08:52 Abs. Imm Gran 0.1 k/mm3 ()?? 12/03/2023 08:52 ? CHEM GENERAL Sodium 136 mmol/L ()?? 2023 07:42 Potassium 3.9 mmol/L ()?? 2023 07:42 Chloride 96 mmol/L (Low)?? 2023 07:42 Bicarbonate Level 23 mmol/L ()?? 2023 07:42 Anion Gap 17 ()?? 2023 07:42 Glucose Level 128 mg/dL (High)?? 2023 07:42 Glucose, POC 233 mg/dL (High)?? 2023 20:09 BUN 44 mg/dL (High)?? 2023 07:42 Creatinine-Blood 6.74 mg/dL (High)?? 2023 07:42 Estimated GFR Creatinine 6 ML/MIN/1.73 M2 ()?? 2023 07:42 Calcium 8.0 mg/dL (Low)?? 2023 07:42 Phosphorus 5.4 mg/dL (High)?? 2023 07:42 Magnesium 2.2 mg/dL ()?? 2023 07:42 Protein, Total 5.1 Gm/dL (Low)?? 12/03/2023 08:52 Albumin 2.9 Gm/dL (Low)?? 12/03/2023 08:52 AG Ratio 1.3 ()?? 12/03/2023 08:52 Alkaline Phosphatase 90 units/L ()?? 12/03/2023 08:52 AST (SGOT) 12 units/L ()?? 12/03/2023 08:52 ALT (SGPT) 20 units/L ()?? 12/03/2023 08:52 Bilirubin, Total 0.2 mg/dL ()?? 12/03/2023 08:52 Vitamin B12 Level 279 pg/mL ()?? 12/03/2023 08:52 Folic Acid Level 10.5 ng/mL ()?? 12/03/2023 08:52 Iron Level 43 mcg/dL ()?? 12/03/2023 08:52 Iron Binding Capacity, Unsaturated 154 mcg/dL ()?? 12/03/2023 08:52 Iron Binding Capacity, Estimated Total 197 mcg/dL ()?? 12/03/2023 08:52 % Iron Saturation 22 % ()?? 12/03/2023 08:52 Ferritin Level 273 ng/mL ()?? 12/03/2023 08:52 ? COAG INR 1.0 ()?? 12/03/2023 08:52 Protime (PT) 10.6 seconds ()?? 12/03/2023 08:52 APTT 30.2 seconds ()?? 12/03/2023 08:52 Fibrinogen 638 mg/dL (High)?? 12/03/2023 08:52 ?? ENDOCRINE/TUMOR MARKER TSH 4.39 uIU/mL (High)?? 12/03/2023 08:52 Free T4 0.91 ng/dL ()?? 12/03/2023 08:52 ?? IMMUNOLOGY GENERAL Complement C3 118 mg/dL ()?? 12/03/2023 08:52 Complement C4 12 mg/dL ()?? 12/03/2023 08:52 IgG 518 mg/dL (Low)?? 12/03/2023 08:52 IgA 303 mg/dL ()?? 12/03/2023 08:52 IgM 133 mg/dL ()?? 12/03/2023 08:52 Immunofixation-Serum Normal immunofixation pattern (No monoclonal protein detected) ()?? 12/03/2023 08:52 Haptoglobin 270 mg/dL (High)?? 12/03/2023 08:52 ? MISC. CHEMISTRY Total Protein, SPE 5.1 Gm/dL (Low)?? 12/03/2023 08:52 Albumin, SPE 2.5 Gm/dL (Low)?? 12/03/2023 08:52 Alpha 1, SPE 0.3 Gm/dL ()?? 12/03/2023 08:52 Alpha 2, SPE 1.1 Gm/dL (High)?? 12/03/2023 08:52 Beta, SPE 0.6 Gm/dL (Low)?? 12/03/2023 08:52 Gamma, SPE 0.6 Gm/dL ()?? 12/03/2023 08:52 Beta, Restricted Band Not Applicable ()?? 12/03/2023 08:52 Beta, Second Restricted Band Not Applicable Gm/dL ()?? 12/03/2023 08:52 Gamma, Restricted Band Not Applicable Gm/dL ()?? 12/03/2023 08:52 Gamma, Second Restricted Band Not Applicable Gm/dL ()?? 12/03/2023 08:52 Interpretation, SPE Non specific pattern. No apparent monoclonal protein present. ()?? 12/03/2023 08:52 ? SEROLOGY INF DISEASE Hepatitis B Surface Antigen NON REACTIVE ()?? 12/04/2023 18:22 Hepatitis C Ab NON REACTIVE ()?? 12/04/2023 18:22 Anti-HBS Quant <3.50 mIU/mL (Low)?? 12/04/2023 18:22 ? UA/URINALYSIS Appear/Color, Urine YELLOW ()?? 12/02/2023 18:40 Specific H[place], Urine 1.035 (High)?? 12/02/2023 18:40 pH, Urine 5.5 ()?? 12/02/2023 18:40 Albumin, Urine 4+ (Abnormal)?? 12/02/2023 18:40 Glucose, Urine NEGATIVE ()?? 12/02/2023 18:40 Ketones, Urine TRACE (Abnormal)?? 12/02/2023 18:40 Bilirubin, Urine NEGATIVE ()?? 12/02/2023 18:40 Hemoglobin, Urine 1+ (Abnormal)?? 12/02/2023 18:40 Nitrite, Urine NEGATIVE ()?? 12/02/2023 18:40 Leukocyte, Urine 2+ (Abnormal)?? 12/02/2023 18:40 Urobilinogen NORMAL mg/dL ()?? 12/02/2023 18:40 WBC's, Urine 10 /HPF (High)?? 12/02/2023 18:40 RBC's, Urine 5 /HPF (High)?? 12/02/2023 18:40 Bacteria SLIGHT HPF (Abnormal)?? 12/02/2023 18:40 Squamous Epith 7 /HPF ()?? 12/02/2023 18:40 Amorphous Crystals SLIGHT /HPF ()?? 12/02/2023 18:40 Hold Urine Culture Testing available 48 hours from time of collection. ()?? 12/02/2023 18:40 ? URINE OTHER Eos, Urine 0 % ()?? 12/02/2023 18:40 Creatinine, Urine Random 280.0 mg/dL ()?? 12/02/2023 18:40 Sodium, Urine Random <20 mmol/L ()?? 12/02/2023 18:40 Potassium, Urine Random 34.6 mmol/L ()?? 12/02/2023 18:40 Chloride, Urine Random <20 mmol/L ()?? 12/02/2023 18:40 Urea Nitrogen, Urine Random 184.7 mg/dL ()?? 12/02/2023 18:40 Osmolality, Urine Random 335 mOsm/kg ()?? 12/02/2023 18:40 Protein, Total Urine Random 504 mg/dL ()?? 12/02/2023 18:40 TP/Cr Ratio 1.80 (High)?? 12/02/2023 18:40 Creatinine, Urine 280.0 mg/dL ()?? 12/02/2023 18:40 Est Creatinine Clearance 7.32 mL/min ()?? 2023 08:59 ?(12/03/2023 21:19 EDT US Doppler Ext Lower Venous Bilat) * Final Report * ?? Reason For Exam Swelling Extremities ?? RESULT: US Doppler Ext Lower Venous Bilat US Doppler Ext Lower Venous Bilat? Reason: Swelling Extremities; Clinical Question(s): Thrombosis ?? COMPARISON: None ?? IMAGING TECHNIQUE: Ultrasound of the veins from the groin through the calf was performed using grayscale, color, and spectral Doppler ultrasound assessing for complete compressibility and normal flowcharacteristics. ?? FINDINGS:? RIGHT LOWER EXTREMITY: ?? Common femoral vein: Patent. No thrombosis. ?? Femoral vein: Patent. No thrombosis. ?? Popliteal vein: Patent. No thrombosis. ?? Gastrocnemius veins: The visualized portions are patent without evidence of thrombosis. ?? Peroneal veins: The visualized portions are patent without evidence of thrombosis. ?? Posterior tibial veins: The visualized portions are patent without evidence of thrombosis. ?? LEFT LOWER EXTREMITY: ?? Common femoral vein: Patent. No thrombosis. ?? Femoral vein: Patent. No thrombosis. ?? Popliteal vein: Patent. No thrombosis. ?? Gastrocnemius veins: The visualized portions are patent without evidence of thrombosis. ?? Peroneal veins: The visualized portions are patent without evidence of thrombosis. ?? Posterior tibial veins: The visualized portions are patent without evidence of thrombosis. ?? OTHER FINDINGS: ?? IMPRESSION:? No evidence of deep venous thrombosis. [1] (12/03/2023 21:26 EDT US Retroperitoneum Comp) ?? Reason For Exam LENORA, CKD;Other: ?? RESULT: US Retroperitoneum Comp US Retroperitoneum Comp? Reason: Other:; LENORA, CKD; Clinical Question(s): Renal Obstruction; Order Comment: ?? COMPARISON: None. ?? FINDINGS:? Right kidney: 10.9 cm in length. No hydronephrosis, stone, or mass.. Echogenic parenchyma. ?? Left kidney: 11.5 cm in length. No hydronephrosis, stone, or mass. Echogenic parenchyma. ?? Urinary bladder: Nonvisualized due to Fritz and body habitus. ? IMPRESSION:? Technically limited study due to body habitus. No hydronephrosis. Echogenic kidneys compatible with medical renal disease. [2] ? 35??minutes spent on discharge * Alfonzo Coronel RN: PERFORM, SIGN, VERIFY Event Display: Case Management Discharge Plan Authored Date: Patient: MONY GOMEZ Age: 73 years Sex: Female : 1950 Associated Diagnoses: None Author: Alfonzo Coronel RN Discharge Plan Case Management Discharge Plan : Case Management Discharge Plan Data 12/12/2023 11:36 EDT Discharge Level of Care at Discharge [facility] facility Discharge Nursing Homes/Rehab Facilities [facility] Discharge Transportation Arranged [facility] [address] [facility] Discharge Arranged Transport Date/Time 12/12/2023 14:00 Mode of Transportation Arranged Ambulance Name of Agency #1 [facility] Service Categories #1 Occupational Therapy, Physical Therapy, Correction Service Comments #1 Ambulance arranged for 2pm * Lelia Rich RN: PERFORM Event Display: Patient Education/Instruction Authored Date: [id number] Inpatient Adult Discharge Instructions. [address] [address] Name: MONY GOMEZ : 1950?? Visit: 12/02/2023 16:11?? Current Date: 12/12/2023 12:42 ?? Account: [id number]?? Inpatient Adult Discharge Instructions We would like [...] and their families. Surveys are administered by [employer] ?? If further treatment with your primary care physician or another doctor is recommended, it is important for you to keep the appointment. Call your primary care physician or return to the Emergency Department immediately if your condition worsens, fails to improve, or new symptoms develop. If you need to find a doctor, you can call [facility] FamilyID Link for a referral at [phone] or toll free at [phone]) or log in to [email or web address].. ?? [facility], in keeping with [facility] guidance, no longer requires face masks for [...] a health care jose of your choosing. [employer] is a website that allows you to securely view your medical information including your hospital discharge summary, office visit summaries, medications and follow-up visits. You can also request appointments, renew medications, and request access to your medical information using a health care jose of your choosing, or just ask a question. You can enroll at [email or web address] or register during your next office visit. You have been discharged from [facility], Patient Care Unit: W4??. If you have any questions regarding these instructions, including results of studies pending, afteryou leave, please call us and we will be happy to assist you 20/01. [facility] Your Care Team Attending Physician Anton Burnham MD?? Consulting Providers Anton Burnham MD?? Discharging Providers Awilda Dowling DO Reason for Your Visit Transfer from [facility] for acute kidney injury?? Your Diagnosis Metabolic acidosis Acute on chronic diastolic heart failure Bradycardia Chronic anemia Leukocytosis HTN (hypertension) Hyperlipidemia Insulin dependent type 2 diabetes mellitus Hypothyroid GERD (gastroesophageal reflux disease) Acute renal failure ATN (acute tubular necrosis) Chronic hypoxic respiratory failure, on home oxygen therapy Chronic kidney disease (CKD), stage IV (severe) Decubitus ulcer of sacral region, stage 1 Depression with anxiety Diabetic nephropathy Sacral ulcer Tests Performed Below is a partial list of the tests performed during your hospitalization. You may have had other tests and procedures not included in this list. Please discuss all test results with your provider. B12 Vitamin Level BUN C3 Complement C4 Complement CBC w/ Differential Comprehensive Metabolic Panel Creatinine Electrolytes Ferritin Fibrinogen Folate Level FREE T4 GLUCOSE POC Haptoglobin Hepatitis Panel Dial HOLD URINE CULTURE Immunofixation Serum INR Iron + Iron Binding Capacity Lytes PTT Reticulocyte Ct SPEP TSH UREA NITROGEN, URINE MG/DL Urinalysis Complete Urine Chloride Urine Creatinine URINE EOS Urine K Urine Na Urine Osmolality Urine Protein/Creatinine Ratio US Doppler Ext Lower Venous Bilat US Renal Comp XR C-Arm < 1 Hour Basic Metabolic Panel?? CBC?? Magnesium Level?? Phosphorus Level?? Primary Care Provider Adi ALVAREZ, Shiraz? Advance Directive Health Care Proxy on File Yes - Health Care Proxy Discharge Vitals Temperature: 98.1 DegF Height: 170 cm Pulse Rate:??96 bpm??High Weight: 107.3 kg Respiratory Rate: 18 br/min Body Mass Index:??41.04 kg/m2??Critical Systolic Blood Pressure:??150 mm Hg??High Body surface area: 2.37 Diastolic Blood Pressure: 59 mm Hg ?? Oxygen Saturation: 98 % ?? Studies Pending All studies ordered during this hospital stay have been completed unless listed below. Please discuss all pending results with your provider listed above in these instructions. ?? Basic Metabolic Panel?? CBC?? Magnesium Level?? Phosphorus Level?? What to do next Instructions From Your Doctor You were admitted to the hospital because you stopped producing urine. Your kidney function decreased requiring hemodialysis. Please follow up with nephrology outpatient and with your PCP for furthermanagement.? If you feel extremely sick/fatigued, chest pain, shortness of breath, increased swelling, abdominaltenderness, or any other symptoms that concern you, please come back to the hospital or go to any health care provider.? Orders??:Renal diet :Ambulate with assistance ??3 times a day ??unless otherwise specified Status: ??Full Resuscitation :fair :Fair? 12/12/23 11:59:00 EDT?? Prescriptions??, ??12/12/23 11:59:00 EDT?? You Need to Schedule the Following Appointments Follow Up with??Shiraz Joshi NP When:??Within 1 to 2 weeks Where: [address] [place] [address]- Discharge Medications MONY GOMEZ :1950 Visit Date:12/02/2023 Medications: Please continue your medications until treatment is completed or stopped by your provider. Medications not listed below should be discontinued. Discuss any questions related to medications with your provider. What How Much When Instructions Next Dose Unchanged Acetaminophen (Tylenol Extra Strength 500 mg oral tablet) 2 tab(s) Oral 3 times a day Fri pm Unchanged Amlodipine (amLODIPine 5 mg oral tablet) 2 tab(s) Oral Daily Sat am Unchanged Aspirin (aspirin 81 mg oral tablet) 1 tab(s) Oral Daily Sat am Unchanged Atorvastatin (atorvastatin 80 mg oral tablet) 1 tab(s) Oral Daily at Bedtime Fri pm Unchanged BuPROpion (buPROPion 150 mg/ 12 hours (SR) oral tablet, extended release) 1 tab(s) Oral Twice a day Fri pm Unchanged Ergocalciferol (ergocalciferol 69252 iu oral capsule) 1 capsule Oral twice per week ?? resume friday Unchanged Insulin Glargine (Basaglar KwikPen 100 units/ mL subcutaneous solution) 50 unit(s) Subcutaneous Injection Daily in the morning Sat am Unchanged Insulin Glargine (Basaglar KwikPen 100 units/ mL subcutaneous solution) 36 unit(s) Subcutaneous Injection Daily at Bedtime Fri pm Unchanged Insulin Lispro (Humalog 100 u/ ml subcutaneous injection) 30 unit(s) Subcutaneous Injection Daily before lunch Sat lunch Unchanged Insulin Lispro (Humalog 100 u/ ml subcutaneous injection) 33 unit(s) Subcutaneous Injection Daily before dinner Fri dinner Unchanged Insulin Lispro (Humalog 100 u/ ml subcutaneous injection) 36 unit(s) Subcutaneous Injection Daily before breakfast Sat breakfast Unchanged Levothyroxine (levothyroxine 125 mcg (0.125 mg) oral tablet) 1 tab(s) Oral Daily Sat am Unchanged Multivitamin With Minerals (Icaps AREDS) 1 tab(s) Oral Twice a day Fri pm Unchanged Pantoprazole (Protonix 40 mg oral delayed release tablet) 1 tab(s) Oral Daily Sat am ?? What How Much When Comments Stop Taking Atenolol (atenolol 50 mg oral tablet) 0.5 tab(s) Oral Daily Stop Taking empagliflozin (Jardiance 10 mg oral tablet) 1 tab(s) Oral Daily in the morning Stop Taking Furosemide (Lasix 40 mg oral tablet) 40 Milligram Oral Twice a day Stop Taking Losartan 100 Milligram Oral Daily Prescription Given During Visit No new medications prescribed at time of discharge.?? Laboratory Results Below is a partial list of the most recent Laboratory test results done prior to this discharge. You may have had other tests and procedures not included in this list. Please discuss all test resultswith your provider. Est Creatinine Clearance - 7.32 mL/min (2023) B12 Vitamin Level (12/03/2023) ???Vitamin B12 Level - 279 pg/mL BUN (12/09/2023) ???BUN - 51 mg/dL C3 Complement (12/03/2023) ???Complement C3 - 118 mg/dL C4 Complement (12/03/2023) ???Complement C4 - 12 mg/dL CBC w/ Differential (12/03/2023) ???WBC - 18.3 k/mm3???RBC - 2.71 m/mm3???Hgb - 7.6 Gm/dL???Hct - 23.9 %???MCV - 88.2 femtoliters???MCH - 28.0 pg???MCHC - 31.8 g/dL???Platelet Count - 205 k/mm3???RDW-SD - 52.8 femtoliters???MPV - 9.0 femtoliters???Nucleated RBC (Automated) - 0.0 #/100 WBC'S???Abs. NRBC - 0.0 k/mm3???Abs. Neut - 15.1 k/mm3???Abs. Lymph - 1.2 k/mm3???Abs. Sandoval - 1.2 k/mm3???Abs. Eo - 0.6 k/mm3???Abs. Baso - 0.0 k/mm3???Neut % - 82.7 %???Lymph % - 6.4 %???Sandoval % - 6.5 %???Eos % - 3.5 %???Baso % - 0.2 %???Imm Gran- 0.7 %???Abs. Imm Gran - 0.1 k/mm3 Comprehensive Metabolic Panel (12/03/2023) ???Sodium - 130 mmol/L???Potassium - 5.4 mmol/L???Chloride - 100 mmol/L???Bicarbonate Level - 11 mmol/L???Anion Gap - 19???Glucose Level - 106 mg/dL???BUN - 96 mg/dL???Creatinine-Blood - 8.03 mg/dL???Estimated GFR Creatinine - 5 ML/MIN/1.73 M2???Calcium - 7.7 mg/dL???Protein, Total - 5.1 Gm/dL???Albumin - 2.9 Gm/dL???AG Ratio - 1.3???Alkaline Phosphatase - 90 units/L???AST (SGOT) - 12 units/L???ALT (SGPT) - 20 units/L???Bilirubin, Total - 0.2 mg/dL Creatinine (12/09/2023) ???Creatinine-Blood - 7.01 mg/dL???Estimated GFR Creatinine - 6 ML/MIN/1.73 M2 Electrolytes (12/09/2023) ???Sodium - 128 mmol/L???Potassium - 3.9 mmol/L???Chloride - 90 mmol/L???Bicarbonate Level - 23 mmol/L???Anion Gap - 15 Ferritin (12/03/2023) ???Ferritin Level - 273 ng/mL Fibrinogen (12/03/2023) ???Fibrinogen - 638 mg/dL Folate Level (12/03/2023) ???Folic Acid Level - 10.5 ng/mL FREE T4 (12/03/2023) ???Free T4 - 0.91 ng/dL GLUCOSE POC (12/12/2023) ???Glucose, POC - 209 mg/dL Haptoglobin (12/03/2023) ???Haptoglobin - 270 mg/dL Hepatitis Panel Dial (12/04/2023) ? ?Hepatitis B Surface Antigen - NON REACTIVE? ?Hepatitis C Ab - NON REACTIVE? ?Anti-HBS Quant - <3.50 mIU/mL HOLD URINE CULTURE (12/02/2023) ???Hold Urine Culture - Testing available 48 hours from time of collection. Immunofixation Serum (12/03/2023) ???IgG - 518 mg/dL???IgA - 303 mg/dL???IgM - 133 mg/dL???Immunofixation-Serum - Normal immunofixation pattern (No monoclonal protein detected) INR (12/03/2023) ???INR - 1.0???Protime (PT) - 10.6 seconds Iron + Iron Binding Capacity (12/03/2023) ???Iron Level - 43 mcg/dL???Iron Binding Capacity, Unsaturated - 154 mcg/dL???Iron Binding Capacity, Estimated Total - 197 mcg/dL???% Iron Saturation - 22 % Lytes (12/08/2023) ???Sodium - 131 mmol/L???Potassium - 4.2 mmol/L???Chloride - 93 mmol/L???Bicarbonate Level - 22 mmol/L???Anion Gap - 16 PTT (12/03/2023) ???APTT - 30.[address] (12/03/2023) ???Retic Count - 1.8 %???Retic Count Corrected - 1.0 %???Retic Production Index - 0.5 % SPEP (12/03/2023) ???Total Protein, SPE - 5.1 Gm/dL???Albumin, SPE - 2.5 Gm/dL???Alpha 1, SPE - 0.3 Gm/dL???Alpha 2, SPE - 1.1 Gm/dL???Beta, SPE - 0.6 Gm/dL???Gamma, SPE - 0.6 Gm/dL???Beta, Restricted Band - Not Applicable???Beta, Second Restricted Band - Not Applicable???Gamma, Restricted Band - Not Applicable???Gamma, Second Restricted Band - Not Applicable???Interpretation, SPE - Non specific pattern. No apparent monoclonal protein present. TSH (12/03/2023) ???TSH - 4.39 uIU/mL UREA NITROGEN, URINE MG/DL (12/02/2023) ???Urea Nitrogen, Urine Random - 184.7 mg/dL Urinalysis Complete (12/02/2023) ???Appear/Color, Urine - YELLOW???Specific [place], Urine - 1.035???pH, Urine - 5.5???Albumin, Urine - 4+???Glucose, Urine - NEGATIVE???Ketones, Urine - TRACE???Bilirubin, Urine - NEGATIVE???Hemoglobin, Urine - 1+???Nitrite, Urine - NEGATIVE???Leukocyte, Urine - 2+???Urobilinogen - NORMAL???WBC's, Urine - 10 /HPF???RBC's, Urine - 5 /HPF???Bacteria - SLIGHT???Squamous Epith - 7 /HPF???Amorphous Crystals - SLIGHT Urine Chloride (12/02/2023) ? ?Chloride, Urine Random - <20 mmol/L Urine Creatinine (12/02/2023) ???Creatinine, Urine Random - 280.0 mg/dL URINE EOS (12/02/2023) ???Eos, Urine - 0 % Urine K (12/02/2023) ???Potassium, Urine Random - 34.6 mmol/L Urine Na (12/02/2023) ? ?Sodium, Urine Random - <20 mmol/L Urine Osmolality (12/02/2023) ???Osmolality, Urine Random - 335 mOsm/kg Urine Protein/Creatinine Ratio (12/02/2023) ???Protein, Total Urine Random - 504 mg/dL???TP/Cr Ratio - 1.80???Creatinine, Urine - 280.0 mg/dL Allergies (NKA means No Known Allergies) [place] Prefilled Pen hydrochlorothiazide-triamterene penicillins Problems Active Problems??(11) Chronic anemia?? Chronic diastolic congestive heart failure?? Chronic kidney disease, stage IV (severe)?? Chronic respiratory failure with hypoxia?? GERD (gastroesophageal reflux disease)?? HTN (hypertension)?? Hyperlipidemia?? Hypothyroid?? Insulin dependent type 2 diabetes mellitus?? Leukocytosis?? Severe obesity?? Education Materials Below is the list of Educational Leaflet Providered with your Discharge Instructions. Web[employer] Ignite Patient Education - Renal (Kidney) Insufficiency?? Valuables and Belongings I fully understand and agree that [facility] accepts no responsibility for all my [...] ?? Date for Pt to Sign Valuables/Belongings: 12/08/23 19:26:00 ?? Other Discharge Information ? Case Management Discharge Plan?? Discharge Plan?? Discharge Agency Information?? Discharge Level of Care at Discharge: [facility] facility Name of Agency [facility]1: [facility] Discharge Transportation Arranged: [facility] [address] [facility] ??[phone] Service Categories #1: Occupational Therapy, Physical Therapy, Correction Mode of Transportation Arranged: Ambulance Service Comments #1: Ambulance arranged for 2pm Discharge Arranged Transport Date/Time: 12/12/23 14:00:00 ?? Discharge Nursing Homes/Rehab Facilities: [facility] ? Pulmonary Rehab Status?? Pulmonary Rehab Discharge [...] are strongly encouraged to quit. Please call [facility] Family[facility] Link at [phone] or [phone]) or log in to [email or web address] for referrals to smoking cessation programs. ?? 931 Suicide & Crisis Lifeline is available 20/01 if you or someone you know needs to find a reason to keep living. By calling 116 you'll be connected to a skilled, trained counselor at a crisis center in your area. INPATIENT DISCHARGE INSTRUCTIONS SIGNATURE PAGE MONY GOMEZ Location:[facility] Registration Date and Time:12/02/2023 16:11 EDT Primary Care Physician: Shiraz Joshi NP, Attending Physician: Anton Burnham MD, I MARIAELENA MONY, have received the above patient education materials/instructions and have verbalized understanding. If ambulance or transport services are being used I further acknowledge being givena choice of service. ?? If you need to contact me, please call me at this number: . 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 Age:??73 Years?Sex:??Female?:??1950?? Patient Information Discharge Location: Primary Care Physician: Shiraz Joshi NP Admit Date/Time: 12/02/23 16:11 Discharge Disposition Discharge Disposition: Correction Facility/Rehab Discharge Diagnosis Acute kidney injury (N17.9) Metabolic acidosis (E87.20) Acute on chronic diastolic heart failure (I50.33) Bradycardia (R00.1) Chronic anemia (D64.9) Leukocytosis (D72.829) HTN (hypertension) (I10) Hyperlipidemia (E78.5) Insulin dependent type 2 diabetes mellitus (E11.9) Hypothyroid (E03.9) GERD (gastroesophageal reflux disease) (K21.9) Depression with anxiety (F41.8) Chronic hypoxic respiratory failure, on home oxygen therapy (J96.11) Sacral ulcer (L98.429) ATN (acute tubular necrosis) (N17.0) Decubitus ulcer of sacral region, stage 1 (L89.151) Chronic kidney disease (CKD), stage IV (severe) (N18.4) Diabetic nephropathy (E11.21) Acute renal failure (N17.9) _ Discharge Medications Acetaminophen (Tylenol Extra Strength 500 mg oral tablet)?2?tab(s)?1,000?Milligram?By Mouth?3 times a day Amlodipine (amLODIPine 5 mg oral tablet)?10?Milligram?2?tablet?By Mouth?Daily Aspirin (aspirin 81 mg oral tablet)?1?tab(s)?81?Milligram?By Mouth?Daily Atorvastatin (atorvastatin 80 mg oral tablet)?1?tab(s)?80?Milligram?By Mouth?Daily at bedtime BuPROpion (buPROPion 150 mg/12 hours (SR) oral tablet, extended release)?1?tab(s)?150?Milligram?By Mouth?2 times a day Ergocalciferol (ergocalciferol 40977 iu oral capsule)?50,000?International Unit?1?capsule?By Mouth?twice per week Insulin Glargine (Basaglar KwikPen 100 units/mL subcutaneous solution)?50?unit(s)?Subcutaneous Injection?Daily in AM Insulin Glargine (Basaglar KwikPen 100 units/mL subcutaneous solution)?36?unit(s)?Subcutaneous Injection?Daily at bedtime Insulin Lispro (Humalog 100 u/ml subcutaneous injection)?33?unit(s)?Subcutaneous Injection?Daily before dinner Insulin Lispro (Humalog 100 u/ml subcutaneous injection)?30?unit(s)?Subcutaneous Injection?Daily before lunch Insulin Lispro (Humalog 100 u/ml subcutaneous injection)?36?unit(s)?Subcutaneous Injection?Daily before breakfast Levothyroxine (levothyroxine 125 mcg (0.125 mg) oral tablet)?1?tab(s)?125?Microgram?By Mouth?Daily Multivitamin With Minerals (Icaps AREDS)?1?tab(s)?By Mouth?2 times a day Pantoprazole (Protonix 40 mg oral delayed release tablet)?1?tab(s)?40?Milligram?By Mouth?Daily ? Medications Started None Medications Discontinued Lasix, Atenolol, Jardiance, Atenolol Doses Changed None Allergies Allergies ?(Active and Proposed Allergies Only) hydrochlorothiazide-triamterene? (Severity: Unknown severity, Onset: Unknown) Byetta Prefilled Pen? (Severity: Unknown severity, Onset: Unknown) penicillins? (Severity: Unknown severity, Onset: Unknown) ? PCP Follow-Up/Heads-Up ??? Pt admitted for oliguria and ARF, requiring HD, etiology unclear at this time, will need fu with renal ??? Please fu with pt in 1-2 weeks ??? Please see medication changes as written above Hospital Course Ms. Gomez is a 72 yo female with past medical history significant for HFpEF, chronic hypoxic respiratory failure on 2L home O2, T2DM on insulin, CKD stage IV (baseline SrCr 2), hypothyroidism, GERD, chronic anemia, and chronic leukocytosis who presented to [facility] ED on 12/01 due to oliguria that began after discharge from [facility] acute [facility]. [facility] and is now s/p 3 rounds of dialysis with improvement in her electrolytes and fluid status. ?? Acute kidney injury (N17.9) stage III requiring dialysis Chronic kidney disease (CKD), stage IV (severe) (N18.4) ??? 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 Presented to ED with acute oliguric kidney injury 2 days after being discharged for colitis. CKD IV 2/2 diabetic nephropathy, baseline serum cr around 2.0 ??? Given acute decline in renal function following hospitalization likely ischemic or cytokine-mediated ATN ??? Urine eosinophils from admission negative, no prodrome of fever, rash, but due to potential forPPI induced AIN, changed med to H2 ankit ??? Serum protein electrophoresis (SPEP) pending ?? Recommendation: ??? D/C rehab with HD ??? FU with renal outpatient ??? May need outpatient renal biopsy if renal function does not improve ?? Acute on chronic diastolic heart failure (I50.33): Improved ??? She did not respond to high-dose diuretics ??? Her volume overload is improving now with fluid removal on dialysis, lung exam improved, on 2-3L NC ?? Recommendation: ??? HD TTS ?? Decubitus ulcer of sacral region, stage 1 (L89.151) ??? Present on admission ??? Offloading and local care ?? Bradycardia (R00.1): Improving ??? Likely related to previous atenolol use with her renal insufficiency ??? Holding home atenolol ?? Insulin dependent type 2 diabetes mellitus (E11.9) ??? Continue home regimen ??? DC Jardiance ? Chronic anemia (D64.9): Stable ?Likely combination of iron deficiency anemia and anemia of chronic kidney disease ??? Will need close follow-up with renal for iron and Procrit needs ??? No obvious overt bleeding ?? Chronic hypoxic respiratory failure, on home oxygen therapy (J96.11): Stable ??? Oxygenation remained stable and continue current therapy ?? GERD (gastroesophageal reflux disease) (K21.9): Stable ??? No increase in dyspepsia continue PPI ?? Leukocytosis (D72.829): Stable ??? She has chronic leukocytosis dating back to 2021. Leukocyte count up to 30,000 during her May hospitalization ??? Her white count is stable and she does not seem to have overt infection ??? [facility] site looks fine, but she is at elevated risk of serious infection. ?? HTN (hypertension) (I10) ??? Continue amlodipine ??? DC losartan ? Objective Vital Signs?? Temperature: 97.6 DegF (12/11/23 03:51:00) Temperature Route: Oral (12/11/23 03:51:00) Pulse Rate: 74 bpm (12/11/23 03:51:00) Respiratory Rate: 20 br/min (12/11/23 03:51:00) Systolic Blood Pressure:??142 mm Hg??High (12/11/23 03:51:00) Diastolic Blood Pressure:??51 mm Hg??Low (12/11/23 03:51:00) Blood pressure sites: Arm, left (12/11/23 03:51:00) Mean Arterial Pressure: 81 mm Hg (12/11/23 03:51:00) Pulse Pressure: 91 mm Hg (12/11/23 03:51:00) Oxygen Saturation: 100 % (12/11/23 03:51:00) Liters per Minute: 3 L/min (12/11/23 03:51:00) Mode of Delivery (Oxygen): Nasal cannula (12/11/23 03:51:00) Early Warning Score: 4 (12/11/23 03:57:45) ? Intake/Output? 12/01 16:11 12/10 07:00 12/09 07:00 12/08 07:00 12/07 07:00 ?? 12/10 07:36 12/10 07:36 12/10 06:59 12/09 06:59 12/08 06:59 Intake ? 4060 ?0 ? 1080 ?460 ?960 Output ?84931 ?0 ?0 ? 3600 ?0 Net Total ?-6520 ?0 ? 1080 ?-3140 ?960 ? Urine Count ?2 ?0 ?1 ?1 ?0 ? . Physical Exam General:??older appearing female in no obvious distress?? HEENT:??EOMI, PERRLA,sclera anicteric??,??moist mucus membranes?? Respiratory:??Clear to auscultation bilaterally, no wheezes/crackles Cardiovascular:??regular rate,regular rhythm,No murmurs GI:??BS+, soft, non-distended, non-tender MSK:??PermCath site appears well healing, lower extremity swelling 2+ through mid shins Neurologic:alert, follows commands,??moves all extremities?? Skin:??Warm and dry, cap refill < 2 seconds Surgical Procedures Insertion Hemodialysis Catheter 12/04/2023 11:49 Consultants Renal: David PINEDA, Steve Hickman?? Transplant Sx: Abiola PINEDA, Celi Lewis Patient Education Titles WebMD Ignite Patient Education - Renal (Kidney) Insufficiency?? Follow-Up Appointments Added Follow Up ?Time Frame ?Comments Lev SUPERVISORY CIVIL ENGINEER, Shiraz?1 to 2 weeks Patient Instructions You were admitted to the hospital because you stopped producing urine. Your kidney function decreased requiring hemodialysis. Please follow up with nephrology outpatient and with your PCP for furthermanagement.? If you feel extremely sick/fatigued, chest pain, shortness of breath, increased swelling, abdominaltenderness, or any other symptoms that concern you, please come back to the hospital or go to any health care provider.?? Post Discharge Care Diet: ??Renal diet ?? Activity: ??Ambulate with assistance 3 times a day unless otherwise specified ?? Code Status: ??Full Resuscitation ?? Condition: ??fair ?? Prognosis: ??Fair ?? Home Health Face to Face ^HomeHealthFTF Results Discharge Labs BLOOD COUNT & DIFF WBC 14.1 k/mm3 (High)?? 12/09/2023 07:38 RBC 2.57 m/mm3 (Low)?? 12/09/2023 07:38 Hgb 7.2 Gm/dL (Low)?? 12/09/2023 07:38 Hct 22.0 % (Low)?? 12/09/2023 07:38 MCV 85.6 femtoliters ()?? 12/09/2023 07:38 MCH 28.0 pg ()?? 12/09/2023 07:38 MCHC 32.7 g/dL (Low)?? 12/09/2023 07:38 Platelet Count 210 k/mm3 ()?? 12/09/2023 07:38 RDW-SD 48.0 femtoliters (High)?? 12/09/2023 07:38 MPV 8.7 femtoliters (Low)?? 12/09/2023 07:38 Nucleated RBC (Automated) 0.0 #/100 WBC'S ()?? 12/09/2023 07:38 Abs. NRBC 0.0 k/mm3 ()?? 12/09/2023 07:38 Abs. Neut 15.1 k/mm3 (High)?? 12/03/2023 08:52 Abs. Lymph 1.2 k/mm3 ()?? 12/03/2023 08:52 Abs. Sandoval 1.2 k/mm3 (High)?? 12/03/2023 08:52 Abs. Eo 0.6 k/mm3 (High)?? 12/03/2023 08:52 Abs. Baso 0.0 k/mm3 ()?? 12/03/2023 08:52 Neut % 82.7 % (High)?? 12/03/2023 08:52 Lymph % 6.4 % (Low)?? 12/03/2023 08:52 Sandoval % 6.5 % ()?? 12/03/2023 08:52 Eos % 3.5 % ()?? 12/03/2023 08:52 Baso % 0.2 % ()?? 12/03/2023 08:52 Retic Count 1.8 % ()?? 12/03/2023 08:52 Retic Count Corrected 1.0 % ()?? 12/03/2023 08:52 Retic Production Index 0.5 % (Low)?? 12/03/2023 08:52 Imm Gran 0.7 % ()?? 12/03/2023 08:52 Abs. Imm Gran 0.1 k/mm3 ()?? 12/03/2023 08:52 ? CHEM GENERAL Sodium 128 mmol/L (Low)?? 12/09/2023 07:38 Potassium 3.9 mmol/L ()?? 12/09/2023 07:38 Chloride 90 mmol/L (Low)?? 12/09/2023 07:38 Bicarbonate Level 23 mmol/L ()?? 12/09/2023 07:38 Anion Gap 15 ()?? 12/09/2023 07:38 Glucose Level 104 mg/dL (High)?? 12/06/2023 09:10 Glucose, POC 142 mg/dL (High)?? 12/10/2023 21:30 BUN 51 mg/dL (High)?? 12/09/2023 07:38 Creatinine-Blood 7.01 mg/dL (High)?? 12/09/2023 07:38 Estimated GFR Creatinine 6 ML/MIN/1.73 M2 ()?? 12/09/2023 07:38 Calcium 7.2 mg/dL (Low)?? 12/06/2023 09:10 Phosphorus 6.4 mg/dL (High)?? 12/06/2023 09:10 Magnesium 2.2 mg/dL ()?? 12/06/2023 09:10 Protein, Total 5.1 Gm/dL (Low)?? 12/03/2023 08:52 Albumin 2.9 Gm/dL (Low)?? 12/03/2023 08:52 AG Ratio 1.3 ()?? 12/03/2023 08:52 Alkaline Phosphatase 90 units/L ()?? 12/03/2023 08:52 AST (SGOT) 12 units/L ()?? 12/03/2023 08:52 ALT (SGPT) 20 units/L ()?? 12/03/2023 08:52 Bilirubin, Total 0.2 mg/dL ()?? 12/03/2023 08:52 Vitamin B12 Level 279 pg/mL ()?? 12/03/2023 08:52 Folic Acid Level 10.5 ng/mL ()?? 12/03/2023 08:52 Iron Level 43 mcg/dL ()?? 12/03/2023 08:52 Iron Binding Capacity, Unsaturated 154 mcg/dL ()?? 12/03/2023 08:52 Iron Binding Capacity, Estimated Total 197 mcg/dL ()?? 12/03/2023 08:52 % Iron Saturation 22 % ()?? 12/03/2023 08:52 Ferritin Level 273 ng/mL ()?? 12/03/2023 08:52 ? COAG INR 1.0 ()?? 12/03/2023 08:52 Protime (PT) 10.6 seconds ()?? 12/03/2023 08:52 APTT 30.2 seconds ()?? 12/03/2023 08:52 Fibrinogen 638 mg/dL (High)?? 12/03/2023 08:52 ?? ENDOCRINE/TUMOR MARKER TSH 4.39 uIU/mL (High)?? 12/03/2023 08:52 Free T4 0.91 ng/dL ()?? 12/03/2023 08:52 ?? IMMUNOLOGY GENERAL Complement C3 118 mg/dL ()?? 12/03/2023 08:52 Complement C4 12 mg/dL ()?? 12/03/2023 08:52 IgG 518 mg/dL (Low)?? 12/03/2023 08:52 IgA 303 mg/dL ()?? 12/03/2023 08:52 IgM 133 mg/dL ()?? 12/03/2023 08:52 Immunofixation-Serum Normal immunofixation pattern (No monoclonal protein detected) ()?? 12/03/2023 08:52 Haptoglobin 270 mg/dL (High)?? 12/03/2023 08:52 ? MISC. CHEMISTRY Total Protein, SPE 5.1 Gm/dL (Low)?? 12/03/2023 08:52 Albumin, SPE 2.5 Gm/dL (Low)?? 12/03/2023 08:52 Alpha 1, SPE 0.3 Gm/dL ()?? 12/03/2023 08:52 Alpha 2, SPE 1.1 Gm/dL (High)?? 12/03/2023 08:52 Beta, SPE 0.6 Gm/dL (Low)?? 12/03/2023 08:52 Gamma, SPE 0.6 Gm/dL ()?? 12/03/2023 08:52 Beta, Restricted Band Not Applicable ()?? 12/03/2023 08:52 Beta, Second Restricted Band Not Applicable Gm/dL ()?? 12/03/2023 08:52 Gamma, Restricted Band Not Applicable Gm/dL ()?? 12/03/2023 08:52 Gamma, Second Restricted Band Not Applicable Gm/dL ()?? 12/03/2023 08:52 Interpretation, SPE Non specific pattern. No apparent monoclonal protein present. ()?? 12/03/2023 08:52 ? SEROLOGY INF DISEASE Hepatitis B Surface Antigen NON REACTIVE ()?? 12/04/2023 18:22 Hepatitis C Ab NON REACTIVE ()?? 12/04/2023 18:22 Anti-HBS Quant <3.50 mIU/mL (Low)?? 12/04/2023 18:22 ? UA/URINALYSIS Appear/Color, Urine YELLOW ()?? 12/02/2023 18:40 Specific [place], Urine 1.035 (High)?? 12/02/2023 18:40 pH, Urine 5.5 ()?? 12/02/2023 18:40 Albumin, Urine 4+ (Abnormal)?? 12/02/2023 18:40 Glucose, Urine NEGATIVE ()?? 12/02/2023 18:40 Ketones, Urine TRACE (Abnormal)?? 12/02/2023 18:40 Bilirubin, Urine NEGATIVE ()?? 12/02/2023 18:40 Hemoglobin, Urine 1+ (Abnormal)?? 12/02/2023 18:40 Nitrite, Urine NEGATIVE ()?? 12/02/2023 18:40 Leukocyte, Urine 2+ (Abnormal)?? 12/02/2023 18:40 Urobilinogen NORMAL mg/dL ()?? 12/02/2023 18:40 WBC's, Urine 10 /HPF (High)?? 12/02/2023 18:40 RBC's, Urine 5 /HPF (High)?? 12/02/2023 18:40 Bacteria SLIGHT HPF (Abnormal)?? 12/02/2023 18:40 Squamous Epith 7 /HPF ()?? 12/02/2023 18:40 Amorphous Crystals SLIGHT /HPF ()?? 12/02/2023 18:40 Hold Urine Culture Testing available 48 hours from time of collection. ()?? 12/02/2023 18:40 ? URINE OTHER Eos, Urine 0 % ()?? 12/02/2023 18:40 Creatinine, Urine Random 280.0 mg/dL ()?? 12/02/2023 18:40 Sodium, Urine Random <20 mmol/L ()?? 12/02/2023 18:40 Potassium, Urine Random 34.6 mmol/L ()?? 12/02/2023 18:40 Chloride, Urine Random <20 mmol/L ()?? 12/02/2023 18:40 Urea Nitrogen, Urine Random 184.7 mg/dL ()?? 12/02/2023 18:40 Osmolality, Urine Random 335 mOsm/kg ()?? 12/02/2023 18:40 Protein, Total Urine Random 504 mg/dL ()?? 12/02/2023 18:40 TP/Cr Ratio 1.80 (High)?? 12/02/2023 18:40 Creatinine, Urine 280.0 mg/dL ()?? 12/02/2023 18:40 Est Creatinine Clearance 7.04 mL/min ()?? 2023 03:57 ?(12/03/2023 21:19 EDT US Doppler Ext Lower Venous Bilat) * Final Report * ?? Reason For Exam Swelling Extremities ?? RESULT: US Doppler Ext Lower Venous Bilat US Doppler Ext Lower Venous Bilat? Reason: Swelling Extremities; Clinical Question(s): Thrombosis ?? COMPARISON: None ?? IMAGING TECHNIQUE: Ultrasound of the veins from the groin through the calf was performed using grayscale, color, and spectral Doppler ultrasound assessing for complete compressibility and normal flowcharacteristics. ?? FINDINGS:? RIGHT LOWER EXTREMITY: ?? Common femoral vein: Patent. No thrombosis. ?? Femoral vein: Patent. No thrombosis. ?? Popliteal vein: Patent. No thrombosis. ?? Gastrocnemius veins: The visualized portions are patent without evidence of thrombosis. ?? Peroneal veins: The visualized portions are patent without evidence of thrombosis. ?? Posterior tibial veins: The visualized portions are patent without evidence of thrombosis. ?? LEFT LOWER EXTREMITY: ?? Common femoral vein: Patent. No thrombosis. ?? Femoral vein: Patent. No thrombosis. ?? Popliteal vein: Patent. No thrombosis. ?? Gastrocnemius veins: The visualized portions are patent without evidence of thrombosis. ?? Peroneal veins: The visualized portions are patent without evidence of thrombosis. ?? Posterior tibial veins: The visualized portions are patent without evidence of thrombosis. ?? OTHER FINDINGS: ?? IMPRESSION:? No evidence of deep venous thrombosis. [1] (12/03/2023 21:26 EDT US Retroperitoneum Comp) ?? Reason For Exam LENORA, CKD;Other: ?? RESULT: US Retroperitoneum Comp US Retroperitoneum Comp? Reason: Other:; LENORA, CKD; Clinical Question(s): Renal Obstruction; Order Comment: ?? COMPARISON: None. ?? FINDINGS:? Right kidney: 10.9 cm in length. No hydronephrosis, stone, or mass.. Echogenic parenchyma. ?? Left kidney: 11.5 cm in length. No hydronephrosis, stone, or mass. Echogenic parenchyma. ?? Urinary bladder: Nonvisualized due to Fritz and body habitus. ? IMPRESSION:? Technically limited study due to body habitus. No hydronephrosis. Echogenic kidneys compatible with medical renal disease. [2] ? 35 minutes spent on discharge * Awilda Dowling DO: PERFORM Event Display: Discharge/Transfer Note Hospital Authored Date: [id number] Pt did not get d/c d/t placement. * Anton Burnham MD: PERFORM Event Display: Discharge/Transfer Note Hospital Authored Date: [id number] Attending Attestation: I have??seen and evaluated??MONY MARIAELENA, on 12/11/23. ??I have??reviewed the patient???s medical history, findings on examination, diagnosis, and treatment. I have discussed thecase and its management with the resident and agree with the findings and plan as documented in theresident???s note.? _ ? * Awilda Dowling DO: PERFORM Event Display: Patient Education Leaflets Authored Date: [id number] Renal (Kidney) Insufficiency ?? [id number] Renal (Kidney) Insufficiency Your kidneys remove waste products and extra water from your body. When your kidneys don???t work as they should, waste products build up in your blood.??The early stage of this process is called renal insufficiency.??If renal insufficiency gets worse, you can develop chronic renal failure. This??allows extra water, waste, and toxic substances to build up in your body. This can become life-threatening. You may need dialysis or a kidney transplant.??The most serious form of renal insufficiency is end-stage renal disease. Diabetes is the main cause of renal insufficiency.?? Other causes include: ??? High blood pressure ??? Hardening of the arteries ??? Lupus ??? Inflammation of the blood vessels (vasculitis) ??? Viral or bacterial infection Some xgla-spm-vlrypoa (OTC) pain medicines can cause renal failure if you take them for a long time. These include aspirin, ibuprofen, naproxen, and other nonsteroidal anti-inflammatory drugs (NSAIDs). Home care Follow these tips when caring for yourself at home: ??? If you have diabetes, talk with your healthcare provider about controlling your blood sugar.??Ask if you need to make any changes to your diet,??lifestyle,??or medicines. ??? If you have high blood pressure: o Take your??prescribed medicine. Your goal is to lower your blood pressure to??less than 130/80, or as recommended by your provider. oStart a regular exercise program that you enjoy.??Check with your provider to be sure your planned exercise program is right for you. o Cut back on the amount of salt (sodium) you eat.??Your providercan tell you how much salt each day is safe for you. o Monitor and record your blood pressure at home on a regular schedule. Ask your provider to teach you how to correctly check your BP. Bring the BP records with you to your appointments. ??? If you are overweight, talk with your provider about a weight loss plan. ??? If you smoke, quit.??Smoking makes kidney disease worse.??Talk with your provider about ways to help you quit.??For more information, visit: o Clearing the Air: Quit Smoking Today, a booklet from the National Cancer [place], at smokefree.gov/sites/default/files/pdf/ksofcqbn-fft-grx-accessible.pdf o Tools, tips, and articles on quitting at www.smokefree.gov o The [employer]'s guide to quitting smoking at www.cancer.org/healthy/stayawayfromtobacco/guidetoquittingsmoking/ ??? Talk with your healthcare provider about any restrictions you should make in your diet. In general, you should limit the amount of protein, salt, potassium, and phosphorus.??Don???t drink too many fluids. Don???t add salt at the table and stay away from salty foods.??You may need a calcium supplement to help prevent osteoporosis. ??? If you or your family feel overwhelmed by the dietary restrictions, ask for a referral to a registered dietitian. This person can help you understandand plan your diet. ??? Talk with your provider about any medicines you are currently taking to find out if they need to be reduced or stopped. ??? Before starting any jlvu-xwp-awyplqe (OTC) medicines, herbal supplements, or vitamins, talk with your healthcare provider or pharmacist. Make sure theywon't harm your kidneys or interact with other medicines you take. ??? Don???t take the following OTC medicines. Or make sure to talk with your provider before you take them: o Aspirin, ibuprofen, naproxen, and other NSAIDs. You may be able to use these for a short time to help with fever or pain. o Laxatives and antacids with magnesium or aluminum o Phospho-soda enemas with phosphorus o Certain stomach acid-blocking medicine, such as cimetidine or ranitidine o Decongestants with pseudoephedrine o Herbal supplements ?? Follow-up care Follow up with your healthcare provider, or as advised.??Contact 1 of the groups below for more information: ??? [employer] of [employer] Patients at??www.aakp.org ??? National Kidney Foundation at www.kidney.org ??? [employer] at www.kidneyfund.org ??? National Kidney Disease Education Program at www.nkdep.nih.gov ?? Call 911 Call 911 if any of these occur: ??? Severe weakness, dizziness, fainting, drowsiness, or confusion ??? Chest pain or shortness of breath ??? Heart beating fast, slowly, or irregularly ?? When to get medical care Call your healthcare provider right away??if any of these occur: ??? Upset stomach (nausea) or vomiting ??? Fever of 100.4??F (38??C) or higher, or as advised by your provider ??? Unexpected weight gain or swelling in the legs, ankles, or around your eyes ??? You don???t pee as much as normal, or you aren???t able to pee ??? New symptoms ?? Last Reviewed Date: 2022 ?? 5080-5797 [employer]. All rights reserved. This information is not intended as a substitute for professional medical care. Always follow your healthcare professional's instructions. ?? Patient Care team information Care Team Personnel Name: Delicia Castrejon RN Position: [facility] OB RN Member Role: Primary Care Nurse Name: Stefanie Peters RN Position: S RN Member Role: Primary Care Nurse Name: Lachelle Tinajero RN Position: S RN Member Role: Primary Care Nurse Name: Pao Elizondo RN Position: S RN Member Role: Primary Care Nurse Name: Kat Salter RN Position: S RN Member Role: Primary Care Nurse Name: Ledy Vega NP Position: [facility] Associate Professional Member Role: Lifetime Consulting Provider Address: Address: [address] [place], [place] [address] [place], [place] [facility] Name: Salvador Sanders DO Position: [facility] Renal MD Member Role: Lifetime Consulting Physician Address: Address: [address] [facility] [place], [place] - Name: Shiraz Joshi NP Position: Reference Physician Member Role: PCP Address: Address: [address] [place], [place] - Name: Wendy Shay RN Position: [facility] OB RN Member Role: Primary Care Nurse Name: Reilly Dyer RN Position: S RN Member Role: Primary Care Nurse Name: Seth Ryder MD Position: [facility] Renal MD Member Role: Lifetime Consulting Physician Address: Address: [address] [place] [address] [facility] [place] [place] - Name: Gabrielle Kiran RN Position: S RN Member Role: Primary Care Nurse Name: Irene Alcantar RN Position: S RN Member Role: Primary Care Nurse Name: Ingrid Edwards RN Position: S RN Member Role: Primary Care Nurse Care Team Related Persons Name: VENICE HOUSTON Address: home [address] [place] [id number]
--- OUTSIDE RECORDS SUMMARY | 2023-12-13 17:40 | XMS_ITS | Continuity of Care Document ---
Author Organization [facility] Address [address] [place] [address]- Care Team Providers Care Supervisor Home [employer] Service Name Role Phone Monique Ambrose Primary Care Physician Encounter [facility] [place] Date(s): 11/25/22 - 11/28/[address] [address]- Discharge Disposition: A-D/C Home Attending Physician: David Ochoa MD Admitting Physician: Steve Hernandez MD, I Referring Physician: Not on Staff, Referring MD Allergies, Adverse Reactions, Alerts Substance Reaction Severity Status hydrochlorothiazide-triamterene Active penicillins Active Byetta Prefilled Pen Active Immunizations Given and Recorded Vaccine Date Status Refusal Reason [id number] 12y+ bivalent booster vax 05/28/22 Recorded influenza virus vaccine, inactivated 03/08/22 Lew rded SARS-CoV-2 (COVID-19) mRNA-1273 vaccine 11/22/21 R ecorded SARS-CoV-2 (COVID-19) mRNA-1273 vaccine 04/28/21 R ecorded SARS-CoV-2 (COVID-19) mRNA-1273 vaccine 10/18/20 R ecorded SARS-CoV-2 (COVID-19) mRNA-1273 vaccine 09/20/20 R ecorded Not Given Vaccine Date Status Refusal Reason pneumococcal 13-valent vaccine 02/02/19 Not Given Patient Refuses Medications amLODIPine 10 mg oral tablet 10 mg, Tablet, By Mouth, 11/28/22 9:00:00 EDT Start Date: 11/28/22 Stop Date: 11/28/22 Status: Completed amLODIPine 5 mg oral tablet 10 mg, 2, tablet, By Mouth, Daily, # 30 tablet, Refills 0, Maintenance, 03/25/19 2:37:57 EDT Start Date: 09/21/18 Status: Ordered aspirin 81 mg oral tablet 1 tablet = 81 mg, By Mouth, Daily, # 90 tablet, 0 Refills, Maintenance, 12/10/18 10:23:27 EDT, Tablet Start Date: 12/10/18 Status: Ordered Atenolol = 50 mg, By Mouth, Daily, 0 Refills, Maintenance, 09/21/18 2:38:29 EDT Start Date: 09/21/18 Status: Ordered atenolol 25 mg oral tablet 25 mg, Tablet, By Mouth, 11/28/22 9:00:00 EDT Start Date: 11/28/22 Stop Date: 11/28/22 Status: Completed atorvastatin 80 mg oral tablet 1 tablet = 80 mg, By Mouth, Daily, # 30 tablet, 0 Refills, Maintenance, Tablet Start Date: 09/23/18 Status: Ordered Basaglar KwikPen 50-60 Units, Subcutaneous Injection, 2 times a day, before a meal, 0 Refills, Maintenance, 192:35:43 EDT Start Date: 09/21/18 Status: Ordered buPROPion [...] oral tablet 100 mg, Tablet, By Mouth, 11/28/22 9:00:00 EDT Start Date: 11/28/22 Stop Date: 11/28/22 Status: Completed NovoLOG 100 units/mL subcutaneous solution 30-36 Units, Subcutaneous Injection, 3 times a day before [...] Results Orders for Microbiology Reports Name Date Blood Culture 11/25/22 Blood Culture #2 11/25/22 Microbiology Reports TEST:Blood Culture STATUS:Unauthenticated BODY SITE: SOURCE:Blood COLLECTED DATE/TIME:11/25/22 9:50 PM Blood Culture SPECIMEN DESCRIPTION : BLOOD RAC SPECIAL REQUESTS : BLOOD RAC CULTURE : NO GROWTH AFTER 48 HOURS REPORT STATUS : PRELIMINARY REPORT TEST:Blood Culture, Second Order STATUS:Unauthenticated BODY SITE: SOURCE:Blood COLLECTED DATE/TIME:11/25/22 9:50 PM Blood Culture, Second Order SPECIMEN DESCRIPTION : BLOOD RWRIST SPECIAL REQUESTS : BLOOD RWRIST CULTURE : NO GROWTH AFTER 48 HOURS REPORT STATUS : PRELIMINARY REPORT Radiology Reports * Exam Date Time Procedure Performing Provider Status 11/25/22 8:23 PM Chest 2 Views Frontal and Lat Short , Michell; Auth (Verified) Notes: (Chest 2 Views Frontal and Lat) Reason For Exam: CHF, increased shortness of breath, headache, low grade fever, acute weight gain;CHF RESULT: Chest 2 Views Frontal and Lat Chest 2 Views Frontal and Lat Hx of Present Illness: States having increased SOB, headache, low grade fever. Hx CHF, has had 6lb weight gain over 2 days. Takes Lasix at home.; Reason: CHF, increased shortness of breath, headache,low grade fever, acute weight gain; Clinical Question(s): CHF COMPARISON: 08/19/2022 FINDINGS: LINES AND TUBES: None. LUNGS AND PLEURA: Interstitial prominence bilaterally. Ill-defined opacity in the right lung base. HEART, MEDIASTINUM AND ANTHONY: Heart is normal in size. Aorta is calcified. BONES AND SOFT TISSUES: No acute abnormality. IMPRESSION: Increased density in the right lung base could be related to atelectasis or pneumonia. Prominent interstitial densities bilaterally which could be related to interstitial pulmonary edema. WSN: [id number] Ordering Physician: Valerio Delaney Dictated By: Bret Pedro MD Dictated Date/Time: 11/25/22 8:29 pm Reviewed By: Bret Pedro MD Signed By: Bret Pedro MD Signed Date/Time: 11/25/22 8:29 pm Transcribed By: ABDI Transcribed Date/Time: 11/25/22 8:25 pm Vital Signs Most recent to oldest [Reference Range]: 1 2 3 Height 173 cm (11/28/22 7:28 AM) 173 cm (11/28/22 4:16 AM) 173 cm (11/27/22 11:28 PM) Weight 107.3 kg (11/25/22 10:54 PM) 107.3 kg (11/25/22 10:52 PM) 106 kg (11/25/22 7:09 PM) Oxygen Saturation [94-100 %] 93 % *L* (11/28/22 7:28 AM) 95 % (11/28/22 4:16 AM) 93 % *L* (11/27/22 11:28 PM) Pulse Rate [55-90 bpm] 75 bpm (11/28/22 8:12 AM) 60 bpm (11/28/22 7:28 AM) 63 bpm (11/28/22 4:16 AM) Body Mass Index [18.5-24.99 kg/m2] 35.85 kg/m2 *>HHI* (11/25/22 10:54 PM) 35.85 kg/m2 *>HHI* (11/25/22 10:52 PM) Blood Pressure [90-138/55-84 mm Hg] 155/48mm Hg *H* (11/28/22 8:12 AM) 155/48mm Hg *H* (11/28/22 8:12 AM) 155/48mm Hg *H* (11/28/22 8:11 AM) Respiratory Rate [16-30 br/min] 16 br/min (11/28/22 7:28 AM) 20 br/min (11/28/22 4:16 AM) 20 br/min (11/27/22 11:28 PM) Temperature [96.8-100.4 DegF] 97.7 DegF (11/28/22 7:28 AM) 98.5 DegF (11/28/22 4:16 AM) 97.9 DegF (11/27/22 11:28 PM) Liters per Minute 1 L/min (11/28/22 7:28 AM) 1 L/min (11/28/22 4:16 AM) 1 L/min (11/27/22 11:28 PM) Mode of Delivery (Oxygen) Nasal cannula (11/28/22 7:28 AM) Nasal cannula (11/28/22 4:16 AM) Nasal cannula (11/27/22 11:28 PM) Blood pressure sites Arm, left (11/28/22 7:28 AM) Arm, left (11/28/22 4:16 AM) Arm, left (11/27/22 11:28 PM) Temperature Route Oral (11/28/22 7:28 AM) Oral (11/28/22 4:16 AM) Oral (11/27/22 11:28 PM) Dry Weight 104 kg (11/25/22 10:54 PM) 106 kg (11/25/22 7:09 PM) Weight Obtained Via Bed scale (11/25/22 10:54 PM) Bed scale (11/25/22 10:52 PM) Dry Weight Obtained Via Patient/family stated (11/25/22 10:54 PM) Social History Social History Type Response Smoking Status Former smoker, quit more than 30 days ago entered on: 11/25/22 Sex History and physical note * Steve Hernandez MD, I: MODIFY, PERFORM, MODIFY Event Display: History and Physical Hospital Authored Date: [id number] Patient: ??MONY FERRELL ? Age:??71 Years?Sex:??Female?:??1950?? History of Present Illness 71-year-old female with a history of chronic kidney disease, CHF, on furosemide, was on oxygen, hasself weaned her oxygen recently, presents for exertional shortness of breath, hypoxia and weight gain. ??Recent relevant history, the patient had hypertension last week and ??Britni of nephrology increased her atenolol to 50 mg daily, the patient states she did not tolerate this due to dry mouth, she discontinued all of her atenolol, she normally takes Lasix 40 mg daily but has had 6 pounds ofweight gain in the past 4 to 5 days and over the past 3 days has been taking 80 mg daily and attempt to reverse this, concurrent with this she has had increasing shortness of breath. ??She states that she only was able to walk a short distance down the hallway this evening before using her oxygen. ??She has had low-grade fever of 100.4 and no productive cough, no chest pain. ??Endorses compliancewith her medications otherwise and no dietary discretion. ??Upon arrival??to the emergency room,??patient had low-grade fever of 99.4.?? Lab work remarkable for leukocytosis.?? Chest x-ray concerning for??right base??infiltrate and pulmonary edema.?? Patient was started on antibiotics??for presumedcommunity-acquired pneumonia, ceftriaxone and azithromycin.?? She also received IV Lasix for CHF exacerbation.?? Of note patient had very similar admission in July of this year??when she was also treated for??pneumonia and for CHF exacerbation. ??High sensitivity troponin was elevated at 125.??Reviewing old records??over the last year or so??troponin was always above 100.?? Patient denies any chest pain.?? Cardiology service was contacted.?Landon??recommended??to trend troponins. ? Review of Systems Constitutional:??fever Allergy/Immune: Denies any??Eczema or hives Eyes:??No visual loss, blurred vision, double vision or yellow sclera ENT:??No hearing loss, sneezing, congestion, runny nose or sore throat. Respiratory:??SOB Cardiovascular:??No chest pain, chest pressure or chest discomfort. No palpitations or pedal edema. Gastrointestinal:??No anorexia, nausea, vomiting or diarrhea. No abdominal pain or blood in stool. Genitourinary:??No burning micturition. No urinary frequency or incontinence. Neurologic:??No headache, dizziness, syncope, unilateral weakness, ataxia, numbness or tingling in the extremities. No change in bowel or bladder control. Musculoskeletal:??No muscle pain, back pain, joint pain or stiffness. Hematologic/Lymphatics:??No bleeding or bruising. No painful lymph nodes. Skin:??No rash or itching. Endocrine:??No reports of sweating. No cold or heat intolerance. No polyuria or polydipsia. Psychiatric:??No depression or anxiety. Objective Measurements?? Height: 173 cm (11/25/22) Weight: 106 kg (11/25/22) Dry Weight: 106 kg (11/25/22) ? Vital Signs?? Temperature: 99.4 DegF (11/25/22 19:09:00) Temperature Route: Temporal (11/25/22 19:09:00) Pulse Rate: 82 bpm (11/25/22 19:09:00) Respiratory Rate: 22 br/min (11/25/22 19:09:00) Systolic Blood Pressure:??171 mm Hg??High (11/25/22 19:09:00) Diastolic Blood Pressure:??101 mm Hg??High (11/25/22 19:09:00) Mean Arterial Pressure: 124 mm Hg (11/25/22 19:09:00) Pulse Pressure: 70 mm Hg (11/25/22 19:09:00) Oxygen Saturation:??89 %??Low (11/25/22 19:09:00) Mode of Delivery (Oxygen): Room air (11/25/22 19:09:00) ? Pain Scores 1 - 10 Pain Scale Score: 8 (19:09) ? Intake/Output? No Data Available ? Physical Exam Constitutional: Alert, in no distress. Mental Status: Oriented to person, place and time. Head: Normocephalic. Eyes: Pupils are equal, round and reactive to light. Extraocular muscles intact. Ear, Nose and Throat: Oropharynx clear, mucous membranes moist. Ears and nose without masses, lesions or deformities. Trachea midline. Neck: Supple, Full range of motion. Respiratory: Crackles at bases. Cardiovascular: S1 S2 regular. No murmurs, rubs or gallops. Pedal edema Gastrointestinal: Abdomen soft, non-tender, non-distended. Normal bowel sounds. No pulsatile mass. No hepatosplenomegaly. Genitourinary: No costovertebral angle tenderness. Neurologic: Cranial nerves II-XII grossly intact. No focal neurological deficits. Flexor plantar response. Moves all extremities spontaneously. Sensation intact bilaterally. Skin: No rashes or lesions. No petechiae or purpura.?? Musculoskeletal: No cyanosis or clubbing. No gross deformities. Normal range of motion. Heme/Lymphatics/Immun: Palpation of neck reveals no swelling or tenderness of neck nodes. Palpationof groin reveals no swelling or tenderness of groin nodes. Psychiatric: Normal mood and affect Assessment/Plan ?? 71-year-old female with a history of chronic kidney disease, CHF, on furosemide, was on oxygen, hasself weaned her oxygen recently, presents for exertional shortness of breath, hypoxia and weight gain.??Upon arrival??to the emergency room,??patient had low-grade fever of 99.4.?? Lab work remarkable for leukocytosis.?? Chest x-ray concerning for left lobe infiltrate and pulm edema.?? Patient was started on antibiotics??for presumed community-acquired pneumonia, ceftriaxone and azithromycin.?? She also received IV Lasix for CHF exacerbation.?? Of note patient had very similar admission in July of this year??when she was also treated for??pneumonia and for CHF exacerbation. High sensitivity troponin was elevated at 125.?? Reviewing old records??over the last year or so??troponin was always above 100.?? Patient denies any chest pain.?? Cardiology service was contacted.?? DrRas??Landon??recommended??to trend troponins. ?? 1.?? Shortness of breath,??hypoxia,??fever,??leukocytosis,??early infiltrate on chest x-ray.?? We will treat empirically??for community-acquired pneumonia with ceftriaxone and azithromycin. ?? 2.?? 6 pound weight gain,??pulmonary edema on chest x-ray.?? History of CHF??with preserved ejection fraction.?? We will treat with Lasix 40 mg IV twice a day.?? Monitor urine output. ??Repeat basic metabolic panel tomorrow. ?? 3.?? Stage IV CKD.?? Serum creatinine close to baseline. ?? 4.?? Type 2 diabetes.?? Patient told me she is taking??insulin glargine??50-60 units twice a day??and NovoLog??36 units??3 times a day with??meals.?? We will put patient on Lantus 50 units twice a day.?? We will check blood sugars before each meal and cover with insulin sliding scale. ?? 5.?? Hypothyroidism. ??Continue levothyroxine. ?? 6.?? Hypertension.?? Continue amlodipine, atenolol??and??losartan.?? Blood pressure is??on a??high side. ??Will monitor. ??Hopefully??improves with effective diuresis.?? Otherwise may need to adjust blood pressure meds. ?? 7.?? Hyperlipidemia. ??Continue atorvastatin. ?? 8.?? Elevated troponin.?? As mentioned above??troponin??has been above 100??on many occasions??thisyear.?? Patient denies any chest pain.?? EKG without ischemic changes.?? Dr. Navarrete from cardiology service was contacted.?? We will trend troponin per cardiology recommendation. ?? 9.?? DVT prophylaxis with Lovenox. ?? 10.?? CODE STATUS: Full resuscitation. ?? Histories Allergies Allergies ?(Active and Proposed Allergies Only) hydrochlorothiazide-triamterene? (Severity: Unknown severity, Onset: Unknown) Byetta Prefilled Pen? (Severity: Unknown severity, Onset: Unknown) penicillins? (Severity: Unknown severity, Onset: Unknown) ? Past Medical History/Problem List Active Problems??(6) Acute calculous cholecystitis Acute Cholecystitis CKD (chronic kidney disease), stage III HTN (hypertension) Hypothyroid Severe obesity (BMI 35.0-39.9) with comorbidity ? Past Surgical History No surgery history documented. ? Social History Alcohol Details:??Use: Never. Home/Environment Details:??Living situation: Home/Independent. ??Lives with: Significant other. ??Oxygen Home equipment:. Substance Abuse Details:??Use: Never. Tobacco Details:??Use: Former smoker, quit more than 30 days ago. ??Total pack years: 35. ??Stopped at age:56 Years. ? Family History Father: Diabetes mellitus; Heart attack ? Medications Home Medications Amlodipine (amLODIPine 5 mg [...] release tablet)?1?tab(s)?40?Milligram?By Mouth?Daily ? Inpatient Medications Medications (16) Active SCHEDULED: (16) Amlodipine 10 mg Tablet (amLODIPine 10 mg oral tablet) ??10 mg, By Mouth, Daily Aspirin 81 mg Chew Tablet (aspirin 81 mg oral tablet, chewable) ??81 mg, By Mouth, Daily Atenolol 25 mg Tablet (atenolol 25 mg oral tablet) ??25 mg, By Mouth, Daily Atorvastatin 80 mg Tablet (atorvastatin 80 mg oral tablet) ??80 mg, By Mouth, Daily Azithromycin 500 mg IVPB (Azithromycin IVPB) ??500 mg, IVPB, Once Azithromycin 500 mg Tablet (Azithromycin Tablet) ??500 mg, By Mouth, Daily BuPROPion 150 mg SR Tablet (BuPROpion SR Tablet) ??150 mg, By Mouth, 2 times a day Ceftriaxone 1 Gm Inj (Ceftriaxone Inj) ??1 Gm, IVPB, Once Ceftriaxone 1 Gm Inj (Ceftriaxone Inj) ??1 Gm, IVPB, Every 24 hours Enoxaparin 40 mg Inj (Enoxaparin Inj) ??40 mg 0.4 mL, Subcutaneous Injection, Every 24 hours Furosemide Inj (Lasix ??Inj) ??40 mg 4 mL, IV Push Slowly, Once Furosemide Inj (Lasix ??Inj) ??40 mg 4 mL, IV Push Slowly, 2 times a day before breakfast and dinne Insulin Glargine 100 units/mL Inj (Insulin Glargine Inj) ??45 units 0.45 mL, Subcutaneous Injection, 2 times a day Levothyroxine 125 mcg Tablet (levothyroxine 0.125 mg oral tablet) ??125 mcg, By Mouth, Daily Losartan 50 mg Tablet (losartan 50 mg oral tablet) ??100 mg, By Mouth, Daily Pantoprazole 40 mg EC Tablet (Protonix 40 mg oral delayed release tablet) ??40 mg, By Mouth, Daily CONTINUOUS: (0) PRN: (0) ? Results Recent Labs BLOOD COUNT & DIFF WBC 16.5 k/mm3 (High)?? 11/25/2022 20:27 RBC 3.95 m/mm3 (Low)?? 11/25/2022 20:27 Hgb 10.7 Gm/dL (Low)?? 11/25/2022 20:27 Hct 33.2 % (Low)?? 11/25/2022 20:27 MCV 84.1 femtoliters ()?? 11/25/2022 20:27 MCH 27.1 pg ()?? 11/25/2022 20:27 MCHC 32.2 g/dL (Low)?? 11/25/2022 20:27 Platelet Count 249 k/mm3 ()?? 11/25/2022 20:27 RDW-SD 50.4 femtoliters (High)?? 11/25/2022 20:27 MPV 8.7 femtoliters (Low)?? 11/25/2022 20:27 Nucleated RBC (Automated) 0.0 #/100 WBC'S ()?? 11/25/2022 20:27 Abs. NRBC 0.0 k/mm3 ()?? 11/25/2022 20:27 Abs. Neut 12.4 k/mm3 (High)?? 11/25/2022 20:27 Abs. Lymph 1.8 k/mm3 ()?? 11/25/2022 20:27 Abs. [place] 1.5 k/mm3 (High)?? 11/25/2022 20:27 Abs. Eo 0.7 k/mm3 (High)?? 11/25/2022 20:27 Abs. Baso 0.1 k/mm3 ()?? 11/25/2022 20:27 Neut % 75.1 % ()?? 11/25/2022 20:27 Lymph % 11.0 % (Low)?? 11/25/2022 20:27 [place] % 8.8 % ()?? 11/25/2022 20:27 Eos % 4.1 % ()?? 11/25/2022 20:27 Baso % 0.3 % ()?? 11/25/2022 20:27 Imm Gran 0.7 % ()?? 11/25/2022 20:27 Abs. Imm Gran 0.1 k/mm3 ()?? 11/25/2022 20:27 ?? CARDIAC Nt-Probnp 1100 pg/mL (High)?? 11/25/2022 20:27 High Sensitivity Troponin (HSTnT) 129 ng/L (Critical)?? 11/25/2022 20:27 ?? CHEM GENERAL Sodium 139 mmol/L ()?? 11/25/2022 20:27 Potassium 3.6 mmol/L ()?? 11/25/2022 20:27 Chloride 103 mmol/L ()?? 11/25/2022 20:27 Bicarbonate Level 23 mmol/L ()?? 11/25/2022 20:27 Anion Gap 13 ()?? 11/25/2022 20:27 Glucose Level 155 mg/dL (High)?? 11/25/2022 20:27 Glucose, POC 115 mg/dL (High)?? 11/25/2022 21:42 BUN 40 mg/dL (High)?? 11/25/2022 20:27 Creatinine-Blood 1.8 mg/dL (High)?? 11/25/2022 20:27 Estimated GFR Creatinine 28 ML/MIN/1.73 M2 ()?? 11/25/2022 20:27 Calcium 9.1 mg/dL ()?? 11/25/2022 20:27 ?? FLUID STUDIES Hold Other SPECIMEN DISCARDED AFTER 1 WEEK ()?? 11/25/2022 20:27 ?? HEME OTHER Hold Blue Top SPECIMEN DISCARDED AFTER 4 HOURS. ()?? 11/25/2022 20:27 ?? MISC. CHEMISTRY Hold Gel Top SPECIMEN DISCARDED AFTER 1 WEEK ()?? 11/25/2022 20:27 ?? URINE OTHER Est Creatinine Clearance 29.45 mL/min ()?? 11/25/2022 20:51 ?? VIROLOGY COVID-19 by RT-PCR NEGATIVE ()?? 11/25/2022 19:45 ? EKG study * Event Display: ECG 12-Lead Authored Date: Please click on pdf link to open report * Event Display: ECG 12-Lead Authored Date: Ventricular Rate: 77 BPM Atrial Rate: 77 BPM P-R Interval: 262 ms QRS Duration: 94 ms Q-T Interval: 410 ms QTC Calculation(Bazett): 463 ms P [place]: 77 degrees R [place]: -36 degrees T [place]: 136 degrees Sinus rhythm with 1st degree A-V block Left axis deviation Septal infarct , age undetermined ST and T wave abnormality, consider lateral ischemia Abnormal ECG When compared with ECG of 19-AUG-2022 17:35, No significant change was found Confirmed by Jean-Paul Thompson ([id number]) on 11/26/2022 8:28:17 AM [place]: Jean-Paul Thompson [facility] Progress note * Noris Alvarez RN: PERFORM, SIGN, VERIFY Event Display: [facility] Authored Date: Patient: MONY FERRELL Age: 71 years Sex: Female : 1950 Associated Diagnoses: None Author: Noris Alvarez RN Findings Narrative/Incidental Alert and oriented x4, independently ambulatory with steady gait. Up to void multiple times this morning in bathroom. Lung sounds clear with dim bases bilaterally, oxygen saturation of 93% on 1L via nasal cannula. Patient states she uses home oxygen at home, CM in to discuss with patient prior to dc. Discharge instructions provided to patient with spouse present. Patient expressed understanding of instructions. Left unit via wheelchair to home.. * Apryl Powers RN: PERFORM, VERIFY, SIGN Event Display: Progress [facility] Authored Date: [id number] Patient: MONY FERRELL Age: 71 years Sex: Female : 1950 Associated Diagnoses: None Author: Apryl Powers RN Findings Problem Related to Alteration in Respiratory Function (new) : Alteration in Respiratory Function/new 11/28/2022 4:00 EDT Alteration in Resp Status Related to Pneumonia Goals & Outcomes, Respiratory Pt will maintain/resume baseline physical assessment, Pt will notdevelop complications r/t mechanical ventilation, Pt will maintain adequate nutritional intake, Pt will maintain/resume normal fluid/electrolyte balance Interventions, Respiratory Assess for and report S&S of respiratory distress, Position for comfort & optimal oxygenation, Monitor sputum color & consistency. Report changes to MD, Teach/encourage use of incentive spirometer, Teach the proper use of inhalers BH Goals/Interventions, Respiratory Yes Respiratory, Problem Start 11/25/2022 23:04 Reviewed Plan with, Respiratory Patient Patient Progression, Respiratory Patient progressing according to plan . Nursing Data Respiratory/Pulmonary Data. : Respiratory/Pulmonary Data. 11/27/2022 22:23 EDT Left Upper Lobe Breath Sounds Clear Right Upper Lobe Breath Sounds Clear Right Middle Lobe Breath Sounds Clear Left Lower Lobe Breath Sounds Fine crackles Right Lower Lobe Breath Sounds Fine crackles Respiratory Treatment(s) Cough and deep breathe Respiratory WNL except . Narrative/Incidental [id number] safety checks performed, patient resting in bed, alert oriented x4, on NC 1L with SpO2>95%, 2L with ambulation, patient able to make needs known, Safety measures in place: bed in lowest locked position with side rails up x2. Patient belongings at bedside, call light in reach. Policies and procedures reinforced. Patient verbalized understanding. Will assume care of patient and continue to monitor.. * Marci LYON, Johan Burgos: PERFORM Event Display: Progress Note Hospital Authored Date: Patient: ??MONY FERRELL ? Age:??71 Years?Sex:??Female?:??1950?? Subjective 71-year-old female with a history of chronic kidney disease, CHF, on furosemide, was on oxygen, hasself weaned her oxygen recently, presents for exertional shortness of breath, hypoxia and weight gain. [1]? ED notes personally reviewed Outpatient echo 2021 personally reviewed EF 55-60% +mitral stenosis ED bedside ultrasound report shows curly B-lines bilateral telemetry personally reviewed ?? CXR personally reviewed with likely CHF, see read below: ??Increased density in the right lung base could be related to atelectasis or pneumonia. ??Prominent interstitial densities bilaterally which could be related to interstitial pulmonary edema ?? Today she feels like her breathing is significantly improved No resting dyspnea Remains on 1 L oxygen Telemetry reviewed with no significant arrhythmias and will be discontinued ?? We talked about a possible discharge tomorrow??after assessment of her morning labs and volume status by the [facility] hospitalist Review of Systems Objective Measurements?? Height: 173 cm (11/27/22) Weight: 107.3 kg (11/25/22) Dry Weight: 104 kg (11/25/22) Body Mass Index:??35.85 kg/m2??Critical (11/25/22) ? Vital Signs?? Temperature: 98.5 DegF (11/27/22 15:29:00) Temperature Route: Oral (11/27/22 15:29:00) Pulse Rate: 65 bpm (11/27/22 15:29:00) Respiratory Rate: 16 br/min (11/27/22 15:29:00) Systolic Blood Pressure: 134 mm Hg (11/27/22 15:29:00) Diastolic Blood Pressure:??45 mm Hg??Low (11/27/22 15:29:00) Blood pressure sites: Arm, left (11/27/22 15:29:00) Mean Arterial Pressure: 75 mm Hg (11/27/22 15:29:00) Pulse Pressure: 89 mm Hg (11/27/22 15:29:00) Oxygen Saturation: 96 % (11/27/22 15:29:00) Liters per Minute: 1 L/min (11/27/22 15:29:00) Mode of Delivery (Oxygen): Nasal cannula (11/27/22 15:29:00) Early Warning Score: 0 (11/27/22 16:13:03) ? Intake/Output? 11/25 21:35 11/27 07:00 11/26 07:00 11/25 07:00 11/24 07:00 ?? 11/27 16:32 11/27 16:32 11/27 06:59 11/26 06:59 11/25 06:59 Intake ?800 ?0 ?800 ?0 ?0 Output ?0 ?0 ?0 ?0 ?0 Net Total ?800 ?0 ?800 ?0 ?0 ? Urine Count ?5 ?0 ?4 ?1 ?0 ? Physical Exam Alert and oriented x3 in no distress Head neck normocephalic and atraumatic Regular rate and rhythm with no rub JVP??12 cm Rales at the??lung bases bilateral Abdomen soft nontender Lower extremities warm globally perfused with no significant pitting edema Good capillary refill distally 5 out of 5 power in the upper and lower extremities bilateral [1] _ Inpatient Medications Medications (13) Active SCHEDULED: (12) Amlodipine 10 mg Tablet (amLODIPine 10 mg oral tablet) ??10 mg, By Mouth, Daily Aspirin 81 mg Chew Tablet (aspirin 81 mg oral tablet, chewable) ??81 mg, By Mouth, Daily Atenolol 25 mg Tablet (atenolol 25 mg oral tablet) ??25 mg, By Mouth, Daily Atorvastatin 80 mg Tablet (atorvastatin 80 mg oral tablet) ??80 mg, By Mouth, Daily BuPROPion 150 mg SR Tablet (BuPROpion SR Tablet) ??150 mg, By Mouth, 2 times a day Enoxaparin 40 mg Inj (Enoxaparin Inj) ??40 mg 0.4 mL, Subcutaneous Injection, Every 24 hours Furosemide Inj (Lasix ??Inj) ??40 mg 4 mL, IV Push Slowly, 2 times a day before breakfast and dinne Insulin Glargine 100 units/mL Inj (Insulin Glargine Inj) ??50 units 0.5 mL, Subcutaneous Injection,2 times a day Insulin Lispro 100 units/mL Inj (3mL) (Insulin LISPRO Sliding Scale) ??2-10 units, Subcutaneous Injection, 3 times a day before meals Levothyroxine 125 mcg Tablet (levothyroxine 0.125 mg oral tablet) ??125 mcg, By Mouth, Daily Losartan 50 mg Tablet (losartan 50 mg oral tablet) ??100 mg, By Mouth, Daily Pantoprazole 40 mg EC Tablet (Protonix 40 mg oral delayed release tablet) ??40 mg, By Mouth, Daily CONTINUOUS: (0) PRN: (1) Loperamide 2 mg/15 mL Susp UD (Imodium Liquid) ??2 mg 15 mL, By Mouth, Every 3 hours ? 72 Hour Antibiotic History Stopped Antibiotics Stop Date/Time Last Administered First Administered Azithromycin??500 mg, By Mouth, Daily 11/26/2022 13:45 11/26/2022 09:30 11/26/2022 09:30 Ceftriaxone??1 Gm, 100 mL/hr, IVPB, Once 11/25/2022 22:00 11/25/2022 21:56 11/25/2022 21:56 Azithromycin??500 mg, 250 mL/hr, IVPB, Once 11/25/2022 22:00 11/25/2022 21:55 11/25/2022 21:55 ? Results Microbiology ?? COVID-19 (Novel Coronavirus), Rapid PCR?? Completed?? Source: Nasal Body Site: Nose Collected Dt/Tm: 11/25/2022 19:45 Last Updated Dt/Tm: 11/25/2022 20:50 ? Test Name Test Result Date/Time WBC 11.9 k/mm3 11/27/2022 05:50 EDT Hgb 9.2 Gm/dL 11/27/2022 05:50 EDT Platelet Count 201 k/mm3 11/27/2022 05:50 EDT Sodium 143 mmol/L 11/27/2022 05:50 EDT Potassium 3.4 mmol/L 11/27/2022 05:50 EDT Creatinine-Blood 1.8 mg/dL 11/27/2022 05:50 EDT Assessment/Plan Acute on chronic ??diastolic heart failure elevated troponin secondary to demand ischemia from ADHF. No chest pain or ischemic ecg changes CKD stage 3 Diabetes Mellitus type 2 with diabetic nephropathy Chronic exertional dyspnea and hypoxemia (oer pulmonary note by Dr Landry outpatient??09/04/22) ?? She has dyspnea, weight gain, cephalization??and interstitial fluid on the chest x-ray??and curly B-lines on??ED ultrasound She has decompensated acute on chronic heart failure I do not think that there is evidence of an acute coronary syndrome and that the troponin more likely related to demand ischemia secondary to the CHF in the setting of the??renal insufficiency GFR remained stable and should be monitored closely during diuresis Continue with IV diuretic??and monitor urine output??and CBC electrolytes and renal function labs closely I wonder if she is a candidate for SGLT2 inhibitors Continue amlodipine atenolol and losartan. Given that atenolol is renally cleared watch out for any uncontrolled bradycardia Dose medications to GFR less than 30 mL/min Low-sodium diet Insulin glargine??and sliding scale insulin??and follow-up [id number] closely SPO2 goal greater than 92% May need nocturnal O2 I do not see any evidence of pneumonia. ??On 11/26 we stoppoed ceftriaxone and azithromycin Check procalcitonin ?? If no further improvement in respiratory status and certainly if there is any worsening we will consider CT imaging If continues to improve can consider changing over to oral diuretic and discharge tomorrow ?? VTE prophylaxis: Given heart failure and reduced mobility??will order??Lovenox CODE STATUS: Full code ?? 42 minutes spent on this visit including physical exam, lab review, medicine review, patient centered bedside rounds and review of telemetry 49151 [1]??Progress Note; Johan Covarrubias DO 11/26/2022 13:34 EDT Note * Noris Alvarez RN: PERFORM Event Display: Discharge/Transfer Note Hospital Authored Date: [id number] Nursing Discharge Note Entered On: 11/28/2022 11:25 EDT Performed On: 11/28/2022 11:24 EDT by Noris Alvarez RN Nursing Discharge Note 2 Discharge Time : 11/28/2022 11:17 EDT Discharge Level of Care at Discharge : Home/Retirement/Foster Care Patient Left Unit Via : Wheelchair Patient Accompanied Off Unit with : Significant other DC Instructions Provided & Signed by Pt : Yes Patient Understands D/C Instructions : Yes Patient Instructions Discharge Signed : Yes Did Pt have Specialty Bed or Wound Vac : No Antonio RODRIGUEZ, Noris - 11/28/2022 11:24 EDT * Don PINEDA, [facility]: MODIFY, MODIFY, PERFORM Event Display: Discharge/Transfer Note Hospital Authored Date: Patient: ??MONY FERRELL ? Age:??71 Years?Sex:??Female?:??1950?? Patient Information Discharge Location: [facility] Primary Care Physician: Monique Ambrose Admit Date/Time: 11/25/22 21:35 Discharge Disposition Discharge Disposition: Home: No Services Discharge Diagnosis Acute on chronic??diastolic heart failure elevated troponin secondary to demand ischemia from ADHF. No chest pain or ischemic ecg changes CKD stage 3 Diabetes Mellitus type 2 with diabetic nephropathy Chronic exertional dyspnea and hypoxemia (oer pulmonary note by Dr Landry outpatient??09/04/22) _ Discharge Medications Amlodipine (amLODIPine 5 mg oral tablet)?10?Milligram?2?tablet?By Mouth?Daily Aspirin (aspirin 81 mg oral tablet)?1?tab(s)?81?Milligram?By Mouth?Daily Atenolol?50?Milligram?By Mouth?Daily Atorvastatin (atorvastatin 80 mg oral tablet)?1?tab(s)?80?Milligram?By Mouth?Daily BuPROpion (buPROPion 150 mg/12 hours (SR) oral tablet, extended release)?1?tab(s)?150?Milligram?By Mouth?2 times a day Furosemide (Lasix 20 mg oral tablet)?40?Milligram?2?tablet?By Mouth?Daily?for 30?Days Insulin Aspart (NovoLOG 100 units/mL subcutaneous solution)?30-36 Units?Subcutaneous Injection?3 times a day before meals Insulin Glargine (Basaglar KwikPen)?50-60 Units?Subcutaneous Injection?2 times a day?before a meal Levothyroxine (levothyroxine 125 mcg (0.125 mg) oral tablet)?1?tab(s)?125?Microgram?By Mouth?Daily Losartan?100?Milligram?By Mouth?Daily Pantoprazole (Protonix 40 mg oral delayed release tablet)?1?tab(s)?40?Milligram?By Mouth?Daily PCP Follow-Up/Heads-Up F/u on CHF exacerbation and management of diuresis regimen Hospital Course Patient is a??71-year-old female with a history of chronic kidney disease, CHF, on furosemide, was on oxygen, has self weaned her oxygen recently, presented for exertional shortness of breath, hypoxia and weight gain. H ?? Acute on chronic diastolic heart failure elevated troponin secondary to demand ischemia from ADHF. No chest pain or ischemic ecg changes CKD stage 3 Diabetes Mellitus type 2 with diabetic nephropathy Chronic exertional dyspnea and hypoxemia (oer pulmonary note by Dr Landry outpatient 09/04/22) ?? Outpatient echo 2021 reviewed. Her EF 55-60% +mitral stenosis. ED bedside ultrasound report shows curly B-lines bilateral. CXR reviewed with likely CHF. Increased density in the right lung base couldbe related to atelectasis or pneumonia. Prominent interstitial densities bilaterally which could berelated to interstitial pulmonary edema. She remains on 1 L oxygen which is baseline. She was continued on IV diuretic. Creatinine remained stable. There is evidence of an acute coronary syndrome and that the troponin more likely related to demandischemia secondary to the CHF in the setting of the renal insufficiency. Euvolemic prior to discharge. Can be discharged on 40 mg PO lasix daily. Procalcitonin 0.11 but do not suspect any evidence of pneumonia. On 11/26 we stopped ceftriaxone andazithromycin She can follow up with PCP and nephrology outpatient She can discuss SGLT2 inhibitors with PCP Continue amlodipine atenolol and losartan. Low-sodium diet instructions and CHF instructions at discharge. ?? Objective Assessment and Plan ? Vital Signs?? Temperature: 97.7 DegF (11/28/22 07:28:00) Temperature Route: Oral (11/28/22 07:28:) Pulse Rate: 75 bpm (11/28/22 08:12:00) Respiratory Rate: 16 br/min (11/28/22 07:28:) Systolic Blood Pressure:??155 mm Hg??High (11/28/22 08:12:00) Systolic Blood Pressure:??155 mm Hg??High (11/28/22 08:12:00) Diastolic Blood Pressure:??48 mm Hg??Low (11/28/22 08:12:00) Diastolic Blood Pressure:??48 mm Hg??Low (11/28/22 08:12:00) Blood pressure sites: Arm, left (11/28/22 07:28:00) Mean Arterial Pressure: 84 mm Hg (11/28/22 07:28:00) Pulse Pressure: 107 mm Hg (11/28/22 07:28:00) Oxygen Saturation:??93 %??Low (11/28/22 07:28:00) Liters per Minute: 1 L/min (11/28/22 07:28:00) Mode of Delivery (Oxygen): Nasal cannula (11/28/22 07:28:00) Early Warning Score: 4 (11/28/22 08:42:10) ? . Physical Exam General: elderly female, lying in bed, in no acute distress;??AAOx3 Neck: Supple, no JVD HEENT: oral membranes moist Heart: regular rhythm, S1 and S2 heard, no MRGs Lungs: CTA bilaterally, no rales, rhonchi, wheezing or rubs. Patient not in respiratory distress Abdomen: soft, non-tender, non-distended, +BS in all quadrants. No organomegaly Extremities: Warm, no edema b/l. Neuro: speaking in full sentences, CN 2-12 grossly intact Psych: appropriate mood, calm, cooperative Patient Education Titles Heart Failure Discharge Instructions for Heart Failure?? Follow-Up Appointments Added Follow Up ?Time Frame ?Comments Monique Ambrose?2 to 3 weeks?Please see your primary care physician for management of your chronic medical conditions and for refill of your medications Patient Instructions You were admitted for CHF exacerbation. You are back to your dry weight today. You will be continued to Lasix 40 mg PO daily after discharge You are doing well on room air. You can be discharged home today. Follow up with your channeling machine operator, renal doctor and primary care provider If your symptoms worsen you can come back to the emergency department. ?? Post Discharge Care F/u with PCP, ham doctor, channeling machine operator Home Health Face to Face ^HomeHealthFTF Results Discharge Labs BLOOD COUNT & DIFF WBC 12.8 k/mm3 (High)?? 11/28/2022 04:40 RBC 3.47 m/mm3 (Low)?? 11/28/2022 04:40 Hgb 9.3 Gm/dL (Low)?? 11/28/2022 04:40 Hct 28.9 % (Low)?? 11/28/2022 04:40 MCV 83.3 femtoliters ()?? 11/28/2022 04:40 MCH 26.8 pg (Low)?? 11/28/2022 04:40 MCHC 32.2 g/dL (Low)?? 11/28/2022 04:40 Platelet Count 237 k/mm3 ()?? 11/28/2022 04:40 RDW-SD 48.9 femtoliters (High)?? 11/28/2022 04:40 MPV 8.8 femtoliters (Low)?? 11/28/2022 04:40 Nucleated RBC (Automated) 0.0 #/100 WBC'S ()?? 11/28/2022 04:40 Abs. NRBC 0.0 k/mm3 ()?? 11/28/2022 04:40 Abs. Neut 9.6 k/mm3 (High)?? 11/26/2022 05:46 Abs. Lymph 1.6 k/mm3 ()?? 11/26/2022 05:46 Abs. [place] 1.4 k/mm3 (High)?? 11/26/2022 05:46 Abs. Eo 0.4 k/mm3 ()?? 11/26/2022 05:46 Abs. Baso 0.0 k/mm3 ()?? 11/26/2022 05:46 Neut % 73.7 % ()?? 11/26/2022 05:46 Lymph % 12.1 % (Low)?? 11/26/2022 05:46 [place] % 10.4 % ()?? 11/26/2022 05:46 Eos % 3.1 % ()?? 11/26/2022 05:46 Baso % 0.2 % ()?? 11/26/2022 05:46 Imm Gran 0.5 % ()?? 11/26/2022 05:46 Abs. Imm Gran 0.1 k/mm3 ()?? 11/26/2022 05:46 ?? CARDIAC Nt-Probnp 1100 pg/mL (High)?? 11/25/2022 20:27 High Sensitivity Troponin (HSTnT) 130 ng/L (Critical)?? 11/26/2022 05:46 ?? CHEM GENERAL Sodium 142 mmol/L ()?? 11/28/2022 04:40 Potassium 3.3 mmol/L (Low)?? 11/28/2022 04:40 Chloride 104 mmol/L ()?? 11/28/2022 04:40 Bicarbonate Level 26 mmol/L ()?? 11/28/2022 04:40 Anion Gap 12 ()?? 11/28/2022 04:40 Glucose Level 155 mg/dL (High)?? 11/25/2022 20:27 Glucose, POC 62 mg/dL (Low)?? 11/28/2022 07:59 BUN 36 mg/dL (High)?? 11/26/2022 05:46 Creatinine-Blood 1.9 mg/dL (High)?? 11/28/2022 04:40 Estimated GFR Creatinine 26 ML/MIN/1.73 M2 ()?? 11/28/2022 04:40 Calcium 9.1 mg/dL ()?? 11/25/2022 20:27 Magnesium 1.8 mg/dL ()?? 11/27/2022 05:50 ?? FLUID STUDIES Hold Other SPECIMEN DISCARDED AFTER 1 WEEK ()?? 11/25/2022 20:27 ? HEME OTHER Hold Blue Top SPECIMEN DISCARDED AFTER 4 HOURS. ()?? 11/25/2022 20:27 ? MISC. CHEMISTRY Procalcitonin 0.11 ng/mL ()?? 11/25/2022 20:27 Hold Gel Top SPECIMEN DISCARDED AFTER 1 WEEK ()?? 11/25/2022 20:27 ?? URINE OTHER Est Creatinine Clearance 27.90 mL/min ()?? 11/28/2022 06:20 ? VIROLOGY COVID-19 by RT-PCR NEGATIVE ()?? 11/25/2022 19:45 ? 33 minutes spent on discharge * oNris Alvarez RN: PERFORM Event Display: Patient Education/Instruction Authored Date: [id number] Inpatient Adult Discharge Instructions [place] [id number] Name: MONY FERRELL : 1950 Visit: 11/25/2022 21:35:00 Current Date: 11/28/2022 10:42 Account: [id number] Inpatient Adult Discharge Instructions We would like [...] and their families. Surveys are administered by [employer] ?? If further treatment with your primary care physician or another doctor is recommended, it is important for you to keep the appointment. Call your primary care physician or return to the Emergency Department immediately if your condition worsens, fails to improve, or new symptoms develop. If you need to find a doctor, you can call [facility] for a referral at [phone] or toll free at [phone] or log in to [email or web address].. ?? You can view and manage your care through the patient portal or by using a health care jose of your choosing. [employer] is a website that allows you to securely view your medical information including your hospital discharge summary, office visit summaries, medications and follow-up visits. You can also request appointments, renew medications, and request access to your medical information using a health care jose of your choosing, or just ask a question. You can enroll at [email or web address] or register during your next office visit. You have been discharged from [facility], Patient Care Unit: [facility]3. If you have any questions regarding these instructions after you leave, please call us and we will be happy to assist you. [facility] Your Care Team Attending Physician David Ochoa MD Discharging Providers David Ochoa MD Reason for Your Visit Shortness of breath Your Diagnosis Shortness of breath Tests Performed Below is a partial list of the tests performed during your hospitalization. You may have had other tests and procedures not included in this list. Please discuss all test results with your provider. Basic Metabolic Panel BUN CBC CBC w/ Differential COVID-19 (Novel Coronavirus), Rapid PCR Creatinine Electrolytes GLUCOSE POC High??Sensitivity??Troponin T HOLD BLUE TUBE HOLD GEL TUBE HOLD OTHER TUBE Lytes Magnesium Level ProBNP PROCALCITONIN, SERUM Troponin T, High Sensitivity XR Chest 2 Views Frontal and Lat Primary Care Provider Monique Ambrose Discharge Vitals Temperature: 97.7 DegF Height: 173 cm Pulse Rate: 75 bpm Weight: 107.3 kg Respiratory Rate: 16 br/min Body Mass Index:??35.85 kg/m2??Critical Systolic Blood Pressure:??155 mm Hg??High Body surface area: 2.27 Systolic Blood Pressure:??155 mm Hg??High ?? Diastolic Blood Pressure:??48 mm Hg??Low ?? Diastolic Blood Pressure:??48 mm Hg??Low ?? Oxygen Saturation:??93 %??Low ?? Studies Pending All tests and labs ordered during this hospital stay have been completed unless listed below. Please discuss all pending results with your provider listed above in these instructions. ?? Add On Lab Order Blood Culture Blood Culture #2 What to do next Instructions From Your Doctor You were admitted for CHF exacerbation. You are back to your dry weight today. You will be continued to Lasix 40 mg PO daily after discharge You are doing well on room air. You can be discharged home today. Follow up with your channeling machine operator, renal doctor and primary care provider If your symptoms worsen you can come back to the emergency department. ?? Discharge Orders Instructions from your Care Team Elidia from case management has discussed your home oxygen situation, please follow-up as necessary.Thank you!! You Need to Schedule the Following Appointments Follow Up with??Nakul Vitale When:??12/10/2022 01:30 PM EDT Why: YOU HAVE AN APPOINTMENT ON November AT 1:30 PM WITH NAKUL VITALE WHO WILL BE COVERING YOU IN PLACE OF MONIQUE AMBROSE. Where: [address] [place] [id number]- Business (1) Follow Up with??Monique Ambrose When:??Within 2 to 3 weeks Why: Please see your primary care physician for management of your chronic medical conditions and for refill of your medications Where: [address] [place] [id number] Discharge Medications RORYMONY PAULINO :1950 Visit Date:11/25/2022 Medications: Please continue your medications until treatment is completed or stopped by your provider. Medications not listed below should be discontinued. Discuss any questions related to medications with your provider. What How Much When Instructions Next Dose Unchanged Atenolol 50 Milligram Oral Daily Tomorrow morning Unchanged Amlodipine (amLODIPine 5 mg oral tablet) [...] Daily Duration: 30 Days Tomorrow morning Unchanged Insulin Aspart (NovoLOG 100 units/ mL subcutaneous solution) 30-36 Units Subcutaneous Injection 3 times a day before meals Before your next meal based on your blood glucose Unchanged Insulin Glargine (Basaglar KwikPen) 50-60 Units Subcutaneous Injection Twice a day before a meal ?? Tonight before bed Unchanged Levothyroxine (levothyroxine 125 mcg (0.125 mg) oral tablet) 1 tab(s) Oral Daily Tomorrow morning Unchanged Losartan 100 Milligram Oral Daily Tomorrow morning Unchanged Pantoprazole (Protonix 40 mg oral delayed release tablet) 1 tab(s) Oral Daily Tomorrow morning Test Results Below is a partial list of the most recent Laboratory test results done prior to this discharge. You may have had other tests and procedures not included in this list. Please discuss all test resultswith your provider. Est Creatinine Clearance - 27.90 mL/min (11/28/2022) Basic Metabolic Panel (11/25/2022) ???Sodium - 139 mmol/L???Potassium - 3.6 mmol/L???Chloride - 103 mmol/L???Bicarbonate Level - 23 mmol/L???Anion Gap - 13???Glucose Level - 155 mg/dL???BUN - 40 mg/dL???Creatinine-Blood - 1.8 mg/dL???Estimated GFR Creatinine - 28 ML/MIN/1.73 M2???Calcium - 9.1 mg/dL BUN (11/26/2022) ???BUN - 36 mg/dL CBC (11/28/2022) ???WBC - 12.8 k/mm3???RBC - 3.47 m/mm3???Hgb - 9.3 Gm/dL???Hct - 28.9 %???MCV - 83.3 femtoliters???MCH - 26.8 pg???MCHC - 32.2 g/dL???Platelet Count - 237 k/mm3???RDW-SD - 48.9 femtoliters???MPV - 8.8 femtoliters???Nucleated RBC (Automated) - 0.0 #/100 WBC'S???Abs. NRBC - 0.0 k/mm3 CBC w/ Differential (11/26/2022) ???WBC - 13.1 k/mm3???RBC - 3.57 m/mm3???Hgb - 9.7 Gm/dL???Hct - 30.6 %???MCV - 85.7 femtoliters???MCH - 27.2 pg???MCHC - 31.7 g/dL???Platelet Count - 217 k/mm3???RDW-SD - 51.0 femtoliters???MPV - 9.0 femtoliters???Nucleated RBC (Automated) - 0.0 #/100 WBC'S???Abs. NRBC - 0.0 k/mm3???Abs. Neut - 9.6 k/mm3???Abs. Lymph - 1.6 k/mm3???Abs. [place] - 1.4 k/mm3???Abs. Eo - 0.4 k/mm3???Abs. Baso - 0.0 k/mm3???Neut % - 73.7 %???Lymph % - 12.1 %???[place] % - 10.4 %???Eos % - 3.1 %???Baso % - 0.2 %???Imm Gran - 0.5 %???Abs. Imm Gran - 0.1 k/mm3 COVID-19 (Novel Coronavirus), Rapid PCR (11/25/2022) ???COVID-19 by RT-PCR - NEGATIVE Creatinine (11/28/2022) ???Creatinine-Blood - 1.9 mg/dL???Estimated GFR Creatinine - 26 ML/MIN/1.73 M2 Electrolytes (11/26/2022) ???Sodium - 141 mmol/L???Potassium - 3.6 mmol/L???Chloride - 105 mmol/L???Bicarbonate Level - 24 mmol/L???Anion Gap - 12 GLUCOSE POC (11/28/2022) ???Glucose, POC - 62 mg/dL High??Sensitivity??Troponin T (11/25/2022) ???High Sensitivity Troponin (HSTnT) - 129 ng/L Lytes (11/28/2022) ???Sodium - 142 mmol/L???Potassium - 3.3 mmol/L???Chloride - 104 mmol/L???Bicarbonate Level - 26 mmol/L???Anion Gap - 12 Magnesium Level (11/27/2022) ???Magnesium - 1.8 mg/dL ProBNP (11/25/2022) ???Nt-Probnp - 1100 pg/mL PROCALCITONIN, SERUM (11/25/2022) ???Procalcitonin - 0.11 ng/mL Troponin T, High Sensitivity (11/26/2022) ???High Sensitivity Troponin (HSTnT) - 130 ng/L Allergies (NKA means No Known Allergies) [place]etta Prefilled Pen hydrochlorothiazide-triamterene penicillins Education Materials Below is the list of Educational Leaflet Providered with your Discharge Instructions. Heart Failure Discharge Instructions for Heart Failure?? Valuables and Belongings I fully understand and agree that [facility] accepts no responsibility for all my [...] patient Date for Pt to Sign Valuables/Belongings: 11/25/22 22:54:00 ?? Common Emergency Awareness Tips IS IT A [...] are strongly encouraged to quit. Please call [facility] [employer] - [employer] Fees Link at [phone] or [phone] Profiles ([phone]) or log in to [email or web address] for referrals to smoking cessation programs. ?? 600 Suicide & Crisis Lifeline is available 20/01 if you or someone you know needs to find a reason to keep living. By calling 178 you'll be connected to a skilled, trained counselor at a crisis center in your area. INPATIENT DISCHARGE INSTRUCTIONS SIGNATURE MONY SANTANA Location:[facility] Registration Date and Time:11/25/2022 21:35 EDT Primary Care Physician: Monique Ambrose, Attending Physician: Don PINEDA [facility], I MONY FERRELL, have received the above patient education materials/instructions and have verbalized understanding. If ambulance or transport services are being used I further acknowledge being givena choice of service. ?? If you need to contact me, please call me at this number: . Patient/Protective Signal Installer Name: Patient/Protective Signal Installer Signature: Relationship to Patient: Witness Name/Signature: Date: * Geoff Joaquin: PERFORM, SIGN, VERIFY Event Display: Patient Education Handout Authored Date: [id number] * David Ochoa MD: PERFORM Event Display: Patient Education Leaflets Authored Date: [id number] Heart Failure Discharge Instructions for Heart Failure [...] not resolve with rest or nitroglycerin ??? [place], foamy mucus with cough and shortness of breath ??? A continuous rapid or irregular heartbeat ??? Passing out or fainting ??? Stroke symptoms such as sudden numbness or weakness on one side of your face, arm, or leg or sudden confusion, trouble speaking or vision changes ? Please refer to the Heart Failure Handbook for more information. ? Laboratory * [facility] , CIS S: TRANSCRIBret Silva MD: VERIFY Event Display: Result: Authored Date: [id number] Chest 2 Views Frontal and Lat Hx of Present Illness: States having increased SOB, headache, low grade fever. Hx CHF, has had 6lb weight gain over 2 days. Takes Lasix at home.; Reason: CHF, increased shortness of breath, headache,low grade fever, acute weight gain; Clinical Question(s): CHF COMPARISON: 08/19/2022 FINDINGS: LINES AND TUBES: None. LUNGS AND PLEURA: Interstitial prominence bilaterally. Ill-defined opacity in the right lung base. HEART, MEDIASTINUM AND ANTHONY: Heart is normal in size. Aorta is calcified. BONES AND SOFT TISSUES: No acute abnormality. IMPRESSION: Increased density in the right lung base could be related to atelectasis or pneumonia. Prominent interstitial densities bilaterally which could be related to interstitial pulmonary edema. WSN: [id number] Ordering Physician: Valerio Delaney Dictated By: Bret Pedro MD Dictated Date/Time: 11/25/22 8:29 pm Reviewed By: Bret Pedro MD Signed By: Bret Pedro MD Signed Date/Time: 11/25/22 8:29 pm Transcribed By: CSKwame Transcribed Date/Time: 11/25/22 8:25 pm Patient Care team information Care Team Personnel Name: Delicia Castrejon RN Position: [facility] OB RN Member Role: Primary Care Nurse Name: Monse Dubois RN Position: [facility] RN Member Role: Primary Care Nurse Name: Ava Mishra RN Position: [facility] RN Member Role: Primary Care Nurse Name: Monique Ambrose Position: [facility] Outreach Member Role: PCP Address: Address: [address] [place] [id number] Name: Wendy Shay RN Position: [facility] RN Member Role: Primary Care Nurse Name: Irene Alcantar RN Position: [facility] RN Member Role: Primary Care Nurse Name: Valerio Delaney MD Position: [facility] ED Medicine MD Member Role: ED Attending Physician Address: Address: [address] [place] [id number]- Name: Larry Peña RN Position: [facility] ED RN W/OE and Tasks Member Role: Patient Care Provider Name: Elvin Olivia Position: [facility] ED OA Charge Member Role: ED Associate Care Team Related Persons Name: ZARA HOUSTON Address: [address] [address]
[2023-12-13 18:11] LABS: Glucose, Whole Blood 120 mg/dL (60-115)
--- NOTE | 2023-12-13 18:17 | PC.NURSE ---
Pt a/ox4, biba for low blood sugar. POC 46 at facility, most recent POC 120. Lung sounds cta bilaterally, S1 and S2 heard, abdomen soft, non-tender, normo-active bowel sounds, skin pwd. Pt rating pain 4/10-per baseline. Awaiting lab results. Resting in bed quietly, call adhikari within reach.
--- NOTE | 2023-12-13 18:20 | ED.GENADULT ---
HPI - General Adult General Chief complaint: General Medical Stated complaint: BGL >70, altered on arrival Time Seen by Provider: 12/13/23 18:00 Source: patient and EMS Mode of arrival: EMS Limitations: no limitations History of Present Illness ED Provider: Dr. Isidra Bains HPI narrative: Patient comes to the emergency room complaining of low blood sugar. Patient states she does not remember much of what happened. However, patient states that she is getting her usual dose of insulin and patient has not been eating. Patient has been 1 day at [facility] and states that she absolutely dislikes the food there and has not been eating. Patient states she is therefore short term rehab and then is hoping to go home when her legs get stronger. Patient denies any falls or any injuries, no UTIs or URI symptoms. According to EMS, patient's initial blood glucose was 46, patient was clammy and pale. Now patient states that she feels back to normal. Related Data Allergies Allergy/AdvReac Type Severity Reaction Status Date / Time furosemide [From Lasix] Allergy Rash Verified 12/13/23 17:01 Penicillins Allergy Anaphylaxis Verified 12/13/23 17:01 exenatide [From Byetta] AdvReac Vomiting Verified 12/13/23 17:01 Review of Systems Review of Systems: Constitutional : No Weight loss, No Fever, No Chills, No Night Sweats, No Fatigue, No Malaise ENT/Mouth : No Hearing loss, No Ear Pain, No Nasal Congestion, No Sinus Pain, No Hoarseness, No sore throat, No Rhinorrhea, No Swallowing Difficulty Eyes: No Eye Pain, No Swelling, No Redness, No Foreign Body, No Discharge, No Vision Changes Cardiovascular : No Chest Pain, No SOB, No Dyspnea on Exertion, No Orthopnea, No Edema, No Palpitations Respiratory : No Cough, No Sputum, No Wheezing, No Smoke Exposure, No Dyspnea Gastrointestinal : No Nausea, No Vomiting, No Diarrhea, No Constipation, No abdominal Pain, No Hematochezia, No Melena Genitourinary : no irregular bleeding, No Dysuria, No Urinary Frequency, No Hematuria, No Urinary Incontinence, No Urgency, No Flank Pain, No Urinary Flow Changes, No Hesitancy Musculoskeletal : No joint pain, No Myalgias, No Joint Swelling Skin : No Skin Lesions, No rash Neuro : No Weakness, No Numbness, No Paresthesias, No Loss of Consciousness, No Dizziness, No Headache Psych : No Anxiety/Panic, No Depression, No SI/HI/AH/VH, No Social Issues, Heme/Lymph: No Bruising, No Bleeding,No Lymphadenopathy Endocrine : No Polyuria, No Polydipsia, low blood sugar [facility] Past Medical History Medical History (Updated 12/13/23 @ 19:56 by Isidra Bains MD) Hypothyroidism Hyperlipidemia Diabetes Social History Social History Smoked in Last 30 Days: No Use of substances other than those prescribed or required for medical reasons: No Advance Directives: No Advance Directives Information Provided: Yes Physical Exam ED Vital Signs: Vital Signs - 24 hr 12/13/23 16:54 12/13/23 16:59 12/13/23 18:54 Temperature 98.0 F 96.8 F 96.9 F Pulse Rate 71 71 70 Respiratory Rate 20 21 H 14 Blood Pressure 126/42 L 126/42 L 132/43 L Pulse Oximetry 95 95 97 Oxygen Delivery Method Room Air Nasal Cannula Nasal Cannula Oxygen Flow Rate 1 1 BMI result Body Mass Index 35.0 Const Other: Appearance: Alert. Oriented X3. No acute distress. Eyes: Pupils equal, round and reactive to light. ENT: Pharynx normal. Neck: Normal inspection. Neck supple. No lymph nodes noted. No crepitus CVS: Normal heart rate and rhythm. Pulses normal. Normal S1 and S2 Respiratory: No respiratory distress. Breath sounds normal. No Wheezing. No rales Abdomen: Soft and nontender. No rigidity. No distention. Skin: Skin warm and dry. Normal skin color. Normal skin turgor. Extremities: No lower extremity edema. No Lacerations. No Rash, chronic bilateral weakness able to move both legs but seems weak Neuro: Oriented X 3. No motor deficit. No sensory deficit. Moving all extremities. No slurred speech. CN 2 through 12 grossly intact Psych: calm, cooperative, normal affect Medical Decision Making Medical Decision Making MDM Narrative: Patient's blood glucose improved to 120 after ingesting 1 tube of oral glucose, 2 cups of orange juice with soda which was given at her facility. All of patient's labs pending -I requested records from [facility], patient's discharge hemoglobin was 7.2, BUN 44, creatinine 6.74. -my interpretation of labs, patient's hemoglobin 7.5, BUN 44, creatinine 6.63 -patient's labs are at baseline, patient's glucose 122, patient ready for discharge. -discussed with the patient that at this time we will not change her dose of medications but she needs to eat Differential Diagnosis Differential Diagnoses: The differential diagnosis associated with the presentation includes Admission/Observation Consideration of admission/observation: Escalation of care including admission/observation considered (Given patient's presentation and labs, admission/observation considered) Lab Data MDM Lab Attestation statement: I reviewed the patient's lab results. 12/13/23 18:32 12/13/23 18:32 Labs: Lab Results 12/13/23 12/13/23 12/13/23 Range/Units 16:55 18:08 18:32 WBC 9.0 (4.8-10.8) X10*3/uL RBC 2.68 L (4.20-5.50) X10*6/uL Hgb 7.5 L (12.0-16.0) g/dl Hct 23.1 L (37.0-47.0) % MCV 86.2 (80.0-98.0) fL MCH 28.0 (27.0-33.0) pg MCHC 32.5 (31.0-35.0) g/dl RDW 15.1 (11.0-16.0) % Plt Count 177 (160-400) X10*3/uL MPV 8.6 L (9.4-12.3) fL Immature Gran % (Auto) 0.6 H (0.0-0.4) % Neut % (Auto) 82.2 H (45-73) % Lymph % (Auto) 6.2 L (20-40) % [place] % (Auto) 9.5 (2-11) % Eos % (Auto) 1.2 (0-4) % Baso % (Auto) 0.3 (0-2) % Lymph # (Auto) 0.6 L (1.2-4.9) X10*3/uL [place] # (Auto) 0.9 (0.1-1.2) X10*3/uL Eos # (Auto) 0.1 (0.0-0.4) X10*3/uL Baso # (Auto) 0.0 (0.0-0.2) X10*3/uL Abs Immat Gran (auto) 0.05 H (0.00-0.03) X10*3/uL Absolute Neuts (auto) 7.4 (2.0-8.3) x10*3/uL Absolute Nucleated RBC 0.000 (0.0-0.012) X10*3/uL Nucleated RBC % (auto) 0.0 (0.0-0.2) /100WBC Sodium 139 (135-145) mmol/L Potassium 3.7 (3.3-5.1) mmol/L Chloride 99 (96-108) mmol/L Carbon Dioxide 25 (22-29) mmol/L Anion Gap 19 (12-20) BUN 37 H (9-16) mg/dL Creatinine 6.63 H* (0.5-1.4) mg/dL Estim Creat Clear Calc 9.4 Estimated GFR 6 POC Glucose 103 120 H (60-115) mg/dL Random Glucose 122 H (60-115) mg/dL Calcium 8.7 (8.4-10.2) mg/dL Total Bilirubin 0.5 (0.0-1.0) mg/dL Direct Bilirubin 0.2 (0.0-0.5) mg/dL AST 19 (5-31) U/L ALT 18 (0-31) U/L Alkaline Phosphatase 91 (39-117) U/L Total Protein 6.2 L (6.5-8.0) g/dL Albumin 3.1 L (3.5-5.0) g/dL Discharge Plan Discharge Clinical Impression: Hypoglycemia Patient Disposition: Home, Self-Care Instructions: Hypoglycemia in a Person with Diabetes (ED) Additional Instructions: Please follow-up with your primary care physician tomorrow. If you have any worsening or new symptoms, please return to the emergency room or call 911 Print Language: Com[place]an
[2023-12-13 18:39] LABS: MANUAL DIFF FLAG NO
[2023-12-13 18:43] LABS: Basophils Percent Auto 0.3 % (0-2); Eosinophils Absolute Auto 0.1 X10*3/uL (0.0-0.4); Eosinophils Percent Auto 1.2 % (0-4); Hematocrit 23.1 % (37.0-47.0); Hemoglobin 7.5 g/dl (12.0-16.0); Imm Gran Abs Auto 0.05 X10*3/uL (0.00-0.03); Imm Gran Pct Auto 0.6 % (0.0-0.4); Lymphocytes Absolute Auto 0.6 X10*3/uL (1.2-4.9); Lymphocytes Percent Auto 6.2 % (20-40); Mean Corpuscular HGB Conc 32.5 g/dl (31.0-35.0); Mean Corpuscular Volume 86.2 fL (80.0-98.0); Mean Platelet Volume 8.6 fL (9.4-12.3); Monocytes Absolute Auto 0.9 X10*3/uL (0.1-1.2); Monocytes Percent Auto 9.5 % (2-11); Neutrophils Absolute Auto 7.4 x10*3/uL (2.0-8.3); Neutrophils Percent Auto 82.2 % (45-73); Platelet Count 177 X10*3/uL (160-400); Red Blood Count 2.68 X10*6/uL (4.20-5.50); Red Cell Distribution Width 15.1 % (11.0-16.0)
[2023-12-13 18:54] VITALS: BP 132/43; PULSE 70; RESP 14; TEMP 36.1; O2SAT 97
[2023-12-13 19:13] LABS: Alanine Aminotransferase 18 U/L (0-31); Albumin Level 3.1 g/dL (3.5-5.0); Alkaline Phosphatase 91 U/L (39-117); Anion Gap 19 (12-20); Aspartate Amino Transferase 19 U/L (5-31); Bilirubin Direct 0.2 mg/dL (0.0-0.5); Bilirubin Total 0.5 mg/dL (0.0-1.0); Blood Urea Nitrogen 37 mg/dL (9-16); Calcium 8.7 mg/dL (8.4-10.2); Carbon Dioxide 25 mmol/L (22-29); Chloride 99 mmol/L (96-108); Glucose Random 122 mg/dL (60-115); Potassium 3.7 mmol/L (3.3-5.1); Sodium 139 mmol/L (135-145); Total Protein 6.2 g/dL (6.5-8.0)
[2023-12-13 19:22] LABS: Creatinine Clr Calc Pharmacy 9.4; Estimated Glomerular Filt Rate 6
--- NOTE | 2023-12-13 19:45 | PC.NURSE ---
Assumed care of pt. Pt lying on stretcher, no acute distress at this time. preparing for discharge back to facility.
[2023-12-13 21:23] VITALS: BP 140/70; PULSE 68; RESP 16; TEMP 36.8; O2SAT 98
== END 2023-12-13 22:30 | disposition home or self-care (01) ==
PROVIDERS: Emergency Provider Emergency Medicine
DX: E11.649 Type 2 diabetes mellitus with hypoglycemia without coma (principal); E78.5 Hyperlipidemia, unspecified
CPT/HCPCS: 36415; 80048; 80076; 82947; 85025; 99283; 99284